=== PATIENT | male | born 1970 | race African-American/Black ===

== ENCOUNTER 2020-06-18 06:09 | Outpatient (REF) | payer OTHER, SELFPAY ==
--- NOTE | 2020-06-18 06:13 | CT_ITS ---
EXAMINATION: CT CHEST, ABDOMEN AND PELVIS WITH IV CONTRAST CLINICAL INFORMATION: Follow-up pancreatic cancer COMPARISON: Previous CT scans most recent January 2020 TECHNIQUE: Axial images through the chest, abdomen and pelvis following oral and 85 ML Omnipaque 350 intravenous contrast. Sagittal and coronal reconstructions on the technologist workstation were performed. Patient dose 1 8 8 mg/cm. This CT examination was performed using dose optimization techniques as appropriate, variously including the following: *Automated exposure control *Adjustment of mA and/or kV according to patient size (this includes techniques or standardized protocols for targeted exams where dose is matched to indication/reason for exam; i.e. extremities or head) *Use of iterative reconstruction technique FINDINGS: Chest: There is a 4 mm right upper lobe nodule axial image 182 series 7. This is increased in size from approximately 2 x 3 mm on January 2020 exam axial image 263 series 5.. There is a 3 mm right lower lobe nodule axial image 261 series 7. There is a new 3 x 6 mm right lower lobe nodule axial image 326 series 7. There is question of a new 2 mm superior segment left lower lobe nodule axial image 157 series 7. There are no enlarged hilar or mediastinal lymph nodes. The heart does not appear enlarged. There is no pericardial effusion. The thoracic aorta is normal in caliber. There is no pleural effusion or pleural thickening. No chest wall mass or enlarged axillary lymph nodes are seen. Abdomen and pelvis: No focal liver lesion is seen. The liver is slightly low in attenuation probably representing fatty infiltration. The liver is normal in size and shape. The gallbladder is unremarkable. There is no intrahepatic biliary duct dilatation. The common bile duct appears prominent measuring 1.2 cm. The main portal vein is not patent. There are varices seen in the kareem hepatis. There is low-attenuation seen in the body of the pancreas. This measures 2.2 x 7.5 cm in AP and transverse dimension axial image 24 series 3 and does not appear appreciably changed. This is continuous with low-attenuation soft tissue that surrounds the celiac axis, SMA and SMV. This does not appear appreciably changed. There is some normal enhancing pancreatic tissue seen in the head/uncinate process of the pancreas. The tail of the pancreas appears atrophic. The splenic vein is occluded. There are extensive peripancreatic varices. There is thickening of the soft tissues in the bilateral anterior pararenal fascia and surrounding the duodenum. This appears unchanged. The spleen is upper normal in size measuring 12.7 cm in length. This is unchanged. There is a left adrenal nodule that measures 1.9 cm and does not appear appreciably changed. The right adrenal gland is normal. There is a small cyst seen in the peripheral left kidney. The kidneys are otherwise unremarkable. The bladder is unremarkable. The prostate gland does not appear enlarged. There is stool throughout the colon questionable for constipation. Small and large bowel is otherwise unremarkable. The stomach is unremarkable. The appendix is unremarkable. There is a small umbilical hernia containing fat. The splenic vein is occluded. The distal SMV near the portal splenic confluence is occluded. The main portal vein is patent. There are extensive collateral vessels seen in the upper abdomen. Vascular structures are otherwise unremarkable. No ascites is seen. No lymphadenopathy is seen. There are degenerative changes of the spine. CT/CT abdomen pelvis w con IMPRESSION: Chest: New small pulmonary nodules. The largest measures 3 x 6 mm in the right lower lobe. Abdomen and pelvis: Stable low-attenuation in the body of the pancreas continuous with abnormal soft tissue surrounding the celiac axis, SMA and SMV, thickening of the bilateral anterior pararenal fascia and soft tissues surrounding the duodenum and left adrenal nodule. Occluded splenic vein, and distal SMV and extensive varices. Fatty liver. Stable mild dilatation of the common bile duct. Upper normal-size spleen. Stool throughout the colon questionable for constipation.
[2020-06-18] MEDS: iohexoL 350 MG/ML 100 ML INFUS..BTL IV (08:48)
[2020-06-18] MEDS: Barium Sulfate Oral (Vanilla) 450 ML ORAL.SUSP 900 ML PO (08:49)
== END 2020-06-18 06:10 | disposition home or self-care (01) ==
LOC: HO.CT 06:09
PROVIDERS: PCP Internal Medicine; Visit Provider Internal Medicine Medical Oncology
DX: C25.9 Malignant neoplasm of pancreas, unspecified (principal)
CPT/HCPCS: 71260; 74177; Q9967

== ENCOUNTER 2020-09-22 06:02 | Outpatient (REF) | payer OTHER, SELFPAY ==
--- NOTE | 2020-09-22 06:04 | CT_ITS ---
EXAMINATION: CT CHEST, ABDOMEN AND PELVIS WITH CONTRAST CLINICAL INFORMATION: Pancreatic cancer. COMPARISON: CT chest, abdomen and pelvis with contrast 06/18/2020 TECHNIQUE: 5 mm thin axial and reformatted 3 mm thin coronal and sagittal images of chest, abdomen and pelvis were obtained following IV 100 mL Omnipaque 350. DLP 863 mGy-cm. FINDINGS: CHEST: Lungs: There is a 5 mm nodule right upper lobe adjacent to major fissure axial image 211/7, previously measured 4 mm, 7 mm nodule right lower lobe axial image 323/7, previously measured 6 mm and a 5 mm nodule right lower lobe medially axial image 277/7, previously measured 3 mm. There is a 3 mm punctate nodule left lower lobe axial image 284/7. There is no acute pneumonic consolidation or mass seen. The thyroid lobes are symmetrical and normal. The central trachea and bronchi are widely patent. The heart size and great vessels are normal caliber. No abnormal size mediastinal lymph nodes seen. There is no pericardial effusion. There is no pleural effusion, thickening or calcification. The axilla and chest wall appear unremarkable. ABDOMEN AND PELVIS: The liver is normal size, shape and mild decreased attenuation. No focal lesion seen. No intrahepatic ductal dilatation. The gallbladder appears unremarkable. Visualized spleen and adrenal glands are unremarkable. The pancreas is mildly enlarged and diffusely hypodense with no focal lesions per se seen. There are significant collaterals in the head of the pancreas and peripancreatic soft tissues. There are indistinct fat borders along the posterior margin of the bladder. The tail of the pancreas is short. There is some enhancement in the pancreatic head and uncinate process similar to previous study without enlargement. No peripancreatic fluid collection seen. Bilateral adrenal glands and kidneys are unremarkable. There are moderate size left para-aortic lymph nodes, the largest measuring 1.9 x 1.8 cm. It previously measured 1.8 x 2.0 cm. No additional lymph nodes seen. The abdominal aorta is of normal caliber. Extensive varices are seen along the gastrosplenic ligament, gastrohepatic space and in the kareem hepatis. They are similar to previous study. There is moderate scattered stool seen throughout the colon without significant distention. Oral opacified small bowel loops are normal caliber. No free air or free fluid seen. The abdominal wall appears unremarkable. Imaging through the pelvis reveals unremarkable urinary bladder. The prostate gland is normal size. No free fluid seen. Bone windows reveal no lytic or sclerotic process. CT/CT abdomen pelvis w con IMPRESSION: Multiple pulmonary nodules are slightly increased in size since the previous study from 06/18/2020. There is no major change in slightly enlarged and hypodense appearing diffuse pancreas and mild haziness along the posterior pancreatic margin. No distinct focal lesion seen on the present exam, however, the pancreas appears slightly heterogeneous with abundant varices seen throughout the peripancreatic region, pancreas and upper abdomen. No change in the haziness in the peripancreatic region. Small left para-aortic lymph nodes are essentially stable. Diffuse mild fatty attenuation of liver is also stable. No focal liver lesions seen.
[2020-09-22] MEDS: iohexoL 350 MG/ML 100 ML INFUS..BTL IV (09:31)
== END 2020-09-22 06:03 | disposition home or self-care (01) ==
LOC: HO.CT 06:02
PROVIDERS: Visit Provider Internal Medicine Medical Oncology
DX: R91.8 Other nonspecific abnormal finding of lung field (principal); C25.9 Malignant neoplasm of pancreas, unspecified
CPT/HCPCS: 71260; 74177; Q9967

== ENCOUNTER 2021-01-31 08:08 | Outpatient (REF) | payer OTHER, SELFPAY ==
--- NOTE | ~2021-01-31 | CT_ITS ---
EXAMINATION: CT CHEST, ABDOMEN AND PELVIS WITH CONTRAST CLINICAL INFORMATION: Followup pancreatic CA, on chemotherapy. COMPARISON: None TECHNIQUE: 5 mm thin axial and reformatted 3 mm thin sagittal and coronal images of chest, abdomen and pelvis were obtained following IV 100 mL Omnipaque 350. DLP 1260 mGy-cm. FINDINGS: CHEST: The lungs are well expanded and clear of acute pneumonic process. 4 mm nodule right upper lobe axial image 257/9, 4 mm nodule left lower lobe superior segment image 225/9, 4 mm nodule right lower lobe axial image 316/9, previously measured 5 mm, 6 mm nodule right lower lobe axial image 373/9, previously measured 7 mm. No new nodules are seen. The heart size and great vessels are normal caliber. No abnormal sized mediastinal or hilar lymph nodes seen. The central trachea and the bronchi are widely patent. The thyroid lobes are symmetrical and normal. No pericardial effusion seen. There is no pleural effusion or thickening. The axilla and the chest wall appear unremarkable. ABDOMEN AND PELVIS: Visualized liver is normal size, shape and contour. It is diffusely attenuated. No focal lesion seen. There is no intrahepatic ductal dilatation seen. There are no radiopaque gallstones. There are numerous venous collaterals visualized in the upper abdomen secondary to portal vein thrombosis and cavernous transformation of portal vein. There is diffuse haziness in the head of the pancreas with heterogeneity and mild enhancement, similar to previous study. There are numerous varices surrounding the pancreatic head. The size of the pancreatic head is the same as before. The rest of the pancreas is hypodense, similar to previous study.The spleen is normal in size and density. Bilateral adrenal glands are unremarkable. No radiopaque gallstones visualized. The kidneys are normal size, shape and position. No radiopaque renal calculi or urolith. There is a left adrenal 2.1 cm nodule, stable. The abdominal aorta is normal caliber. The IVC is normal caliber. No retroperitoneal lymph nodes seen. There is scattered stool and gas seen in the colon without distention. The small bowel loops are normal caliber. No distention seen. There is no free air or free fluid. There is mild stranding in the paracolic gutter. There is a small umbilical hernia containing fat. Imaging through the pelvis reveals unremarkable urinary bladder. The prostate gland is mildly enlarged. No abnormal pelvic or retroperitoneal lymph nodes seen. CT/CT abdomen pelvis w con IMPRESSION: Stable pulmonary nodules. No new pulmonary nodules seen. Mild fatty infiltration of liver with portal vein thrombosis and cavernous transformation of portal vein, similar to previous study. There is diffuse haziness in the pancreatic head with heterogeneity, stable. The rest of the pancreas is slightly attenuated. Numerous collateral vessels are seen surrounding the pancreatic head and the upper abdomen.
[2021-01-31] MEDS: iohexoL 350 MG/ML 100 ML INFUS..BTL 85 ML IV (11:08)
== END 2021-01-31 08:09 | disposition home or self-care (01) ==
LOC: HO.CT 08:08
PROVIDERS: Visit Provider Internal Medicine Medical Oncology
DX: C25.9 Malignant neoplasm of pancreas, unspecified (principal)
CPT/HCPCS: 71260; 74177; Q9967

== ENCOUNTER 2021-04-26 09:08 | Day surgery (SDC) | payer OTHER, SELFPAY ==
--- NOTE | ~2021-04-26 | IR_ITS ---
PROCEDURE: ULTRASOUND AND FLUOROSCOPY-GUIDED TUNNELED CATHETER INSERTION CLINICAL INFORMATION: Pancreatic cancer to facilitate chemotherapy. COMPARISON: None TECHNIQUE: Following explaining ultrasound fluoroscopy-guided placement of tunneled catheter via right internal jugular vein including benefits and risk, a written consent was obtained. Preliminary ultrasound imaging through right and left neck was obtained for evaluation of jugular vein which are patent. Patient was placed supine on fluoroscopy table and the right neck was cleaned and draped in the usual sterile manner. 1% lidocaine was injected at puncture site following initial ultrasound evaluation. A single wall needle was then advanced under sterile ultrasound guidance and right jugular vein was punctured. After obtaining venous return a thin guidewire was placed over the needle and needle withdrawn. A 3 Macanese dilator was advanced over the guidewire and the guidewire and the catheter were anchored to the overlying drape. Approximately one gauze length away from the right neck incision along the right anterior chest wall just above the previous incision 1% lidocaine was injected. A small skin incision was made approximately 2 inches long. A blunt dissection was performed for creation of a small pocket. The port chamber was then introduced into the pocket and immobilized with two 3-0 nylon nonabsorbable sutures. The port chamber was initially flushed with heparinized saline and was connected to a catheter connected to the tunneler. 1% lidocaine was then inserted from the anterior chest wall incision to the neck incision. A blind tunneler attached to the catheter was then tunneled through the subcutaneous soft tissues to the right anterior neck incision. The tunneler and the catheter were pulled through the incision. The 3 Macanese dilator and guidewire was removed and 0.035 J-wire was advanced through the sheath into the SVC and under fluoroscopy into the IVC. The sheath was removed and an 8 Macanese dilator with peel-away sheath was introduced over the guidewire. The dilator and the guidewire was removed and the pre sized port catheter was introduced through the sheath. The peel-away sheath was removed while catheter was held in position by IR technologist. The peel-away sheath was finally removed and single image was obtained over the chest. The port and the catheter were flushed with saline and heparin. The chest wall skin incision was sutured with 3-0 absorbable sutures and the neck wall incision was sutured with 4-0 absorbable sutures. Patient tolerate procedure extremely well. Conscious sedation was utilized during the exam and patient monitored approximately for 60 minutes. FINDINGS: On preliminary ultrasound imaging both jugular veins are patent. There is successful placement of 6.6 Macanese 22 cm long Port-A-Cath with its tip in distal SVC ready for use. Patient tolerated procedure extremely well. IR/IR us guide venous access IMPRESSION: Successful fluoroscopy and ultrasound-guided placement of a right [id number]-[id number] with its tip in distal SVC. The catheter is ready for use. Fluoroscopy time: 1.0 minute. Dose area product: 291 cm /cm 2
--- NOTE | ~2021-04-26 | IR_ITS ---
PROCEDURE: ULTRASOUND AND FLUOROSCOPY-GUIDED TUNNELED CATHETER INSERTION CLINICAL INFORMATION: Pancreatic cancer to facilitate chemotherapy. COMPARISON: None TECHNIQUE: Following explaining ultrasound fluoroscopy-guided placement of tunneled catheter via right internal jugular vein including benefits and risk, a written consent was obtained. Preliminary ultrasound imaging through right and left neck was obtained for evaluation of jugular vein which are patent. Patient was placed supine on fluoroscopy table and the right neck was cleaned and draped in the usual sterile manner. 1% lidocaine was injected at puncture site following initial ultrasound evaluation. A single wall needle was then advanced under sterile ultrasound guidance and right jugular vein was punctured. After obtaining venous return a thin guidewire was placed over the needle and needle withdrawn. A 3 Malawian dilator was advanced over the guidewire and the guidewire and the catheter were anchored to the overlying drape. Approximately one gauze length away from the right neck incision along the right anterior chest wall just above the previous incision 1% lidocaine was injected. A small skin incision was made approximately 2 inches long. A blunt dissection was performed for creation of a small pocket. The port chamber was then introduced into the pocket and immobilized with two 3-0 nylon nonabsorbable sutures. The port chamber was initially flushed with heparinized saline and was connected to a catheter connected to the tunneler. 1% lidocaine was then inserted from the anterior chest wall incision to the neck incision. A blind tunneler attached to the catheter was then tunneled through the subcutaneous soft tissues to the right anterior neck incision. The tunneler and the catheter were pulled through the incision. The 3 Malawian dilator and guidewire was removed and 0.035 J-wire was advanced through the sheath into the SVC and under fluoroscopy into the IVC. The sheath was removed and an 8 Malawian dilator with peel-away sheath was introduced over the guidewire. The dilator and the guidewire was removed and the pre sized port catheter was introduced through the sheath. The peel-away sheath was removed while catheter was held in position by IR technologist. The peel-away sheath was finally removed and single image was obtained over the chest. The port and the catheter were flushed with saline and heparin. The chest wall skin incision was sutured with 3-0 absorbable sutures and the neck wall incision was sutured with 4-0 absorbable sutures. Patient tolerate procedure extremely well. Conscious sedation was utilized during the exam and patient monitored approximately for 60 minutes. FINDINGS: On preliminary ultrasound imaging both jugular veins are patent. There is successful placement of 6.6 Malawian 22 cm long Port-A-Cath with its tip in distal SVC ready for use. Patient tolerated procedure extremely well. IR/IR cvc repo tunnel w port IMPRESSION: Successful fluoroscopy and ultrasound-guided placement of a right [id number]-[id number] with its tip in distal SVC. The catheter is ready for use. Fluoroscopy time: 1.0 minute. Dose area product: 291 cm /cm 2
[2021-04-26 09:19] VITALS: BMI 30.8
[2021-04-26 09:24] LABS: MANUAL DIFF FLAG NO
[2021-04-26 09:26] LABS: Basophils Percent Auto 0.7 % (0-2); Eosinophils Absolute Auto 0.1 X10*3/uL (0.0-0.4); Eosinophils Percent Auto 1.7 % (0-4); Hematocrit 35.8 % (42-52); Hemoglobin 11.3 g/dl (14.0-18.0); Imm Gran Abs Auto 0.01 X10*3/uL (0.00-0.03); Imm Gran Pct Auto 0.3 % (0.0-0.4); Lymphocytes Absolute Auto 0.6 X10*3/uL (1.2-4.9); Lymphocytes Percent Auto 19.4 % (20-40); Mean Corpuscular HGB Conc 31.6 g/dl (31.0-36.0); Mean Corpuscular Hemoglobin 26.2 pg (27.0-33.0); Mean Corpuscular Volume 82.9 fL (80-98); Mean Platelet Volume 11.4 fL (9.4-12.4); Monocytes Absolute Auto 0.3 X10*3/uL (0.1-1.2); Monocytes Percent Auto 11.1 % (2-11); Neutrophils Absolute Auto 1.9 X10*3/uL (2.0-8.3); Neutrophils Percent Auto 66.8 % (45-73); Red Blood Count 4.32 X10*6/uL (4.60-5.80); Red Cell Distribution Width 14.5 % (11.0-16.0); White Blood Count 2.9 X10*3/uL (4.8-10.8)
[2021-04-26 09:28] LABS: Platelet Count 95 X10*3/uL (160-400)
[2021-04-26 09:31] LABS: INTERNATIONAL NORM RATIO 1.2 (0.9-1.1); Prothrombin Time 13.3 SEC (9.9-13.0)
[2021-04-26 09:34] LABS: Partial Thromboplastin Time 37.2 SEC (24.1-38.0)
[2021-04-26 09:42] LABS: Blood Urea Nitrogen 16 mg/dL (9-16); Creatinine Clr Calc Pharmacy 81.1; Estimated Glomerular Filt Rate 52
[2021-04-26 09:44] LABS: Anion Gap 9 (12-20); Carbon Dioxide 28 mmol/L (22-29); Chloride 106 mmol/L (96-108); Potassium 4.3 mmol/L (3.3-5.1); Sodium 139 mmol/L (135-145)
[2021-04-26 09:51] LABS: Glucose, Whole Blood 113 mg/dL (60-115)
[2021-04-26] MEDS: Lidocaine HCl 1 % MPF 5 ML VIAL 10 ML SUBCUT (12:41)
[2021-04-26 12:55] VITALS: BP 135/69; PULSE 59; RESP 18; TEMP 36.4; O2SAT 100
[2021-04-26 13:10] VITALS: BP 135/80; PULSE 60; RESP 16; O2SAT 99
[2021-04-26 13:35] VITALS: BP 136/87; PULSE 55; RESP 18; O2SAT 99
[2021-04-26 14:05] VITALS: BP 141/84; PULSE 54; RESP 16; O2SAT 99
[2021-04-26 14:35] VITALS: BP 131/81; PULSE 58; RESP 16; TEMP 36.4; O2SAT 99
== END 2021-04-26 14:54 | disposition home or self-care (01) ==
PROVIDERS: PCP Internal Medicine; Visit Provider Radiology Diagnostic Radiology
DX: Z45.2 Encounter for adjustment and management of vascular access device (principal); C25.9 Malignant neoplasm of pancreas, unspecified; E11.9 Type 2 diabetes mellitus without complications; Z79.4 Long term (current) use of insulin
CPT/HCPCS: 36415; 36561; 36597; 76937; 80051; 82565; 82947; 84520; 85025; 85610; 85730; 99152; 99153; C1769; C1788; J0690; J1642; J2250; J3010

== ENCOUNTER 2021-07-18 08:42 | Outpatient (REF) | payer OTHER, SELFPAY ==
--- NOTE | ~2021-07-18 | US_ITS ---
EXAMINATION: US ABDOMEN LIMITED CLINICAL INFORMATION: Ascites. Abdominal distention. COMPARISON: None TECHNIQUE: Real-time imaging of the right upper quadrant abdominal viscera. FINDINGS: There is a small amount of ascites visualized on limited abdominal ultrasound exam. US/US abdomen limited IMPRESSION: Small amount of ascites.
== END 2021-07-18 08:43 | disposition home or self-care (01) ==
LOC: HO.US 08:42
PROVIDERS: PCP Internal Medicine; Visit Provider Internal Medicine Medical Oncology
DX: C25.9 Malignant neoplasm of pancreas, unspecified (principal)
CPT/HCPCS: 76705

== ENCOUNTER 2021-09-02 07:48 | Outpatient (REF) | payer OTHER, SELFPAY ==
--- NOTE | ~2021-09-02 | CT_ITS ---
EXAMINATION: CT ABDOMEN AND PELVIS WITH CONTRAST CLINICAL INFORMATION: Recurrent pancreatic cancer, status post 3 cycles. COMPARISON: Ultrasound abdomen 07/18/2021, CT abdomen and pelvis with contrast 03/23/2021 at [facility] TECHNIQUE: Multidetector volumetric images were obtained from the superior aspect of the liver through the pubic symphysis following administration 85 mL of Omnipaque 350 intravenous contrast. Sagittal and coronal reformatted images were obtained on the technologist's workstation. Oral contrast: No This CT examination was performed using dose optimization techniques as appropriate, variously including the following: *Automated exposure control *Adjustment of mA and/or kV according to patient size (this includes techniques or standardized protocols for targeted exams where dose is matched to indication/reason for exam; i.e. extremities or head) *Use of iterative reconstruction technique DLP: 845 mGy-cm FINDINGS: LUNG BASES: The lung bases are clear. No pulmonary nodule or mass or pleural effusion seen. The heart size appears normal. LIVER, GALLBLADDER, AND BILIARY TREE: The liver is normal in size, shape, and attenuation. No focal hepatic lesion seen. There is mild dilatation of common hepatic, intrahepatic and common bile duct. The common hepatic duct measures 2 cm and is same size as before. The gallbladder is unremarkable with no evidence of radiopaque gallstones, gallbladder wall thickening, or obvious pericholecystic inflammatory changes. PANCREAS: The head, uncinate process and the proximal body of pancreas is hazy and heterogeneous with pancreatic borders slightly ill-defined. The distal body of the pancreas is normal size and fairly normal density. The tail is unremarkable. SPLEEN: Unremarkable. ADRENAL GLANDS: Unremarkable. KIDNEYS AND URETERS: The kidneys are normal in size, shape, and attenuation. No hydronephrosis, hydroureter, or calculi seen. No perinephric stranding. BLADDER: Mildly distended. GASTROINTESTINAL TRACT: There is moderate annular thickening involving the bilateral, question spasm or edema. It is best visualized on axial image 26/3 There is scattered stool and gas seen throughout the colon without distention. Oral opacified small bowel loops are normal caliber except for nonspecific mild mural thickening involving the third segment of the duodenum slightly more prominent than previous CT abdomen exam 03/23/2021 question spasm or post radiation changes. No free air seen. There is a moderate amount of free fluid most prominent in the perihepatic space and pelvis. ABDOMINAL WALL: There is no evidence of umbilical hernia. LYMPH NODES: There are small lymph nodes seen in the para-aortic region in the upper mid abdomen unable to differentiate from heterogeneous pancreatic body and uncinate process. VASCULAR: Unremarkable. PELVIC VISCERA: The prostate gland is normal. The periprostatic fat planes are preserved. No abnormal size pelvic or inguinal lymph nodes seen. OSSEOUS STRUCTURES: No lytic or sclerotic process seen. CT/CT abdomen pelvis w con IMPRESSION: Dilated intrahepatic duct and common bile duct with heterogeneous pancreatic head and body and ill-defined margins similar to previous study 03/23/2021. There are small peripancreatic lymph nodes which cannot be differentiated from the adjacent pancreatic head and uncinate process. However, there is no enlarging mass or lymph nodes seen. There is diffuse ascites and haziness throughout the peritoneum likely secondary to ascites and mesenteric edema. No liver lesions seen. Adrenal glands are normal. Fleischner guidelines were followed.
--- NOTE | ~2021-09-02 | CT_ITS ---
EXAMINATION: CT CHEST WITH CONTRAST CLINICAL INFORMATION: Follow-up pulmonary nodules COMPARISON: Previous chest CT, most recent from [facility] March 2021 TECHNIQUE: Multidetector volumetric CT imaging of the chest was obtained after the administration of 85 mL of Omnipaque 350 intravenous contrast without immediate adverse reactions. Axial MIP volume rendering provided. Sagittal and coronal reformatted images were obtained. This CT examination was performed using dose optimization techniques as appropriate, variously including the following: *Automated exposure control *Adjustment of mA and/or kV according to patient size (this includes techniques or standardized protocols for targeted exams where dose is matched to indication/reason for exam; i.e. extremities or head) *Use of iterative reconstruction technique DLP: 198 mGy-cm FINDINGS: LUNGS: The previously identified right upper lobe nodule near the minor fissure seen on axial image 132, right middle lobe nodule axial image 144 series 2 and right lower lobe nodule axial image 150 series 2 exam of March 2020 are no longer seen. No new pulmonary nodule is seen. There is scarring or subsegmental atelectasis in the medial left lower lobe adjacent to the spine. MEDIASTINUM: There is a right jugular port with tip projecting over the SVC. The mediastinum is normal. PLEURA: There is no pleural effusion. No pleural mass or thickening. AXILLA: No lymphadenopathy. UPPER ABDOMEN: See abdominal and pelvic CT report from the same day. OSSEOUS STRUCTURES: There are mild degenerative changes of the spine. CT/CT chest w con IMPRESSION: Right pulmonary nodules seen on March [address] are no longer seen. No new pulmonary nodules. Fleischner guidelines were followed.
[2021-09-02] MEDS: iohexoL 350 MG/ML 100 ML INFUS..BTL 85 ML IV (11:01)
== END 2021-09-02 07:49 | disposition home or self-care (01) ==
LOC: HO.CT 07:48
PROVIDERS: PCP Social Worker; Visit Provider Internal Medicine Medical Oncology
DX: C25.9 Malignant neoplasm of pancreas, unspecified (principal)
CPT/HCPCS: 71260; 74177; Q9967

== ENCOUNTER 2021-09-16 11:44 | Outpatient (REF) | payer OTHER, SELFPAY ==
--- NOTE | ~2021-09-16 | XR_ITS ---
EXAMINATION: XR ABDOMEN KUB CLINICAL INDICATION: Malignant neoplasm of pancreas COMPARISON: Previous CT of the abdomen and pelvis most recent August TECHNIQUE: AP view of the abdomen. FINDINGS: There are no dilated loops of bowel to suggest obstruction. There is no evidence of free air. No calcifications are seen. Bony structures are unremarkable XR/XR KUB IMPRESSION: Unremarkable examination.
== END 2021-09-16 11:45 | disposition home or self-care (01) ==
LOC: HO.XRAY 11:44
PROVIDERS: PCP Internal Medicine; Referring Provider Internal Medicine; Visit Provider Internal Medicine Gastroenterology
DX: C25.9 Malignant neoplasm of pancreas, unspecified (principal)
CPT/HCPCS: 74018

== ENCOUNTER 2021-10-03 12:54 | Day surgery (SDC) | payer OTHER, SELFPAY ==
[2021-10-03] VITALS (7 sets, daily range): BP systolic 132–149; BP diastolic 62–87; PULSE 59–64; RESP 17–18; TEMP 36.1–36.9; O2SAT 99–100; BMI 28.2
--- NOTE | ~2021-10-03 | US_ITS ---
EXAMINATION: US-GUIDED PARACENTESIS CLINICAL INFORMATION: Pancreatic cancer with ascites. COMPARISON: None TECHNIQUE: Following explaining ultrasound-guided paracentesis procedure, benefits and risk, a written consent was obtained. Patient was placed supine on ultrasound stretcher and preliminary ultrasound imaging was obtained through the abdomen. An optimal site was selected along the right upper quadrant and marked. The marked site was cleaned and draped in the usual sterile manner. 1% lidocaine was injected at puncture site. Through a small skin incision, a 5-Cameroonian Sabrixeh catheter was advanced into the right peritoneal space through the skin incision. After observing fluid return, stylet was withdrawn and catheter connected to vacuum bottle via connecting cannula. After obtaining all fluid and observing no more fluid return, the catheter was withdrawn and complete hemostasis achieved at puncture site. Sterile dressing was applied postprocedure. Patient tolerated the procedure extremely well. FINDINGS: On preliminary ultrasound imaging, there is moderate ascites seen in the upper quadrants of the abdomen. Approximately 2 L of light reddish color fluid was removed for diagnostic and therapeutic purposes. Part of this fluid was sent to lab as per referring physician orders for cell count with differential, Gram stain/culture, glucose, and cytology. US/US paracentesis abd w/image IMPRESSION: Successful ultrasound-guided paracentesis performed with approximately 2 L of light reddish fluid removed and sent to lab as per referring physician's orders.
[2021-10-03 13:31] LABS: Glucose, Whole Blood 116 mg/dL (60-115)
[2021-10-03] MEDS: Lidocaine HCl 1 % MPF 5 ML VIAL SUBCUT (14:09)
[2021-10-03 15:26] LABS: MN% 78.7 %; PMN% 21.3 %; RBC Peritoneal Fluid 0.008 X10*6/uL; WBC Peritoneal Fluid 0.908 X10*3/uL
[2021-10-03 16:43] LABS: Lymphocyte Peritoneal Fl 18 %; Monocytes Peritoneal Fl 64 %; Neutrophils Peritoneal Fluid 11 %
[2021-10-03 16:44] LABS: BF Shift QC OK YES; Other Peritioneal Fl 7 %
[2021-10-04 07:22] LABS: Glucose Peritoneal Fluid 140
== END 2021-10-03 16:44 | disposition home or self-care (01) ==
PROVIDERS: Radiology Diagnostic Radiology; PCP Internal Medicine; Visit Provider Internal Medicine Medical Oncology
DX: R18.8 Other ascites (principal); C25.9 Malignant neoplasm of pancreas, unspecified; D64.9 Anemia, unspecified; E11.9 Type 2 diabetes mellitus without complications; Z79.4 Long term (current) use of insulin
CPT/HCPCS: 49083; 82945; 82947; 84157; 87071; 87073; 87205; 88112; 89051

== ENCOUNTER 2021-11-07 07:45 | Day surgery (SDC) | payer OTHER, SELFPAY ==
--- NOTE | ~2021-11-07 | US_ITS ---
EXAMINATION: US ABDOMEN LIMITED CLINICAL INFORMATION: Pancreatic cancer. Ascites.. COMPARISON: Previous paracentesis 10/03/[address] of the abdomen and pelvis August 2021 TECHNIQUE: Limited 4 quadrant abdominal ultrasound FINDINGS: There is trace ascites seen in the left upper quadrant. Paracentesis was not performed. US/US abdomen limited IMPRESSION: Trace ascites in the left upper quadrant. Paracentesis not performed.
[2021-11-07 08:35] LABS: Glucose, Whole Blood 193 mg/dL (60-115)
[2021-11-07 08:49] VITALS: BMI 26.3
[2021-11-07 11:03] VITALS: BP 118/53; PULSE 69; RESP 18; O2SAT 100
== END 2021-11-07 09:50 | disposition home or self-care (01) ==
PROVIDERS: Radiology Diagnostic Radiology; Visit Provider Internal Medicine Medical Oncology
DX: R18.8 Other ascites (principal); Z53.8 Procedure and treatment not carried out for other reasons; C25.9 Malignant neoplasm of pancreas, unspecified; D61.818 Other pancytopenia; E11.9 Type 2 diabetes mellitus without complications; D64.9 Anemia, unspecified; Z86.16 Personal history of COVID-19; Z79.4 Long term (current) use of insulin; Z79.899 Other long term (current) drug therapy
CPT/HCPCS: 76705; 82947

== ENCOUNTER 2021-12-02 08:23 | Outpatient (REF) | payer OTHER, SELFPAY ==
--- NOTE | ~2021-12-02 | CT_ITS ---
EXAMINATION: CT ABDOMEN AND PELVIS WITH CONTRAST CLINICAL INFORMATION: Pancreatic cancer. COMPARISON: Previous CT of the abdomen and pelvis most recent August 2021. TECHNIQUE: Multidetector volumetric images were obtained from the superior aspect of the liver through the pubic symphysis following administration 85 mL of Omnipaque 350 intravenous contrast. Sagittal and coronal reformatted images were obtained on the technologist's workstation. Oral contrast: Yes This CT examination was performed using dose optimization techniques as appropriate, variously including the following: *Automated exposure control *Adjustment of mA and/or kV according to patient size (this includes techniques or standardized protocols for targeted exams where dose is matched to indication/reason for exam; i.e. extremities or head) *Use of iterative reconstruction technique DLP: 500 mGy-cm FINDINGS: LIVER, GALLBLADDER, AND BILIARY TREE: There is central intrahepatic biliary duct dilatation and extrahepatic biliary duct dilatation. This does not appear appreciably changed from most recent exam August 2021. The common bile duct measures 1.1 cm in diameter. There are small calcifications in the lateral segment of the left lobe of the liver that are stable. No focal liver lesion is seen. The gallbladder is normal. PANCREAS: There is some normally enhancing pancreatic tissue seen in the uncinate process of the head of the pancreas. The pancreas is otherwise diffusely low in attenuation. This is continuous with abnormal soft tissue that encases the celiac axis, SMA and SMV and narrows the third portion of the duodenum. This also extends to the upper retroperitoneum adjacent to the aorta, left adrenal gland and left renal vein. This does not appear appreciably changed from most recent exam August 2021. There is no main pancreatic duct dilatation. There is a small amount of ascites and thickening of the bilateral anterior pararenal fascia. There is a 6 mm peritoneal nodule inferior to the right lobe of the liver axial image 33 series 3, which may be decreased from 8 mm on August 2021 exam. SPLEEN: The spleen is enlarged and measures 15 cm in length. No focal lesion in the spleen is seen. ADRENAL GLANDS: There is abnormal low-attenuation soft tissue abutting the left adrenal gland. The adrenal glands are otherwise normal. KIDNEYS AND URETERS: The kidneys are normal in size, shape, and attenuation. No hydronephrosis, hydroureter, or calculi seen. No perinephric stranding. BLADDER: Unremarkable. GASTROINTESTINAL TRACT: There is stool throughout the colon suggestive of constipation. The third portion of the duodenum appears narrowed by abnormal soft tissue that is continuous with the pancreas. The small and large bowel are otherwise unremarkable. The appendix is unremarkable. ABDOMINAL WALL: No significant hernia is appreciated. LYMPH NODES: There is question of periportal and peripancreatic lymph nodes versus varices. 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 The distal SMV is occluded. The distal main portal vein is patent and right and left portal veins are patent. The extrahepatic main portal vein in the portosplenic confluence is occluded. PELVIC VISCERA: Unremarkable. OSSEOUS STRUCTURES: Unremarkable. CT/CT abdomen pelvis w con IMPRESSION: Stable central intrahepatic biliary duct and extrahepatic biliary duct dilatation. Stable diffuse low-attenuation appearance of the pancreas continuous with abnormal low-attenuation soft tissue surrounding the celiac axis, SMV and SMA and upper retroperitoneum adjacent to the abdominal aorta, left adrenal gland and left renal veins and third portion of duodenum. Occluded splenic vein, distal SMV and portosplenic confluence/extrahepatic main portal vein. The more distal hepatic main portal vein and right and left hepatic veins are patent. Small amount of ascites. Interval decrease in peritoneal nodule inferior to the right lobe of the liver. Constipation. Fleischner guidelines were followed.
--- NOTE | ~2021-12-02 | CT_ITS ---
EXAMINATION: CT CHEST WITH CONTRAST CLINICAL INFORMATION: Follow-up pancreatic cancer COMPARISON: Previous chest CT August 2021 TECHNIQUE: Multidetector volumetric CT imaging of the chest was obtained after the administration of 85 mL of Omnipaque 350 intravenous contrast without immediate adverse reactions. Axial MIP volume rendering provided. Sagittal and coronal reformatted images were obtained. This CT examination was performed using dose optimization techniques as appropriate, variously including the following: *Automated exposure control *Adjustment of mA and/or kV according to patient size (this includes techniques or standardized protocols for targeted exams where dose is matched to indication/reason for exam; i.e. extremities or head) *Use of iterative reconstruction technique DLP: 151 mGy-cm FINDINGS: LUNGS: No pulmonary nodule is seen. There is peripheral or subpleural scarring or subsegmental atelectasis in the left lower lobe adjacent to the spine that is stable. The lungs are otherwise clear. MEDIASTINUM: The mediastinum is normal. PLEURA: There is no pleural effusion. No pleural mass or thickening. AXILLA: No chest wall mass or enlarged axillary lymph nodes. There is a right jugular port with tip projecting over the SVC. UPPER ABDOMEN: See abdominal and pelvic CT report from the same day OSSEOUS STRUCTURES: There are degenerative changes of the spine. CT/CT chest w con IMPRESSION: Stable scarring or subsegmental atelectasis in the left lower lobe. No pulmonary nodules seen. Fleischner guidelines were followed.
[2021-12-02] MEDS: iohexoL 350 MG/ML 100 ML INFUS..BTL 85 ML IV (11:03)
[2021-12-02] MEDS: Barium Sulfate Oral (Berry) 450 ML ORAL.SUSP 900 ML PO (11:05)
== END 2021-12-02 08:24 | disposition home or self-care (01) ==
LOC: HO.CT 08:23
PROVIDERS: Visit Provider Internal Medicine Medical Oncology
DX: C25.9 Malignant neoplasm of pancreas, unspecified (principal)
CPT/HCPCS: 71260; 74177; Q9967

== ENCOUNTER 2021-12-05 09:42 | Outpatient (REF) | payer OTHER, SELFPAY ==
[2021-12-05 09:57] LABS: MANUAL DIFF FLAG NO
[2021-12-05 10:10] LABS: Basophils Percent Auto 0.3 % (0-2); Eosinophils Percent Auto 0.2 % (0-4); Hematocrit 25.8 % (42.0-52.0); Hemoglobin 7.9 g/dl (14.0-18.0); Imm Gran Pct Auto 1.6 % (0.0-0.4); Lymphocytes Absolute Auto 0.7 X10*3/uL (1.2-4.9); Mean Corpuscular HGB Conc 30.6 g/dl (31.0-36.0); Mean Corpuscular Hemoglobin 26.4 pg (27.0-33.0); Mean Corpuscular Volume 86.3 fL (80.0-98.0); Mean Platelet Volume 10.2 fL (9.4-12.4); Monocytes Absolute Auto 0.7 X10*3/uL (0.1-1.2); Neutrophils Absolute Auto 4.7 x10*3/uL (2.0-8.3); Neutrophils Percent Auto 75.9 % (45-73); Red Blood Count 2.99 X10*6/uL (4.60-5.80); Red Cell Distribution Width 22.2 % (11.0-16.0); White Blood Count 6.2 X10*3/uL (4.8-10.8)
[2021-12-05 10:11] LABS: Platelet Count 77 X10*3/uL (160-400)
[2021-12-05 10:35] LABS: Alanine Aminotransferase 21 U/L (0-40); Albumin Level 3.7 g/dL (3.5-5.0); Alkaline Phosphatase 74 U/L (39-117); Anion Gap 9 (12-20); Aspartate Amino Transferase 33 U/L (5-37); Bilirubin Total 0.5 mg/dL (0.0-1.0); Blood Urea Nitrogen 11 mg/dL (9-16); Calcium 8.9 mg/dL (8.4-10.2); Carbon Dioxide 28 mmol/L (22-29); Chloride 104 mmol/L (96-108); Estimated Glomerular Filt Rate > 60; Glucose Random 168 mg/dL (60-115); Potassium 4.1 mmol/L (3.3-5.1); Sodium 137 mmol/L (135-145); Total Protein 6.5 g/dL (6.5-8.0)
== END 2021-12-05 09:43 | disposition home or self-care (01) ==
LOC: HO.LAB 09:42
PROVIDERS: PCP Internal Medicine; Visit Provider Internal Medicine Medical Oncology
DX: C25.9 Malignant neoplasm of pancreas, unspecified (principal)
CPT/HCPCS: 36415; 80053; 85025

== ENCOUNTER → 2021-12-09 08:18 | Outpatient (BNVA) | payer OTHER, SELFPAY | PROVIDERS: PCP Internal Medicine; Visit Provider Internal Medicine Gastroenterology | DX: Z13.89 Encounter for screening for other disorder (principal) ==

== ENCOUNTER 2021-12-14 12:43 | Day surgery (SDC) | payer OTHER, SELFPAY ==
--- NOTE | 2021-12-14 12:58 | P.CONAN_ITS ---
[facility] Active Problems Active Problems: All Active Problems (Updated 12/11/21 @ 18:31 by Nathan Otoole MD) Rectal bleed (Acute) Pancreatic cancer (Acute) Pancreatic cancer (Acute) Past Medical History Medical History (Updated 12/11/21 @ 18:31 by Nathan Otoole MD) Anemia Diabetes mellitus Family History Family History Mother Diabetes Family history of problems with anesthesia: No Surgical History Surgical History H/O hernia repair History of esophagogastroduodenoscopy (EGD) Hx of colonoscopy History of Problems with Anesthesia: No Social History Social History Advance Directives: No Advance Directives Information Provided: Yes Meds Allergies Allergy/AdvReac Type Severity Reaction Status Date / Time No Known Allergies Allergy Verified 12/06/21 10:51 [No Known Allergies*] Home Medications Medication Instructions Recorded Confirmed Last Taken Type insulin glargine 100 unit/mL (3 14 unit SUBCUT BEDTIME 06/10/20 12/06/21 Unknown History mL) subcutaneous pen (Lantus Solostar U-100 Insulin) metformin 500 mg tablet,extended 2,000 mg PO DAILY 06/10/20 12/06/21 Unknown History release 24 hr multivitamin 1 tab PO DAILY 10/14/20 12/06/21 Unknown History tadalafil 5 mg tablet 5 mg PO DAILY PRN 09/16/21 12/06/21 Unknown History dexamethasone 4 mg tablet 4 mg PO BID 09/20/21 12/06/21 Unknown History dicyclomine 10 mg capsule 2 cap PO QID 09/20/21 12/06/21 Unknown History Exam Exam Date and Time: December 14, 2021 1258 Airway Mallampati Class: II TM Dist: >3cm Neck ROM: Full Heart: rrr Lungs: cta Assessment and Plan Assessment Anesthesia Assessment: Anesthesia Plan Discussed and Chart Reviewed Final Anesthetic Review Family History of Problems with Anesthesia: No History of Problems with Anesthesia: No NPO: Yes ASA Class: III Final Preanesthetic Review: No Changes in Pt Med Stat, Meds/Allgs Chart Reviewed and Consent Obtained/Reviewed Patient Risk: Intermediate Procedure Risk: Intermediate Anesthetic Plan Anesthetic Plan: MAC: Disposition: Standard PACU
[2021-12-14 13:19] VITALS: BMI 24.6
[2021-12-14 13:25] VITALS: BP 129/75; PULSE 53; RESP 18; TEMP 36.8; O2SAT 100
[2021-12-14 13:43] VITALS: BP 129/75; PULSE 53; RESP 18; TEMP 36.8; O2SAT 100
[2021-12-14 13:48] LABS: Glucose, Whole Blood 77 mg/dL (60-115)
--- NOTE | 2021-12-14 13:49 | MHC.SHP ---
Pre-Procedural Eval Section A Date of Service: 12/14/21 The patient is an INPATIENT: No The History & Physical has been completed within 30 days and I have reviewed it.: Yes Section B Chief Complaint: rectal bleeding,anemia, Allergies: Allergies Allergy/AdvReac Type Severity Reaction Status Date / Time No Known Allergies Allergy Verified 12/06/21 10:51 [No Known Allergies*] Plan Diagnosis/Plan: Unchanged I have reviewed the history and physical and performed a pertinent physical examination on my patient. No changes have occurred unless specified.
--- NOTE | 2021-12-14 13:49 | PM.OP ---
Brief Operative Note Date of Service: 12/14/21 Pre-op diagnosis: abnormal blood loss Post-op diagnosis: same Procedure: see op note Surgeon: Ade Crespo MD Anesthesia: MAC Was an Roller Mechanic used for this Procedure?: No Estimated blood loss (mL): 0 Condition: stable Disposition: PACU
--- NOTE | 2021-12-14 13:50 | P.OP_ITS ---
Operative Note Operative Note Date of Service: 12/14/21 Narrative: Operative Information Procedure Description: EGD, Colonoscopy Indication: Gi bleeding, anemia Anesthesia: MAC FLEXIBLE TRANSORAL UPPER GASTROINTESTINAL ENDOSCOPY AND COLONOSCOPY PROCEDURE NOTE UPPER ENDOSCOPY Consent: Indications for the procedure and potential complications of bleeding, perforation, reaction to medications and missed diagnosis were discussed with the patient and informed consent was obtained. Instrument: Olympus GIF H 190 J mid size upper endoscope Monitoring: Vital signs and clinical assessment, continuous EKG monitoring, Pulse oximetry, Carbon Dioxide monitoring and blood pressure monitoring were done throughout the procedure. Procedure: The patient was placed in the left lateral decubitis position and pre-procedure medications were administered and a bite block was placed. The endoscope was inserted into the mouth and advanced under direct vision to the third part of duodenum. A careful inspection was made as the upper endoscope was withdrawn including a retroflexed examination of the proximal stomach; Findings and interventions are described below. Findings: Larynx:normal Esophagus: GE junction at 45 cm, diaphragm hiatus at 45 cm, 4 cords of grade III esophageal varices seen with some red squires. Major Case Detective was applied and 4 bands were placed on the varices with collapse. Stomach: Normal mucosa. Biopsies were obtained. Grade 2 flap valve on retroflexed examination of the cardia with small gastric varices consistent with GOV type 1 Duodenum: Swollen bulb with erythema and induration in patchy areas extending to the descending part Intervention: Variceal banding COLONOSCOPY Instrument: Olympus variable stiffness pediatric scope 190L Colonoscopy Monitoring: Vital signs and clinical assessment, continuous EKG monitoring, Pulse oximetry, Carbon Dioxide monitoring and blood pressure monitoring were done throughout the procedure. Colon withdrawal time was 6 minutes. Procedure: The patient was placed in the left lateral decubitis position and pre-procedure medications were administered. After a digital rectal examination of the ano-rectum, the video colonoscope was inserted into the rectum and advanced through the colon to the cecum/TI. The colonoscope was slowly withdrawn in a retrograde panoramic fashion and the colon mucosa was carefully examined including a retroflexed view of the rectum. Findings and interventions are described below. Procedure Difficulty: moderate due to extrinsic compression of colon around hepatic flexure Findings: Terminal Ileum-not intubated Cecum:normal Ascending Colon: normal Transverse Colon -normal Descending Colon:normal Sigmoid Colon: normal Rectum: Retroflexion with moderate sized internal hemorrhoids, grade I Anorectum - normal Colon preparation: [place] Bowel Preparation Scale Right colon; 1 Transverse colon: 1 Left colon; 2 (0 = Unprepared colon segment with mucosa not seen due to solid stool that cannot be cleared. 1 = Portion of mucosa of the colon segment seen, but other areas of the colon segment not well seen due to staining, residual stool and/or opaque liquid. 2 = Minor amount of residual staining, small fragments of stool and/or opaque liquid, but mucosa of colon segment seen well. 3 = Entire mucosa of colon segment seen well with no residual staining, small fragments of stool or opaque liquid) Impression and Post Procedure Diagnosis: Endoscopy Findings: esophageal varices, GOV type I duodenitis some extrinsic compression of duodenal bulb Colonoscopy Findings: internal hemorrhoids compression of colon Plan: Clears today and advance diet tomorrow high dose PPI and carafate Repeat Colonoscopy as clinically indicated High fiber diet leaflet avoid straining at stool, epsom salts and sitz bath, anusol supps or cream Above findings were reviewed with the patient and relevant handouts were provided if indicated.
[2021-12-14] MEDS: Lactated Ringers 1,000 ML 50 ML IVCONT (14:21)
[2021-12-14 15:12] VITALS: BP 109/64; PULSE 77; RESP 16; TEMP 36.7; O2SAT 100
--- NOTE | 2021-12-14 15:18 | HO.ANESPROP2 ---
[facility] Active Problems Active Problems: All Active Problems (Updated 12/11/21 @ 18:31 by Nathan Otoole MD) Rectal bleed (Acute) Pancreatic cancer (Acute) Pancreatic cancer (Acute) Past Medical History Medical History Anemia Diabetes mellitus Family History Family History Mother Diabetes Family history of problems with anesthesia: No Surgical History Surgical History H/O hernia repair History of esophagogastroduodenoscopy (EGD) Hx of colonoscopy History of Problems with Anesthesia: No Social History Social History Patient Tobacco Use Status: Never used Tobacco Use of substances other than those prescribed or required for medical reasons: Yes Substance Use Type Other:: edibles Are you DNR?: No Advance Directives: No Advance Directives Information Provided: Yes Recently lost weight without trying: Yes How much weight loss: 2-13 pounds Meds Allergies Allergy/AdvReac Type Severity Reaction Status Date / Time No Known Allergies Allergy Verified 12/06/21 10:51 [No Known Allergies*] Active Medications: Current Medications Lactated Ringer's (Lr) 1,000 mls @ 50 mls/hr IVCONT .Q20H YESICA Last Admin: 12/14/21 14:21 Dose: 50 mls/hr Documented by: Home Medications Medication Instructions Recorded Confirmed Last Taken Type insulin glargine 100 unit/mL (3 14 unit SUBCUT BEDTIME 06/10/20 12/06/21 Unknown History mL) subcutaneous pen (Lantus Solostar U-100 Insulin) metformin 500 mg tablet,extended 2,000 mg PO DAILY 06/10/20 12/06/21 Unknown History release 24 hr multivitamin 1 tab PO DAILY 10/14/20 12/06/21 Unknown History tadalafil 5 mg tablet 5 mg PO DAILY PRN 09/16/21 12/06/21 Unknown History dexamethasone 4 mg tablet 4 mg PO BID 09/20/21 12/06/21 Unknown History dicyclomine 10 mg capsule 2 cap PO QID 09/20/21 12/06/21 Unknown History Exam Exam Date and Time: December 14, 2021 1518 Height,Weight and Vital Signs: Height 6 ft 2 in Weight 87.09 kg Last Vital Signs Temp 98.2 F 12/14/21 13:43 Pulse 53 12/14/21 13:43 Resp 18 12/14/21 13:43 BP 129/75 12/14/21 13:43 Pulse Ox 100 12/14/21 13:43 Pertinent Lab Results Pertinent Lab Results: Laboratory Tests 12/14/21 13:07 POC Glucose 77 Airway Mallampati Class: II (Nothing loose) TM Dist: >3cm Neck ROM: Full Heart: rrr Lungs: cta Assessment and Plan Final Anesthetic Review Family History of Problems with Anesthesia: No History of Problems with Anesthesia: No
[2021-12-14 15:27] VITALS: BP 123/80; PULSE 59; RESP 16; O2SAT 97
[2021-12-14 15:42] VITALS: BP 130/76; PULSE 57; RESP 18; O2SAT 100
[2021-12-14 16:14] VITALS: BP 142/82; PULSE 55; RESP 16; O2SAT 100
[2021-12-14] MEDS: Dextrose 50 % 25 GM/50 ML SYRINGE IVPUSH (16:20)
--- NOTE | 2021-12-14 16:27 | PC.NURSE ---
PATIENT HAS BEEN BRADYCARDIA 49 TO MID 50'S. PATIENT IS ASYMPTOMATIC. PATIENT STATES THIS IS NORMAL FOR HIM. PATIENT'S RECHECK BS WAS 58. PATIENT GIVEN D 50 PER ORDER FROM ANESTHESIOLOGIST. PT A/O X'S 3 WITHOUT COMPLAINT OF PAIN/DISCOMFORT. NO LIGHTHEADEDNESS. NO DIZZINESS.
--- NOTE | 2021-12-14 16:33 | PC.NURSE ---
POC 97.
[2021-12-14 16:37] LABS: Glucose, Whole Blood 58 mg/dL (60-115)
[2021-12-14 16:37] LABS: Glucose, Whole Blood 78 mg/dL (60-115)
[2021-12-14 16:37] LABS: Glucose, Whole Blood 97 mg/dL (60-115)
[2021-12-14 16:37] LABS: Glucose, Whole Blood 40 mg/dL (60-115)
[2021-12-14] MEDS: Heparin Sodium,Porcine Flush 50 UNITS/5 ML SYRINGE IVFLUSH (16:56)
== END 2021-12-14 16:50 ==
LOC: HO.SSS 12:44
PROVIDERS: PCP Internal Medicine; Visit Provider Internal Medicine Gastroenterology
PROC: (CPT 45378; principal; 2021-12-14 13:30)
DX: K62.5 Hemorrhage of anus and rectum (principal); K56.699 Other intestinal obstruction unspecified as to partial versus complete obstruction; K64.0 First degree hemorrhoids; C25.9 Malignant neoplasm of pancreas, unspecified; D64.9 Anemia, unspecified; I85.00 Esophageal varices without bleeding; I86.4 Gastric varices; K29.80 Duodenitis without bleeding; K44.9 Diaphragmatic hernia without obstruction or gangrene; E11.9 Type 2 diabetes mellitus without complications; Z79.4 Long term (current) use of insulin; Z79.899 Other long term (current) drug therapy
CPT/HCPCS: 45378; 43244; 43239; 82947; J1642

== ENCOUNTER 2022-01-13 08:10 | Outpatient (REF) | payer OTHER, SELFPAY ==
--- NOTE | ~2022-01-13 | US_ITS ---
EXAMINATION: US ABDOMEN LIMITED CLINICAL INFORMATION: Follow up ascites check. COMPARISON: CT abdomen and pelvis 12/02/2021. Ultrasound abdomen limited 11/07/2021 and 07/18/2021. X-ray KUB 09/16/2021. TECHNIQUE: Real-time imaging of the abdominal quadrants. FINDINGS: Mild to moderate volume of ascites. This is increased from previous CT. US/US abdomen limited IMPRESSION: Mild to moderate volume of ascites.
== END 2022-01-13 08:11 | disposition home or self-care (01) ==
LOC: HO.US 08:10
PROVIDERS: Visit Provider Internal Medicine Medical Oncology
DX: C25.9 Malignant neoplasm of pancreas, unspecified (principal)
CPT/HCPCS: 76705

== ENCOUNTER 2022-02-28 09:19 | Outpatient (REF) | payer OTHER, SELFPAY ==
--- NOTE | ~2022-02-28 | US_ITS ---
EXAMINATION: US ABDOMEN LIMITED CLINICAL INFORMATION: To look for ascites. COMPARISON: Ultrasound abdomen limited 01/13/2022 and 11/07/2021. CT abdomen and pelvis with contrast 12/02/2021. XR abdomen KUB 09/16/2021. TECHNIQUE: Real-time imaging of the 4 quadrants. US/US abdomen limited FINDINGS/IMPRESSION: Imaging through the 4 quadrants of the abdomen reveals small amount of fluid probably 500 mL or less. Recommend waiting for one or 2 more weeks for the fluid to be drained. If patient is very uncomfortable this could be secondary to other GI tissues. The fluid is not significant at this time.
[2022-02-28 11:20] LABS: Basophils Percent Auto 0.9 % (0-2); Eosinophils Absolute Auto 0.1 X10*3/uL (0.0-0.4); Eosinophils Percent Auto 3.1 % (0-4); Hematocrit 27.7 % (42.0-52.0); Hemoglobin 8.6 g/dl (14.0-18.0); Imm Gran Abs Auto 0.01 X10*3/uL (0.00-0.03); Imm Gran Pct Auto 0.4 % (0.0-0.4); Lymphocytes Absolute Auto 0.5 X10*3/uL (1.2-4.9); Lymphocytes Percent Auto 21.7 % (20-40); MANUAL DIFF FLAG SCAN; Mean Corpuscular Volume 83.7 fL (80.0-98.0); Mean Platelet Volume 10.8 fL (9.4-12.4); Monocytes Absolute Auto 0.2 X10*3/uL (0.1-1.2); Monocytes Percent Auto 10.2 % (2-11); Neutrophils Absolute Auto 1.4 x10*3/uL (2.0-8.3); Neutrophils Percent Auto 63.7 % (45-73); Red Blood Count 3.31 X10*6/uL (4.60-5.80); Red Cell Distribution Width 15.1 % (11.0-16.0); SCAN SMEAR FLAG 1
[2022-02-28 11:21] LABS: Platelet Count 91 X10*3/uL (160-400); White Blood Count 2.3 X10*3/uL (4.8-10.8)
[2022-02-28 11:39] LABS: Alanine Aminotransferase 11 U/L (0-40); Alkaline Phosphatase 36 U/L (39-117); Anion Gap 11 (12-20); Aspartate Amino Transferase 31 U/L (5-37); Bilirubin Total 0.7 mg/dL (0.0-1.0); Blood Urea Nitrogen 13 mg/dL (9-16); Calcium 8.9 mg/dL (8.4-10.2); Carbon Dioxide 26 mmol/L (22-29); Chloride 104 mmol/L (96-108); Estimated Glomerular Filt Rate > 60; Glucose Random 189 mg/dL (60-115); Potassium 3.7 mmol/L (3.3-5.1); Sodium 137 mmol/L (135-145); Total Protein 7.9 g/dL (6.5-8.0)
[2022-02-28 11:52] LABS: SLIDE REVIEW VERIFIED
[2022-03-04 10:16] LABS: Carbohydrate Antigen 19-9 1116 U/mL (<34)
== END 2022-02-28 09:20 | disposition home or self-care (01) ==
LOC: HO.US 09:19
PROVIDERS: PCP Internal Medicine; Visit Provider Internal Medicine Medical Oncology
DX: C25.9 Malignant neoplasm of pancreas, unspecified (principal)
CPT/HCPCS: 36415; 76705; 80053; 85025; 86301

== ENCOUNTER 2022-03-03 05:57 | Outpatient (REF) | payer OTHER, SELFPAY ==
--- NOTE | ~2022-03-03 | CT_ITS ---
EXAMINATION: CT CHEST, ABDOMEN AND PELVIS WITH CONTRAST CLINICAL INFORMATION: Follow-up pancreatic carcinoma. COMPARISON: CT chest, abdomen and pelvis 12/05/2021. TECHNIQUE: 5 mm thin axial and reformatted 3 mm thin sagittal and coronal images of the chest, abdomen and pelvis were obtained without contrast. DLP: 764 mGy-cm. FINDINGS: CHEST: Lungs: Both lungs are fairly well expanded and clear of acute pneumonic process. There are no pulmonary nodules, mass or consolidation. Mediastinum: The thyroid lobes are symmetric and normal. The central trachea and the bronchi are widely patent. The heart size and the great vessels are normal caliber. There is no pericardial effusion. No abnormal sized mediastinal or hilar lymph nodes seen. Axilla: No abnormal axillary lymph nodes seen. Pleura: There is no pleural thickening or effusion. ABDOMEN AND PELVIS: Liver, Ducts and Gallbladder: The liver is normal in size, contour and density. There is moderate central intrahepatic and extrahepatic ductal dilatation, similar to previous study. The gallbladder is unremarkable. The extrahepatic duct measures 2.3 cm on axial image 24/3 and measured same size previously. Spleen: The spleen is mildly enlarged and measures 14.7 cm in craniocaudad and approximately 16 cm in AP dimension. No focal lesion seen. Pancreas: There is enhancing head and uncinate process of the pancreas, similar to previous study. The rest of the pancreas is of low-attenuation with the splenic artery visualized inferiorly. Soft tissue density encircling the SMA and celiac axis is again visualized with no change from previous exam. Adrenal glands: Unremarkable. Kidneys and Ureters: Both kidney nephrograms are symmetrical in size, shape and cortical thickness. No focal lesion seen. No radiopaque calculi are hydronephrosis. GI Tract: There is diffuse large ascites. There is mild thickening involving the pylorus and the duodenal bulb, similar to the previous study with pancreatic soft tissue along the posterior border of the stomach and the duodenum. Contrast opacified small bowel loops are normal. There is scattered stool and gas seen in the colon without distention. Lymphovascular Structures: The abdominal aorta is normal caliber. Both common iliac arteries are patent. The region of celiac and SMA are widely patent. There are varicose veins present along the greater curvature and the splenic hilum. The splenic vein and distal SMV are not visualized. The IMV is likely patent but barely visualized. The distal portal vein is patent. No abnormal sized retroperitoneal or mesenteric lymph nodes seen. Small periportal and peripancreatic head lymph nodes are suspected. A periportal lymph node measures approximately 1.3 cm on axial image 20/3. Abdominal Wall: Unremarkable. Pelvis: There is large ascites. The bladder is mildly distended. The prostate gland appears normal sized. No abnormal pelvic lymphadenopathy seen. Osseous Structures: There is no lytic or sclerotic process seen. CT/CT abdomen pelvis w con IMPRESSION: Unremarkable CT chest exam with known pulmonary nodule seen. Diffuse ascites, dilated CBD and central right and left hepatic ducts are stable. Mild splenomegaly, stable. Low attenuation soft tissue densities surrounding the celiac axis, SMA, SMV appears unchanged. The splenic vein is not visualized. Distal portal vein is patent. There are moderate varicose veins present along the greater curvature of the stomach and the splenic hilum, likely portal hypertension. Small periportal lymph nodes are seen. Moderate mural thickening involving the distal stomach, duodenal bulb and the first segment of the duodenum is unchanged. There is some omental thickening but previously seen nodule inferior to right hepatic lobe is not distinctly visualized at this time.
[2022-03-03] MEDS: Barium Sulfate Oral (Vanilla) 450 ML ORAL.SUSP 900 ML PO (08:18)
[2022-03-03] MEDS: iohexoL 350 MG/ML 100 ML INFUS..BTL IV (08:19)
== END 2022-03-03 05:58 | disposition home or self-care (01) ==
LOC: HO.CT 05:57
PROVIDERS: PCP Internal Medicine; Visit Provider Internal Medicine Medical Oncology
DX: C25.9 Malignant neoplasm of pancreas, unspecified (principal)
CPT/HCPCS: 71260; 74177; Q9967

== ENCOUNTER 2022-05-01 11:53 | Day surgery (SDC) | payer OTHER, SELFPAY ==
--- NOTE | ~2022-05-01 | US_ITS ---
EXAMINATION: ULTRASOUND-GUIDED PARACENTESIS CLINICAL INFORMATION: Pancreatic cancer COMPARISON: Previous CT of the abdomen and pelvis February 2022 TECHNIQUE: Procedure and risks and benefits including bleeding infection and low blood pressure were discussed with the patient and informed consent was obtained. The right lower quadrant was prepped and draped in usual sterile fashion. The skin and soft tissues were anesthetized with 1% lidocaine plain. Using ultrasound guidance and a 5 Frisian rapid catheter, access to the ascitic fluid was obtained. 4 L of clear yellow fluid was removed. No specimen was sent. FINDINGS: There is a moderate amount of ascites. US/US paracentesis abd w/image IMPRESSION: Ultrasound-guided paracentesis.
[2022-05-01 12:21] LABS: MANUAL DIFF FLAG NO
[2022-05-01 12:23] VITALS: BMI 27.2
[2022-05-01 12:28] LABS: INTERNATIONAL NORM RATIO 1.3 (0.9-1.1); Prothrombin Time 14.6 SEC (10.0-13.1)
[2022-05-01 12:29] LABS: Eosinophils Absolute Auto 0.1 X10*3/uL (0.0-0.4); Eosinophils Percent Auto 2.4 % (0-4); Hematocrit 29.7 % (42.0-52.0); Hemoglobin 9.2 g/dl (14.0-18.0); Lymphocytes Absolute Auto 0.5 X10*3/uL (1.2-4.9); Lymphocytes Percent Auto 18.8 % (20-40); Mean Corpuscular Hemoglobin 23.6 pg (27.0-33.0); Mean Corpuscular Volume 76.2 fL (80.0-98.0); Monocytes Absolute Auto 0.3 X10*3/uL (0.1-1.2); Monocytes Percent Auto 11.8 % (2-11); Neutrophils Absolute Auto 1.9 x10*3/uL (2.0-8.3); Platelet Count 84 X10*3/uL (160-400); Red Cell Distribution Width 17.2 % (11.0-16.0); White Blood Count 2.9 X10*3/uL (4.8-10.8)
[2022-05-01 12:31] LABS: Partial Thromboplastin Time 35.5 SEC (26.0-36.4)
[2022-05-01 13:05] VITALS: BMI 27.2
[2022-05-01 13:26] LABS: Glucose, Whole Blood 116 mg/dL (60-115)
--- NOTE | 2022-05-01 14:28 | HO.RADPN ---
RADIOLOGY Narrative Narrative: RLQ paracentesis performed using 5 fr catheter. 4 L clear yellow fluid removed. No specimen sent.
[2022-05-01] MEDS: Lidocaine HCl 1 % MPF 5 ML VIAL 4 ML SUBCUT (14:47)
[2022-05-01 15:10] VITALS: BP 117/74; PULSE 48; RESP 19; TEMP 36.1; O2SAT 100
[2022-05-01 15:25] VITALS: BP 129/69; PULSE 50; RESP 18; O2SAT 99
[2022-05-01 15:40] VITALS: BP 138/75; PULSE 59; RESP 18; O2SAT 100
[2022-05-01 15:55] VITALS: BP 132/78; PULSE 49; RESP 18; O2SAT 100
[2022-05-01 16:10] VITALS: BP 124/79; PULSE 53; RESP 18; TEMP 36.1; O2SAT 100
== END 2022-05-01 16:35 | disposition home or self-care (01) ==
PROVIDERS: PCP Internal Medicine; Visit Provider Radiology Diagnostic Radiology
DX: R18.8 Other ascites (principal); C25.9 Malignant neoplasm of pancreas, unspecified; E11.9 Type 2 diabetes mellitus without complications; D64.9 Anemia, unspecified; Z79.4 Long term (current) use of insulin
CPT/HCPCS: 36415; 49083; 82947; 85025; 85610; 85730

== ENCOUNTER 2022-05-26 15:18 | Outpatient (REF) | payer OTHER, SELFPAY ==
--- NOTE | ~2022-05-26 | US_ITS ---
EXAMINATION: US paracentesis with imaging and limited ultrasound CLINICAL INFORMATION: Ascites. COMPARISON: Previous exam 05/01/2022 TECHNIQUE: Limited 4 quadrant ultrasound was performed to check for ascites. Subsequently, the patient was brought to the ultrasound department. The left lower quadrant was prepped and draped in the usual sterile fashion. The skin and soft tissues were anesthetized with 1% lidocaine plain. Using ultrasound guidance and a 5 Algerian catheter, access to the ascitic fluid was obtained. 5.8 L of slightly cloudy yellow fluid was removed. No diagnostic specimen was sent. FINDINGS: There is a moderate to large amount of ascites. US/US abdomen limited IMPRESSION: Ultrasound-guided paracentesis.
[2022-05-30 07:41] LABS: Glucose, Whole Blood 166 mg/dL (60-115)
== END 2022-05-26 15:19 | disposition home or self-care (01) ==
LOC: HO.US 15:18
PROVIDERS: Visit Provider Internal Medicine Medical Oncology
DX: R14.0 Abdominal distension (gaseous) (principal); R18.8 Other ascites
CPT/HCPCS: 76705; 82947

== ENCOUNTER 2022-05-26 16:30 | Day surgery (SDC) | payer OTHER, SELFPAY ==
--- NOTE | ~2022-05-26 | US_ITS ---
EXAMINATION: US paracentesis with imaging and limited ultrasound CLINICAL INFORMATION: Ascites. COMPARISON: Previous exam 05/01/2022 TECHNIQUE: Limited 4 quadrant ultrasound was performed to check for ascites. Subsequently, the patient was brought to the ultrasound department. The left lower quadrant was prepped and draped in the usual sterile fashion. The skin and soft tissues were anesthetized with 1% lidocaine plain. Using ultrasound guidance and a 5 Iraqi catheter, access to the ascitic fluid was obtained. 5.8 L of slightly cloudy yellow fluid was removed. No diagnostic specimen was sent. FINDINGS: There is a moderate to large amount of ascites. US/US paracentesis abd w/image IMPRESSION: Ultrasound-guided paracentesis.
[2022-05-26 16:34] VITALS: BMI 26.4
[2022-05-26 16:38] VITALS: BP 126/77; PULSE 79; RESP 16; TEMP 36.3; O2SAT 99
--- NOTE | 2022-05-26 17:21 | HO.RADPN ---
RADIOLOGY Narrative Narrative: LLQ paracentesis using 5 fr catheter. L sally colored fluid removed. No specimen sent.
[2022-05-26 17:48] VITALS: BP 116/76; PULSE 76; RESP 16; TEMP 36.4; O2SAT 100
[2022-05-26] MEDS: Lidocaine HCl 1 % MPF 5 ML VIAL SUBCUT (17:49)
[2022-05-26 18:03] VITALS: BP 127/79; PULSE 70; RESP 16; O2SAT 100
[2022-05-26 18:18] VITALS: BP 136/77; PULSE 68; RESP 16; TEMP 36.2; O2SAT 100
[2022-05-26 18:33] VITALS: BP 130/81; PULSE 67; RESP 16; TEMP 36.1; O2SAT 100
[2022-05-26 18:48] VITALS: BP 115/63; PULSE 72; RESP 16; TEMP 36.4; O2SAT 100
== END 2022-05-26 18:55 | disposition home or self-care (01) ==
PROVIDERS: Radiology Diagnostic Radiology; PCP Internal Medicine; Visit Provider Internal Medicine Medical Oncology
DX: R18.8 Other ascites (principal); C25.1 Malignant neoplasm of body of pancreas; C25.2 Malignant neoplasm of tail of pancreas; D64.9 Anemia, unspecified; E11.9 Type 2 diabetes mellitus without complications; Z79.4 Long term (current) use of insulin; Z79.899 Other long term (current) drug therapy
CPT/HCPCS: 49083

== ENCOUNTER → 2022-06-08 13:08 | Outpatient (RCR) | payer OTHER, SELFPAY ==
[2020-07-17 10:39] LABS: COVID-19 Test Positive (Negative); IDNOW Serial# 55D5AD1C
== END | disposition home or self-care (01) ==
LOC: HO.EMPCOV 07-17 10:06
PROVIDERS: Visit Provider Internal Medicine
DX: Z20.828 Contact with and (suspected) exposure to other viral communicable diseases (principal)
CPT/HCPCS: 87635; C9803

== ENCOUNTER 2022-06-13 07:56 | Outpatient (REF) | payer OTHER, SELFPAY ==
--- NOTE | ~2022-06-13 | CT_ITS ---
EXAMINATION: CT CHEST WITH CONTRAST CLINICAL INFORMATION: Pancreatic cancer. COMPARISON: Previous chest CT most recent February 2020 TECHNIQUE: Multidetector volumetric CT imaging of the chest was obtained after the administration of 85 mL of Omnipaque 350 intravenous contrast without immediate adverse reactions. Axial MIP volume rendering provided. Sagittal and coronal reformatted images were obtained. This CT examination was performed using dose optimization techniques as appropriate, variously including the following: *Automated exposure control *Adjustment of mA and/or kV according to patient size (this includes techniques or standardized protocols for targeted exams where dose is matched to indication/reason for exam; i.e. extremities or head) *Use of iterative reconstruction technique DLP: 297 mGy-cm FINDINGS: LUNGS: There are several small new bilateral pulmonary nodules. Largest right pulmonary nodule measures 5 mm in the right upper lobe near the major fissure axial image 229 series 8 and 5 mm in the right lower lobe axial image 290 series 8. Largest left pulmonary nodule measures 4 mm in the left upper lobe axial image 181 series 8 and peripheral or subpleural left lower lobe nodule adjacent to the fissure axial image 344 series 8. There is new atelectasis or consolidation left lower lobe adjacent to the effusion. MEDIASTINUM: There is a right jugular port with tip projecting over the SVC. There is an increasing right cardiophrenic angle or anterior diaphragmatic lymph node measuring 1 x 2.5 cm axial image 48 series 5. There is a right jugular port with tip projecting over the SVC. CORONARY ARTERY CALCIFICATION: None visualized on this study. PLEURA: There is no pleural effusion. No pleural mass or thickening. AXILLA: No lymphadenopathy. UPPER ABDOMEN: See abdominal and pelvic CT report from the same day. OSSEOUS STRUCTURES: Degenerative changes of the spine. CT/CT chest w IV con IMPRESSION: New moderate sized left pleural effusion. New bilateral pulmonary nodules. New left lower lobe atelectasis or consolidation adjacent to the effusion. New enlarged right cardiophrenic angle or anterior diaphragmatic lymph node. Fleischner guidelines were followed.
--- NOTE | ~2022-06-13 | CT_ITS ---
EXAMINATION: CT ABDOMEN AND PELVIS WITH CONTRAST CLINICAL INFORMATION: Follow-up pancreatic cancer COMPARISON: Previous CT scans most recent February 2022 TECHNIQUE: Multidetector volumetric images were obtained from the superior aspect of the liver through the pubic symphysis following administration 85 mL of Omnipaque 350 intravenous contrast. Sagittal and coronal reformatted images were obtained on the technologist's workstation. Oral contrast: Yes This CT examination was performed using dose optimization techniques as appropriate, variously including the following: *Automated exposure control *Adjustment of mA and/or kV according to patient size (this includes techniques or standardized protocols for targeted exams where dose is matched to indication/reason for exam; i.e. extremities or head) *Use of iterative reconstruction technique DLP: 695 mGy-cm FINDINGS: LUNG BASES: New left pleural effusion. Adjacent left lower lobe atelectasis or consolidation. LIVER, GALLBLADDER, AND BILIARY TREE: There is intrahepatic and extrahepatic biliary duct dilatation. This does not appear appreciably changed from most recent exam February 2015. Common bile duct measures to 2.2 cm. There may be atrophic changes of the left lobe of the liver. There is a small there are small calcifications in the left lobe of the liver. No focal liver lesion is appreciated. The gallbladder does not appear dilated. No gallstones. There is a large amount of ascites. There is question of peritoneal implant in the right upper quadrant measuring 6 mm axial image 36 series 6. This is not appreciably changed. PANCREAS: No pancreatic mass is not well appreciated due to timing of IV contrast. SPLEEN: Slightly enlarged measuring 14 cm in length. ADRENAL GLANDS: 1.3 cm left adrenal nodule axial image 32 series 6 similar to previous exams. Normal right adrenal gland.. KIDNEYS AND URETERS: The kidneys are normal in size, shape, and attenuation. No hydronephrosis, hydroureter, or calculi seen. No perinephric stranding. BLADDER: Unremarkable. GASTROINTESTINAL TRACT: Constipation. The small and large bowel are otherwise unremarkable. The appendix is unremarkable. ABDOMINAL WALL: No significant hernia is appreciated. LYMPH NODES: Not well evaluated due to timing of IV contrast. VASCULAR: There are upper abdominal varices. Evaluation of vessel patency is limited due to timing of IV contrast. Abnormal area pancreatic soft tissue surrounding the celiac axis, SMA and SMV and in the root of the small bowel mesentery not well evaluated. PELVIC VISCERA: Unremarkable. OSSEOUS STRUCTURES: Unremarkable. CT/CT abdomen pelvis w IV con IMPRESSION: Very limited exam due to timing of IV contrast. Pancreatic mass not well appreciated. No appreciable change from recent exam February 2022. Fleischner guidelines were followed.
[2022-06-13] MEDS: Barium Sulfate Oral (Mocha) 450 ML ORAL.SUSP 900 ML PO (11:03)
[2022-06-13] MEDS: iohexoL 350 MG/ML 100 ML INFUS..BTL 85 ML IV (11:04)
== END 2022-06-13 07:57 | disposition home or self-care (01) ==
LOC: HO.CT 07:56
PROVIDERS: Visit Provider Internal Medicine Medical Oncology
DX: C25.9 Malignant neoplasm of pancreas, unspecified (principal)
CPT/HCPCS: 71260; 74177; Q9967

== ENCOUNTER 2022-06-22 12:11 | Outpatient (REF) | payer OTHER, SELFPAY ==
[2022-06-22 12:23] LABS: MANUAL DIFF FLAG NO
[2022-06-22 12:43] LABS: Basophils Percent Auto 0.8 % (0-2); Eosinophils Absolute Auto 0.1 X10*3/uL (0.0-0.4); Eosinophils Percent Auto 2.6 % (0-4); Hematocrit 30.3 % (42.0-52.0); Hemoglobin 9.4 g/dl (14.0-18.0); Imm Gran Abs Auto 0.01 X10*3/uL (0.00-0.03); Imm Gran Pct Auto 0.3 % (0.0-0.4); Lymphocytes Absolute Auto 0.5 X10*3/uL (1.2-4.9); Lymphocytes Percent Auto 13.3 % (20-40); Mean Corpuscular Volume 77.3 fL (80.0-98.0); Mean Platelet Volume 10.3 fL (9.4-12.4); Monocytes Absolute Auto 0.5 X10*3/uL (0.1-1.2); Monocytes Percent Auto 11.7 % (2-11); Neutrophils Absolute Auto 2.7 x10*3/uL (2.0-8.3); Neutrophils Percent Auto 71.3 % (45-73); Platelet Count 114 X10*3/uL (160-400); Red Blood Count 3.92 X10*6/uL (4.60-5.80); Red Cell Distribution Width 18.8 % (11.0-16.0); White Blood Count 3.8 X10*3/uL (4.8-10.8)
[2022-06-22 12:46] LABS: INTERNATIONAL NORM RATIO 1.2 (0.9-1.1); Prothrombin Time 14.4 SEC (10.0-13.1)
[2022-06-22 13:17] LABS: Alanine Aminotransferase 52 U/L (0-40); Albumin Level 3.7 g/dL (3.5-5.0); Alkaline Phosphatase 304 U/L (39-117); Anion Gap 18 (12-20); Aspartate Amino Transferase 69 U/L (5-37); Bilirubin Total 2.3 mg/dL (0.0-1.0); Blood Urea Nitrogen 19 mg/dL (9-16); Calcium 9.1 mg/dL (8.4-10.2); Carbon Dioxide 22 mmol/L (22-29); Chloride 101 mmol/L (96-108); Estimated Glomerular Filt Rate > 60; Glucose Random 116 mg/dL (60-115); Potassium 4.5 mmol/L (3.3-5.1); Sodium 136 mmol/L (135-145); Total Protein 7.8 g/dL (6.5-8.0)
[2022-06-27 09:02] LABS: Carbohydrate Antigen 19-9 15607 U/mL (<34)
== END 2022-06-22 12:12 | disposition home or self-care (01) ==
LOC: HO.LAB 12:11
PROVIDERS: PCP Internal Medicine; Visit Provider Internal Medicine Medical Oncology
DX: C25.9 Malignant neoplasm of pancreas, unspecified (principal)
CPT/HCPCS: 36415; 80053; 85025; 85610; 86301

== ENCOUNTER 2022-06-22 13:09 | Day surgery (SDC) | payer OTHER, SELFPAY ==
--- NOTE | ~2022-06-22 | US_ITS ---
EXAMINATION: ULTRASOUND-GUIDED PARACENTESIS CLINICAL INFORMATION: Ascites. COMPARISON: Abdominal CT of 06/13/2022 and paracentesis of 05/26/2022. TECHNIQUE: Ultrasound-guided paracentesis. FINDINGS: Informed consent was obtained from the patient prior to the procedure. During this process, the procedure and potential alternatives were explained, along with the intended outcome and benefits. The risks of the procedure, as well as the risk of not doing the procedure, were discussed. The patient was given the opportunity to ask questions regarding the procedure and appeared competent to make medical decisions. A signed consent form which documents this discussion was placed in the medical record. Preliminary survey of the abdomen by ultrasound demonstrated largest collection within the right lower quadrant. Using sterile technique and ultrasound guidance a 5-Syrian Yueh needle was directed into the right lower quadrant peritoneum with removal of 6.3 L of slightly cloudy yellow fluid. Patient tolerated procedure without difficulty. US/US paracentesis abd w/image IMPRESSION: Paracentesis with removal of 6.3 L of fluid.
[2022-06-22 13:21] LABS: MANUAL DIFF FLAG NO
[2022-06-22 13:25] VITALS: BMI 25.7
[2022-06-22 13:30] LABS: INTERNATIONAL NORM RATIO 1.2 (0.9-1.1); Prothrombin Time 14.4 SEC (10.0-13.1)
[2022-06-22 13:32] LABS: Basophils Percent Auto 0.8 % (0-2); Eosinophils Absolute Auto 0.1 X10*3/uL (0.0-0.4); Eosinophils Percent Auto 2.6 % (0-4); Hematocrit 30.3 % (42.0-52.0); Hemoglobin 9.4 g/dl (14.0-18.0); Imm Gran Abs Auto 0.01 X10*3/uL (0.00-0.03); Imm Gran Pct Auto 0.3 % (0.0-0.4); Lymphocytes Absolute Auto 0.5 X10*3/uL (1.2-4.9); Lymphocytes Percent Auto 13.3 % (20-40); Mean Corpuscular Volume 77.3 fL (80.0-98.0); Mean Platelet Volume 10.3 fL (9.4-12.4); Monocytes Absolute Auto 0.5 X10*3/uL (0.1-1.2); Monocytes Percent Auto 11.7 % (2-11); Neutrophils Absolute Auto 2.7 x10*3/uL (2.0-8.3); Neutrophils Percent Auto 71.3 % (45-73); Platelet Count 114 X10*3/uL (160-400); Red Blood Count 3.92 X10*6/uL (4.60-5.80); Red Cell Distribution Width 18.8 % (11.0-16.0); White Blood Count 3.8 X10*3/uL (4.8-10.8)
[2022-06-22 13:37] LABS: Partial Thromboplastin Time 34.9 SEC (26.0-36.4)
[2022-06-22 15:55] VITALS: BP 121/75; PULSE 65; RESP 20; TEMP 36.8; O2SAT 99
[2022-06-22] MEDS: Lidocaine HCl 1 % MPF 5 ML VIAL 10 ML SUBCUT (16:05)
[2022-06-22 16:10] VITALS: BP 129/79; PULSE 67; RESP 13; TEMP 36.5; O2SAT 96
[2022-06-22 16:25] VITALS: BP 126/72; PULSE 63; RESP 13; TEMP 36.4; O2SAT 95
[2022-06-23 05:23] LABS: Glucose, Whole Blood 123 mg/dL (60-115)
== END 2022-06-22 16:40 | disposition home or self-care (01) ==
PROVIDERS: PCP Internal Medicine; Visit Provider Radiology Diagnostic Radiology
DX: R18.8 Other ascites (principal); C25.9 Malignant neoplasm of pancreas, unspecified; K31.89 Other diseases of stomach and duodenum; D61.818 Other pancytopenia; D64.9 Anemia, unspecified; E11.9 Type 2 diabetes mellitus without complications; Z79.4 Long term (current) use of insulin; Z79.899 Other long term (current) drug therapy; Z86.16 Personal history of COVID-19
CPT/HCPCS: 36415; 49083; 82947; 85025; 85610; 85730

== ENCOUNTER 2022-06-28 12:33 | Day surgery (SDC) | payer OTHER, SELFPAY ==
--- NOTE | ~2022-06-28 | US_ITS ---
PROCEDURE: ULTRASOUND INSERTION PLEURX CATHETER CLINICAL INFORMATION: Metastatic pancreatic cancer and recurrent ascites. COMPARISON: Previous paracentesis most recent 06/22/[address] of the abdomen and pelvis May 2022. TECHNIQUE: Procedure and risk and benefits including bleeding and infection were discussed with the patient and informed consent was obtained. Right abdomen was prepped and draped in the usual sterile fashion. The skin and soft tissues were anesthetized with 1% lidocaine plain. Using ultrasound guidance and a 5 one stick catheter, access to the ascitic fluid was obtained. A more inferior incision was made in the right abdomen. A subcutaneous tunnel from the second to the first incision was anesthetized with 1% lidocaine plain. Using a tunneler, a 15 [place] Pleurx catheter was tunneled from the inferior to the superior incision. A 0.035 guidewire was advanced through the 5 [place] Angiocath into the peritoneal cavity. Following serial dilatation, a 16 [place] peel-away sheath was advanced. The Pleurx catheter was fed through the peel-away sheath. The superior incision was closed using a 3-0 absorbable interrupted suture followed by a 3-0 absorbable subcuticular suture. The lower incision adjacent to the catheter was closed using a 3-0 absorbable mattress suture. The catheter was attached to a Vacutainer bottle. Only 200 mL of clear fluid was removed. Ultrasound demonstrated catheter surrounded by small bowel. Patient was instructed to return the following day to see if catheter and small bowel would move away from each other and more fluid could be drained. The patient received Versed 1.5 mg and fentanyl 75 mcg intravenously during the procedure and 2 g of intravenous Kefzol. Conscious sedation was provided by a registered nurse under my direct supervision using continuous hemodynamic monitoring. Total sedation time was 76 minutes. FINDINGS: There is a moderate amount of ascites. US/US insertion pluerx cath IMPRESSION: Ultrasound-guided abdominal Pleurx catheter placement.
[2022-06-28 13:01] VITALS: BMI 24.3
[2022-06-28 13:12] LABS: Glucose, Whole Blood 102 mg/dL (60-115)
--- NOTE | 2022-06-28 17:16 | HO.RADPN ---
RADIOLOGY Narrative Narrative: RLQ 15.5 fr Pleurex catheter placed in abdominal cavity. 200 ml clear yellow fluid removed. Catheter appears surrounded by small bowel. Patient to return tomorrow to see if more fluid can be drained after movement.
[2022-06-28 17:40] VITALS: BP 122/78; PULSE 67; RESP 16; TEMP 36.2; O2SAT 99
[2022-06-28 17:55] VITALS: BP 119/71; PULSE 69; RESP 16; O2SAT 98
[2022-06-28 18:10] VITALS: BP 133/76; PULSE 71; RESP 16; TEMP 36.6; O2SAT 100
[2022-06-28 18:25] VITALS: BP 134/76; PULSE 67; RESP 16; O2SAT 100
== END 2022-06-28 18:41 | disposition home or self-care (01) ==
PROVIDERS: PCP Internal Medicine; Visit Provider Radiology Diagnostic Radiology
DX: R18.8 Other ascites (principal); C25.7 Malignant neoplasm of other parts of pancreas; D61.818 Other pancytopenia; D64.9 Anemia, unspecified; E11.9 Type 2 diabetes mellitus without complications; Z79.4 Long term (current) use of insulin; Z79.899 Other long term (current) drug therapy
CPT/HCPCS: 32550; 82947; 99152; 99153; C1729; J0690; J2250; J3010

== ENCOUNTER 2022-06-29 13:05 | Outpatient (REF) | payer OTHER, SELFPAY ==
--- NOTE | ~2022-06-29 | XR_ITS ---
EXAMINATION: XR ABDOMEN KUB CLINICAL INDICATION: Pleurx check. COMPARISON: 09/08/2021 KUB. TECHNIQUE: AP view of the abdomen. FINDINGS: Support devices: A catheter seen with tip overlying of the mid pelvis to the left of midline. There is a nonobstructive bowel gas pattern. Mild to moderate stool seen within the colon distally to the rectum. The osseous structures are unremarkable. XR/XR KUB IMPRESSION: 1. Catheter tip overlies the pelvis as detailed above. 2. Nonobstructive bowel gas pattern. Mild to moderate colonic stool burden.
== END 2022-06-29 13:06 | disposition home or self-care (01) ==
LOC: HO.XRAY 13:05
PROVIDERS: PCP Internal Medicine; Visit Provider Radiology Diagnostic Radiology
DX: Z48.03 Encounter for change or removal of drains (principal)
CPT/HCPCS: 74018

== ENCOUNTER 2022-07-05 09:37 | Day surgery (SDC) | payer OTHER, SELFPAY ==
--- NOTE | ~2022-07-05 | IR_ITS ---
EXAMINATION: IR CVC REPOSITIONING TUNNEL CATHETER WITHOUT PORT/PUMP CLINICAL INFORMATION: Poorly functioning abdominal Pleurx catheter. COMPARISON: Pleurx catheter placement 06/28/2022 and KUB 06/29/2022. TECHNIQUE: Procedure and risks and benefits including bleeding and infection, possible paracentesis and Pleurx catheter declot, exchange or manipulation were discussed with the patient and informed consent was obtained. The right upper abdomen and existing Pleurx catheter were prepped and draped in the usual sterile fashion. A office asst film was obtained. Limited bilateral lower quadrant ultrasound was performed to document position of Pleurx catheter and assess amount of ascites. The Pleurx catheter was accessed using a Vacutainer bottle access kit. No ascitic fluid could be removed. An 18-gauge needle was injected into the bottle catheter tubing. The tubing was clamped on the catheter side. The Pleurx catheter was flushed with 10 mL normal saline. The catheter flushed easily. The catheter was injected with Omnipaque 300 contrast. This demonstrated thrombus in the majority of the length of the catheter. An 035 guidewire followed by a 4-Serbian glide catheter was advanced through the Pleurx catheter. The catheter and guidewire were twirled to displace the thrombus. This process was repeated. Ascitic fluid could be seen spontaneously draining from the catheter. The catheter was reinjected with contrast. The catheter was reattached to a Vacutainer bottle. There is a very slow flow of ascitic fluid into the Vacutainer bottle. A total of 500 mL of clear yellow fluid was removed. The patient was transferred from the fluoroscopy table to his stretcher and his head was elevated in attempt to increase flow rate through the catheter. A repeat ultrasound of the bilateral lower quadrants was performed to assess volume of ascites. The patient received 2 grams of intravenous Kefzol during the procedure. No conscious sedation was administered. FLUOROSCOPY TIME: 20 minutes. 17 saved fluoroscopic images DAP: 8212 cGy per centimeter squared. FINDINGS: There is a small amount of ascites seen by ultrasound. Pleurx catheter is seen entering the right mid abdomen with tip in the left lower quadrant. Tip of the catheter is visualized by ultrasound. The tip of the catheter is in a small pocket of ascitic fluid in the left lower quadrant. Catheter appears in satisfactory position without kink. Initial catheter injection demonstrated the majority of the catheter to be clogged. Images following mechanical declotting demonstrate increased patency of the catheter. IR/IR cvc repo tunnel wo prt/consolidation accountant IMPRESSION: Pleurx catheter is in satisfactory position with tip in the left lower quadrant. Mechanical declot of Pleurx catheter and paracentesis. Despite declotting the catheter, flow of ascitic fluid through the catheter is still very slow. 500 mL of clear yellow fluid was removed. Limited ultrasound was performed at the same time which demonstrated a small amount of ascitic fluid.
[2022-07-05 10:30] LABS: Glucose, Whole Blood 202 mg/dL (60-115)
[2022-07-05 10:32] LABS: Hematocrit 28.3 % (42.0-52.0); Hemoglobin 9.2 g/dl (14.0-18.0); Imm Gran Abs Auto 0.01 X10*3/uL (0.00-0.03); Imm Gran Pct Auto 0.6 % (0.0-0.4); Lymphocytes Absolute Auto 0.2 X10*3/uL (1.2-4.9); MANUAL DIFF FLAG SCAN; Mean Corpuscular HGB Conc 32.5 g/dl (31.0-36.0); Mean Corpuscular Hemoglobin 24.5 pg (27.0-33.0); Mean Corpuscular Volume 75.5 fL (80.0-98.0); Mean Platelet Volume 10.7 fL (9.4-12.4); Monocytes Absolute Auto 0.1 X10*3/uL (0.1-1.2); Monocytes Percent Auto 3.6 % (2-11); Neutrophils Absolute Auto 1.4 x10*3/uL (2.0-8.3); Neutrophils Percent Auto 86.8 % (45-73); Platelet Count 121 X10*3/uL (160-400); Red Blood Count 3.75 X10*6/uL (4.60-5.80); Red Cell Distribution Width 17.7 % (11.0-16.0); SCAN SMEAR FLAG 1
[2022-07-05 10:35] LABS: White Blood Count 1.7 X10*3/uL (4.8-10.8)
[2022-07-05 10:37] LABS: INTERNATIONAL NORM RATIO 1.1 (0.9-1.1)
[2022-07-05 10:40] LABS: Partial Thromboplastin Time 29.9 SEC (26.0-36.4)
[2022-07-05 10:52] LABS: SLIDE REVIEW VERIFIED
[2022-07-05 11:19] VITALS: BMI 23.3
--- NOTE | 2022-07-05 14:08 | HO.RADPN ---
RADIOLOGY Narrative Narrative: Pleurex abdominal catheter unclogged using glidewire and 4 fr catheter. Catheter injected with contrast. Catheter tip is in LLQ and catheter is patent now. Abdominal US shows small amount of ascites. 500 mL clear yellow fluid removed.
[2022-07-05 14:15] VITALS: BP 110/55; PULSE 67; RESP 18; TEMP 36; O2SAT 100
[2022-07-05 14:30] VITALS: BP 117/71; PULSE 65; RESP 18; O2SAT 100
[2022-07-05 14:45] VITALS: BP 108/62; PULSE 66; RESP 14; O2SAT 100
[2022-07-05 15:00] VITALS: BP 108/68; PULSE 58; RESP 14; O2SAT 100
[2022-07-05] MEDS: Lidocaine HCl 1 % 20 ML VIAL 10 ML SUBCUT (15:01)
[2022-07-05 15:15] VITALS: BP 102/56; PULSE 58; RESP 14; O2SAT 100
[2022-07-05 15:45] VITALS: BP 112/65; PULSE 58; RESP 14; O2SAT 100
== END 2022-07-05 16:15 | disposition home or self-care (01) ==
PROVIDERS: Radiology Diagnostic Radiology; PCP Internal Medicine; Visit Provider Internal Medicine Medical Oncology
DX: Z46.82 Encounter for fitting and adjustment of non-vascular catheter (principal); R18.8 Other ascites; D64.9 Anemia, unspecified; E11.9 Type 2 diabetes mellitus without complications; Z79.4 Long term (current) use of insulin; Z79.899 Other long term (current) drug therapy
CPT/HCPCS: 36415; 36597; 82947; 85025; 85610; 85730; C1769; C1887; J0690; J2250; J3010; Q9967

== ENCOUNTER 2022-08-18 09:31 | Outpatient (REF) | payer OTHER, SELFPAY ==
--- NOTE | ~2022-08-18 | US_ITS ---
EXAMINATION: US ABDOMEN LIMITED CLINICAL INFORMATION: Ascites. PleurX catheter not working. COMPARISON: CT abdomen and pelvis 06/13/2022. Limited abdominal ultrasound 05/26/2022. TECHNIQUE: Real-time imaging of the 4 quadrants. FINDINGS: Moderate amount of ascites. US/US abdomen limited IMPRESSION: Moderate amount of ascites.
== END 2022-08-18 09:32 | disposition home or self-care (01) ==
LOC: HO.US 09:31
PROVIDERS: PCP Internal Medicine; Visit Provider Internal Medicine
DX: C25.9 Malignant neoplasm of pancreas, unspecified (principal)
CPT/HCPCS: 76705

== ENCOUNTER 2022-08-18 11:21 | Day surgery (SDC) | payer OTHER, SELFPAY ==
--- NOTE | ~2022-08-18 | US_ITS ---
EXAMINATION: ULTRASOUND-GUIDED PARACENTESIS CLINICAL INFORMATION: Ascites COMPARISON: Ultrasound from earlier the same day TECHNIQUE: Procedure and risks and benefits including bleeding, infection and low blood pressure were discussed with the patient and informed consent was obtained. The right lower quadrant was prepped and draped in the usual sterile fashion. The skin and soft tissues were anesthetized with 1% lidocaine plain. Using ultrasound guidance and a 5 Welsh catheter, access to the ascitic fluid was obtained. 4.2 L of clear yellow fluid was removed. No diagnostic specimen was sent. FINDINGS: There is a moderate amount of ascites. US/US paracentesis abd w/image IMPRESSION: Ultrasound-guided paracentesis.
[2022-08-18 11:55] LABS: Glucose, Whole Blood 184 mg/dL (60-115)
[2022-08-18 14:50] VITALS: BP 103/76; PULSE 80; RESP 15; TEMP 37.6; O2SAT 100
[2022-08-18] MEDS: Lidocaine HCl 1 % 20 ML VIAL 5 ML SUBCUT (14:50)
[2022-08-18 15:20] VITALS: BP 95/58; PULSE 83; RESP 12; O2SAT 100
--- NOTE | 2022-08-18 15:22 | HO.RADPN ---
RADIOLOGY Narrative Narrative: RLQ paracentesis . 4 L clear yellow fluid removed.
[2022-08-18 15:50] VITALS: BP 100/60; PULSE 85; RESP 17; O2SAT 100
== END 2022-08-18 16:16 | disposition home or self-care (01) ==
PROVIDERS: Radiology Diagnostic Radiology; Visit Provider Internal Medicine
DX: R18.8 Other ascites (principal); C25.9 Malignant neoplasm of pancreas, unspecified; E11.9 Type 2 diabetes mellitus without complications
CPT/HCPCS: 49083; 82947

== ENCOUNTER 2022-09-01 11:33 | Day surgery (SDC) | payer OTHER, SELFPAY ==
--- NOTE | ~2022-09-01 | US_ITS ---
EXAMINATION: ULTRASOUND-GUIDED PARACENTESIS. CLINICAL INFORMATION: Malignant ascites. COMPARISON: None TECHNIQUE: Following explaining ultrasound-guided paracentesis procedure, benefits and risk, a written consent was obtained. Patient was placed supine on ultrasound stretcher and preliminary ultrasound imaging was obtained. An optimal site was selected along the right anterior mid quadrant and marked. The marked site was cleaned and draped in usual sterile manner. 1% lidocaine was injected. Through a small skin incision a 5 Romanian AorTxeh catheter was advanced into the peritoneal space. After observing fluid return the stylet was withdrawn and catheter connected to vacuum bottle via connecting cannula. After obtaining all fluid and observing no more fluid return, the catheter was withdrawn and complete hemostasis was achieved at puncture site. Patient tolerated procedure extremely well. FINDINGS: On preliminary ultrasound imaging there is a large amount of free fluid in the abdomen. Approximately 5.8 L of cloudy yellowish fluid was drained from the right anterior mid quadrant. None of this fluid was sent to lab. US/US paracentesis abd w/image IMPRESSION: Successful ultrasound-guided therapeutic paracentesis performed with approximately 5.8 L of cloudy yellowish fluid drained.
[2022-09-01 12:02] VITALS: BMI 20.1
[2022-09-01 12:25] LABS: MANUAL DIFF FLAG NO
[2022-09-01 12:29] LABS: Basophils Percent Auto 0.5 % (0-2); Eosinophils Percent Auto 0.5 % (0-4); Hemoglobin 10.5 g/dl (14.0-18.0); Imm Gran Abs Auto 0.03 X10*3/uL (0.00-0.03); Imm Gran Pct Auto 0.5 % (0.0-0.4); Lymphocytes Absolute Auto 0.4 X10*3/uL (1.2-4.9); Lymphocytes Percent Auto 6.2 % (20-40); Mean Corpuscular HGB Conc 32.8 g/dl (31.0-36.0); Mean Corpuscular Hemoglobin 25.5 pg (27.0-33.0); Mean Corpuscular Volume 77.7 fL (80.0-98.0); Mean Platelet Volume 10.7 fL (9.4-12.4); Monocytes Absolute Auto 0.5 X10*3/uL (0.1-1.2); Monocytes Percent Auto 7.7 % (2-11); Neutrophils Absolute Auto 5.1 x10*3/uL (2.0-8.3); Neutrophils Percent Auto 84.6 % (45-73); Platelet Count 141 X10*3/uL (160-400); Red Blood Count 4.12 X10*6/uL (4.60-5.80); Red Cell Distribution Width 17.9 % (11.0-16.0)
[2022-09-01 12:29] LABS: Glucose, Whole Blood 163 mg/dL (60-115)
[2022-09-01 12:33] LABS: INTERNATIONAL NORM RATIO 1.2 (0.9-1.1); Prothrombin Time 13.4 SEC (10.0-13.1)
[2022-09-01 12:36] LABS: Partial Thromboplastin Time 30.1 SEC (26.0-36.4)
[2022-09-01 12:41] LABS: Anion Gap 18 (12-20); Blood Urea Nitrogen 45 mg/dL (9-16); Carbon Dioxide 27 mmol/L (22-29); Chloride 91 mmol/L (96-108); Creatinine Clr Calc Pharmacy 35.6; Estimated Glomerular Filt Rate 28; Potassium 3.5 mmol/L (3.3-5.1); Sodium 132 mmol/L (135-145)
[2022-09-01 14:20] VITALS: BP 113/81; PULSE 79; RESP 16; TEMP 36.6; O2SAT 100
[2022-09-01] MEDS: Lidocaine HCl 1 % MPF 5 ML VIAL 10 ML SUBCUT (14:20)
[2022-09-01 14:35] VITALS: BP 116/79; PULSE 82; RESP 16; O2SAT 100
[2022-09-01 14:49] VITALS: BP 123/81; PULSE 81; RESP 16; O2SAT 100
[2022-09-01 15:05] VITALS: BP 115/79; PULSE 84; RESP 16; TEMP 36.6; O2SAT 100
== END 2022-09-01 15:15 | disposition home or self-care (01) ==
PROVIDERS: Visit Provider Radiology Diagnostic Radiology
DX: R18.8 Other ascites (principal); C25.9 Malignant neoplasm of pancreas, unspecified; D61.818 Other pancytopenia; D64.9 Anemia, unspecified; E11.9 Type 2 diabetes mellitus without complications; Z79.4 Long term (current) use of insulin; Z79.899 Other long term (current) drug therapy
CPT/HCPCS: 36415; 49083; 80051; 82565; 82947; 84520; 85025; 85610; 85730

== ENCOUNTER 2022-09-08 11:38 | Day surgery (SDC) | payer OTHER, SELFPAY ==
--- NOTE | ~2022-09-08 | US_ITS ---
PROCEDURE: US-GUIDED PARACENTESIS and removal of long-term tunneled catheter due to nonfunctioning CLINICAL INFORMATION: Ascites. Nonfunctioning of tunneled abdominal catheter. COMPARISON: None TECHNIQUE: Following explaining ultrasound-guided paracentesis and removal of tunneled abdominal catheter procedure, benefits and risks, a written consent was obtained. Patient was placed supine on ultrasound stretcher and preliminary ultrasound imaging was obtained. An optimal site was selected along the left lower quadrant and marked. The marked site was cleaned and draped in the usual sterile manner. The area around the right tunneled catheter along the anterior abdominal wall was also cleaned and draped in usual sterile manner. 1% lidocaine was injected in both places. Through a small skin incision, a 5-Brazilian Yueh catheter was advanced from the left met-sj-bmejn abdomen into the peritoneal space. After observing fluid return, stylet was withdrawn and catheter connected to vacuum bottle via connecting cannula. After obtaining all fluid and observing no fluid, the catheter was removed. Simultaneously, the right tunneled abdominal catheter was dissected with a skin incision where the cuff was palpable along the right abdominal wall. A blunt dissection was performed and the entire catheter was removed. The skin incision at both sites where the catheter entered the skin and an incision where the cuff was removed were both sutured with 3-0 absorbable sutures in a subcutaneous fashion. 3-0 absorbable sutures were also utilized to appose the skin layers. Sterile dressing applied postprocedure. Patient tolerated the procedure extremely well. Due to fluid leak at the incision site following removal of abdominal tunneled catheter and risk of infection, IV 2 grams of Kefzol was given. Dr. Otoole was asked to prescribe IV antibiotics for 5 to 7 days. Patient tolerated the procedure extremely well. FINDINGS: There is a moderate amount of free fluid in the abdomen. Approximately 3.7 L of clear yellowish fluid was drained from the left lower quadrant. None of this fluid was sent to the lab. Long tunneled abdominal catheter was removed from the right midabdomen. The incisions were sutured with absorbable sutures. US/US paracentesis abd w/image IMPRESSION: 1. Successful therapeutic paracentesis performed. 2. Successful removal of non-functioning tunneled abdominal catheter from the right abdomen.
[2022-09-08 11:53] VITALS: BMI 19.5
[2022-09-08 12:17] LABS: Glucose, Whole Blood 165 mg/dL (60-115)
[2022-09-08 14:43] VITALS: BP 115/75; PULSE 88; RESP 16; TEMP 36.4; O2SAT 98
[2022-09-08] MEDS: Lidocaine HCl 1 % MPF 5 ML VIAL 20 ML SUBCUT (14:49)
[2022-09-08 14:58] VITALS: BP 116/81; PULSE 87; RESP 16; O2SAT 98
[2022-09-08 15:12] VITALS: BP 109/73; PULSE 84; RESP 16; O2SAT 98
[2022-09-08 15:22] VITALS: BP 109/65; PULSE 87; RESP 16; O2SAT 98
== END 2022-09-08 15:44 | disposition home or self-care (01) ==
PROVIDERS: Visit Provider Radiology Diagnostic Radiology
DX: R18.8 Other ascites (principal); C25.8 Malignant neoplasm of overlapping sites of pancreas; D64.9 Anemia, unspecified; E11.9 Type 2 diabetes mellitus without complications; Z79.4 Long term (current) use of insulin
CPT/HCPCS: 49083; 82947; J0690; J2250; J3010

== ENCOUNTER 2022-09-15 11:29 | Day surgery (SDC) | payer OTHER, SELFPAY ==
[2022-09-15] VITALS (7 sets, daily range): BP systolic 102–124; BP diastolic 69–83; PULSE 84–90; RESP 13–17; TEMP 36.7–36.8; O2SAT 100; BMI 19.2
--- NOTE | ~2022-09-15 | US_ITS ---
EXAMINATION: ULTRASOUND-GUIDED PARACENTESIS. CLINICAL INFORMATION: History of pancreatic cancer with ascites. COMPARISON: Ultrasound-guided paracentesis 09/08/2022 TECHNIQUE: Following explaining ultrasound-guided paracentesis procedure, benefits and risk, a written consent was obtained. Patient was placed supine on ultrasound stretcher and preliminary ultrasound imaging was obtained. An optimal site was selected along the right lower quadrant and marked. The marked site was cleaned and draped in usual sterile manner. 1% lidocaine was injected at puncture site. Through a small skin incision a Antuit catheter was advanced into the peritoneal space. After observing fluid return, stylet was withdrawn and catheter connected to vacuum bottle. After obtaining all fluid and observing no more fluid remaining, catheter was withdrawn and complete hemostasis achieved at puncture site. Sterile dressing applied postprocedure. Patient tolerated procedure extremely well. FINDINGS: There is moderate ascites seen on preliminary ultrasound imaging. Approximately 4.5 L of cloudy sally color fluid was removed. None of this fluid was sent to lab. US/US paracentesis abd w/image IMPRESSION: Successful ultrasound guided therapeutic paracentesis performed.
[2022-09-15 12:29] LABS: MANUAL DIFF FLAG NO
[2022-09-15 12:32] LABS: Basophils Percent Auto 0.1 % (0-2); Hematocrit 31.2 % (42.0-52.0); Hemoglobin 10.7 g/dl (14.0-18.0); Imm Gran Abs Auto 0.05 X10*3/uL (0.00-0.03); Imm Gran Pct Auto 0.7 % (0.0-0.4); Lymphocytes Absolute Auto 0.3 X10*3/uL (1.2-4.9); Lymphocytes Percent Auto 3.4 % (20-40); Mean Corpuscular HGB Conc 34.3 g/dl (31.0-36.0); Mean Corpuscular Hemoglobin 25.8 pg (27.0-33.0); Mean Corpuscular Volume 75.4 fL (80.0-98.0); Mean Platelet Volume 9.7 fL (9.4-12.4); Monocytes Absolute Auto 0.4 X10*3/uL (0.1-1.2); Monocytes Percent Auto 5.8 % (2-11); Neutrophils Absolute Auto 6.9 x10*3/uL (2.0-8.3); Platelet Count 217 X10*3/uL (160-400); Red Blood Count 4.14 X10*6/uL (4.60-5.80); Red Cell Distribution Width 18.7 % (11.0-16.0); White Blood Count 7.7 X10*3/uL (4.8-10.8)
[2022-09-15 12:32] LABS: Glucose, Whole Blood 227 mg/dL (60-115)
[2022-09-15 12:42] LABS: INTERNATIONAL NORM RATIO 1.1 (0.9-1.1); Prothrombin Time 13.1 SEC (10.0-13.1)
[2022-09-15 12:45] LABS: Partial Thromboplastin Time 29.9 SEC (26.0-36.4)
[2022-09-15 12:53] LABS: Creatinine Clr Calc Pharmacy 20.3; Estimated Glomerular Filt Rate 15
[2022-09-15 13:13] LABS: Anion Gap 19 (12-20); Blood Urea Nitrogen 83 mg/dL (9-16); Carbon Dioxide 28 mmol/L (22-29); Chloride 83 mmol/L (96-108); Potassium 3.8 mmol/L (3.3-5.1); Sodium 126 mmol/L (135-145)
[2022-09-15] MEDS: Lidocaine HCl 1 % MPF 5 ML VIAL 10 ML SUBCUT (13:47)
== END 2022-09-15 15:30 | disposition home or self-care (01) ==
LOC: HO.SSS 11:29
PROVIDERS: Visit Provider Radiology Diagnostic Radiology
DX: R18.0 Malignant ascites (principal); C25.7 Malignant neoplasm of other parts of pancreas; D61.818 Other pancytopenia; I85.00 Esophageal varices without bleeding; K44.9 Diaphragmatic hernia without obstruction or gangrene; D64.9 Anemia, unspecified; E11.9 Type 2 diabetes mellitus without complications; Z79.4 Long term (current) use of insulin; Z79.899 Other long term (current) drug therapy; Z86.16 Personal history of COVID-19
CPT/HCPCS: 36415; 49083; 80051; 82565; 82947; 84520; 85025; 85610; 85730

== ENCOUNTER 2022-09-22 12:17 | Day surgery (SDC) | payer OTHER, SELFPAY ==
--- NOTE | ~2022-09-22 | US_ITS ---
EXAMINATION: ULTRASOUND-GUIDED PARACENTESIS. CLINICAL INFORMATION: Ascites. Pancreatic cancer. COMPARISON: Ultrasound abdomen 09/15/2022 TECHNIQUE: Following explaining ultrasound-guided paracentesis procedure, benefits and risk, a written consent was obtained. Patient was placed supine on ultrasound stretcher and preliminary ultrasound imaging was obtained through the abdomen. An optimal site was selected and marked. The marked site along the right lower quadrant was cleaned and draped in usual sterile manner. 1% lidocaine was injected puncture site. Through a small skin incision a 5 [place] Nasseo catheter was advanced into the peritoneal space. After observing fluid return, stylet was withdrawn and catheter connected to vacuum bottle via connecting cannula. After obtaining all fluid and observing normal fluid remaining, catheter was withdrawn and complete hemostasis achieved at puncture site. Sterile dressing applied postprocedure. Patient tolerated procedure extremely well. FINDINGS: There is moderate ascites on preliminary ultrasound imaging. Approximately 2.3 L of clear yellowish fluid was drained from the right lower quadrant. US/US paracentesis abd w/image IMPRESSION: Successful ultrasound-guided paracentesis performed.
[2022-09-22 12:46] LABS: Glucose, Whole Blood 209 mg/dL (60-115)
[2022-09-22 15:30] VITALS: BP 123/82; PULSE 98; RESP 12; TEMP 36.9; O2SAT 100
[2022-09-22] MEDS: Lidocaine HCl 1 % MPF 5 ML VIAL SUBCUT (15:34)
[2022-09-22 15:45] VITALS: BP 118/84; PULSE 100; RESP 16; O2SAT 100
[2022-09-22 16:00] VITALS: BP 131/86; PULSE 100; RESP 16; TEMP 37; O2SAT 100
[2022-09-22] MEDS: Ondansetron ODT 4 MG TAB.RAPDIS 8 MG TRANSLINGU (16:10)
[2022-09-22 16:14] VITALS: BP 118/79; PULSE 101; RESP 16; TEMP 37; O2SAT 100
== END 2022-09-22 16:31 | disposition home or self-care (01) ==
PROVIDERS: Visit Provider Radiology Diagnostic Radiology
DX: R18.8 Other ascites (principal); C25.9 Malignant neoplasm of pancreas, unspecified; D64.9 Anemia, unspecified; D61.818 Other pancytopenia; E11.9 Type 2 diabetes mellitus without complications; Z79.84 Long term (current) use of oral hypoglycemic drugs; Z79.899 Other long term (current) drug therapy
CPT/HCPCS: 49083; 82947; J2405

== ENCOUNTER → 2024-09-04 13:04 | Outpatient (RCR) | payer OTHER, SELFPAY ==
[2020-06-10 09:17] VITALS: BP 171/84; PULSE 60; RESP 20; TEMP 36.4; O2SAT 98
[2020-06-10 09:19] VITALS: BMI 32.0
[2020-06-10 09:38] LABS: MANUAL DIFF FLAG NO
--- NOTE | 2020-06-10 09:52 | PM.HEMONCPN ---
Medical Summary - Medical Summary Chief complaint: F/U for Pancreatic Cancer Medical Summary: DIAGNOSIS: Pancreatc Carcinoma. Pancytopenia. CURRENT THERAPY: Started on Folfirinox, 03/11. Completed 6 cycles, August. Completed XRT November 07 in [place]. He was unable to get capecitabine on account of thrombocytopenia. On Gemzar Abraxane, started January 06. Completed cycle 6 on 06/20. Completed cycle 7, July 16. Interval History Interval history: This is a pleasant 49-year-old gentleman, here for a follow-up visit. He tells me he is doing very well. He has been working full-time, at [employer] [place]. He feels well. He has no complaints. No headache no dizziness. Denies any complaints chest pain or trouble breathing. He denies any abdominal pain. No nausea or vomiting, no heartburn indigestion. His bowels are working now regularly. No gross blood in the stools. the Creon helps. He enjoys a good appetite. He has actually gained weight. He actually had upper endoscopy and colonoscopy by Dr. Crespo, in the spring which was negative. He has good energy level. He is exercising regularly. He is in good spirits. Rest of the review of systems is unremarkable. Review of Systems - Constitutional Denies weight loss - Eyes Denies change in vision - ENT Reports system reviewed and no additional complaints, except as documented - Cardiovascular Denies chest pain - Respiratory Denies excessive phlegm production - Gastrointestinal Denies abdominal pain, Denies bloating, Denies diarrhea, Denies nausea - Musculoskeletal Denies body aches - Neurologic Reports system reviewed and no additional complaints, except as documented - Endocrine Denies cold intolerance - Allergic/Immunologic Denies GI upset with certain foods PMFSH Medical History: Medical History (Last Updated 06/10/20 @ 09:36 by Malissa Curiel, LORY) Anemia Diabetes mellitus Surgical History: Surgical History (Last Updated 06/10/20 @ 09:37 by Malissa Curiel, LORY) H/O hernia repair Smoking status: Never smoker Home Medications and Allergies Home Medications Medication Instructions Recorded Confirmed Type insulin glargine [Lantus Solostar 22 unit SUBCUT BEDTIME 06/10/20 06/10/20 History U-100 Insulin] [id number] [Creon] 4 cap PO TID 06/10/20 06/10/20 History metformin 2,000 mg PO DAILY 06/10/20 06/10/20 History omeprazole magnesium [Prilosec OTC] 20 mg PO DAILY 06/10/20 06/10/20 History tadalafil (pulm. hypertension) 2.5 mg PO DAILY 06/10/20 06/10/20 History Allergies Allergy/AdvReac Type Severity Reaction Status Date / Time No Known Allergies Allergy Verified 06/10/20 09:29 [No Known Allergies*] Exam Vital signs: Vital Signs Temp 97.6 F 06/10/20 09:17 Pulse 60 06/10/20 09:17 Resp 20 06/10/20 09:17 BP 171/84 H 06/10/20 09:17 Pulse Ox 98 06/10/20 09:17 Intake & Output 06/09/20 06/10/20 06/10/20 18:59 06:59 18:59 Other: Weight 113.1 kg Weight 113.1 kg Body Mass Index 32.0 - Constitutional Present: no acute distress - Routine HEENT Exam Head: Present: normal inspection ENT: Present: mucous membranes moist - Routine Neck Exam Present: full ROM - Routine Respiratory Exam Present: CTAB - Routine Cardiovascular Exam Cardiovascular: Present: RRR, S1, murmur - Routine Extremities Exam Present: nontender - Routine Skin Exam Present: intact - Routine Neurological Exam Present: alert, oriented X3 - Detailed Neurological Exam: Coma Scale Eye Opening: Spontaneous (4) Verbal Response: Oriented (5) Motor Response: Obeys commands (6) Glascow Coma Scale Total: 15 - Routine Psychiatric Exam Present: normal affect Data - Labs CBC & Chem 7: 06/10/20 09:20 06/10/20 09:20 Progress Note: A/P (1) Pancreatic cancer Status: Acute Assessment and plan: This is a pleasant 49 year-old gentleman, with the diagnosis of Pancreatic Adenocarcinoma involving the body and tail, in January of 2018. He had an extensive tumor burden. Mass encasing and obstructing the SMV, splenic vein and proximal portal vein. Infiltrative soft tissue between the aorta and IVC and into the kareem hepatis. Bilateral adrenal nodules and bilateral pulmonary nodules. He completed 6-1/2 cycles of FOLFIRINOX. Subsequent imaging appeared improved. However, at that point the patient was deemed unresectable. He subsequently had radiation which she completed November 07. He did well through the treatment. He did not have many side effects. He was clinically asymptomatic. However, CAT scan of the abdomen November, revealed: Increase in size of the left adrenal nodule to 32 mm from 28 mm. Also noted was slight increase in the size of the pancreatic mass 35 x 83 mm previously 34 x 18 mm. I decided to pick the regimen: Gemzar and Abraxane based chemotherapy. He started January 06, 2019. He completed cycle 4 on April 25. He completed cycle 7 on July 16 2019. He tolerated it well. Subsequently he elected to take a break from treatment. He wants to be monitored along. Restaging CT scan of the abdomen pelvis and chest from January 29 revealed: Chest: No evidence of metastatic disease. Stable left adrenal lesion. Fatty liver. Slightly enlarged prostate gland. Abdomen and pelvis: Stable low-attenuation soft tissue in the body of the pancreas continuous with abnormal low-attenuation soft tissue surrounding the celiac axis and SMA. Occluded splenic vein. Occluded distal SMV. Patent portal vein. Extensive peripancreatic varices. Previous imaging from October 01 revealed: Overall no significant change in the region of pancreatic head with significant collateral vessels/varices secondary to portal hypertension. The splenic vein is not seen. The portal vein is opacified to the level of pancreatic head. The spleen is heterogenous but normal size. There is no ascites seen at this time. However, there is mild haziness in bilateral paracolic gutter likely congestion. His GI complaints have resolved with the Creon. He has been feeling well. He has been working over the summer. PLAN: For now the plan is to continue to monitor him along. Will proceed with restaging CT scans. He is due now. Will then discuss with him and decide about resuming treatment, according to his wishes. He will return in 3 months for a follow-up. Thank you, CC: Dr. Karina Ochoa, at [place]. Dr. Abel Woodard at [facility]. Gen. Dr. East. - Time Spent With Patient Total time spent is greater than 50% in coordination of care (as documented) at patient's floor/unit and/or counseling patient: 25 - 35 minutes
[2020-06-10 09:55] LABS: Basophils Percent Auto 0.9 % (0-2); Eosinophils Absolute Auto 0.1 X10*3/uL (0.0-0.4); Eosinophils Percent Auto 2.7 % (0-4); Hematocrit 37.3 % (42-52); Hemoglobin 11.9 g/dl (14.0-18.0); Imm Gran Abs Auto 0.01 X10*3/uL (0.00-0.03); Imm Gran Pct Auto 0.3 % (0.0-0.4); Lymphocytes Absolute Auto 1.1 X10*3/uL (1.2-4.9); Lymphocytes Percent Auto 31.1 % (20-40); Mean Corpuscular HGB Conc 31.9 g/dl (31.0-36.0); Mean Corpuscular Hemoglobin 26.5 pg (27.0-33.0); Mean Corpuscular Volume 83.1 fL (80-98); Mean Platelet Volume 11.9 fL (9.4-12.4); Monocytes Absolute Auto 0.4 X10*3/uL (0.1-1.2); Monocytes Percent Auto 12.1 % (2-11); Neutrophils Absolute Auto 1.8 X10*3/uL (2.0-8.3); Neutrophils Percent Auto 52.9 % (45-73); Platelet Count 102 X10*3/uL (160-400); Red Blood Count 4.49 X10*6/uL (4.60-5.80); Red Cell Distribution Width 14.7 % (11.0-16.0); White Blood Count 3.4 X10*3/uL (4.8-10.8)
[2020-06-10] MEDS: Flu Vacc QS2020-21(6mos up)/PF 0.5 ML SYRINGE IM (10:04)
[2020-06-10 10:18] LABS: Alanine Aminotransferase 22 U/L (0-40); Albumin Level 4.3 g/dL (3.5-5.0); Alkaline Phosphatase 51 U/L (39-117); Anion Gap 12 (12-20); Aspartate Amino Transferase 49 U/L (5-37); Bilirubin Total 0.7 mg/dL (0.0-1.0); Blood Urea Nitrogen 19 mg/dL (9-16); Carbon Dioxide 28 mmol/L (22-29); Chloride 100 mmol/L (96-108); Creatinine Clr Calc Pharmacy 75.1; Estimated Glomerular Filt Rate 47; Glucose Random 181 mg/dL (60-115); Potassium 4.6 mmol/l (3.3-5.1); Sodium 135 mmol/L (135-145); Total Protein 7.6 g/dL (6.5-8.0)
--- NOTE | 2020-06-10 10:33 | MHC.HEMONC ---
pt here for f/u with Dr Otoole. Labs reviewed. CT to be ordered. Pt given flu vaccine at his request. F/U after imaging.
--- NOTE | 2020-06-10 14:34 | MHC.HEMONCSW ---
PT REMIANS INDEPENDENT, REPORTS COPING WELL. DENIES STRESS AND NO C/O. 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 DISCUSSED AREA RESOURCES AND HE DOES NOT NEED THESE AT THIS TIME. EXCELLENT SUPPORT SYSTEM IN PLACE. EDUCATION AND SUPPORT CONTINUE TO BE PROVIDED.
[2020-06-11 13:02] LABS: Carbohydrate Antigen 19-9 357 U/mL (<34)
[2020-09-13 14:51] VITALS: BP 143/76; PULSE 90; RESP 18; TEMP 36.4; O2SAT 96; BMI 32.2
[2020-09-13 14:51] LABS: MANUAL DIFF FLAG NO
[2020-09-13 15:07] LABS: Basophils Percent Auto 0.6 % (0-2); Eosinophils Absolute Auto 0.1 X10*3/uL (0.0-0.4); Eosinophils Percent Auto 2.5 % (0-4); Hematocrit 36.7 % (42-52); Hemoglobin 11.5 g/dl (14.0-18.0); Imm Gran Abs Auto 0.03 X10*3/uL (0.00-0.03); Imm Gran Pct Auto 0.8 % (0.0-0.4); Lymphocytes Absolute Auto 0.9 X10*3/uL (1.2-4.9); Lymphocytes Percent Auto 25.8 % (20-40); Mean Corpuscular HGB Conc 31.3 g/dl (31.0-36.0); Mean Corpuscular Hemoglobin 26.3 pg (27.0-33.0); Mean Corpuscular Volume 83.8 fL (80-98); Monocytes Absolute Auto 0.4 X10*3/uL (0.1-1.2); Monocytes Percent Auto 12.5 % (2-11); Neutrophils Percent Auto 57.8 % (45-73); Platelet Count 110 X10*3/uL (160-400); Red Blood Count 4.38 X10*6/uL (4.60-5.80); Red Cell Distribution Width 15.8 % (11.0-16.0); White Blood Count 3.5 X10*3/uL (4.8-10.8)
--- NOTE | 2020-09-13 15:29 | PM.HEMONCPN ---
Medical Summary - Medical Summary Date of Service: 09/13/20 Medical Summary: DIAGNOSIS: Pancreatc Carcinoma. Pancytopenia. CURRENT THERAPY: Started on Folfirinox, 03/11. Completed 6 cycles, August. Completed XRT November 07 in [place]. He was unable to get capecitabine on account of thrombocytopenia. On Gemzar Abraxane, started January 06. Completed cycle 6 on 06/20. Completed cycle 7, July 16. Interval History Interval history: This is a pleasant 50-year-old gentleman, here for a follow-up visit. He tells me he is doing very well. Back in June he contracted COVID-19. However his symptoms were quite mild, only lasted a day and a half and then he recovered. He did receive the COVID vaccine, the 2nd shot on . He feels well. He has no complaints. He has been working full-time, at [employer] [facility] [place]. No headache no dizziness. Denies any complaints chest pain or trouble breathing. He denies any abdominal pain. No nausea or vomiting, no heartburn indigestion. His bowels are working now regularly. No gross blood in the stools. The Creon helps. He enjoys a good appetite. He has actually gained weight. He had upper endoscopy and colonoscopy by Dr. Crespo, in the spring which was negative. He has good energy level. He is exercising regularly. He is in good spirits. Rest of the review of systems is unremarkable. Review of Systems - Constitutional Reports no additional constitutional complaints - Eyes Reports no additional eye complaints - ENT Reports no additional ear, nose, mouth, and throat complaints - Cardiovascular Reports no additional cardiovascular complaints - Respiratory Reports no additional respiratory complaints - Gastrointestinal Reports no additional gastrointestinal complaints - Genitourinary Genitourinary: Reports no additional male genitourinary complaints - Musculoskeletal Reports no additional musculoskeletal complaints - Integumentary/Breasts Skin/Breast: Reports no additional skin complaints - Neurologic Reports no additional neurologic complaints - Psychiatric Reports no additional psychiatric complaints - Endocrine Reports no additional endocrine complaints - Hematologic/Lymphatic Reports no additional hematologic/lymphatic complaints - Allergic/Immunologic Reports no additional allergic/immunologic complaints [facility] Medical History: Medical History (Last Updated 06/10/20 @ 09:36 by Malissa Curiel RN) Anemia Diabetes mellitus Functional capacity: independent ambulation Patient : No Surgical History: Surgical History (Last Updated 06/10/20 @ 09:37 by Malissa Curiel RN) H/O hernia repair Smoking status: Never smoker Home Medications and Allergies Home Medications Medication Instructions Recorded Confirmed Type insulin glargine [Lantus Solostar 26 unit SUBCUT BEDTIME 06/10/20 09/13/20 History U-100 Insulin] [id number] [Creon] 4 cap PO TID 06/10/20 06/10/20 History metformin 2,000 mg PO DAILY 06/10/20 06/10/20 History omeprazole magnesium [Prilosec OTC] 20 mg PO DAILY 06/10/20 06/10/20 History tadalafil (pulm. hypertension) 5 mg PO DAILY 06/10/20 09/13/20 History Allergies Allergy/AdvReac Type Severity Reaction Status Date / Time No Known Allergies Allergy Verified 06/10/20 09:29 [No Known Allergies*] Exam Vital signs: Vital Signs Temp 97.5 F 09/13/20 14:51 Pulse 90 09/13/20 14:51 Resp 18 09/13/20 14:51 BP 143/76 H 09/13/20 14:51 Pulse Ox 96 09/13/20 14:51 Intake & Output 09/12/20 09/13/20 09/13/20 18:59 06:59 18:59 Other: Weight 114 kg Weight 114 kg Body Mass Index 32.2 - Constitutional Present: no acute distress - Routine HEENT Exam Head: Present: normal inspection - Routine Neck Exam Present: full ROM - Routine Respiratory Exam Present: CTAB - Routine Cardiovascular Exam Cardiovascular: Present: RRR, S1, murmur - Routine Extremities Exam Present: nontender - Routine Skin Exam Present: intact - Routine Neurological Exam Present: alert, oriented X3 - Detailed Neurological Exam: Coma Scale Eye Opening: Spontaneous (4) - Routine Psychiatric Exam Present: normal affect Data - Labs CBC & Chem 7: 09/13/20 14:48 09/13/20 14:48 Labs: 06/10/20 09:20 CA 19-9 [Carbohydrate Antigen 19-9] Routine Complete Blood Count Auto Diff Routine Comprehensive Met. Panel Routine 06/10/20 09:42 Flu Vacc [id number](6mos up)/PF [Fluarix Quad [id number]] 0.5 ml IM .ONCE ONE 09/13/20 14:48 Complete Blood Count Auto Diff Routine Laboratory Last Values WBC 3.5 X10*3/uL (4.8-10.8) L 09/13/20 14:48 RBC 4.38 X10*6/uL (4.60-5.80) L 09/13/20 14:48 Hgb 11.5 g/dl (14.0-18.0) L 09/13/20 14:48 Hct 36.7 % (42-52) L 09/13/20 14:48 MCV 83.8 fL (80-98) 09/13/20 14:48 MCH 26.3 pg (27.0-33.0) L 09/13/20 14:48 MCHC 31.3 g/dl (31.0-36.0) 09/13/20 14:48 RDW 15.8 % (11.0-16.0) 09/13/20 14:48 Plt Count 110 X10*3/uL (160-400) L 09/13/20 14:48 MPV 11.0 fL (9.4-12.4) 09/13/20 14:48 Immature Gran % (Auto) 0.8 % (0.0-0.4) H 09/13/20 14:48 Neut % (Auto) 57.8 % (45-73) 09/13/20 14:48 Lymph % (Auto) 25.8 % (20-40) 09/13/20 14:48 [place] % (Auto) 12.5 % (2-11) H 09/13/20 14:48 Eos % (Auto) 2.5 % (0-4) 09/13/20 14:48 Baso % (Auto) 0.6 % (0-2) 09/13/20 14:48 Lymph # (Auto) 0.9 X10*3/uL (1.2-4.9) L 09/13/20 14:48 [place] # (Auto) 0.4 X10*3/uL (0.1-1.2) 09/13/20 14:48 Eos # (Auto) 0.1 X10*3/uL (0.0-0.4) 09/13/20 14:48 Baso # (Auto) 0.0 X10*3/uL (0.0-0.2) 09/13/20 14:48 Abs Immat Gran (auto) 0.03 X10*3/uL (0.00-0.03) 09/13/20 14:48 Absolute Neuts (auto) 2.0 X10*3/uL (2.0-8.3) 09/13/20 14:48 Absolute Nucleated RBC 0.000 X10*3/uL (0.0-0.012) 09/13/20 14:48 Nucleated RBC % (auto) 0.0 /100WBC (0.0-0.2) 09/13/20 14:48 Sodium 135 mmol/L (135-145) 06/10/20 09:20 Potassium 4.6 mmol/l (3.3-5.1) 06/10/20 09:20 Chloride 100 mmol/L (96-108) 06/10/20 09:20 Carbon Dioxide 28 mmol/L (22-29) 06/10/20 09:20 Anion Gap 12 (12-20) 06/10/20 09:20 BUN 19 mg/dL (9-16) H 06/10/20 09:20 Creatinine 1.59 mg/dL (0.5-1.4) H 06/10/20 09:20 Estim Creat Clear Calc 75.1 06/10/20 09:20 Estimated GFR 47 06/10/20 09:20 Random Glucose 181 mg/dL (60-115) H 06/10/20 09:20 Calcium 9.0 mg/dL (8.4-10.2) 06/10/20 09:20 Total Bilirubin 0.7 mg/dL (0.0-1.0) 06/10/20 09:20 AST 49 U/L (5-37) H 06/10/20 09:20 ALT 22 U/L (0-40) 06/10/20 09:20 Alkaline Phosphatase 51 U/L (39-117) 06/10/20 09:20 Total Protein 7.6 g/dL (6.5-8.0) 06/10/20 09:20 Albumin 4.3 g/dL (3.5-5.0) 06/10/20 09:20 CA 19-9 Antigen 357 U/mL (<34) H 06/10/20 09:20 Progress Note: A/P (1) Pancreatic cancer Status: Acute Assessment and plan: This is a pleasant 49 year-old gentleman, with the diagnosis of Pancreatic Adenocarcinoma involving the body and tail, in January of 2018. He had an extensive tumor burden. Mass encasing and obstructing the SMV, splenic vein and proximal portal vein. Infiltrative soft tissue between the aorta and IVC and into the kareem hepatis. Bilateral adrenal nodules and bilateral pulmonary nodules. He completed 6-1/2 cycles of FOLFIRINOX. Subsequent imaging appeared improved. However, at that point the patient was deemed unresectable. He subsequently had radiation which she completed November 07. He did well through the treatment. He did not have many side effects. He was clinically asymptomatic. However, CAT scan of the abdomen November, revealed: Increase in size of the left adrenal nodule to 32 mm from 28 mm. Also noted was slight increase in the size of the pancreatic mass 35 x 83 mm previously 34 x 18 mm. I decided to pick the regimen: Gemzar and Abraxane based chemotherapy. He started January 06, 2019. He completed cycle 4 on April 25. He completed cycle 7 on July 16 2019. He tolerated it well. Subsequently he elected to take a break from treatment. He wants to be monitored along. Restaging CT scan of the abdomen pelvis and chest from January 29 revealed: Chest: No evidence of metastatic disease. Stable left adrenal lesion. Fatty liver. Slightly enlarged prostate gland. Abdomen and pelvis: Stable low-attenuation soft tissue in the body of the pancreas continuous with abnormal low-attenuation soft tissue surrounding the celiac axis and SMA. Occluded splenic vein. Occluded distal SMV. Patent portal vein. Extensive peripancreatic varices. Previous imaging from October 01 revealed: Overall no significant change in the region of pancreatic head with significant collateral vessels/varices secondary to portal hypertension. The splenic vein is not seen. The portal vein is opacified to the level of pancreatic head. The spleen is heterogenous but normal size. There is no ascites seen at this time. However, there is mild haziness in bilateral paracolic gutter likely congestion. His GI complaints have resolved with the Creon. He has been feeling well. He has been working over the winter. CT chest and abdomen from 06/19/2020: Chest: New small pulmonary nodules. The largest measures 3 x 6 mm in the right lower lobe. Abdomen and pelvis: Stable low-attenuation in the body of the pancreas continuous with abnormal soft tissue surrounding the celiac axis, SMA and SMV, thickening of the bilateral anterior pararenal fascia and soft tissues surrounding the duodenum and left adrenal nodule. Occluded splenic vein, and distal SMV and extensive varices. Fatty liver. Stable mild dilatation of the common bile duct. Upper normal-size spleen. Stool throughout the colon questionable for constipation. I shared the results with him. He wanted to wait on starting treatment since he is asymptomatic and has good quality of life. He has been working. PLAN: For now the plan is to continue to monitor him along. Will proceed with restaging CT scans. He is due now. Will then discuss with him and decide about resuming treatment, according to his wishes. He will return in 1 month for a follow-up. Thank you, CC: Dr. Karina Ochoa, - Time Spent With Patient Total time spent is greater than 50% in coordination of care (as documented) at patient's floor/unit and/or counseling patient: 25 - 35 minutes
[2020-09-13 15:30] LABS: Alanine Aminotransferase 24 U/L (0-40); Albumin Level 4.5 g/dL (3.5-5.0); Alkaline Phosphatase 48 U/L (39-117); Anion Gap 13 (12-20); Aspartate Amino Transferase 49 U/L (5-37); Bilirubin Total 0.7 mg/dL (0.0-1.0); Blood Urea Nitrogen 16 mg/dL (9-16); Calcium 8.7 mg/dL (8.4-10.2); Carbon Dioxide 26 mmol/L (22-29); Chloride 102 mmol/L (96-108); Creatinine Clr Calc Pharmacy 91.9; Estimated Glomerular Filt Rate 59; Glucose Random 204 mg/dL (60-115); Potassium 4.6 mmol/l (3.3-5.1); Sodium 136 mmol/L (135-145); Total Protein 7.9 g/dL (6.5-8.0)
--- NOTE | 2020-09-13 15:59 | MHC.HEMONCSW ---
CT CHEST,ABD/PELVIS WITH C IS PLACED IN O.F. FOR 2 WEEKS. THEY WILL SCHEDULE PATIENT. PER TERRI Collado AT [facility], NO PA REQUIRED UNDER THIS PLAN.
[2020-09-16 13:12] LABS: Carbohydrate Antigen 19-9 1921 U/mL (<34)
[2020-10-14 14:55] VITALS: BP 135/84; PULSE 112; RESP 12; TEMP 36.4; O2SAT 97; BMI 32.1
--- NOTE | 2020-10-14 15:13 | MHC.HEMONCMA ---
Patient came in for a follow up today, states he is doing really well. Clinical summary reviewed and updated. Pt will return in 4 months.
--- NOTE | 2020-10-14 15:19 | P.PNHO_ITS ---
Medical Summary - Medical Summary Date of Service: 10/14/20 Chief complaint: Follow-up for: Pancreatic carcinoma. Medical Summary: DIAGNOSIS: Pancreatc Carcinoma. Pancytopenia. CURRENT THERAPY: Started on Folfirinox, 03/11. Completed 6 cycles, August. Completed XRT November 07 in [place]. He was unable to get capecitabine on account of thrombocytopenia. On Gemzar Abraxane, started January 06. Completed cycle 6 on 06/20. Completed cycle 7, July 16, 2019. Interval History Interval history: This is a pleasant 50-year-old gentleman, here for a follow-up visit. He tells me he is doing very well. He feels well. He has no complaints. 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 No headache no dizziness. Denies any complaints chest pain or trouble breathing. He denies any abdominal pain. No nausea or vomiting, no heartburn indigestion. His bowels are working now regularly. No gross blood in the stools. The Creon helps. He enjoys a good appetite. He has actually gained weight. He had upper endoscopy and colonoscopy by Dr. Crespo, in the spring which was negative. He has good energy level. He is exercising regularly. He is in good spirits. Rest of the review of systems is unremarkable. Previous history: Back in June he contracted COVID-19. However his symptoms were quite mild, only lasted a day and a half and then he recovered. He did receive the COVID vaccine. Review of Systems - Constitutional Reports system reviewed and no additional complaints, except as documented - Eyes Reports system reviewed and no additional complaints, except as documented - ENT Reports system reviewed and no additional complaints, except as documented - Cardiovascular Reports system reviewed and no additional complaints, except as documented - Respiratory Reports no additional respiratory complaints - Gastrointestinal Reports system reviewed and no additional complaints, except as documented - Genitourinary Genitourinary: Reports no additional male genitourinary complaints - Musculoskeletal Reports system reviewed and no additional complaints, except as documented - Integumentary/Breasts Skin/Breast: Reports no additional skin complaints - Neurologic Reports system reviewed and no additional complaints, except as documented - Psychiatric Reports system reviewed and no additional complaints, except as documented - Endocrine Reports no additional endocrine complaints - Hematologic/Lymphatic Reports system reviewed and no additional complaints, except as documented - Allergic/Immunologic Reports system reviewed and no additional complaints, except as documented [facility] Medical History: Medical History (Last Updated 06/10/20 @ 09:36 by Malissa Curiel RN) Anemia Diabetes mellitus Functional capacity: independent ambulation Patient : No Surgical History: Surgical History (Last Updated 06/10/20 @ 09:37 by Malissa Curiel RN) H/O hernia repair Social History: Social History (Last Updated 06/10/20 @ 09:37 by Malissa Curiel RN) Alcohol History Details: Alcohol intake frequency: a few times a week Alcohol type: beer Tobacco History: Smoking Status: Never smoker Advance Directives: Advance Directives: No Advance Directives Information Provided: No Nutrition Assessment: Patient : No Smoking status: Never smoker Home Medications and Allergies Home Medications Medication Instructions Recorded Confirmed Type insulin glargine [Lantus Solostar 26 unit SUBCUT BEDTIME 06/10/20 09/13/20 History U-100 Insulin] [id number] [Creon] 4 cap PO TID 06/10/20 06/10/20 History metformin 2,000 mg PO DAILY 06/10/20 06/10/20 History omeprazole magnesium [Prilosec OTC] 20 mg PO DAILY 06/10/20 06/10/20 History tadalafil (pulm. hypertension) 5 mg PO DAILY 06/10/20 09/13/20 History multivitamin 1 tab PO DAILY 10/14/20 10/14/20 History Allergies Allergy/AdvReac Type Severity Reaction Status Date / Time No Known Allergies Allergy Verified 06/10/20 09:29 [No Known Allergies*] Exam Vital signs: Vital Signs Temp 97.6 F 10/14/20 14:55 Pulse 112 H 10/14/20 14:55 Resp 12 10/14/20 14:55 BP 135/84 10/14/20 14:55 Pulse Ox 97 10/14/20 14:55 Intake & Output 10/13/20 10/14/20 10/14/20 18:59 06:59 18:59 Other: Weight 113.3 kg Weight in Grams 244605 Weight 113.3 kg Body Mass Index 32.1 - Constitutional Present: no acute distress - Routine HEENT Exam Head: Present: normal inspection Eye: Present: normal appearance ENT: Present: mucous membranes moist - Routine Neck Exam Present: full ROM - Routine Respiratory Exam Present: CTAB - Routine Cardiovascular Exam Cardiovascular: Present: RRR, S1, murmur - Routine Abdominal Exam Present: soft, nontender - Routine Extremities Exam Present: nontender - Routine Back/Spine/Pelvis Exam Back/Spine: Present: full ROM - Routine Skin Exam Present: intact - Routine Neurological Exam Present: alert, oriented X3 - Detailed Neurological Exam: Coma Scale Eye Opening: Spontaneous (4) - Routine Psychiatric Exam Present: normal affect Data - Labs CBC & Chem 7: 09/13/20 14:48 09/13/20 14:48 Labs: 06/10/20 09:20 CA 19-9 [Carbohydrate Antigen 19-9] Routine Complete Blood Count Auto Diff Routine Comprehensive Met. Panel Routine 06/10/20 09:42 Flu Vacc [id number](6mos up)/PF [Fluarix Quad [id number]] 0.5 ml IM .ONCE ONE 09/13/20 14:48 Complete Blood Count Auto Diff Routine Laboratory Last Values WBC 3.5 X10*3/uL (4.8-10.8) L 09/13/20 14:48 RBC 4.38 X10*6/uL (4.60-5.80) L 09/13/20 14:48 Hgb 11.5 g/dl (14.0-18.0) L 09/13/20 14:48 Hct 36.7 % (42-52) L 09/13/20 14:48 MCV 83.8 fL (80-98) 09/13/20 14:48 MCH 26.3 pg (27.0-33.0) L 09/13/20 14:48 MCHC 31.3 g/dl (31.0-36.0) 09/13/20 14:48 RDW 15.8 % (11.0-16.0) 09/13/20 14:48 Plt Count 110 X10*3/uL (160-400) L 09/13/20 14:48 MPV 11.0 fL (9.4-12.4) 09/13/20 14:48 Immature Gran % (Auto) 0.8 % (0.0-0.4) H 09/13/20 14:48 Neut % (Auto) 57.8 % (45-73) 09/13/20 14:48 Lymph % (Auto) 25.8 % (20-40) 09/13/20 14:48 [place] % (Auto) 12.5 % (2-11) H 09/13/20 14:48 Eos % (Auto) 2.5 % (0-4) 09/13/20 14:48 Baso % (Auto) 0.6 % (0-2) 09/13/20 14:48 Lymph # (Auto) 0.9 X10*3/uL (1.2-4.9) L 09/13/20 14:48 [place] # (Auto) 0.4 X10*3/uL (0.1-1.2) 09/13/20 14:48 Eos # (Auto) 0.1 X10*3/uL (0.0-0.4) 09/13/20 14:48 Baso # (Auto) 0.0 X10*3/uL (0.0-0.2) 09/13/20 14:48 Abs Immat Gran (auto) 0.03 X10*3/uL (0.00-0.03) 09/13/20 14:48 Absolute Neuts (auto) 2.0 X10*3/uL (2.0-8.3) 09/13/20 14:48 Absolute Nucleated RBC 0.000 X10*3/uL (0.0-0.012) 09/13/20 14:48 Nucleated RBC % (auto) 0.0 /100WBC (0.0-0.2) 09/13/20 14:48 Sodium 135 mmol/L (135-145) 06/10/20 09:20 Potassium 4.6 mmol/l (3.3-5.1) 06/10/20 09:20 Chloride 100 mmol/L (96-108) 06/10/20 09:20 Carbon Dioxide 28 mmol/L (22-29) 06/10/20 09:20 Anion Gap 12 (12-20) 06/10/20 09:20 BUN 19 mg/dL (9-16) H 06/10/20 09:20 Creatinine 1.59 mg/dL (0.5-1.4) H 06/10/20 09:20 Estim Creat Clear Calc 75.1 10/22/20 09:20 Estimated GFR 47 06/10/20 09:20 Random Glucose 181 mg/dL (60-115) H 06/10/20 09:20 Calcium 9.0 mg/dL (8.4-10.2) 06/10/20 09:20 Total Bilirubin 0.7 mg/dL (0.0-1.0) 06/10/20 09:20 AST 49 U/L (5-37) H 06/10/20 09:20 ALT 22 U/L (0-40) 06/10/20 09:20 Alkaline Phosphatase 51 U/L (39-117) 06/10/20 09:20 Total Protein 7.6 g/dL (6.5-8.0) 06/10/20 09:20 Albumin 4.3 g/dL (3.5-5.0) 06/10/20 09:20 CA 19-9 Antigen 357 U/mL (<34) H 06/10/20 09:20 Progress Note: A/P (1) Pancreatic cancer Status: Acute Assessment and plan: This is a pleasant 49 year-old gentleman, with the diagnosis of Pancreatic Adenocarcinoma involving the body and tail, in January of 2018. He had an extensive tumor burden. Mass encasing and obstructing the SMV, splenic vein and proximal portal vein. Infiltrative soft tissue between the aorta and IVC and into the kareem hepatis. Bilateral adrenal nodules and bilateral pulmonary nodules. He completed 6-1/2 cycles of FOLFIRINOX. Subsequent imaging appeared improved. However, at that point the patient was deemed unresectable. He subsequently had radiation which she completed November 07. He did well through the treatment. He did not have many side effects. He was clinically asymptomatic. However, CAT scan of the abdomen November, revealed: Increase in size of the left adrenal nodule to 32 mm from 28 mm. Also noted was slight increase in the size of the pancreatic mass 35 x 83 mm previously 34 x 18 mm. I decided to pick the regimen: Gemzar and Abraxane based chemotherapy. He started January 06, 2019. He completed cycle 4 on April 25. He completed cycle 7 on July 16 2019. He tolerated it well. Subsequently he elected to take a break from treatment. He wants to be monitored along. Restaging CT scan of the abdomen pelvis and chest from January 29 revealed: Chest: No evidence of metastatic disease. Stable left adrenal lesion. Fatty liver. Slightly enlarged prostate gland. Abdomen and pelvis: Stable low-attenuation soft tissue in the body of the pancreas continuous with abnormal low-attenuation soft tissue surrounding the celiac axis and SMA. Occluded splenic vein. Occluded distal SMV. Patent portal vein. Extensive peripancreatic varices. Previous imaging from October 01 revealed: Overall no significant change in the region of pancreatic head with significant collateral vessels/varices secondary to portal hypertension. The splenic vein is not seen. The portal vein is opacified to the level of pancreatic head. The spleen is heterogenous but normal size. There is no ascites seen at this time. However, there is mild haziness in bilateral paracolic gutter likely congestion. His GI complaints have resolved with the Creon. He has been feeling well. He has been working over the winter. CT chest and abdomen from 06/19/2020: Chest: New small pulmonary nodules. The largest measures 3 x 6 mm in the right lower lobe. Abdomen and pelvis: Stable low-attenuation in the body of the pancreas continuous with abnormal soft tissue surrounding the celiac axis, SMA and SMV, thickening of the bilateral anterior pararenal fascia and soft tissues surrounding the duodenum and left adrenal nodule. Occluded splenic vein, and distal SMV and extensive varices. Fatty liver. Stable mild dilatation of the common bile duct. Upper normal-size spleen. Stool throughout the colon questionable for constipation. His CA 19-9 from 06/10/20:357. From 09/13:1921. Recent CT scan of the chest and abdomen, from 09/22: Multiple pulmonary nodules are slightly increased in size since the previous study from 06/08. No major change in slightly enlarged and hypodense appearing diffuse pancreas and mild haziness along the posterior pancreatic margin. No focal lesion seen on the present exam, however the pancreas appears slightly heterogenous with abundant varices seen throughout the peripancreatic region, pancreas and upper abdomen. No change in the haziness in the peripancreatic region. Small left para aortic lymph nodes are essentially stable. No focal liver lesions seen. I shared the results with him. I am concerned about rising tumor marker and increasing pulmonary nodules. I suggested that he start back on the chemotherapy treatment. Will try Gemzar Abraxane since it has been working. He just wanted a break after 6 cycles of chemo back in June of 2019. Overall he has done well. PLAN: For now the plan is to start Gemzar/Abraxane based chemotherapy. He will call me with a day of the week that suits him. Will check a restaging CT scan, after 3 cycles of treatment. Hopefully he will have good response. I will get an opinion from Dr. East in [place] as well. He will return in 1 week for a follow-up. Thank you, CC: Dr. Karina Ochoa, at [place]. Dr. Abel Woodard at [facility]. Gen. Dr. East. - Time Spent With Patient Total time spent is greater than 50% in coordination of care (as documented) at patient's floor/unit and/or counseling patient: 25 - 35 minutes
--- NOTE | 2020-10-14 16:04 | MHC.HEMONCSW ---
PATIENT SEEN IN FOLLOW UP. DENIES STRESS OR CONCERNS. HE IS AWARE OF MY AVAILABILITY. EDUCATION/SUPPORT PROVIDED.
--- NOTE | 2020-10-21 12:55 | MHC.HEMONCMA ---
Recent labs and ct report faxed to Dr Arianna Woodruff per Dr Bess request.
--- NOTE | 2020-10-22 12:31 | HO.HEMONCPA ---
NO PA REQUIRED FOR ABRAXANE,GEMCITABINE, AND NEULASTA PER [employer]. (PHONE # ). REF#: [id number].
[2020-10-26 11:21] LABS: MANUAL DIFF FLAG NO
--- NOTE | 2020-10-26 11:40 | MHC.HEMONC ---
pre-chemo labs drawn and to be reviewed prior to chemo on .
[2020-10-26 12:05] LABS: Basophils Percent Auto 0.5 % (0-2); Eosinophils Absolute Auto 0.1 X10*3/uL (0.0-0.4); Eosinophils Percent Auto 2.7 % (0-4); Hematocrit 35.3 % (42-52); Hemoglobin 11.1 g/dl (14.0-18.0); Imm Gran Abs Auto 0.01 X10*3/uL (0.00-0.03); Imm Gran Pct Auto 0.3 % (0.0-0.4); Lymphocytes Absolute Auto 0.9 X10*3/uL (1.2-4.9); Lymphocytes Percent Auto 23.5 % (20-40); Mean Corpuscular HGB Conc 31.4 g/dl (31.0-36.0); Mean Corpuscular Volume 82.7 fL (80-98); Mean Platelet Volume 11.2 fL (9.4-12.4); Monocytes Absolute Auto 0.3 X10*3/uL (0.1-1.2); Neutrophils Absolute Auto 2.4 X10*3/uL (2.0-8.3); Platelet Count 104 X10*3/uL (160-400); Red Blood Count 4.27 X10*6/uL (4.60-5.80); Red Cell Distribution Width 15.3 % (11.0-16.0); White Blood Count 3.8 X10*3/uL (4.8-10.8)
[2020-10-26 12:20] LABS: Alanine Aminotransferase 22 U/L (0-40); Albumin Level 4.6 g/dL (3.5-5.0); Alkaline Phosphatase 57 U/L (39-117); Aspartate Amino Transferase 41 U/L (5-37); Bilirubin Total 0.5 mg/dL (0.0-1.0); Blood Urea Nitrogen 19 mg/dL (9-16); Calcium 9.3 mg/dL (8.4-10.2); Creatinine Clr Calc Pharmacy 90.3; Estimated Glomerular Filt Rate 58; Glucose Random 168 mg/dL (60-115); Total Protein 7.9 g/dL (6.5-8.0)
--- NOTE | 2020-10-26 13:05 | MHC.HEMONCSW ---
MET WITH PATIENT WHO NEEDS TO START BACK ON CHEMOTHERAPY. REMAINS OPTIMISTIC, HOPEFUL. WANTS ANOTHER FMLA AND WILL BRING ME PAPERWORK. REASSURANCE, EDUCATION AND SUPPORT PROVIDED.
[2020-10-26 13:15] LABS: Anion Gap 12 (12-20); Carbon Dioxide 28 mmol/L (22-29); Chloride 102 mmol/L (96-108); Potassium 4.3 mmol/L (3.3-5.1); Sodium 138 mmol/L (135-145)
[2020-10-28 13:01] VITALS: BP 166/81; PULSE 68; RESP 18; TEMP 36.8; O2SAT 99; BMI 32.2
--- NOTE | 2020-10-28 14:02 | MHC.HEMONCSW ---
MET WITH PATIENT WHO HAS RESUMED CHEMOTHERAPY. INDEPENDENT, OPTIMISTIC, STILL WORKING. DENIES DISTRESS OR CONCERNS AT THIS TIME. HE IS AWARE OF MY AVAILABILITY.
[2020-10-28] MEDS: dexAMETHasone sod phosphate/NS 12 MG/50 ML PIGGYBACK 200 MG IV (14:04)
[2020-10-28] MEDS: ondansetron HCL/NS 16 MG/50 ML PIGGYBACK 200 MG IV (14:24)
[2020-10-28] MEDS: PACLITAXEL PROTEIN BOUND IV (14:55)
[2020-10-28] MEDS: CONTAINER EMPTY IV (14:55)
[2020-10-28] MEDS: GEMCITABINE HCL IV (15:40)
[2020-10-28] MEDS: SODIUM CHLORIDE 0.9% IV (15:40)
--- NOTE | 2020-10-28 16:27 | MHC.HEMONC ---
Pt here for cycle 1 day 1 of Gemzar/Abraxine IV. Labs drawn yesterday and reviewed. #22 angio inserted in left forearm, 0.9% NS infusing. Pre medicated with 16mg Zofran IV and 12mg decadron IV. Gemzar and Abraxine IV given as ordered-tolerated well. Pt to return tomorrow for Neulasta. Follow up appointment made for next week. Clinical summary updated by nurse.
[2020-10-29 16:25] VITALS: BP 162/92; PULSE 81; RESP 18; TEMP 36.9; O2SAT 99; BMI 32.1
--- NOTE | 2020-10-29 16:27 | MHC.HEMONC ---
Pt here for Neulasta injection. Neulasta SC given in right arm. Tolerated well
[2020-11-11 11:23] LABS: Hematocrit 32.1 % (42-52); Hemoglobin 10.3 g/dl (14.0-18.0); Mean Corpuscular HGB Conc 32.1 g/dl (31.0-36.0); Mean Corpuscular Hemoglobin 26.5 pg (27.0-33.0); Mean Corpuscular Volume 82.7 fL (80-98); Mean Platelet Volume 10.5 fL (9.4-12.4); Platelet Count 181 X10*3/uL (160-400); Red Blood Count 3.88 X10*6/uL (4.60-5.80); Red Cell Distribution Width 15.5 % (11.0-16.0)
[2020-11-11 11:43] LABS: Alanine Aminotransferase 40 U/L (0-40); Albumin Level 4.3 g/dL (3.5-5.0); Alkaline Phosphatase 64 U/L (39-117); Anion Gap 15 (12-20); Aspartate Amino Transferase 49 U/L (5-37); Bilirubin Total 0.4 mg/dL (0.0-1.0); Blood Urea Nitrogen 19 mg/dL (9-16); Calcium 9.2 mg/dL (8.4-10.2); Carbon Dioxide 26 mmol/L (22-29); Chloride 102 mmol/L (96-108); Creatinine Clr Calc Pharmacy 86.3; Estimated Glomerular Filt Rate 55; Glucose Random 228 mg/dL (60-115); Potassium 4.5 mmol/L (3.3-5.1); Sodium 138 mmol/L (135-145); Total Protein 7.7 g/dL (6.5-8.0)
[2020-11-11 12:09] LABS: Band Neutrophils Percent 7 % (3-5); Basophils Abs Manual 0.1 X10*3/uL (0.0-0.3); Basophils Percent Manual 1 % (0-1); Lymphocytes Absolute Manual 0.6 X10*3/uL (0.6-4.8); Lymphocytes Percent Manual 10 % (20-40); Metamyelocytes Absolute 0.1 X10*3/uL; Metamyelocytes Percent 1 %; Monocytes Absolute Manual 0.4 X10*3/uL (0.0-1.2); Monocytes Percent Manual 7 % (2-11); Neutrophils Absolute Manual 4.9 X10*3/uL (2.2-7.9); Neutrophils Percent Manual 74 % (45-73)
[2020-11-11 12:10] LABS: Hypochromasia 1+ (5-14) /OIF; Ovalocytes 1+ (5-14) /OIF; RBC Morphology NOTED
[2020-11-11 12:11] LABS: Platelet Estimate NORMAL (NORMAL); Platelet Morphology Comment NORMAL
[2020-11-12 12:09] VITALS: BMI 32.4
[2020-11-12 12:10] VITALS: BP 123/61; PULSE 64; RESP 18; TEMP 36.1; O2SAT 97
[2020-11-12] MEDS: ondansetron HCL/NS 16 MG/50 ML PIGGYBACK 200 MG IV (12:17)
[2020-11-12] MEDS: dexAMETHasone sod phosphate/NS 12 MG/50 ML PIGGYBACK 200 MG IV (12:52)
[2020-11-12] MEDS: CONTAINER EMPTY IV (13:09)
[2020-11-12] MEDS: PACLITAXEL PROTEIN BOUND IV (13:09)
[2020-11-12] MEDS: GEMCITABINE HCL IV (13:55)
[2020-11-12] MEDS: SODIUM CHLORIDE 0.9% IV (13:55)
[2020-11-12] MEDS: Pegfilgrastim Onpro 6 MG/0.6 ML SYR.W..INJ SUBCUT (14:34)
--- NOTE | 2020-11-12 15:09 | MHC.HEMONC ---
Pt here for Cycle 1 day 16 (previously day 15) of Abraxane and Gemzar IV. Labs drawn yesterday 11/11/20-reviewed. #22 angio inserted in right hand without difficulty. 0.9 NS infusing. Pre medicated with decadron 12 mg IV and zofran 16mg IV. Abraxane and Gemzar IV given as ordered. Neulasta/Onpro given in left arm per pt request- Peripheral IV removed-no edema or redness at site. Follow up appointment made. Declines discharge instructions or schedule calendar.
[2020-11-25 10:06] VITALS: BP 144/79; PULSE 78; RESP 18; TEMP 36.6; O2SAT 96; BMI 31.5
[2020-11-25 12:19] LABS: PLT CLUMP 1
[2020-11-25 12:21] LABS: Hematocrit 33.4 % (42-52); Hemoglobin 10.6 g/dl (14.0-18.0); Mean Corpuscular HGB Conc 31.7 g/dl (31.0-36.0); Mean Corpuscular Hemoglobin 26.6 pg (27.0-33.0); Mean Corpuscular Volume 83.7 fL (80-98); Mean Platelet Volume 10.4 fL (9.4-12.4); Platelet Count 102 X10*3/uL (160-400); Red Blood Count 3.99 X10*6/uL (4.60-5.80); Red Cell Distribution Width 16.7 % (11.0-16.0)
[2020-11-25 12:31] LABS: Alanine Aminotransferase 31 U/L (0-40); Albumin Level 4.3 g/dL (3.5-5.0); Alkaline Phosphatase 84 U/L (39-117); Anion Gap 12 (12-20); Aspartate Amino Transferase 40 U/L (5-37); Bilirubin Total 0.5 mg/dL (0.0-1.0); Blood Urea Nitrogen 14 mg/dL (9-16); Calcium 9.4 mg/dL (8.4-10.2); Carbon Dioxide 28 mmol/L (22-29); Chloride 101 mmol/L (96-108); Creatinine Clr Calc Pharmacy 75.5; Estimated Glomerular Filt Rate > 60; Glucose Random 177 mg/dL (60-115); Potassium 4.4 mmol/L (3.3-5.1); Sodium 137 mmol/L (135-145); Total Protein 7.7 g/dL (6.5-8.0)
[2020-11-25 13:05] LABS: Band Neutrophils Percent 5 % (3-5); Eosinophils Absolute Manual 0.1 X10*3/UL (0.0-0.8); Eosinophils Percent Manual 1 % (0-4); Lymphocytes Absolute Manual 0.8 X10*3/uL (0.6-4.8); Lymphocytes Percent Manual 10 % (20-40); Monocytes Absolute Manual 0.7 X10*3/uL (0.0-1.2); Monocytes Percent Manual 9 % (2-11); Neutrophils Absolute Manual 6.4 X10*3/uL (2.2-7.9); Neutrophils Percent Manual 75 % (45-73)
[2020-11-25 13:06] LABS: Acanthocytes 1+ (0-2) /OIF; Hypochromasia 1+ (5-14) /OIF; RBC Morphology NOTED
[2020-11-25 13:07] LABS: Large Platelet PRESENT; Platelet Estimate DECREASED (NORMAL); Platelet Morphology Comment NOTED
[2020-11-26 12:14] VITALS: BP 117/64; PULSE 56; RESP 18; TEMP 36.6; O2SAT 98; BMI 31.5
[2020-11-26] MEDS: ondansetron HCL/NS 16 MG/50 ML PIGGYBACK 200 MG IV (13:06)
[2020-11-26] MEDS: dexAMETHasone sod phosphate/NS 12 MG/50 ML PIGGYBACK 200 MG IV (13:26)
[2020-11-26] MEDS: PACLITAXEL PROTEIN BOUND IV (13:58)
[2020-11-26] MEDS: CONTAINER EMPTY IV (13:58)
--- NOTE | 2020-11-26 14:38 | PM.HEMONCPN ---
Medical Summary - Medical Summary Date of Service: 11/26/20 Chief complaint: Follow-up for: Pancreatic carcinoma. Medical Summary: DIAGNOSIS: Pancreatc Carcinoma. Pancytopenia. CURRENT THERAPY: Started on Folfirinox, 03/11. Completed 6 cycles, August. Completed XRT November 07 in [place]. He was unable to get capecitabine on account of thrombocytopenia. On Gemzar Abraxane, started January 06. Completed cycle 6 on 06/20. Completed cycle 7, July 16, 2019. Took a break from treatment, after that. Now restarted Gemzar Abraxane for disease progression, 10/28. Second cycle today. Interval History Interval history: This is a pleasant 50-year-old gentleman, here for a follow-up visit. He tells me he is doing reasonably well. He has been tolerating the treatment quite well. He notices a bit of fatigue couple days after the treatment. He gets some body aches. He feels mild nausea. He takes Tylenol and Zofran to prevent that. 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 No headache no dizziness. Denies any complaints chest pain or trouble breathing. He denies any abdominal pain. No nausea or vomiting, no heartburn indigestion. His bowels are working now regularly. No gross blood in the stools. The Creon helps. He enjoys a good appetite. He has actually gained weight. He has good energy level. He is exercising regularly. He is in good spirits. Rest of the review of systems is unremarkable. Previous history: He had upper endoscopy and colonoscopy by Dr. Crespo, in the spring which was negative. Back in June he contracted COVID-19. However his symptoms were quite mild, only lasted a day and a half and then he recovered. He did receive the COVID vaccine. Review of Systems - Constitutional Reports system reviewed and no additional complaints, except as documented - Eyes Reports system reviewed and no additional complaints, except as documented - ENT Reports system reviewed and no additional complaints, except as documented - Cardiovascular Reports system reviewed and no additional complaints, except as documented - Respiratory Reports no additional respiratory complaints - Gastrointestinal Reports system reviewed and no additional complaints, except as documented - Genitourinary Genitourinary: Reports no additional male genitourinary complaints - Musculoskeletal Reports system reviewed and no additional complaints, except as documented - Integumentary/Breasts Skin/Breast: Reports no additional skin complaints - Neurologic Reports system reviewed and no additional complaints, except as documented - Psychiatric Reports system reviewed and no additional complaints, except as documented - Endocrine Reports no additional endocrine complaints - Hematologic/Lymphatic Reports system reviewed and no additional complaints, except as documented - Allergic/Immunologic Reports system reviewed and no additional complaints, except as documented PMFSH Medical History: Medical History (Last Updated 06/10/20 @ 09:36 by Malissa Curiel, RN) Anemia Diabetes mellitus Functional capacity: independent ambulation Family History: Family History (Last Updated 10/28/20 @ 13:35 by Devi Barajas RN) Mother Diabetes Surgical History: Surgical History (Last Updated 06/10/20 @ 09:37 by Malissa Curiel, LORY) H/O hernia repair Social History: Social History (Last Reviewed 10/28/20 @ 13:35 by Devi Barajas RN) Alcohol History Details: Alcohol intake frequency: a few times a week Alcohol type: beer Tobacco History: Smoking Status: Never smoker Advance Directives: Advance Directives: No Advance Directives Information Provided: No Nutrition Assessment: Patient : No Smoking status: Never smoker Oncology Screenings - ECOG Performance Status ECOG Performance Status: 0 Home Medications and Allergies Current Medications: Current Medications Generic Name Dose Route Start Last Admin Trade Name Leonardo PRN Reason Stop Dose Admin Gemcitabine HCl 2,430 mg/ 313.909 mls @ 627.831 mls/hr 10/28/20 00:00 10/28/20 16:10 Sodium Chloride IV Infused ONCE YESICA Infusion Dexamethasone Sodium Phosphate 12 mg in 50 mls @ 200 mls/hr 11/26/20 00:00 11/26/20 13:45 Decadron IV 11/26/20 23:59 Infused ONCE YESICA Infusion Ondansetron HCl 16 mg in 50 mls @ 200 mls/hr 11/26/20 00:00 11/26/20 13:25 Zofran IV 11/26/20 23:59 Infused ONCE YESICA Infusion Paclitaxel/Albumin ( 50 mls @ 100 mls/hr 11/26/20 00:00 11/26/20 14:36 Nanoparticle) 250 mg/ IV IV 11/26/20 23:59 Infused Miscellaneous Supplies ONCE YESICA Infusion Gemcitabine HCl 2,000 mg/ 302.6 mls @ 605.2 mls/hr 11/26/20 00:00 Sodium Chloride IV 11/26/20 23:59 ONCE YESICA Pegfilgrastim 6 mg 11/26/20 14:32 Pegfilgrastim Onpro 6 Mg/0.6 Ml Syr.W..Inj SUBCUT 11/26/20 14:33 ONCE ONE Home Medications Medication Instructions Recorded Confirmed Type insulin glargine [Lantus Solostar 26 unit SUBCUT BEDTIME 06/10/20 10/28/20 History U-100 Insulin] [id number] [Creon] 4 cap PO TID 06/10/20 10/28/20 History metformin 2,000 mg PO DAILY 06/10/20 10/28/20 History omeprazole magnesium [Prilosec OTC] 20 mg PO DAILY 06/10/20 10/28/20 History tadalafil (pulm. hypertension) 5 mg PO DAILY 06/10/20 10/28/20 History multivitamin 1 tab PO DAILY 10/14/20 10/28/20 History Allergies Allergy/AdvReac Type Severity Reaction Status Date / Time No Known Allergies Allergy Verified 10/28/20 13:36 [No Known Allergies*] Exam Vital signs: Vital Signs Temp 97.8 F 11/26/20 12:14 Pulse 56 11/26/20 12:14 Resp 18 11/26/20 12:14 BP 117/64 11/26/20 12:14 Pulse Ox 98 11/26/20 12:14 Intake & Output 11/25/20 11/26/20 11/26/20 18:59 06:59 18:59 Intake Total 150 / 150 Balance 150 / 150 Intake: Intake, IV Amount 150 / 150 PACLitaxel Protein-Bound 250 mg 50 / 50 In Container,Empty 0 ml @ 100 mls/hr IV ONCE YESICA Rx#: [id number] dexAMETHasone sod phosphate/NS 50 / 50 12 mg In 50 ml @ 200 mls/hr IV ONCE YESICA Rx#:[id number] ondansetron HCL/NS 16 mg In 50 50 / 50 ml @ 200 mls/hr IV ONCE YESICA Rx# :[id number] Other: Weight 111.4 kg 111.4 kg Weight in Grams [id number] Weight 111.4 kg Body Mass Index 31.5 - Constitutional Present: no acute distress - Routine HEENT Exam Head: Present: normal inspection Eye: Present: normal appearance ENT: Present: mucous membranes moist - Routine Neck Exam Present: full ROM - Routine Respiratory Exam Present: CTAB - Routine Cardiovascular Exam Cardiovascular: Present: RRR, S1, murmur - Routine Abdominal Exam Present: soft, nontender - Routine Extremities Exam Present: nontender - Routine Back/Spine/Pelvis Exam Back/Spine: Present: full ROM - Routine Skin Exam Present: intact - Routine Neurological Exam Present: alert, oriented X3 - Detailed Neurological Exam: Coma Scale Eye Opening: Spontaneous (4) - Routine Psychiatric Exam Present: normal affect Data - Labs CBC & Chem 7: 11/25/20 11:44 11/25/20 11:44 Labs: 06/10/20 09:20 CA 19-9 [Carbohydrate Antigen 19-9] Routine Complete Blood Count Auto Diff Routine Comprehensive Met. Panel Routine 06/10/20 09:42 Flu Vacc [id number](6mos up)/PF [Fluarix Quad [id number]] 0.5 ml IM .ONCE ONE 09/13/20 14:48 Complete Blood Count Auto Diff Routine Laboratory Last Values WBC 3.5 X10*3/uL (4.8-10.8) L 09/13/20 14:48 RBC 4.38 X10*6/uL (4.60-5.80) L 09/13/20 14:48 Hgb 11.5 g/dl (14.0-18.0) L 09/13/20 14:48 Hct 36.7 % (42-52) L 09/13/20 14:48 MCV 83.8 fL (80-98) 09/13/20 14:48 MCH 26.3 pg (27.0-33.0) L 09/13/20 14:48 MCHC 31.3 g/dl (31.0-36.0) 09/13/20 14:48 RDW 15.8 % (11.0-16.0) 09/13/20 14:48 Plt Count 110 X10*3/uL (160-400) L 09/13/20 14:48 MPV 11.0 fL (9.4-12.4) 09/13/20 14:48 Immature Gran % (Auto) 0.8 % (0.0-0.4) H 09/13/20 14:48 Neut % (Auto) 57.8 % (45-73) 09/13/20 14:48 Lymph % (Auto) 25.8 % (20-40) 09/13/20 14:48 [place] % (Auto) 12.5 % (2-11) H 09/13/20 14:48 Eos % (Auto) 2.5 % (0-4) 09/13/20 14:48 Baso % (Auto) 0.6 % (0-2) 09/13/20 14:48 Lymph # (Auto) 0.9 X10*3/uL (1.2-4.9) L 09/13/20 14:48 [place] # (Auto) 0.4 X10*3/uL (0.1-1.2) 09/13/20 14:48 Eos # (Auto) 0.1 X10*3/uL (0.0-0.4) 09/13/20 14:48 Baso # (Auto) 0.0 X10*3/uL (0.0-0.2) 09/13/20 14:48 Abs Immat Gran (auto) 0.03 X10*3/uL (0.00-0.03) 09/13/20 14:48 Absolute Neuts (auto) 2.0 X10*3/uL (2.0-8.3) 09/13/20 14:48 Absolute Nucleated RBC 0.000 X10*3/uL (0.0-0.012) 09/13/20 14:48 Nucleated RBC % (auto) 0.0 /100WBC (0.0-0.2) 09/13/20 14:48 Sodium 135 mmol/L (135-145) 06/10/20 09:20 Potassium 4.6 mmol/l (3.3-5.1) 06/10/20 09:20 Chloride 100 mmol/L (96-108) 06/10/20 09:20 Carbon Dioxide 28 mmol/L (22-29) 06/10/20 09:20 Anion Gap 12 (12-20) 06/10/20 09:20 BUN 19 mg/dL (9-16) H 06/10/20 09:20 Creatinine 1.59 mg/dL (0.5-1.4) H 06/10/20 09:20 Estim Creat Clear Calc 75.1 06/10/20 09:20 Estimated GFR 47 06/10/20 09:20 Random Glucose 181 mg/dL (60-115) H 06/10/20 09:20 Calcium 9.0 mg/dL (8.4-10.2) 06/10/20 09:20 Total Bilirubin 0.7 mg/dL (0.0-1.0) 06/10/20 09:20 AST 49 U/L (5-37) H 06/10/20 09:20 ALT 22 U/L (0-40) 06/10/20 09:20 Alkaline Phosphatase 51 U/L (39-117) 06/10/20 09:20 Total Protein 7.6 g/dL (6.5-8.0) 06/10/20 09:20 Albumin 4.3 g/dL (3.5-5.0) 06/10/20 09:20 CA 19-9 Antigen 357 U/mL (<34) H 06/10/20 09:20 Progress Note: A/P (1) Pancreatic cancer Status: Acute Assessment and plan: This is a pleasant 49 year-old gentleman, with the diagnosis of Pancreatic Adenocarcinoma involving the body and tail, in January of 2018. He had an extensive tumor burden. Mass encasing and obstructing the SMV, splenic vein and proximal portal vein. Infiltrative soft tissue between the aorta and IVC and into the kareem hepatis. Bilateral adrenal nodules and bilateral pulmonary nodules. He completed 6-1/2 cycles of FOLFIRINOX. Subsequent imaging appeared improved. However, at that point the patient was deemed unresectable. He subsequently had radiation which she completed November 07. He did well through the treatment. He did not have many side effects. He was clinically asymptomatic. However, CAT scan of the abdomen November, revealed: Increase in size of the left adrenal nodule to 32 mm from 28 mm. Also noted was slight increase in the size of the pancreatic mass 35 x 83 mm previously 34 x 18 mm. I decided to pick the regimen: Gemzar and Abraxane based chemotherapy. He started January 06, 2019. He completed cycle 4 on April 25. He completed cycle 7 on July 16 2019. He tolerated it well. Subsequently he elected to take a break from treatment. He wants to be monitored along. Restaging CT scan of the abdomen pelvis and chest from January 29 revealed: Chest: No evidence of metastatic disease. Stable left adrenal lesion. Fatty liver. Slightly enlarged prostate gland. Abdomen and pelvis: Stable low-attenuation soft tissue in the body of the pancreas continuous with abnormal low-attenuation soft tissue surrounding the celiac axis and SMA. Occluded splenic vein. Occluded distal SMV. Patent portal vein. Extensive peripancreatic varices. Previous imaging from October 01 revealed: Overall no significant change in the region of pancreatic head with significant collateral vessels/varices secondary to portal hypertension. The splenic vein is not seen. The portal vein is opacified to the level of pancreatic head. The spleen is heterogenous but normal size. There is no ascites seen at this time. However, there is mild haziness in bilateral paracolic gutter likely congestion. His GI complaints have resolved with the Creon. He has been feeling well. He has been working over the winter. CT chest and abdomen from 06/19/2020: Chest: New small pulmonary nodules. The largest measures 3 x 6 mm in the right lower lobe. Abdomen and pelvis: Stable low-attenuation in the body of the pancreas continuous with abnormal soft tissue surrounding the celiac axis, SMA and SMV, thickening of the bilateral anterior pararenal fascia and soft tissues surrounding the duodenum and left adrenal nodule. Occluded splenic vein, and distal SMV and extensive varices. Fatty liver. Stable mild dilatation of the common bile duct. Upper normal-size spleen. Stool throughout the colon questionable for constipation. His CA 19-9 from 06/10/20:357. From 09/13:1921. Recent CT scan of the chest and abdomen, from 09/22: Multiple pulmonary nodules are slightly increased in size since the previous study from 06/08. No major change in slightly enlarged and hypodense appearing diffuse pancreas and mild haziness along the posterior pancreatic margin. No focal lesion seen on the present exam, however the pancreas appears slightly heterogenous with abundant varices seen throughout the peripancreatic region, pancreas and upper abdomen. No change in the haziness in the peripancreatic region. Small left para aortic lymph nodes are essentially stable. No focal liver lesions seen. I shared the results with him. I was concerned about rising tumor marker and increasing pulmonary nodules. I suggested that he start back on the chemotherapy treatment. He has been restarted on Gemzar/ Abraxane since it had worked previously. He was started October 28. Since his baseline WBC count was low, he was started on Neulasta to prevent chemotherapy-induced neutropenic sepsis. He is here for cycle 2. So far tolerating it well.. PLAN: Will continue the current regimen. Will check a restaging CT scan, after 3 cycles of treatment. Hopefully he will have good response. He will return in 2 weeks for a follow-up. Thank you, CC: Dr. Karina Ochoa, at [place]. Dr. Abel Woodard at [facility]. Gen. Dr. East. - Time Spent With Patient Total time spent is greater than 50% in coordination of care (as documented) at patient's floor/unit and/or counseling patient: 25 - 35 minutes
[2020-11-26] MEDS: SODIUM CHLORIDE 0.9% IV (14:41)
[2020-11-26] MEDS: GEMCITABINE HCL IV (14:41)
[2020-11-26] MEDS: Pegfilgrastim Onpro 6 MG/0.6 ML SYR.W..INJ SUBCUT (15:10)
--- NOTE | 2020-11-26 16:11 | MHC.HEMONC ---
Pt here for c2d1 chemo with Abraxane/Gemzar. He was seen by Dr Otoole and labs were done yesterday. He went down to BSA max of 2 for todays doses per Dr Otoole. He has no c/o other than mild fatigue. He had Neulasta OnBody injector placed on right arm before leaving Clinic.
[2020-12-09 12:46] LABS: Basophils Percent Auto 0.3 % (0-2); PLT CLUMP 1; SCAN SMEAR FLAG 1
[2020-12-09 12:47] LABS: Eosinophils Percent Auto 0.3 % (0-4); Hematocrit 32.6 % (42-52); Hemoglobin 10.4 g/dl (14.0-18.0); Imm Gran Abs Auto 0.44 X10*3/uL (0.00-0.03); Imm Gran Pct Auto 4.8 % (0.0-0.4); Lymphocytes Absolute Auto 0.9 X10*3/uL (1.2-4.9); Lymphocytes Percent Auto 10.2 % (20-40); Mean Corpuscular HGB Conc 31.9 g/dl (31.0-36.0); Mean Corpuscular Volume 84.7 fL (80-98); Monocytes Absolute Auto 0.7 X10*3/uL (0.1-1.2); Monocytes Percent Auto 7.8 % (2-11); Neutrophils Percent Auto 76.6 % (45-73); Platelet Count 117 X10*3/uL (160-400); Red Blood Count 3.85 X10*6/uL (4.60-5.80); Red Cell Distribution Width 19.1 % (11.0-16.0); White Blood Count 9.1 X10*3/uL (4.8-10.8)
--- NOTE | 2020-12-09 12:59 | MHC.HEMONC ---
Pt here for labs prior to chemo appt tomorrow. Will evaluate and notify pt prn.
[2020-12-09 13:09] LABS: Alanine Aminotransferase 28 U/L (0-40); Albumin Level 4.3 g/dL (3.5-5.0); Alkaline Phosphatase 95 U/L (39-117); Anion Gap 13 (12-20); Aspartate Amino Transferase 41 U/L (5-37); Bilirubin Total 0.6 mg/dL (0.0-1.0); Blood Urea Nitrogen 16 mg/dL (9-16); Calcium 9.1 mg/dL (8.4-10.2); Carbon Dioxide 25 mmol/L (22-29); Chloride 103 mmol/L (96-108); Creatinine Clr Calc Pharmacy 87.5; Estimated Glomerular Filt Rate 56; Glucose Random 176 mg/dL (60-115); Potassium 4.3 mmol/L (3.3-5.1); Sodium 137 mmol/L (135-145); Total Protein 7.8 g/dL (6.5-8.0)
--- NOTE | 2020-12-10 07:29 | HE.PHANOTE ---
PER ONC: WOULD LIKE BSA CAPPED AT 2.0 m2 FOR PT'S CHEMO
[2020-12-10 12:18] VITALS: BP 141/75; PULSE 76; RESP 18; TEMP 36.3; O2SAT 99; BMI 31.5
[2020-12-10] MEDS: ondansetron HCL/NS 16 MG/50 ML PIGGYBACK 200 MG IV (12:56)
[2020-12-10] MEDS: dexAMETHasone sod phosphate/NS 12 MG/50 ML PIGGYBACK 200 MG IV (13:13)
[2020-12-10] MEDS: PACLITAXEL PROTEIN BOUND IV (13:38)
[2020-12-10] MEDS: CONTAINER EMPTY IV (13:38)
--- NOTE | 2020-12-10 14:04 | MHC.HEMONC ---
pt labs from yesterday reviewed and WNL. He is doing well, working - and has no c/o. Christi chemo well.
[2020-12-10] MEDS: SODIUM CHLORIDE 0.9% IV (14:22)
[2020-12-10] MEDS: GEMCITABINE HCL IV (14:22)
[2020-12-10] MEDS: Pegfilgrastim Onpro 6 MG/0.6 ML SYR.W..INJ SUBCUT (15:10)
--- NOTE | 2020-12-23 11:05 | MHC.HEMONC ---
Pt here for lab work. Labs drawn. pt will return tomorrow for chemotherapy.
[2020-12-23 11:40] LABS: PLT CLUMP 1; Red Cell Distribution Width 21.5 % (11.0-16.0)
[2020-12-23 11:42] LABS: Hemoglobin 10.7 g/dl (14.0-18.0); Mean Corpuscular HGB Conc 32.4 g/dl (31.0-36.0); Mean Corpuscular Hemoglobin 27.7 pg (27.0-33.0); Mean Corpuscular Volume 85.5 fL (80-98); Red Blood Count 3.86 X10*6/uL (4.60-5.80); White Blood Count 7.9 X10*3/uL (4.8-10.8)
[2020-12-23 11:44] LABS: Platelet Count 82 X10*3/uL (160-400)
[2020-12-23 12:00] LABS: Alanine Aminotransferase 20 U/L (0-40); Albumin Level 4.4 g/dL (3.5-5.0); Alkaline Phosphatase 115 U/L (39-117); Anion Gap 12 (12-20); Aspartate Amino Transferase 33 U/L (5-37); Bilirubin Total 0.8 mg/dL (0.0-1.0); Blood Urea Nitrogen 16 mg/dL (9-16); Carbon Dioxide 25 mmol/L (22-29); Chloride 103 mmol/L (96-108); Creatinine Clr Calc Pharmacy 92.4; Estimated Glomerular Filt Rate > 60; Glucose Random 198 mg/dL (60-115); Potassium 4.4 mmol/L (3.3-5.1); Sodium 136 mmol/L (135-145); Total Protein 7.9 g/dL (6.5-8.0)
[2020-12-23 12:31] LABS: Band Neutrophils Percent 4 % (3-5); Lymphocytes Absolute Manual 0.9 X10*3/uL (0.6-4.8); Lymphocytes Percent Manual 12 % (20-40); Metamyelocytes Absolute 0.2 X10*3/uL; Metamyelocytes Percent 2 %; Monocytes Absolute Manual 0.5 X10*3/uL (0.0-1.2); Monocytes Percent Manual 6 % (2-11); Neutrophils Absolute Manual 6.3 X10*3/uL (2.2-7.9); Neutrophils Percent Manual 76 % (45-73)
[2020-12-23 12:33] LABS: Macrocytosis 1+ (5-14) /OIF; RBC Morphology NOTED
[2020-12-23 12:34] LABS: Acanthocytes 1+ (0-2) /OIF; Tear Drop Cells 1+ (0-2) /OIF
[2020-12-23 12:35] LABS: Platelet Estimate DECREASED (NORMAL); Platelet Morphology Comment NORMAL
[2020-12-24 11:07] VITALS: BMI 31.4
[2020-12-24 11:08] VITALS: BP 131/71; PULSE 69; RESP 18; TEMP 36.3; O2SAT 99
[2020-12-24] MEDS: dexAMETHasone sod phosphate/NS 12 MG/50 ML PIGGYBACK 200 MG IV (11:22)
[2020-12-24] MEDS: ondansetron HCL/NS 16 MG/50 ML PIGGYBACK 200 MG IV (11:22)
--- NOTE | 2020-12-24 12:21 | MHC.HEMONC ---
pt labs from yesterday reviewed. PLT 82 - OK to treat per Dr Otoole. She will see him today. He has no new concerns. 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
[2020-12-24] MEDS: PACLITAXEL PROTEIN BOUND IV (13:46)
[2020-12-24] MEDS: CONTAINER EMPTY IV (13:46)
--- NOTE | 2020-12-24 13:55 | P.PNHO_ITS ---
Medical Summary - Medical Summary Date of Service: 12/24/20 Chief complaint: Follow-up for: Pancreatic carcinoma. Medical Summary: DIAGNOSIS: Pancreatc Carcinoma. Pancytopenia. CURRENT THERAPY: Started on Folfirinox, 03/11. Completed 6 cycles, August. Completed XRT November 07 in [place]. He was unable to get capecitabine on account of thrombocytopenia. On Gemzar Abraxane, started January 06. Completed cycle 6 on 06/20. Completed cycle 7, July 16, 2019. Took a break from treatment, after that. Now restarted Gemzar Abraxane for disease progression, 10/28. Cycle 3, day 1 today. Interval History Interval history: This is a pleasant 50-year-old gentleman, here for a follow-up visit. He tells me he feels, so far so good. He denies any major problems. He tells me he is doing reasonably well. He has been tolerating the treatment quite well. His fatigue pattern goes up and down. He is good 1st couple of days after treatment, he then notices a bit of fatigue. He gets some body aches. He feels mild nausea. He takes Tylenol and Zofran to prevent that. 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 No headache no dizziness. Denies any complaints chest pain or trouble breathing. He denies any abdominal pain. No nausea or vomiting, no heartburn indigestion. His bowels are working now regularly. No gross blood in the stools. The Creon helps. He enjoys a good appetite. He has actually gained weight. He has good energy level. He is exercising regularly. He is in good spirits. Rest of the review of systems is unremarkable. Previous history: He had upper endoscopy and colonoscopy by Dr. Crespo, in the spring which was negative. Back in June he contracted COVID-19. However his symptoms were quite mild, only lasted a day and a half and then he recovered. He did receive the COVID vaccine. Review of Systems - Constitutional Reports no additional constitutional complaints - Eyes Reports no additional eye complaints - ENT Reports no additional ear, nose, mouth, and throat complaints - Cardiovascular Reports no additional cardiovascular complaints - Respiratory Reports no additional respiratory complaints - Gastrointestinal Reports no additional gastrointestinal complaints - Genitourinary Genitourinary: Reports no additional male genitourinary complaints - Musculoskeletal Reports no additional musculoskeletal complaints - Integumentary/Breasts Skin/Breast: Reports no additional skin complaints - Neurologic Reports no additional neurologic complaints - Psychiatric Reports no additional psychiatric complaints - Endocrine Reports no additional endocrine complaints - Hematologic/Lymphatic Reports no additional hematologic/lymphatic complaints - Allergic/Immunologic Reports no additional allergic/immunologic complaints [facility] Medical History: Medical History (Last Updated 06/10/20 @ 09:36 by Malissa Curiel, RN) Anemia Diabetes mellitus Functional capacity: independent ambulation Patient : No Family History: Family History (Last Updated 10/28/20 @ 13:35 by Devi Barajas, RN) Mother Diabetes Surgical History: Surgical History (Last Updated 06/10/20 @ 09:37 by Malissa Curiel, RN) H/O hernia repair Social History: Social History (Last Reviewed 10/28/20 @ 13:35 by Devi Barajas RN) Alcohol History Details: Alcohol intake frequency: a few times a week Alcohol type: beer Tobacco History: Smoking Status: Never smoker Advance Directives: Advance Directives: No Advance Directives Information Provided: No Nutrition Assessment: Patient : No Smoking status: Never smoker Oncology Screenings - ECOG Performance Status ECOG Performance Status: 0 Home Medications and Allergies Current Medications: Current Medications Generic Name Dose Route Start Last Admin Trade Name Leonardo PRN Reason Stop Dose Admin Paclitaxel/Albumin ( 50 mls @ 100 mls/hr 12/24/20 00:00 12/24/20 13:46 Nanoparticle) 250 mg/ IV IV 12/24/20 23:59 100 mls/hr Miscellaneous Supplies ONCE YESICA Administration Gemcitabine HCl 2,000 mg/ 302.6 mls @ 605.2 mls/hr 12/24/20 00:00 Sodium Chloride IV 12/24/20 23:59 ONCE YESICA Pegfilgrastim 6 mg 12/24/20 13:29 Pegfilgrastim Onpro 6 Mg/0.6 Ml Syr.W..Inj SUBCUT 12/24/20 13:30 ONCE ONE Home Medications Medication Instructions Recorded Confirmed Type insulin glargine [Lantus Solostar 26 unit SUBCUT BEDTIME 06/10/20 10/28/20 History U-100 Insulin] [id number] [Creon] 4 cap PO TID 06/10/20 10/28/20 History metformin 2,000 mg PO DAILY 06/10/20 10/28/20 History omeprazole magnesium [Prilosec OTC] 20 mg PO DAILY 06/10/20 10/28/20 History tadalafil (pulm. hypertension) 5 mg PO DAILY 06/10/20 10/28/20 History multivitamin 1 tab PO DAILY 10/14/20 10/28/20 History Allergies Allergy/AdvReac Type Severity Reaction Status Date / Time No Known Allergies Allergy Verified 10/28/20 13:36 [No Known Allergies*] Exam Vital signs: Vital Signs Temp 97.3 F 12/24/20 11:08 Pulse 69 12/24/20 11:08 Resp 18 12/24/20 11:08 BP 131/71 12/24/20 11:08 Pulse Ox 99 12/24/20 11:08 Intake & Output 12/23/20 12/24/20 12/24/20 18:59 06:59 18:59 Intake Total 100 / 100 Balance 100 / 100 Intake: Intake, IV Amount 100 / 100 dexAMETHasone sod phosphate/NS 50 / 50 12 mg In 50 ml @ 200 mls/hr IV ONCE YESICA Rx#:[id number] ondansetron HCL/NS 16 mg In 50 50 / 50 ml @ 200 mls/hr IV ONCE YESICA Rx# :[id number] Other: Weight 111.1 kg Weight in Grams [id number] Weight 111.1 kg Body Mass Index 31.4 - Constitutional Present: no acute distress - Routine HEENT Exam Head: Present: normal inspection Eye: Present: normal appearance ENT: Present: mucous membranes moist - Routine Neck Exam Present: full ROM - Routine Respiratory Exam Present: CTAB - Routine Cardiovascular Exam Cardiovascular: Present: RRR, S1, murmur - Routine Abdominal Exam Present: soft, nontender - Routine Extremities Exam Present: nontender - Routine Back/Spine/Pelvis Exam Back/Spine: Present: full ROM - Routine Skin Exam Present: intact - Routine Neurological Exam Present: alert, oriented X3 - Detailed Neurological Exam: Coma Scale Eye Opening: Spontaneous (4) - Routine Psychiatric Exam Present: normal affect Data - Labs CBC & Chem 7: 12/23/20 11:03 12/23/20 11:03 Labs: 06/10/20 09:20 CA 19-9 [Carbohydrate Antigen 19-9] Routine Complete Blood Count Auto Diff Routine Comprehensive Met. Panel Routine 06/10/20 09:42 Flu Vacc [id number](6mos up)/PF [Fluarix Quad [id number]] 0.5 ml IM .ONCE ONE 09/13/20 14:48 Complete Blood Count Auto Diff Routine Laboratory Last Values WBC 3.5 X10*3/uL (4.8-10.8) L 09/13/20 14:48 RBC 4.38 X10*6/uL (4.60-5.80) L 09/13/20 14:48 Hgb 11.5 g/dl (14.0-18.0) L 09/13/20 14:48 Hct 36.7 % (42-52) L 09/13/20 14:48 MCV 83.8 fL (80-98) 09/13/20 14:48 MCH 26.3 pg (27.0-33.0) L 09/13/20 14:48 MCHC 31.3 g/dl (31.0-36.0) 09/13/20 14:48 RDW 15.8 % (11.0-16.0) 09/13/20 14:48 Plt Count 110 X10*3/uL (160-400) L 09/13/20 14:48 MPV 11.0 fL (9.4-12.4) 09/13/20 14:48 Immature Gran % (Auto) 0.8 % (0.0-0.4) H 09/13/20 14:48 Neut % (Auto) 57.8 % (45-73) 09/13/20 14:48 Lymph % (Auto) 25.8 % (20-40) 09/13/20 14:48 [place] % (Auto) 12.5 % (2-11) H 09/13/20 14:48 Eos % (Auto) 2.5 % (0-4) 09/13/20 14:48 Baso % (Auto) 0.6 % (0-2) 09/13/20 14:48 Lymph # (Auto) 0.9 X10*3/uL (1.2-4.9) L 09/13/20 14:48 [place] # (Auto) 0.4 X10*3/uL (0.1-1.2) 09/13/20 14:48 Eos # (Auto) 0.1 X10*3/uL (0.0-0.4) 09/13/20 14:48 Baso # (Auto) 0.0 X10*3/uL (0.0-0.2) 09/13/20 14:48 Abs Immat Gran (auto) 0.03 X10*3/uL (0.00-0.03) 09/13/20 14:48 Absolute Neuts (auto) 2.0 X10*3/uL (2.0-8.3) 09/13/20 14:48 Absolute Nucleated RBC 0.000 X10*3/uL (0.0-0.012) 09/13/20 14:48 Nucleated RBC % (auto) 0.0 /100WBC (0.0-0.2) 09/13/20 14:48 Sodium 135 mmol/L (135-145) 06/10/20 09:20 Potassium 4.6 mmol/l (3.3-5.1) 06/10/20 09:20 Chloride 100 mmol/L (96-108) 06/10/20 09:20 Carbon Dioxide 28 mmol/L (22-29) 06/10/20 09:20 Anion Gap 12 (12-20) 06/10/20 09:20 BUN 19 mg/dL (9-16) H 06/10/20 09:20 Creatinine 1.59 mg/dL (0.5-1.4) H 06/10/20 09:20 Estim Creat Clear Calc 75.1 06/10/20 09:20 Estimated GFR 47 06/10/20 09:20 Random Glucose 181 mg/dL (60-115) H 06/10/20 09:20 Calcium 9.0 mg/dL (8.4-10.2) 06/10/20 09:20 Total Bilirubin 0.7 mg/dL (0.0-1.0) 06/10/20 09:20 AST 49 U/L (5-37) H 06/10/20 09:20 ALT 22 U/L (0-40) 06/10/20 09:20 Alkaline Phosphatase 51 U/L (39-117) 06/10/20 09:20 Total Protein 7.6 g/dL (6.5-8.0) 06/10/20 09:20 Albumin 4.3 g/dL (3.5-5.0) 06/10/20 09:20 CA 19-9 Antigen 357 U/mL (<34) H 06/10/20 09:20 Progress Note: A/P (1) Pancreatic cancer Status: Acute Assessment and plan: This is a pleasant 49 year-old gentleman, with the diagnosis of Pancreatic [place] carcinoma involving the body and tail, in January of 2018. He had an extensive tumor burden. Mass encasing and obstructing the SMV, splenic vein and proximal portal vein. Infiltrative soft tissue between the aorta and IVC and into the kareem hepatis. Bilateral adrenal nodules and bilateral pulmonary nodules. He completed 6-1/2 cycles of FOLFIRINOX. Subsequent imaging appeared improved. However, at that point the patient was deemed unresectable. He subsequently had radiation which she completed November 07. He did well through the treatment. He did not have many side effects. He was clinically asymptomatic. However, CAT scan of the abdomen November, revealed: Increase in size of the left adrenal nodule to 32 mm from 28 mm. Also noted was slight increase in the size of the pancreatic mass 35 x 83 mm previously 34 x 18 mm. I decided to pick the regimen: Gemzar and Abraxane based chemotherapy. He started January 06, 2019. He completed cycle 4 on April 25. He completed cycle 7 on July 16 2019. He tolerated it well. Subsequently he elected to take a break from treatment. He wants to be monitored along. Restaging CT scan of the abdomen pelvis and chest from January 29 revealed: Chest: No evidence of metastatic disease. Stable left adrenal lesion. Fatty liver. Slightly enlarged prostate gland. Abdomen and pelvis: Stable low-attenuation soft tissue in the body of the pancreas continuous with abnormal low-attenuation soft tissue surrounding the celiac axis and SMA. Occluded splenic vein. Occluded distal SMV. Patent portal vein. Extensive peripancreatic varices. Previous imaging from October 01 revealed: Overall no significant change in the region of pancreatic head with significant collateral vessels/varices secondary to portal hypertension. The splenic vein is not seen. The portal vein is opacified to the level of pancreatic head. The spleen is heterogenous but normal size. There is no ascites seen at this time. However, there is mild haziness in bilateral paracolic gutter likely congestion. His GI complaints have resolved with the Creon. He has been feeling well. He has been working over the winter. CT chest and abdomen from 06/19/2020: Chest: New small pulmonary nodules. The largest measures 3 x 6 mm in the right lower lobe. Abdomen and pelvis: Stable low-attenuation in the body of the pancreas continuous with abnormal soft tissue surrounding the celiac axis, SMA and SMV, thickening of the bilateral anterior pararenal fascia and soft tissues surrounding the duodenum and left adrenal nodule. Occluded splenic vein, and distal SMV and extensive varices. Fatty liver. Stable mild dilatation of the common bile duct. Upper normal-size spleen. Stool throughout the colon questionable for constipation. His CA 19-9 from 06/10/20:357. From 09/13:1921. Recent CT scan of the chest and abdomen, from 09/22: Multiple pulmonary nodules are slightly increased in size since the previous study from 06/08. No major change in slightly enlarged and hypodense appearing diffuse pancreas and mild haziness along the posterior pancreatic margin. No focal lesion seen on the present exam, however the pancreas appears slightly heterogenous with abundant varices seen throughout the peripancreatic region, pancreas and upper abdomen. No change in the haziness in the peripancreatic region. Small left para aortic lymph nodes are essentially stable. No focal liver lesions seen. I shared the results with him. I was concerned about rising tumor marker and increasing pulmonary nodules. I suggested that he start back on the chemotherapy treatment. He has been restarted on Gemzar/ Abraxane since it had worked previously. He was started October 28. Since his baseline WBC count was low, he was started on Neulasta to prevent chemotherapy-induced neutropenic sepsis. He is here for cycle 3, day 1. So far tolerating it well.. PLAN: Will continue the current regimen. Will check a restaging CT scan, after completion of this cycle of treatment. Hopefully he will have good response. He will return in 2 weeks for cycle 3 day 15, and in a month for a follow-up. Thank you, CC: Dr. Karina Ochoa, at [place]. Dr. Abel Woodard at [facility]. Gen. Dr. East. - Time Spent With Patient Total time spent is greater than 50% in coordination of care (as documented) at patient's floor/unit and/or counseling patient: 25 - 35 minutes
[2020-12-24] MEDS: SODIUM CHLORIDE 0.9% IV (14:33)
[2020-12-24] MEDS: GEMCITABINE HCL IV (14:33)
[2020-12-24] MEDS: Pegfilgrastim Onpro 6 MG/0.6 ML SYR.W..INJ SUBCUT (15:13)
[2020-12-27 12:52] LABS: Carbohydrate Antigen 19-9 1355 U/mL (<34)
[2021-01-06 11:23] LABS: MANUAL DIFF FLAG NO
[2021-01-06 11:33] LABS: Basophils Percent Auto 0.2 % (0-2); Eosinophils Absolute Auto 0.1 X10*3/uL (0.0-0.4); Eosinophils Percent Auto 0.8 % (0-4); Hematocrit 30.4 % (42-52); Hemoglobin 9.8 g/dl (14.0-18.0); Imm Gran Abs Auto 0.43 X10*3/uL (0.00-0.03); Imm Gran Pct Auto 4.9 % (0.0-0.4); Mean Corpuscular HGB Conc 32.2 g/dl (31.0-36.0); Mean Corpuscular Hemoglobin 28.5 pg (27.0-33.0); Mean Corpuscular Volume 88.4 fL (80-98); Mean Platelet Volume 10.3 fL (9.4-12.4); Monocytes Absolute Auto 0.8 X10*3/uL (0.1-1.2); Monocytes Percent Auto 9.1 % (2-11); Neutrophils Absolute Auto 6.4 X10*3/uL (2.0-8.3); Platelet Count 99 X10*3/uL (160-400); Red Blood Count 3.44 X10*6/uL (4.60-5.80); Red Cell Distribution Width 23.9 % (11.0-16.0); White Blood Count 8.7 X10*3/uL (4.8-10.8)
[2021-01-06 12:13] LABS: Alanine Aminotransferase 24 U/L (0-40); Albumin Level 4.2 g/dL (3.5-5.0); Alkaline Phosphatase 89 U/L (39-117); Anion Gap 10 (12-20); Aspartate Amino Transferase 40 U/L (5-37); Bilirubin Total 0.7 mg/dL (0.0-1.0); Blood Urea Nitrogen 17 mg/dL (9-16); Calcium 9.1 mg/dL (8.4-10.2); Carbon Dioxide 28 mmol/L (22-29); Chloride 103 mmol/L (96-108); Creatinine Clr Calc Pharmacy 91.5; Estimated Glomerular Filt Rate 59; Glucose Random 184 mg/dL (60-115); Potassium 4.5 mmol/L (3.3-5.1); Sodium 136 mmol/L (135-145); Total Protein 7.3 g/dL (6.5-8.0)
[2021-01-07 11:18] VITALS: BP 129/75; PULSE 79; RESP 18; TEMP 36.2; O2SAT 98; BMI 31.5
[2021-01-07] MEDS: ondansetron HCL/NS 16 MG/50 ML PIGGYBACK 200 MG IV (11:33)
[2021-01-07] MEDS: dexAMETHasone sod phosphate/NS 12 MG/50 ML PIGGYBACK 200 MG IV (11:52)
[2021-01-07] MEDS: PACLITAXEL PROTEIN BOUND IV (12:27)
[2021-01-07] MEDS: CONTAINER EMPTY IV (12:27)
[2021-01-07] MEDS: GEMCITABINE HCL IV (13:08)
[2021-01-07] MEDS: SODIUM CHLORIDE 0.9% IV (13:08)
--- NOTE | 2021-01-07 13:27 | MHC.HEMONC ---
pt here for chemo. Labs yesterday WNL. He has mild fatigue and upset stomachs but is otherwise quite well. [place] OnBody placed on pt prior to leaving. Will be scheduled now for CT to f/u on response.
[2021-01-07] MEDS: Pegfilgrastim Onpro 6 MG/0.6 ML SYR.W..INJ SUBCUT (13:54)
--- NOTE | 2021-02-28 14:45 | PM.HEMONCPN ---
Medical Summary - Medical Summary Date of Service: 02/28/21 Chief complaint: Follow-up for: Pancreatic carcinoma. Medical Summary: DIAGNOSIS: Pancreatc Carcinoma. Pancytopenia. CURRENT THERAPY: Started on Folfirinox, 03/11. Completed 6 cycles, August. Completed XRT November 07 in [place]. He was unable to get capecitabine on account of thrombocytopenia. On Gemzar Abraxane, started January 06. Completed cycle 6 on 06/20. Completed cycle 7, July 16, 2019. Took a break from treatment, after that. Now restarted Gemzar Abraxane for disease progression, 10/28. Cycle 3, day 11 on 01/07. Interval History Interval history: This is a pleasant 50-year-old gentleman, here for a follow-up visit. He tells me he is feeling very well. He denies any major problems. He denies any changes in his medical history nor medications. He has good energy level. He is exercising regularly. 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 No headache no dizziness. Denies any complaints chest pain or trouble breathing. He denies any abdominal pain. No nausea or vomiting, no heartburn indigestion. His bowels are working without any gross blood in it. He enjoys a good appetite. He has actually gained weight. He is in good spirits. Rest of the review of systems is unremarkable. Previous history: He had upper endoscopy and colonoscopy by Dr. Crespo, in the spring which was negative. Back in June he contracted COVID-19. However his symptoms were quite mild, only lasted a day and a half and then he recovered. He did receive the COVID vaccine. Review of Systems - Constitutional Reports system reviewed and no additional complaints, except as documented, Denies lack of energy, Denies malaise, Denies weight loss - Eyes Reports system reviewed and no additional complaints, except as documented, Denies blurry vision - ENT Reports system reviewed and no additional complaints, except as documented, Reports hearing normal - Cardiovascular Reports system reviewed and no additional complaints, except as documented, Denies chest pain - Respiratory Reports no additional respiratory complaints - Gastrointestinal Reports system reviewed and no additional complaints, except as documented - Genitourinary Genitourinary: Reports no additional male genitourinary complaints - Musculoskeletal Reports system reviewed and no additional complaints, except as documented - Integumentary/Breasts Skin/Breast: Reports no additional skin complaints - Neurologic Reports system reviewed and no additional complaints, except as documented - Psychiatric Reports system reviewed and no additional complaints, except as documented - Endocrine Reports no additional endocrine complaints - Hematologic/Lymphatic Reports system reviewed and no additional complaints, except as documented - Allergic/Immunologic Reports system reviewed and no additional complaints, except as documented PMFSH Medical History: Medical History (Last Updated 06/10/20 @ 09:36 by Malissa Curiel, RN) Anemia Diabetes mellitus Functional capacity: independent ambulation Patient : No Family History: Family History (Last Updated 10/28/20 @ 13:35 by Devi Barajas, LORY) Mother Diabetes Surgical History: Surgical History (Last Updated 06/10/20 @ 09:37 by Malissa Curiel RN) H/O hernia repair Social History: Social History (Last Reviewed 10/28/20 @ 13:35 by Devi Barajas RN) Alcohol History Details: Alcohol intake frequency: a few times a week Alcohol type: beer Advance Directives: Advance Directives: No Advance Directives Information Provided: No Nutrition Assessment: Patient : No Oncology Screenings - ECOG Performance Status ECOG Performance Status: 0 Home Medications and Allergies Home Medications Medication Instructions Recorded Confirmed Type insulin glargine 100 unit/mL (3 26 unit SUBCUT BEDTIME 06/10/20 02/28/21 History mL) subcutaneous pen (Lantus Solostar U-100 Insulin) [id number] 4 cap PO TID 06/10/20 02/28/21 History 12,000-38,000-60,000 unit capsule,delayed rel (Creon) metformin 500 mg tablet,extended 2,000 mg PO DAILY 06/10/20 02/28/21 History release 24 hr omeprazole magnesium 20 mg 20 mg PO DAILY 06/10/20 02/28/21 History tablet,delayed release (Prilosec OTC) tadalafil (pulm. hypertension) 20 5 mg PO DAILY 06/10/20 02/28/21 History mg tablet (pulmonary hypertension) multivitamin 1 tab PO DAILY 10/14/20 02/28/21 History lisinopril 2.5 mg tablet 1 tab PO DAILY 02/28/21 02/28/21 History Allergies Allergy/AdvReac Type Severity Reaction Status Date / Time No Known Allergies Allergy Verified 10/28/20 13:36 [No Known Allergies*] Exam Vital signs: Vital Signs Temp 97.1 F 01/07/21 11:18 Pulse 79 01/07/21 11:18 Resp 18 01/07/21 11:18 BP 129/75 01/07/21 11:18 Pulse Ox 98 01/07/21 11:18 Weight 111.4 kg Body Mass Index 31.5 - Constitutional Present: no acute distress - Routine HEENT Exam Head: Present: normal inspection Eye: Present: normal appearance ENT: Present: mucous membranes moist - Routine Neck Exam Present: full ROM - Routine Respiratory Exam Present: CTAB - Routine Cardiovascular Exam Cardiovascular: Present: RRR, S1, murmur - Routine Abdominal Exam Present: soft, nontender - Routine Extremities Exam Present: nontender - Routine Back/Spine/Pelvis Exam Back/Spine: Present: full ROM - Routine Skin Exam Present: intact - Routine Neurological Exam Present: alert, oriented X3 - Detailed Neurological Exam: Coma Scale Eye Opening: Spontaneous (4) - Routine Psychiatric Exam Present: normal affect Data - Labs CBC & Chem 7: 02/28/21 15:51 02/28/21 15:51 Labs: 06/10/20 09:20 CA 19-9 [Carbohydrate Antigen 19-9] Routine Complete Blood Count Auto Diff Routine Comprehensive Met. Panel Routine 06/10/20 09:42 Flu Vacc [id number](6mos up)/PF [Fluarix Quad [id number]] 0.5 ml IM .ONCE ONE 09/13/20 14:48 Complete Blood Count Auto Diff Routine Laboratory Last Values WBC 3.5 X10*3/uL (4.8-10.8) L 09/13/20 14:48 RBC 4.38 X10*6/uL (4.60-5.80) L 09/13/20 14:48 Hgb 11.5 g/dl (14.0-18.0) L 09/13/20 14:48 Hct 36.7 % (42-52) L 09/13/20 14:48 MCV 83.8 fL (80-98) 09/13/20 14:48 MCH 26.3 pg (27.0-33.0) L 09/13/20 14:48 MCHC 31.3 g/dl (31.0-36.0) 09/13/20 14:48 RDW 15.8 % (11.0-16.0) 09/13/20 14:48 Plt Count 110 X10*3/uL (160-400) L 09/13/20 14:48 MPV 11.0 fL (9.4-12.4) 09/13/20 14:48 Immature Gran % (Auto) 0.8 % (0.0-0.4) H 09/13/20 14:48 Neut % (Auto) 57.8 % (45-73) 09/13/20 14:48 Lymph % (Auto) 25.8 % (20-40) 09/13/20 14:48 Greer % (Auto) 12.5 % (2-11) H 09/13/20 14:48 Eos % (Auto) 2.5 % (0-4) 09/13/20 14:48 Baso % (Auto) 0.6 % (0-2) 09/13/20 14:48 Lymph # (Auto) 0.9 X10*3/uL (1.2-4.9) L 09/13/20 14:48 Greer # (Auto) 0.4 X10*3/uL (0.1-1.2) 09/13/20 14:48 Eos # (Auto) 0.1 X10*3/uL (0.0-0.4) 09/13/20 14:48 Baso # (Auto) 0.0 X10*3/uL (0.0-0.2) 09/13/20 14:48 Abs Immat Gran (auto) 0.03 X10*3/uL (0.00-0.03) 09/13/20 14:48 Absolute Neuts (auto) 2.0 X10*3/uL (2.0-8.3) 09/13/20 14:48 Absolute Nucleated RBC 0.000 X10*3/uL (0.0-0.012) 09/13/20 14:48 Nucleated RBC % (auto) 0.0 /100WBC (0.0-0.2) 09/13/20 14:48 Sodium 135 mmol/L (135-145) 06/10/20 09:20 Potassium 4.6 mmol/l (3.3-5.1) 06/10/20 09:20 Chloride 100 mmol/L (96-108) 06/10/20 09:20 Carbon Dioxide 28 mmol/L (22-29) 06/10/20 09:20 Anion Gap 12 (12-20) 06/10/20 09:20 BUN 19 mg/dL (9-16) H 06/10/20 09:20 Creatinine 1.59 mg/dL (0.5-1.4) H 06/10/20 09:20 Estim Creat Clear Calc 75.1 06/10/20 09:20 Estimated GFR 47 06/10/20 09:20 Random Glucose 181 mg/dL (60-115) H 06/10/20 09:20 Calcium 9.0 mg/dL (8.4-10.2) 06/10/20 09:20 Total Bilirubin 0.7 mg/dL (0.0-1.0) 06/10/20 09:20 AST 49 U/L (5-37) H 06/10/20:20 ALT 22 U/L (0-40) 06/10/20 09:20 Alkaline Phosphatase 51 U/L (39-117) 06/10/20 09:20 Total Protein 7.6 g/dL (6.5-8.0) 06/10/20 09:20 Albumin 4.3 g/dL (3.5-5.0) 06/10/20 09:20 CA 19-9 Antigen 357 U/mL (<34) H 06/10/20 09:20 Progress Note: A/P (1) Pancreatic cancer Status: Acute Assessment and plan: This is a pleasant 49 year-old gentleman, with the diagnosis of Pancreatic Adenocarcinoma involving the body and tail, in January of 2018. He had an extensive tumor burden. Mass encasing and obstructing the SMV, splenic vein and proximal portal vein. Infiltrative soft tissue between the aorta and IVC and into the kareem hepatis. Bilateral adrenal nodules and bilateral pulmonary nodules. He completed 6-1/2 cycles of FOLFIRINOX. Subsequent imaging appeared improved. However, at that point the patient was deemed unresectable. He subsequently had radiation which she completed November 07. He did well through the treatment. He did not have many side effects. He was clinically asymptomatic. However, CAT scan of the abdomen November, revealed: Increase in size of the left adrenal nodule to 32 mm from 28 mm. Also noted was slight increase in the size of the pancreatic mass 35 x 83 mm previously 34 x 18 mm. I decided to pick the regimen: Gemzar and Abraxane based chemotherapy. He started January 06, 2019. He completed cycle 4 on April 25. He completed cycle 7 on July 16 2019. He tolerated it well. Subsequently he elected to take a break from treatment. He wants to be monitored along. Restaging CT scan of the abdomen pelvis and chest from January 29 revealed: Chest: No evidence of metastatic disease. Stable left adrenal lesion. Fatty liver. Slightly enlarged prostate gland. Abdomen and pelvis: Stable low-attenuation soft tissue in the body of the pancreas continuous with abnormal low-attenuation soft tissue surrounding the celiac axis and SMA. Occluded splenic vein. Occluded distal SMV. Patent portal vein. Extensive peripancreatic varices. Previous imaging from October 01 revealed: Overall no significant change in the region of pancreatic head with significant collateral vessels/varices secondary to portal hypertension. The splenic vein is not seen. The portal vein is opacified to the level of pancreatic head. The spleen is heterogenous but normal size. There is no ascites seen at this time. However, there is mild haziness in bilateral paracolic gutter likely congestion. His GI complaints have resolved with the Creon. He has been feeling well. He has been working over the winter. CT chest and abdomen from 06/19/2020: Chest: New small pulmonary nodules. The largest measures 3 x 6 mm in the right lower lobe. Abdomen and pelvis: Stable low-attenuation in the body of the pancreas continuous with abnormal soft tissue surrounding the celiac axis, SMA and SMV, thickening of the bilateral anterior pararenal fascia and soft tissues surrounding the duodenum and left adrenal nodule. Occluded splenic vein, and distal SMV and extensive varices. Fatty liver. Stable mild dilatation of the common bile duct. Upper normal-size spleen. Stool throughout the colon questionable for constipation. His CA 19-9 from 06/10/20:357. From 09/13:1921. Recent CT scan of the chest and abdomen, from 09/22: Multiple pulmonary nodules are slightly increased in size since the previous study from 06/08. No major change in slightly enlarged and hypodense appearing diffuse pancreas and mild haziness along the posterior pancreatic margin. No focal lesion seen on the present exam, however the pancreas appears slightly heterogenous with abundant varices seen throughout the peripancreatic region, pancreas and upper abdomen. No change in the haziness in the peripancreatic region. Small left para aortic lymph nodes are essentially stable. No focal liver lesions seen. I shared the results with him. I was concerned about rising tumor marker and increasing pulmonary nodules. I suggested that he start back on the chemotherapy treatment. He has been restarted on Gemzar/ Abraxane since it had worked previously. He was started October 28. Since his baseline WBC count was low, he was started on Neulasta to prevent chemotherapy-induced neutropenic sepsis. He is here for cycle 3, day 1. So far tolerating it well.. CAT scan on 01/31: Stable pulmonary nodules. No new pulmonary nodules seen. Mild fatty infiltration of liver with portal vein thrombosis and cavernous transformation of portal vein, similar to previous study. There is diffuse haziness in the pancreatic head with heterogeneity, stable. The rest of the pancreas is slightly attenuated. Numerous collateral vessels are seen surrounding the pancreatic head and the upper abdomen. He is clinically doing well. His blood count is holding steady. His scan is stable. PLAN: I will follow-up on the tumor marker. The CA 19/9 is down to 451 from 1355. I will refer him to [facility] for a follow-up for a 2nd opinion, to see if he would be eligible for a clinical trial there. He will return in a couple of weeks for a follow-up. Will regroup in take it from there. Thank you, CC: Dr. Karina Ochoa, at [place]. Dr. Abel Woodard at [facility]. Gen. Dr. East. Addendum: I discussed his case with Dr. Nicole Lees, at [facility]. She has graciously agreed to see him on 03/24. Will make further plans after the appointment. - Time Spent With Patient Time Spent with Patient (in minutes): 25
[2021-02-28 15:43] VITALS: BP 156/90; PULSE 61; RESP 17; TEMP 36.1; O2SAT 100; BMI 31.5
[2021-02-28 15:58] LABS: Hematocrit 36.1 % (42-52); Hemoglobin 11.4 g/dl (14.0-18.0); MANUAL DIFF FLAG SCAN; Mean Corpuscular HGB Conc 31.6 g/dl (31.0-36.0); Mean Corpuscular Hemoglobin 28.6 pg (27.0-33.0); Monocytes Absolute Auto 0.3 X10*3/uL (0.1-1.2); PLT CLUMP 1; SCAN SMEAR FLAG 1
[2021-02-28 16:00] LABS: Eosinophils Absolute Auto 0.1 X10*3/uL (0.0-0.4); Eosinophils Percent Auto 3.5 % (0-4); Imm Gran Abs Auto 0.01 X10*3/uL (0.00-0.03); Imm Gran Pct Auto 0.3 % (0.0-0.4); Lymphocytes Absolute Auto 0.7 X10*3/uL (1.2-4.9); Lymphocytes Percent Auto 22.8 % (20-40); Mean Corpuscular Volume 90.5 fL (80-98); Mean Platelet Volume 10.8 fL (9.4-12.4); Neutrophils Absolute Auto 1.9 X10*3/uL (2.0-8.3); Neutrophils Percent Auto 62.4 % (45-73); Red Blood Count 3.99 X10*6/uL (4.60-5.80); Red Cell Distribution Width 16.6 % (11.0-16.0); White Blood Count 3.1 X10*3/uL (4.8-10.8)
--- NOTE | 2021-02-28 16:09 | MHC.HEMONC ---
Pt her for ONC follow up with Dr Otoole. Labs drawn by watch crystal edge grinder-specimen to lab. Clinical summary updated by nurse. States he feels well. Dr Otoole into see pt. Pt to have follow up appointment scheduled with [place] provider and will follow up after that appointment with Dr Otoole. Hematology labs reviewed by provider. Discharge packet given. Discharged home.
[2021-02-28 16:16] LABS: Platelet Count 90 X10*3/uL (160-400)
[2021-02-28 16:21] LABS: Alanine Aminotransferase 15 U/L (0-40); Albumin Level 4.3 g/dL (3.5-5.0); Alkaline Phosphatase 49 U/L (39-117); Anion Gap 15 (12-20); Aspartate Amino Transferase 33 U/L (5-37); Bilirubin Total 1.2 mg/dL (0.0-1.0); Blood Urea Nitrogen 14 mg/dL (9-16); Calcium 8.9 mg/dL (8.4-10.2); Carbon Dioxide 24 mmol/L (22-29); Chloride 103 mmol/L (96-108); Creatinine Clr Calc Pharmacy 90.3; Estimated Glomerular Filt Rate 58; Glucose Random 184 mg/dL (60-115); Potassium 4.3 mmol/L (3.3-5.1); Sodium 138 mmol/L (135-145); Total Protein 7.9 g/dL (6.5-8.0)
[2021-02-28 16:38] LABS: SLIDE REVIEW VERIFIED
--- NOTE | 2021-03-02 12:02 | MHC.HEMONC ---
Medical Record Notes and CT report sent to Dr Lees at [facility] as well as CD of imaging - [address] [place] [address] [address] [place] [address]. He has appt there on 04/06/21 at [address] Lees is [phone] and phone is [phone] option 2. Coordinator is Michelle.
[2021-03-02 12:32] LABS: Carbohydrate Antigen 19-9 451 U/mL (<34)
--- NOTE | 2021-04-19 09:54 | MHC.HEMONC ---
Pt called to notify port insertion date of April at 1030.
--- NOTE | 2021-04-22 10:31 | HO.HEMONCPA ---
PER C.S. RE BBA, NO PA REQUIRED FOR CHEMO DRUGS ADMINISTERED [facility] [place]. REF# OF CALL [id number]
--- NOTE | 2021-04-28 12:48 | MHC.HEMONC ---
pt spoke with Dr Otoole this morning and booked chemo c1d1 FOLFIRINOX for the . He will have labs Sunday before. I faxed request for CD of last month's CT (at [facility]) for Dr Otoole.
[2021-05-13 11:32] LABS: MANUAL DIFF FLAG SCAN; Mean Corpuscular Volume 80.9 fL (80-98); PLT CLUMP 1; Red Cell Distribution Width 14.6 % (11.0-16.0); SCAN SMEAR FLAG 1
[2021-05-13 11:34] LABS: Basophils Percent Auto 0.9 % (0-2); Eosinophils Absolute Auto 0.1 X10*3/uL (0.0-0.4); Eosinophils Percent Auto 3.2 % (0-4); Hematocrit 34.3 % (42-52); Hemoglobin 10.9 g/dl (14.0-18.0); Imm Gran Abs Auto 0.01 X10*3/uL (0.00-0.03); Imm Gran Pct Auto 0.3 % (0.0-0.4); Lymphocytes Absolute Auto 0.7 X10*3/uL (1.2-4.9); Lymphocytes Percent Auto 19.8 % (20-40); Mean Corpuscular HGB Conc 31.8 g/dl (31.0-36.0); Mean Corpuscular Hemoglobin 25.7 pg (27.0-33.0); Mean Platelet Volume 10.6 fL (9.4-12.4); Monocytes Absolute Auto 0.5 X10*3/uL (0.1-1.2); Monocytes Percent Auto 13.3 % (2-11); Neutrophils Absolute Auto 2.1 X10*3/uL (2.0-8.3); Neutrophils Percent Auto 62.5 % (45-73); Red Blood Count 4.24 X10*6/uL (4.60-5.80); White Blood Count 3.4 X10*3/uL (4.8-10.8)
[2021-05-13 11:35] LABS: Platelet Count 93 X10*3/uL (160-400)
[2021-05-13 11:49] LABS: Alanine Aminotransferase 26 U/L (0-40); Albumin Level 4.4 g/dL (3.5-5.0); Alkaline Phosphatase 63 U/L (39-117); Anion Gap 12 (12-20); Aspartate Amino Transferase 38 U/L (5-37); Bilirubin Total 0.8 mg/dL (0.0-1.0); Blood Urea Nitrogen 13 mg/dL (9-16); Calcium 9.1 mg/dL (8.4-10.2); Carbon Dioxide 26 mmol/L (22-29); Chloride 104 mmol/L (96-108); Creatinine Clr Calc Pharmacy 95.4; Estimated Glomerular Filt Rate > 60; Glucose Random 82 mg/dL (60-115); Potassium 4.5 mmol/L (3.3-5.1); Sodium 137 mmol/L (135-145)
[2021-05-16 08:24] VITALS: BP 132/77; PULSE 62; RESP 18; TEMP 35.8; O2SAT 96
[2021-05-16 08:27] VITALS: BMI 30.2
--- NOTE | 2021-05-16 08:39 | HE.PHANOTE ---
RE: PLTs; SPOKE TO DR SPARKS ABOUT PT'S LOW PLTS; THRESHOLD SHOULD BE >100K, CURRENT COUNT IS 93, MD WOULD LIKE TO MOVE FORWARD WITH TREATMENT DESPITE THIS.
[2021-05-16] MEDS: Famotidine/PF 20 MG/2 ML VIAL IVPUSH (08:55)
[2021-05-16] MEDS: Atropine Sulfate 1 MG/ML VIAL 0.5 MG SUBCUT (09:03)
[2021-05-16] MEDS: dexAMETHasone sod phosphate/NS 12 MG/50 ML PIGGYBACK 200 MG IV (09:20)
[2021-05-16] MEDS: Fosaprepitant Dimeglumine 150 MG in 0.9 % Sodium Chloride 145 ML 300 MG IV (10:11)
[2021-05-16] MEDS: DEXTROSE 5% IV ×3 (11:01→13:51)
[2021-05-16] MEDS: OXALIPLATIN IV (11:01)
[2021-05-16 11:50] LABS: Carbohydrate Antigen 19-9 2830 U/mL (<34)
[2021-05-16] MEDS: LEUCOVORIN CALCIUM IV (13:17)
[2021-05-16] MEDS: IRINOTECAN HCL IV (13:51)
[2021-05-16] MEDS: FLUOROURACIL IVPUSH (15:59)
[2021-05-16] MEDS: DISPOSABLE IVPUSH (15:59)
[2021-05-16] MEDS: SODIUM CHLORIDE 0.9% IV (16:00)
[2021-05-16] MEDS: FLUOROURACIL IV (16:00)
--- NOTE | 2021-05-16 16:38 | MHC.HEMONC ---
Pt here for C1 D1 of Folfirinox. Port accessed with good blood return noted. Labs drawn Sunday 05/13 reviewed. Pt states has had some stomach cramping on and off over last week. Premedicated as ordered. Treatment infused and tolerated well. Home with infusion pump, and will return in 2 days for pump take down.
[2021-05-18] MEDS: Heparin Sodium,Porcine Flush 500 UNIT/5 ML SYRINGE IVFLUSH (14:08)
--- NOTE | 2021-05-18 16:25 | MHC.HEMONC ---
Addendum entered by Ale Quiroga RN 05/18/21 16:31: Neulasta given as ordered Original Note: Here for pump take down. States tolerated treatment well. Stomach cramps much better. Scheduled for next treatment in 2 weeks.
--- NOTE | 2021-05-24 16:25 | MHC.HEMONC ---
pt reports fatigue, diarrhea, cramps and dizziness with body aches on and off since c1d1 chemo a week ago. He is trying to hydrate and eat. Right now he does not want IVF but when he comes in on Sunday he will be offered IVF. He is aware he can call us before if he feels worse. Today he describes a better day.
[2021-05-27 11:09] VITALS: BP 120/71; PULSE 62; RESP 18; TEMP 36.4; O2SAT 99; BMI 29.5
--- NOTE | 2021-05-27 11:11 | P.PNHO_ITS ---
Medical Summary - Medical Summary Date of Service: 05/27/21 Chief complaint: Follow-up for: Pancreatic carcinoma. Medical Summary: DIAGNOSIS: 1. Pancreatc Carcinoma. 2. Pancytopenia. CURRENT THERAPY: Started on Folfirinox, 03/11. Completed 6 cycles, August. Completed XRT November 07 in [place]. He was unable to get capecitabine on account of thrombocytopenia. On Gemzar Abraxane, started January 06. Completed cycle 6 on 06/20/19. Completed cycle 7, July 16, 2019. Took a break from treatment, after that. Now restarted Gemzar Abraxane for disease progression, 10/28/20. Cycle 3, day 11 on 01/07/21. He then elected to stop. He was referred to [place], for a 2nd opinion. He saw Dr. Nicole Lees. Repeat imaging in mid March revealed new liver lesion and peritoneal disease. She offered him clinical trial versus retreatment with FOLFIRINOX. He elected to proceed with the latter. Received 1 cycle of FOLFIRINOX on 05/16. Interval History Interval history: This is a pleasant 50-year-old gentleman, here for a follow-up visit. He is now here for labs and hydration. He tells me this cycle knocked him down for a loop. He felt extremely fatigued. He could not eat. He lost weight. He was 235 and went down to 225. His nausea was manageable. He could control it with Zofran and Decadron, however he had bad belly ache. He felt he was having cramps. As if there was a burning hole in the stomach. His stomach felt unsettled. Only thing that could comfort him was laying down in a hot tub. He had 3 sleepless nights. He did have some diarrhea but that was expected. He did try to stay hydrated. He took popsicles and Jell-O. Overall he felt miserable. This week he started feeling a little bit better each day. Yesterday he was good in the morning however he felt lousy by the time evening set in. He had to take time off work. No headache but he did have dizziness. Denies any complaints chest pain or trouble breathing. At present, he denies any abdominal pain. No nausea or vomiting, no heartburn indigestion. His bowels are working without any gross blood in it. He is getting his appetite back. He has lost weight. His spirits are down. Rest of the review of systems is unremarkable. Previous history: He had upper endoscopy and colonoscopy by Dr. Crespo, in the spring,which was negative. Back in June of 2020 he contracted COVID-19. However his symptoms were quite mild, only lasted a day and a half and then he recovered. He did receive the COVID vaccine. Review of Systems - Constitutional Reports no additional constitutional complaints, Reports fatigue, Denies fever(s), Reports lack of energy, Reports malaise, Denies night sweats, Reports poor appetite, Reports weakness, Denies weight gain, Reports weight loss - Eyes Reports no additional eye complaints - ENT Reports no additional ear, nose, mouth, and throat complaints - Cardiovascular Reports no additional cardiovascular complaints - Respiratory Reports no additional respiratory complaints - Gastrointestinal Reports no additional gastrointestinal complaints - Genitourinary Genitourinary: Reports no additional male genitourinary complaints - Musculoskeletal Reports no additional musculoskeletal complaints - Integumentary/Breasts Skin/Breast: Reports no additional skin complaints - Neurologic Reports no additional neurologic complaints, Reports hearing normal - Psychiatric Reports no additional psychiatric complaints - Endocrine Reports no additional endocrine complaints - Hematologic/Lymphatic Reports no additional hematologic/lymphatic complaints - Allergic/Immunologic Reports no additional allergic/immunologic complaints PMFSH Medical History: Medical History (Last Updated 06/10/20 @ 09:36 by Malissa Curiel RN) Anemia Diabetes mellitus Functional capacity: independent ambulation Patient : No Family History: Family History (Last Updated 10/28/20 @ 13:35 by Devi Barajas RN) Mother Diabetes Surgical History: Surgical History (Last Updated 06/10/20 @ 09:37 by Malissa Curiel RN) H/O hernia repair Social History: Social History (Last Reviewed 10/28/20 @ 13:35 by Devi Barajas RN) Alcohol History Details: Alcohol intake frequency: a few times a week Alcohol type: beer Advance Directives: Advance Directives: No Advance Directives Information Provided: No Nutrition Assessment: Patient : No Oncology Screenings - ECOG Performance Status ECOG Performance Status: 0 Home Medications and Allergies Home Medications Medication Instructions Recorded Confirmed Type insulin glargine 100 unit/mL (3 26 unit SUBCUT BEDTIME 06/10/20 02/28/21 History mL) subcutaneous pen (Lantus Solostar U-100 Insulin) metformin 500 mg tablet,extended 2,000 mg PO DAILY 06/10/20 02/28/21 History release 24 hr omeprazole magnesium 20 mg 20 mg PO DAILY 06/10/20 02/28/21 History tablet,delayed release (Prilosec OTC) tadalafil (pulm. hypertension) 20 5 mg PO DAILY 06/10/20 02/28/21 History mg tablet (pulmonary hypertension) multivitamin 1 tab PO DAILY 10/14/20 02/28/21 History lisinopril 2.5 mg tablet 1 tab PO DAILY 02/28/21 02/28/21 History Allergies Allergy/AdvReac Type Severity Reaction Status Date / Time No Known Allergies Allergy Verified 10/28/20 13:36 [No Known Allergies*] Exam Vital signs: Vital Signs Temp 97.5 F 05/27/21 11:09 Pulse 62 05/27/21 11:09 Resp 18 05/27/21 11:09 BP 120/71 05/27/21 11:09 Pulse Ox 99 05/27/21 11:09 Intake & Output 05/26/21 05/27/21 05/27/21 18:59 06:59 18:59 Other: Weight 104.3 kg [place] Weight in Grams [id number] Weight 104.3 kg Body Mass Index 29.5 - Constitutional Present: no acute distress - Routine HEENT Exam Head: Present: normal inspection Eye: Present: normal appearance ENT: Present: mucous membranes moist - Routine Neck Exam Present: full ROM - Routine Respiratory Exam Present: CTAB - Routine Cardiovascular Exam Cardiovascular: Present: RRR, S1, murmur - Routine Abdominal Exam Present: soft, nontender - Routine Extremities Exam Present: nontender - Routine Back/Spine/Pelvis Exam Back/Spine: Present: full ROM - Routine Skin Exam Present: intact - Routine Neurological Exam Present: alert, oriented X3 - Detailed Neurological Exam: Coma Scale Eye Opening: Spontaneous (4) - Routine Psychiatric Exam Present: normal affect Data - Labs CBC & Chem 7: 05/27/21 11:45 05/27/21 11:45 Labs: 06/10/20 09:20 CA 19-9 [Carbohydrate Antigen 19-9] Routine Complete Blood Count Auto Diff Routine Comprehensive Met. Panel Routine 06/10/20 09:42 Flu Vacc [id number](6mos up)/PF [Fluarix Quad [id number]] 0.5 ml IM .ONCE ONE 09/13/20 14:48 Complete Blood Count Auto Diff Routine Laboratory Last Values WBC 3.5 X10*3/uL (4.8-10.8) L 09/13/20 14:48 RBC 4.38 X10*6/uL (4.60-5.80) L 09/13/20 14:48 Hgb 11.5 g/dl (14.0-18.0) L 09/13/20 14:48 Hct 36.7 % (42-52) L 09/13/20 14:48 MCV 83.8 fL (80-98) 09/13/20 14:48 MCH 26.3 pg (27.0-33.0) L 09/13/20 14:48 MCHC 31.3 g/dl (31.0-36.0) 09/13/20 14:48 RDW 15.8 % (11.0-16.0) 09/13/20 14:48 Plt Count 110 X10*3/uL (160-400) L 09/13/20 14:48 MPV 11.0 fL (9.4-12.4) 09/13/20 14:48 Immature Gran % (Auto) 0.8 % (0.0-0.4) H 09/13/20 14:48 Neut % (Auto) 57.8 % (45-73) 09/13/20 14:48 Lymph % (Auto) 25.8 % (20-40) 09/13/20 14:48 [place] % (Auto) 12.5 % (2-11) H 09/13/20 14:48 Eos % (Auto) 2.5 % (0-4) 09/13/20 14:48 Baso % (Auto) 0.6 % (0-2) 09/13/20 14:48 Lymph # (Auto) 0.9 X10*3/uL (1.2-4.9) L 09/13/20 14:48 [place] # (Auto) 0.4 X10*3/uL (0.1-1.2) 09/13/20 14:48 Eos # (Auto) 0.1 X10*3/uL (0.0-0.4) 09/13/20 14:48 Baso # (Auto) 0.0 X10*3/uL (0.0-0.2) 09/13/20 14:48 Abs Immat Gran (auto) 0.03 X10*3/uL (0.00-0.03) 09/13/20 14:48 Absolute Neuts (auto) 2.0 X10*3/uL (2.0-8.3) 09/13/20 14:48 Absolute Nucleated RBC 0.000 X10*3/uL (0.0-0.012) 09/13/20 14:48 Nucleated RBC % (auto) 0.0 /100WBC (0.0-0.2) 09/13/20 14:48 Sodium 135 mmol/L (135-145) 06/10/20 09:20 Potassium 4.6 mmol/l (3.3-5.1) 06/10/20 09:20 Chloride 100 mmol/L (96-108) 06/10/20 09:20 Carbon Dioxide 28 mmol/L (22-29) 06/10/20 09:20 Anion Gap 12 (12-20) 06/10/20 09:20 BUN 19 mg/dL (9-16) H 06/10/20 09:20 Creatinine 1.59 mg/dL (0.5-1.4) H 06/10/20 09:20 Estim Creat Clear Calc 75.1 06/10/20 09:20 Estimated GFR 47 06/10/20 09:20 Random Glucose 181 mg/dL (60-115) H 06/10/20 09:20 Calcium 9.0 mg/dL (8.4-10.2) 06/10/20 09:20 Total Bilirubin 0.7 mg/dL (0.0-1.0) 06/10/20 09:20 AST 49 U/L (5-37) H 06/10/20 09:20 ALT 22 U/L (0-40) 06/10/20 09:20 Alkaline Phosphatase 51 U/L (39-117) 06/10/20 09:20 Total Protein 7.6 g/dL (6.5-8.0) 06/10/20 09:20 Albumin 4.3 g/dL (3.5-5.0) 06/10/20 09:20 CA 19-9 Antigen 357 U/mL (<34) H 06/10/20 09:20 Assessment and Plan Patient Active problem list reviewed?: Yes (1) Pancreatic cancer Status: Acute Assessment and plan: This is a pleasant 49 year-old gentleman, with the diagnosis of Pancreatic Adenocarcinoma involving the body and tail, in January of 2018. He had an extensive tumor burden. Mass encasing and obstructing the SMV, splenic vein and proximal portal vein. Infiltrative soft tissue between the aorta and IVC and into the kareem hepatis. Bilateral adrenal nodules and bilateral pulmonary nodules. He completed 6-1/2 cycles of FOLFIRINOX. Subsequent imaging appeared improved. However, at that point the patient was deemed unresectable. He subsequently had radiation which she completed November 07. He did well through the treatment. He did not have many side effects. He was clinically asymptomatic. However, CAT scan of the abdomen November, revealed: Increase in size of the left adrenal nodule to 32 mm from 28 mm. Also noted was slight increase in the size of the pancreatic mass 35 x 83 mm previously 34 x 18 mm. I decided to pick the regimen: Gemzar and Abraxane based chemotherapy. He started January 06, 2019. He completed cycle 4 on April 25. He completed cycle 7 on July 16 2019. He tolerated it well. Subsequently he elected to take a break from treatment. He wants to be monitored along. Restaging CT scan of the abdomen pelvis and chest from January 29 revealed: Chest: No evidence of metastatic disease. Stable left adrenal lesion. Fatty liver. Slightly enlarged prostate gland. Abdomen and pelvis: Stable low-attenuation soft tissue in the body of the pancreas continuous with abnormal low-attenuation soft tissue surrounding the celiac axis and SMA. Occluded splenic vein. Occluded distal SMV. Patent portal vein. Extensive peripancreatic varices. Previous imaging from October 01 revealed: Overall no significant change in the region of pancreatic head with significant collateral vessels/varices secondary to portal hypertension. The splenic vein is not seen. The portal vein is opacified to the level of pancreatic head. The spleen is heterogenous but normal size. There is no ascites seen at this time. However, there is mild haziness in bilateral paracolic gutter likely congestion. His GI complaints have resolved with the Creon. He has been feeling well. He has been working over the winter. CT chest and abdomen from 06/19/2020: Chest: New small pulmonary nodules. The largest measures 3 x 6 mm in the right lower lobe. Abdomen and pelvis: Stable low-attenuation in the body of the pancreas continuous with abnormal soft tissue surrounding the celiac axis, SMA and SMV, thickening of the bilateral anterior pararenal fascia and soft tissues surrounding the duodenum and left adrenal nodule. Occluded splenic vein, and distal SMV and extensive varices. Fatty liver. Stable mild dilatation of the common bile duct. Upper normal-size spleen. Stool throughout the colon questionable for constipation. His CA 19-9 from 06/10/20:357. From 09/13:1921. Recent CT scan of the chest and abdomen, from 09/22: Multiple pulmonary nodules are slightly increased in size since the previous study from 06/08. No major change in slightly enlarged and hypodense appearing diffuse pancreas and mild haziness along the posterior pancreatic margin. No focal lesion seen on the present exam, however the pancreas appears slightly heterogenous with abundant varices seen throughout the peripancreatic region, pancreas and upper abdomen. No change in the haziness in the peripancreatic region. Small left para aortic lymph nodes are essentially stable. No focal liver lesions seen. I shared the results with him. I was concerned about rising tumor marker and increasing pulmonary nodules. I suggested that he start back on the chemotherapy treatment. He has been restarted on Gemzar/ Abraxane since it had worked previously. He was started October 28. Since his baseline WBC count was low, he was started on Neulasta to prevent chemotherapy-induced neutropenic sepsis. He is here for cycle 3, day 1. So far tolerating it well.. CAT scan on 01/31: Stable pulmonary nodules. No new pulmonary nodules seen. Mild fatty infiltration of liver with portal vein thrombosis and cavernous transformation of portal vein, similar to previous study. There is diffuse haziness in the pancreatic head with heterogeneity, stable. The rest of the pancreas is slightly attenuated. Numerous collateral vessels are seen surrounding the pancreatic head and the upper abdomen. He was referred to [place], for a 2nd opinion. He saw Dr. Nicole Lees. Repeat imaging in mid March revealed new liver lesion and peritoneal disease. The CA 19/9 was down to 451 from 1355. However it went up to 2830 on 05/13. She offered him clinical trial versus retreatment with FOLFIRINOX. He elected to proceed with the latter. Received 1 cycle of FOLFIRINOX on 05/16. PLAN: He was given IV hydration. He was really discouraged about his response to the treatment this time. I offered to dose reduce him to 75% of the chemotherapy doses. He is willing to try that at this point. He was also offered to come in weekly for hydration and antiemetics and pain medicine if needed. I will send a prescription for oxycodone for him to have it in case of the abdominal cramping. Hopefully he will tolerate the treatment better this time around. Thank you, CC: Dr. Karina Ochoa, at [facility]. Dr. Abel Woodard at [facility]. Gen. Dr. East. - Time Spent With Patient Time Spent with Patient (in minutes): 35
[2021-05-27] MEDS: 0.9 % Sodium Chloride 1,000 ML 500 ML IVCONT (12:03)
[2021-05-27 12:06] LABS: Hematocrit 30.2 % (42-52); Hemoglobin 9.8 g/dl (14.0-18.0); Mean Corpuscular HGB Conc 32.5 g/dl (31.0-36.0); Mean Corpuscular Hemoglobin 25.3 pg (27.0-33.0); Platelet Count 80 X10*3/uL (160-400); Red Blood Count 3.87 X10*6/uL (4.60-5.80); Red Cell Distribution Width 14.6 % (11.0-16.0); White Blood Count 2.8 X10*3/uL (4.8-10.8)
[2021-05-27 12:17] LABS: Alanine Aminotransferase 31 U/L (0-40); Alkaline Phosphatase 63 U/L (39-117); Anion Gap 12 (12-20); Aspartate Amino Transferase 29 U/L (5-37); Bilirubin Total 0.4 mg/dL (0.0-1.0); Blood Urea Nitrogen 10 mg/dL (9-16); Calcium 8.8 mg/dL (8.4-10.2); Carbon Dioxide 24 mmol/L (22-29); Chloride 104 mmol/L (96-108); Creatinine Clr Calc Pharmacy 90.3; Estimated Glomerular Filt Rate > 60; Glucose Random 243 mg/dL (60-115); Sodium 136 mmol/L (135-145); Total Protein 7.3 g/dL (6.5-8.0)
[2021-05-27 13:42] LABS: Band Neutrophils Percent 9 % (3-5); Eosinophils Absolute Manual 0.1 X10*3/UL (0.0-0.8); Eosinophils Percent Manual 3 % (0-4); Lymphocytes Absolute Manual 0.7 X10*3/uL (0.6-4.8); Lymphocytes Percent Manual 24 % (20-40); Monocytes Absolute Manual 0.1 X10*3/uL (0.0-1.2); Monocytes Percent Manual 5 % (2-11); Neutrophils Absolute Manual 1.9 X10*3/uL (2.2-7.9); Neutrophils Percent Manual 59 % (45-73); Nucleated Red Blood Cells 2 /100WBC (0-0)
[2021-05-27 13:45] LABS: Microcytosis 1+ (5-14) /OIF; Ovalocytes 1+ (5-14) /OIF; RBC Morphology NOTED; Schistocytes 1+ (0-2) /OIF
[2021-05-27 13:46] LABS: Burr Cells 2+ (3-5) /OIF; Platelet Estimate DECREASED (NORMAL); Platelet Morphology Comment NORMAL
--- NOTE | 2021-05-27 15:05 | MHC.HEMONC ---
Pt here for IV hydration. Port accessed with good blood return noted. Pt states he is feeling better today. Dr Otoole in to see pt to discuss further treatment. Pt agreeable to continue with chemo treatments at this time at 75% dose reduction. Scheduled to return for treatment Tues 05/31.
[2021-05-31 08:40] VITALS: BP 114/66; PULSE 70; RESP 14; TEMP 36.2; O2SAT 98; BMI 30.1
[2021-05-31 09:13] LABS: Lymphocytes Absolute Auto 0.7 X10*3/uL (1.2-4.9); Red Cell Distribution Width 15.3 % (11.0-16.0)
[2021-05-31 09:15] LABS: Basophils Percent Auto 0.2 % (0-2); Eosinophils Absolute Auto 0.1 X10*3/uL (0.0-0.4); Eosinophils Percent Auto 1.3 % (0-4); Hemoglobin 9.5 g/dl (14.0-18.0); Imm Gran Abs Auto 0.11 X10*3/uL (0.00-0.03); Lymphocytes Percent Auto 12.2 % (20-40); Mean Corpuscular HGB Conc 31.7 g/dl (31.0-36.0); Mean Corpuscular Hemoglobin 24.9 pg (27.0-33.0); Mean Corpuscular Volume 78.7 fL (80-98); Mean Platelet Volume 10.7 fL (9.4-12.4); Monocytes Absolute Auto 0.5 X10*3/uL (0.1-1.2); Monocytes Percent Auto 8.5 % (2-11); Neutrophils Absolute Auto 4.1 X10*3/uL (2.0-8.3); Neutrophils Percent Auto 75.8 % (45-73); Red Blood Count 3.81 X10*6/uL (4.60-5.80); White Blood Count 5.4 X10*3/uL (4.8-10.8)
[2021-05-31 09:18] LABS: MANUAL DIFF FLAG NO; Platelet Count 95 X10*3/uL (160-400)
[2021-05-31 09:25] LABS: Alanine Aminotransferase 24 U/L (0-40); Albumin Level 3.8 g/dL (3.5-5.0); Alkaline Phosphatase 72 U/L (39-117); Anion Gap 12 (12-20); Aspartate Amino Transferase 28 U/L (5-37); Bilirubin Total 0.4 mg/dL (0.0-1.0); Blood Urea Nitrogen 7 mg/dL (9-16); Carbon Dioxide 24 mmol/L (22-29); Chloride 106 mmol/L (96-108); Creatinine Clr Calc Pharmacy 94.1; Estimated Glomerular Filt Rate > 60; Glucose Random 181 mg/dL (60-115); Potassium 3.8 mmol/L (3.3-5.1); Sodium 138 mmol/L (135-145); Total Protein 6.9 g/dL (6.5-8.0)
[2021-05-31] MEDS: Famotidine/PF 20 MG/2 ML VIAL IVPUSH (10:04)
[2021-05-31] MEDS: Atropine Sulfate 1 MG/ML VIAL 0.5 MG SUBCUT (10:15)
[2021-05-31] MEDS: Acetaminophen 325 MG TABLET 650 MG PO (10:17)
[2021-05-31] MEDS: diphenhydrAMINE HCL 50 MG/ML VIAL 25 MG IVPUSH (10:48)
[2021-05-31] MEDS: dexAMETHasone sod phosphate/NS 12 MG/50 ML PIGGYBACK 200 MG IV (11:08)
[2021-05-31] MEDS: Fosaprepitant Dimeglumine 150 MG in 0.9 % Sodium Chloride 145 ML 300 MG IV (11:31)
[2021-05-31] MEDS: OXALIplatin 100 MG, OXALIplatin 50 MG in Dextrose 5 % 500 ML 265 MG IV (12:10)
[2021-05-31] MEDS: Leucovorin Calcium 700 MG in Dextrose 5 % 250 ML 142.5 MG IV (14:26)
[2021-05-31] MEDS: IRINOTECAN HCL IV (14:58)
[2021-05-31] MEDS: DEXTROSE 5% IV (14:58)
[2021-05-31] MEDS: fluorouraciL 700 MG in Syringe, Disposable 0 ML 168 MG IVPUSH (16:30)
[2021-05-31] MEDS: SODIUM CHLORIDE 0.9% IV (16:32)
[2021-05-31] MEDS: FLUOROURACIL IV (16:32)
--- NOTE | 2021-05-31 16:54 | MHC.HEMONC ---
Pt here for C2 D1 Folfirinox. Did not tolerate last cycle, c/o cramping, diarrhea, nausea. Today at a dose reduction. Port accessed with good blood return noted. Labs obtained and reviewed. Platelet count 95, Dr Otoole aware. Premeds given as ordered. Treatment done and tolerated well. Scheduled for pump take down in 2 days. Home with infusion pump.
--- NOTE | 2021-06-01 15:04 | MHC.HEMONC ---
pt has c/o hiccups since receiving treatment yesterday. Dr Otoole ordered Chlorpromazine.
[2021-06-02] MEDS: 0.9 % Sodium Chloride 1,000 ML 999 ML IV (14:45)
--- NOTE | 2021-06-02 16:03 | MHC.HEMONC ---
pump disconnected and neulasta given to right upper arm. 1 L NS given over 1 hour and zofran 16 mg given for nausea with good effect. pt aware of next appt.
[2021-06-14 08:33] LABS: MANUAL DIFF FLAG NO
[2021-06-14 08:47] LABS: Basophils Percent Auto 0.4 % (0-2); Eosinophils Percent Auto 0.4 % (0-4); Hematocrit 28.9 % (42-52); Hemoglobin 9.3 g/dl (14.0-18.0); Imm Gran Pct Auto 2.1 % (0.0-0.4); Lymphocytes Absolute Auto 0.6 X10*3/uL (1.2-4.9); Lymphocytes Percent Auto 13.1 % (20-40); Mean Corpuscular HGB Conc 32.2 g/dl (31.0-36.0); Mean Corpuscular Hemoglobin 24.9 pg (27.0-33.0); Mean Corpuscular Volume 77.3 fL (80-98); Mean Platelet Volume 10.3 fL (9.4-12.4); Monocytes Absolute Auto 0.6 X10*3/uL (0.1-1.2); Monocytes Percent Auto 11.7 % (2-11); Neutrophils Absolute Auto 3.4 X10*3/uL (2.0-8.3); Neutrophils Percent Auto 72.3 % (45-73); Platelet Count 97 X10*3/uL (160-400); Red Blood Count 3.74 X10*6/uL (4.60-5.80); Red Cell Distribution Width 16.5 % (11.0-16.0); White Blood Count 4.7 X10*3/uL (4.8-10.8)
[2021-06-14 08:59] LABS: Alanine Aminotransferase 25 U/L (0-40); Albumin Level 3.8 g/dL (3.5-5.0); Alkaline Phosphatase 70 U/L (39-117); Anion Gap 11 (12-20); Aspartate Amino Transferase 26 U/L (5-37); Bilirubin Total 0.4 mg/dL (0.0-1.0); Blood Urea Nitrogen 6 mg/dL (9-16); Calcium 8.7 mg/dL (8.4-10.2); Carbon Dioxide 25 mmol/L (22-29); Chloride 105 mmol/L (96-108); Creatinine Clr Calc Pharmacy 100.7; Estimated Glomerular Filt Rate > 60; Glucose Random 147 mg/dL (60-115); Potassium 3.7 mmol/L (3.3-5.1); Sodium 137 mmol/L (135-145); Total Protein 6.8 g/dL (6.5-8.0)
[2021-06-14 09:23] VITALS: BP 128/67; PULSE 72; TEMP 36.1; O2SAT 100; BMI 29.0
[2021-06-14] MEDS: Acetaminophen 325 MG TABLET 650 MG PO (09:35)
[2021-06-14] MEDS: Famotidine/PF 20 MG/2 ML VIAL IVPUSH (09:36)
[2021-06-14] MEDS: dexAMETHasone sod phosphate/NS 12 MG/50 ML PIGGYBACK 200 MG IV (10:13)
[2021-06-14] MEDS: Fosaprepitant Dimeglumine 150 MG in 0.9 % Sodium Chloride 145 ML 300 MG IV (10:30)
[2021-06-14] MEDS: OXALIplatin 100 MG, OXALIplatin 50 MG in Dextrose 5 % 500 ML 265 MG IV (11:13)
[2021-06-14] MEDS: Atropine Sulfate 1 MG/ML VIAL 0.5 MG SUBCUT (13:14)
[2021-06-14] MEDS: Leucovorin Calcium 700 MG in Dextrose 5 % 250 ML 142.5 MG IV (13:30)
[2021-06-14] MEDS: Irinotecan HCl 300 MG, Irinotecan HCl 20 MG in Dextrose 5 % 500 ML 344 MG IV (14:02)
[2021-06-14] MEDS: fluorouraciL 700 MG in Syringe, Disposable 0 ML 168 MG IVPUSH (15:36)
[2021-06-14] MEDS: SODIUM CHLORIDE 0.9% IV (15:38)
[2021-06-14] MEDS: FLUOROURACIL IV (15:38)
--- NOTE | 2021-06-14 15:52 | MHC.HEMONC ---
Pt here for c3 folfirinox. Labs drawn and reviewed. Premeds and chemo as ordered. Some abdominal cramping with irinotecan infusion despite premed with atropine. Scripts for oxycodone and lorazepam sent by Dr Otoole. Pt aware of next appt.
[2021-06-16] MEDS: Heparin Sodium,Porcine Flush 500 UNIT/5 ML SYRINGE IVFLUSH (14:00)
--- NOTE | 2021-06-16 14:12 | MHC.HEMONC ---
Here for pump take down. States feels much better than last treatment. Denies diarrhea, has some nausea but is able to eat and drink. Neulasta given left arm and tolerated well. Scheduled for next treatment in 2 weeks
[2021-06-27 09:12] LABS: Basophils Percent Auto 0.7 % (0-2); MANUAL DIFF FLAG SCAN; PLT CLUMP 1; SCAN SMEAR FLAG 1
[2021-06-27 09:14] LABS: Eosinophils Percent Auto 0.7 % (0-4); Hematocrit 27.9 % (42.0-52.0); Hemoglobin 8.9 g/dl (14.0-18.0); Imm Gran Abs Auto 0.14 X10*3/uL (0.00-0.03); Imm Gran Pct Auto 3.1 % (0.0-0.4); Lymphocytes Absolute Auto 0.8 X10*3/uL (1.2-4.9); Lymphocytes Percent Auto 18.1 % (20-40); Mean Corpuscular HGB Conc 31.9 g/dl (31.0-36.0); Mean Corpuscular Volume 78.4 fL (80.0-98.0); Mean Platelet Volume 10.9 fL (9.4-12.4); Monocytes Absolute Auto 0.6 X10*3/uL (0.1-1.2); Monocytes Percent Auto 12.7 % (2-11); Neutrophils Absolute Auto 2.9 x10*3/uL (2.0-8.3); Neutrophils Percent Auto 64.7 % (45-73); Red Blood Count 3.56 X10*6/uL (4.60-5.80); Red Cell Distribution Width 17.7 % (11.0-16.0); White Blood Count 4.5 X10*3/uL (4.8-10.8)
[2021-06-27 09:15] LABS: Platelet Count 80 X10*3/uL (160-400)
[2021-06-27 09:30] LABS: Alanine Aminotransferase 22 U/L (0-40); Albumin Level 3.8 g/dL (3.5-5.0); Alkaline Phosphatase 73 U/L (39-117); Anion Gap 13 (12-20); Aspartate Amino Transferase 22 U/L (5-37); Bilirubin Total 0.4 mg/dL (0.0-1.0); Blood Urea Nitrogen 9 mg/dL (9-16); Calcium 8.5 mg/dL (8.4-10.2); Carbon Dioxide 24 mmol/L (22-29); Chloride 104 mmol/L (96-108); Creatinine Clr Calc Pharmacy 101.8; Estimated Glomerular Filt Rate > 60; Glucose Random 134 mg/dL (60-115); Sodium 137 mmol/L (135-145); Total Protein 6.7 g/dL (6.5-8.0)
[2021-06-27 09:59] LABS: SLIDE REVIEW VERIFIED
[2021-06-28 08:24] VITALS: BP 117/67; PULSE 68; RESP 15; TEMP 36.3; O2SAT 99; BMI 28.5
[2021-06-28] MEDS: Famotidine/PF 20 MG/2 ML VIAL IVPUSH (09:15)
[2021-06-28] MEDS: dexAMETHasone sod phosphate/NS 12 MG/50 ML PIGGYBACK 200 MG IV (09:19)
[2021-06-28] MEDS: Fosaprepitant Dimeglumine 150 MG in 0.9 % Sodium Chloride 145 ML 300 MG IV (09:38)
[2021-06-28] MEDS: OXALIplatin 100 MG, OXALIplatin 50 MG in Dextrose 5 % 500 ML 265 MG IV (10:26)
[2021-06-28 12:25] LABS: Carbohydrate Antigen 19-9 1991 U/mL (<34)
[2021-06-28] MEDS: Leucovorin Calcium 700 MG in Dextrose 5 % 250 ML 142.5 MG IV (12:33)
[2021-06-28] MEDS: Atropine Sulfate 1 MG/ML VIAL 0.5 MG SUBCUT (13:06)
[2021-06-28] MEDS: DEXTROSE 5% IV (13:12)
[2021-06-28] MEDS: IRINOTECAN HCL IV (13:12)
[2021-06-28] MEDS: fluorouraciL 700 MG in Syringe, Disposable 0 ML 168 MG IVPUSH (14:56)
[2021-06-28] MEDS: fluorouraciL 4,175 MG in 0.9 % Sodium Chloride 8.5 ML IV (14:57)
--- NOTE | 2021-06-28 16:12 | MHC.HEMONC ---
Pt here for C4D1 Folfirinox. States felt ok since last treatment. Still having some stomach cramping, but not as bad. Able to eat and drink. Port accessed with good blood return noted. Labs done 06/27 reviewed. Premeds given as ordered. Treatment done and tolerated well. Home with infusion pump. Scheduled for pump take down in 2 days.
[2021-06-30] MEDS: Heparin Sodium,Porcine Flush 500 UNIT/5 ML SYRINGE IVFLUSH (14:13)
--- NOTE | 2021-06-30 14:17 | MHC.HEMONC ---
Here for pump take down and neulasta injection. Tolerated chemo well. States he feels good today, had some stomach cramping, but less than last treatment. Neulasta injection given right arm and tolerated well. Scheduled for next treatment in 2 weeks.
[2021-07-08 10:46] LABS: Hematocrit 25.1 % (42.0-52.0); Mean Corpuscular Volume 78.4 fL (80.0-98.0); PLT CLUMP 1
[2021-07-08 10:48] LABS: Hemoglobin 8.1 g/dl (14.0-18.0); Mean Corpuscular HGB Conc 32.3 g/dl (31.0-36.0); Mean Corpuscular Hemoglobin 25.3 pg (27.0-33.0); Mean Platelet Volume 9.5 fL (9.4-12.4); Red Cell Distribution Width 18.3 % (11.0-16.0)
[2021-07-08 10:49] LABS: Platelet Count 54 X10*3/uL (160-400); WBC ABN SCTR FOR CBC 1; White Blood Count 2.6 X10*3/uL (4.8-10.8)
[2021-07-08 11:07] LABS: Alanine Aminotransferase 21 U/L (0-40); Albumin Level 3.8 g/dL (3.5-5.0); Alkaline Phosphatase 82 U/L (39-117); Anion Gap 11 (12-20); Aspartate Amino Transferase 23 U/L (5-37); Bilirubin Total 0.5 mg/dL (0.0-1.0); Blood Urea Nitrogen 5 mg/dL (9-16); Calcium 8.4 mg/dL (8.4-10.2); Carbon Dioxide 26 mmol/L (22-29); Chloride 101 mmol/L (96-108); Creatinine Clr Calc Pharmacy 108.8; Estimated Glomerular Filt Rate > 60; Glucose Random 213 mg/dL (60-115); Potassium 3.4 mmol/L (3.3-5.1); Sodium 135 mmol/L (135-145); Total Protein 6.5 g/dL (6.5-8.0)
[2021-07-08 11:30] LABS: Band Neutrophils Percent 1 % (3-5); Basophils Percent Manual 1 % (0-2); Eosinophils Absolute Manual 0.1 X10*3/uL (0.0-0.4); Eosinophils Percent Manual 3 % (0-4); Lymphocytes Absolute Manual 0.4 X10*3/uL (1.2-4.9); Lymphocytes Percent Manual 14 % (20-40); Monocytes Absolute Manual 0.2 X10*3/uL (0.1-1.2); Monocytes Percent Manual 9 % (2-11); Neutrophils Absolute Manual 1.9 X10*3/uL (2.0-8.3); Neutrophils Percent Manual 72 % (45-73)
[2021-07-08 11:33] LABS: Acanthocytes 1+ (0-2) /OIF; Macrocytosis 1+ (5-14) /OIF; Microcytosis 1+ (5-14) /OIF; RBC Morphology NOTED; Schistocytes 1+ (0-2) /OIF
[2021-07-08 11:34] LABS: Hypochromasia 1+ (5-14) /OIF; Platelet Estimate DECREASED (NORMAL); Platelet Morphology Comment NORMAL; Polychromasia 1+ (0-2) /OIF
[2021-07-11] VITALS (7 sets, daily range): BP systolic 119–147; BP diastolic 61–75; PULSE 64–79; RESP 18–20; TEMP 36.2–36.9; O2SAT 100; BMI 28.3
--- NOTE | 2021-07-11 08:29 | P.PNHO_ITS ---
Medical Summary - Medical Summary Date of Service: 07/11/21 Chief complaint: Follow-up for: Pancreatic carcinoma. Medical Summary: DIAGNOSIS: 1. Pancreatc Carcinoma. 2. Pancytopenia. CURRENT THERAPY: Started on Folfirinox, 03/11. Completed 6 cycles, August. Completed XRT November 07 in [place]. He was unable to get capecitabine on account of thrombocytopenia. On Gemzar Abraxane, started January 06. Completed cycle 6 on 06/20/19. Completed cycle 7, July 16, 2019. Took a break from treatment, after that. Restarted Gemzar Abraxane for disease progression, 10/28/20. Cycle 3, day 11 on 01/07/21. He then elected to stop. He was referred to [place], for a 2nd opinion. He saw Dr. Nicole Lees. Repeat imaging in mid March revealed new liver lesion and peritoneal disease. She offered him clinical trial versus retreatment with FOLFIRINOX. He elected to proceed with the latter. Received 1 cycle of FOLFIRINOX on 05/16. He received cycle 2 d15, on 06/28. Interval History Interval history: This is a pleasant 50-year-old gentleman, here for a follow-up visit. He was supposed to start his chemotherapy cycle today however his blood count was low. His hemoglobin 8.1, PLT 54. He is now here for a blood transfusion. He tells me he does feel rather fatigued, after his chemotherapy cycle. During his recovery he gets short winded on exertion. He has some cramping in the belly that comes and goes. The oxycodone helps that. He denies any nausea or vomiting. No chest pain. This week he started feeling a little bit better each day. No headache nor dizziness. At present, he denies any abdominal pain. No nausea or vomiting, no heartburn indigestion. His bowels are working without any gross blood in it. He is getting his appetite back. His weight is stable. He is in good spirits. Rest of the review of systems is unremarkable. He has been tolerating the treatment better since he was dose reduced. Previous history: 1. After his 1st cycle of FOLFIRINOX he was knocked down for a loop. He could not eat. He lost weight. He was 235 and went down to 225. His nausea was manageable. He could control it with Zofran and Decadron, however he had bad belly ache. He felt he was having cramps. As if there was a burning hole in the stomach. His stomach felt unsettled. Only thing that could comfort him was laying down in a hot tub. He had 3 sleepless nights. He did have some diarrhea but that was expected. He did try to stay hydrated. He took popsicles and Jell-O. Overall he felt miserable. 2. He had upper endoscopy and colonoscopy by Dr. Crespo, in the spring,which was negative. 3. Back in June of 2020 he contracted COVID-19. However his symptoms were quite mild, only lasted a day and a half and then he recovered. He did receive the COVID vaccine. Review of Systems - Constitutional Reports no additional constitutional complaints - Eyes Reports no additional eye complaints - ENT Reports no additional ear, nose, mouth, and throat complaints - Cardiovascular Reports no additional cardiovascular complaints - Respiratory Reports no additional respiratory complaints - Gastrointestinal Reports no additional gastrointestinal complaints - Genitourinary Genitourinary: Reports no additional male genitourinary complaints - Musculoskeletal Reports no additional musculoskeletal complaints - Integumentary/Breasts Skin/Breast: Reports no additional skin complaints - Neurologic Reports no additional neurologic complaints, Reports hearing normal, Reports weakness - Psychiatric Reports no additional psychiatric complaints - Endocrine Reports no additional endocrine complaints - Hematologic/Lymphatic Reports no additional hematologic/lymphatic complaints - Allergic/Immunologic Reports no additional allergic/immunologic complaints [facility] Medical History: Medical History (Last Updated 06/10/20 @ 09:36 by Malissa Curiel RN) Anemia Diabetes mellitus Functional capacity: independent ambulation Patient : No Family History: Family History (Last Updated 10/28/20 @ 13:35 by Devi Barajas RN) Mother Diabetes Surgical History: Surgical History (Last Updated 06/10/20 @ 09:37 by Malissa Curiel RN) H/O hernia repair Social History: Social History (Last Reviewed 10/28/20 @ 13:35 by Devi Barajas RN) Alcohol History Details: Alcohol intake frequency: a few times a week Alcohol type: beer Advance Directives: Advance Directives: No Advance Directives Information Provided: No Nutrition Assessment: Patient : No Oncology Screenings - ECOG Performance Status ECOG Performance Status: 0 Home Medications and Allergies Home Medications Medication Instructions Recorded Confirmed Type insulin glargine 100 unit/mL (3 26 unit SUBCUT BEDTIME 06/10/20 02/28/21 History mL) subcutaneous pen (Lantus Solostar U-100 Insulin) metformin 500 mg tablet,extended 2,000 mg PO DAILY 06/10/20 02/28/21 History release 24 hr omeprazole magnesium 20 mg 20 mg PO DAILY 06/10/20 02/28/21 History tablet,delayed release (Prilosec OTC) tadalafil (pulm. hypertension) 20 5 mg PO DAILY 06/10/20 02/28/21 History mg tablet (pulmonary hypertension) multivitamin 1 tab PO DAILY 10/14/20 02/28/21 History lisinopril 2.5 mg tablet 1 tab PO DAILY 02/28/21 02/28/21 History Allergies Allergy/AdvReac Type Severity Reaction Status Date / Time No Known Allergies Allergy Verified 10/28/20 13:36 [No Known Allergies*] Exam Vital signs: Vital Signs Temp 97.3 F 06/28/21 08:24 Pulse 68 06/28/21 08:24 Resp 15 06/28/21 08:24 BP 117/67 06/28/21 08:24 Pulse Ox 99 06/28/21 08:24 Weight 101 kg Body Mass Index 28.5 - Constitutional Present: no acute distress - Routine HEENT Exam Head: Present: normal inspection Eye: Present: normal appearance ENT: Present: mucous membranes moist - Routine Neck Exam Present: full ROM - Routine Respiratory Exam Present: CTAB - Routine Cardiovascular Exam Cardiovascular: Present: RRR, S1, murmur - Routine Abdominal Exam Present: soft, nontender - Routine Extremities Exam Present: nontender - Routine Back/Spine/Pelvis Exam Back/Spine: Present: full ROM - Routine Skin Exam Present: intact - Routine Neurological Exam Present: alert, oriented X3 - Detailed Neurological Exam: Coma Scale Eye Opening: Spontaneous (4) - Routine Psychiatric Exam Present: normal affect Data - Labs CBC & Chem 7: 07/08/21 10:37 07/08/21 10:37 Assessment and Plan Patient Active problem list reviewed?: Yes (1) Pancreatic cancer Status: Acute Assessment and plan: This is a pleasant 49 year-old gentleman, with the diagnosis of Pancreatic Adenocarcinoma involving the body and tail, in January of 2018. He had an extensive tumor burden. Mass encasing and obstructing the SMV, splenic vein and proximal portal vein. Infiltrative soft tissue between the aorta and IVC and into the kareem hepatis. Bilateral adrenal nodules and bilateral pulmonary nodules. He completed 6-1/2 cycles of FOLFIRINOX. Subsequent imaging appeared improved. However, at that point the patient was deemed unresectable. He subsequently had radiation which she completed November 07. He did well through the treatment. He did not have many side effects. He was clinically asymptomatic. However, CAT scan of the abdomen November, revealed: Increase in size of the left adrenal nodule to 32 mm from 28 mm. Also noted was slight increase in the size of the pancreatic mass 35 x 83 mm pre viously 34 x 18 mm. I decided to pick the regimen: Gemzar and Abraxane based chemotherapy. He started January 06, 2019. He completed cycle 4 on April 25. He completed cycle 7 on July 16 2019. He tolerated it well. Subsequently he elected to take a break from treatment. He wants to be monitored along. Restaging CT scan of the abdomen pelvis and chest from January 29 revealed: Chest: No evidence of metastatic disease. Stable left adrenal lesion. Fatty liver. Slightly enlarged prostate gland. Abdomen and pelvis: Stable low-attenuation soft tissue in the body of the pancreas continuous with abnormal low-attenuation soft tissue surrounding the celiac axis and SMA. Occluded splenic vein. Occluded distal SMV. Patent portal vein. Extensive peripancreatic varices. Previous imaging from October 01 revealed: Overall no significant change in the region of pancreatic head with significant collateral vessels/varices secondary to portal hypertension. The splenic vein is not seen. The portal vein is opacified to the level of pancreatic head. The spleen is heterogenous but normal size. There is no ascites seen at this time. However, there is mild haziness in bilateral paracolic gutter likely congestion. His GI complaints have resolved with the Creon. He has been feeling well. He has been working over the winter. CT chest and abdomen from 06/19/2020: Chest: New small pulmonary nodules. The largest measures 3 x 6 mm in the right lower lobe. Abdomen and pelvis: Stable low-attenuation in the body of the pancreas continuous with abnormal soft tissue surrounding the celiac axis, SMA and SMV, thickening of the bilateral anterior pararenal fascia and soft tissues surrounding the duodenum and left adrenal nodule. Occluded splenic vein, and distal SMV and extensive varices. Fatty liver. Stable mild dilatation of the common bile duct. Upper normal-size spleen. Stool throughout the colon questionable for constipation. His CA 19-9 from 06/10/20:357. From 09/13:1921. Recent CT scan of the chest and abdomen, from 09/22: Multiple pulmonary nodules are slightly increased in size since the previous study from 06/08. No major change in slightly enlarged and hypodense appearing diffuse pancreas and mild haziness along the posterior pancreatic margin. No focal lesion seen on the present exam, however the pancreas appears slightly heterogenous with abundant varices seen throughout the peripancreatic region, pancreas and upper abdomen. No change in the haziness in the peripancreatic region. Small left para aortic lymph nodes are essentially stable. No focal liver lesions seen. I shared the results with him. I was concerned about rising tumor marker and increasing pulmonary nodules. I suggested that he start back on the chemotherapy treatment. He has been restarted on Gemzar/ Abraxane since it had worked previously. He was started October 28. Since his baseline WBC count was low, he was started on Neulasta to prevent chemotherapy-induced neutropenic sepsis. He is here for cycle 3, day 1. He tolerated it well. CAT scan on 01/31: Stable pulmonary nodules. No new pulmonary nodules seen. Mild fatty infiltration of liver with portal vein thrombosis and cavernous transformation of portal vein, similar to previous study. There is diffuse haziness in the pancreatic head with heterogeneity, stable. The rest of the pancreas is slightly attenuated. Numerous collateral vessels are seen surrounding the pancreatic head and the upper abdomen. He was referred to [place], for a 2nd opinion. He saw Dr. Nicole Lees. Repeat imaging in mid March revealed new liver lesion and peritoneal disease. The CA 19/9 was down to 451 from 1355. However it went up to 2830 on 05/13. She offered him clinical trial versus retreatment with FOLFIRINOX. He elected to proceed with the latter. Received 1st cycle of FOLFIRINOX on 05/16. He did not tolerate it at all. I offered to dose reduce him to 75% of the chemotherapy doses. He was willing to try that. He has been tolerating it better. He received cycle 2 day 15 on 06/28. He was supposed to start cycle 3 today however his blood count is low. Platelets 54. His tumor marker CA 19-9 has come down to 1990 which is encouraging. PLAN: He is here to receive 2 units of blood. He will return next Sunday to get this cycle, would then like a break since this is his and his birthday month and he would like to feel well for the holidays. He was also offered to come in weekly for hydration and antiemetics and pain medicine if needed. Will reimage after completion of the cycle. Will follow-up on his tumor marker as well. Thank you, CC: Dr. Karina Ochoa, at [place]. Dr. Abel Woodard at [facility]. Gen. Dr. East. - Time Spent With Patient Time Spent with Patient (in minutes): 30
--- NOTE | 2021-07-11 15:31 | MHC.HEMONC ---
Pt here for blood transfusion. Port accessed with good blood return noted. Labs done 07/08, hgb 8.1, pt feeling tired, SOB on exertion. 2 units given and tolerated well. LS clear throughout. Scheduled for next chemo Wednesday 07/18.
[2021-07-18 08:38] LABS: MANUAL DIFF FLAG NO
[2021-07-18 08:42] LABS: Basophils Percent Auto 0.1 % (0-2); Eosinophils Absolute Auto 0.1 X10*3/uL (0.0-0.4); Eosinophils Percent Auto 0.7 % (0-4); Hematocrit 29.7 % (42.0-52.0); Hemoglobin 9.3 g/dl (14.0-18.0); Imm Gran Abs Auto 0.07 X10*3/uL (0.00-0.03); Imm Gran Pct Auto 0.9 % (0.0-0.4); Lymphocytes Absolute Auto 0.9 X10*3/uL (1.2-4.9); Lymphocytes Percent Auto 10.5 % (20-40); Mean Corpuscular HGB Conc 31.3 g/dl (31.0-36.0); Mean Corpuscular Hemoglobin 26.3 pg (27.0-33.0); Mean Corpuscular Volume 83.9 fL (80.0-98.0); Mean Platelet Volume 10.2 fL (9.4-12.4); Monocytes Absolute Auto 1.1 X10*3/uL (0.1-1.2); Monocytes Percent Auto 13.2 % (2-11); Neutrophils Absolute Auto 6.1 x10*3/uL (2.0-8.3); Neutrophils Percent Auto 74.6 % (45-73); Platelet Count 95 X10*3/uL (160-400); Red Blood Count 3.54 X10*6/uL (4.60-5.80); Red Cell Distribution Width 21.6 % (11.0-16.0); White Blood Count 8.1 X10*3/uL (4.8-10.8)
[2021-07-18 09:01] LABS: Alanine Aminotransferase 13 U/L (0-40); Albumin Level 3.5 g/dL (3.5-5.0); Alkaline Phosphatase 69 U/L (39-117); Anion Gap 12 (12-20); Aspartate Amino Transferase 28 U/L (5-37); Bilirubin Total 0.6 mg/dL (0.0-1.0); Blood Urea Nitrogen 7 mg/dL (9-16); Calcium 8.5 mg/dL (8.4-10.2); Carbon Dioxide 26 mmol/L (22-29); Chloride 105 mmol/L (96-108); Estimated Glomerular Filt Rate > 60; Glucose Random 110 mg/dL (60-115); Potassium 3.7 mmol/L (3.3-5.1); Sodium 139 mmol/L (135-145); Total Protein 6.3 g/dL (6.5-8.0)
--- NOTE | 2021-07-18 09:26 | MHC.HEMONC ---
pt here for chemo but he is still feeling fatigued, appetite only fair and having increased abdominal cramps and fullness . Dr Otoole advised that he does not feel up to chemo and wants month of July off. Labs WNL. He had abd u/s as ordered by Dr Otoole to check on distention. Will call pt with report.
[2021-08-01 12:01] LABS: Basophils Percent Auto 0.6 % (0-2); Eosinophils Absolute Auto 0.1 X10*3/uL (0.0-0.4); Eosinophils Percent Auto 1.1 % (0-4); Hematocrit 27.1 % (42.0-52.0); Hemoglobin 8.5 g/dl (14.0-18.0); Imm Gran Abs Auto 0.02 X10*3/uL (0.00-0.03); Imm Gran Pct Auto 0.4 % (0.0-0.4); Lymphocytes Absolute Auto 0.8 X10*3/uL (1.2-4.9); MANUAL DIFF FLAG NO; Mean Corpuscular HGB Conc 31.4 g/dl (31.0-36.0); Mean Corpuscular Hemoglobin 26.6 pg (27.0-33.0); Mean Platelet Volume 12.1 fL (9.4-12.4); Monocytes Absolute Auto 0.7 X10*3/uL (0.1-1.2); Monocytes Percent Auto 15.6 % (2-11); Neutrophils Absolute Auto 3.1 x10*3/uL (2.0-8.3); Neutrophils Percent Auto 66.3 % (45-73); Platelet Count 128 X10*3/uL (160-400); Red Blood Count 3.19 X10*6/uL (4.60-5.80); Red Cell Distribution Width 21.9 % (11.0-16.0); White Blood Count 4.7 X10*3/uL (4.8-10.8)
[2021-08-01 12:21] LABS: Alanine Aminotransferase 10 U/L (0-40); Albumin Level 3.6 g/dL (3.5-5.0); Alkaline Phosphatase 54 U/L (39-117); Anion Gap 9 (12-20); Aspartate Amino Transferase 27 U/L (5-37); Blood Urea Nitrogen 8 mg/dL (9-16); Calcium 9.2 mg/dL (8.4-10.2); Carbon Dioxide 28 mmol/L (22-29); Chloride 104 mmol/L (96-108); Estimated Glomerular Filt Rate > 60; Glucose Random 145 mg/dL (60-115); Sodium 137 mmol/L (135-145); Total Protein 6.6 g/dL (6.5-8.0)
--- NOTE | 2021-08-01 15:40 | MHC.HEMONC ---
Pt here for lab check. He is on chemo break and is awaiting an order for CT to f/u on chemo reults. He is slowly feeling better but only just starting to become active with an improved appetite. HGB 8.5 today. Will discuss labs and plans with Dr Otoole.
--- NOTE | 2021-08-01 16:38 | MHC.HEMONC ---
reviewed labs with pt. He would feel better if he had tx. He will get one unit RBC on Sunday. F/U with Dr Otoole 08/22/21
[2021-08-03 10:22] LABS: Carbohydrate Antigen 19-9 695 U/mL (<34)
--- NOTE | 2021-08-04 13:19 | MHC.HEMONC ---
type and screen for one unit RBC tomorrow
[2021-08-05 12:35] VITALS: BP 134/83; PULSE 71; RESP 18; TEMP 36.9
[2021-08-05 12:50] VITALS: BP 119/65; PULSE 63; RESP 18; TEMP 36.2
[2021-08-05 14:15] VITALS: BP 134/72; PULSE 61; RESP 18; TEMP 36.2
--- NOTE | 2021-08-05 16:53 | MHC.HEMONC ---
Pt presented to clinic for his scheduled blood transfusion, 1 unit PRBC, in no apparent distress, VSS, no labs ordered. Pt and Dr. Otoole reviewed possible signs and symptoms and pt signed consent form w/ nurse. Nurse called blood bank and Johny arrived to apply Blood band to pt. Pt's baseline VSS, LS CTA. Nurse accessed pt's R chest port-a cath w/ 20g 3/4 inch del rio needle in sterile procedure, found pos blood return, flushed w/ 5 ml NS. Nurse primed y-tubing w/ NS, began NS drip to gravity via pt's port. Nurse went to blood bank, procured unit of PRBC. This nurse and nurse Da Silva performed 2-person checks of blood type, unit #, blood band, expiration date, blood appearance, and 2-person checks confirming pt's identity. Nurse began transfusion at 12:35, stayed w/ pt for first 15 minutes. Pt denied any new symptoms after 15 minutes, LS remained CTA, VS remained stable. Entire volume of 350 ml was transfused until transfusion was ended at 14:15. Nurse performed final check of VS and LS remained clear. Pt's port was flushed w/ 5 ml NS and 500 Units Heparin, then was deaccessed and covered w/ [employer]. Pt tolerated procedure well. He was discharged w/ next Onc f/u booked for 08/22/21.
[2021-08-22 10:46] VITALS: BP 134/68; PULSE 59; RESP 18; TEMP 36.9; BMI 29.8
[2021-08-22 10:55] LABS: MANUAL DIFF FLAG NO
--- NOTE | 2021-08-22 11:04 | PM.HEMONCPN ---
Medical Summary - Medical Summary Date of Service: 08/22/21 Chief complaint: Follow-up for: Pancreatic carcinoma. Medical Summary: DIAGNOSIS: 1. Pancreatc Carcinoma. 2. Pancytopenia. CURRENT THERAPY: Started on Folfirinox, 03/11. Completed 6 cycles, August. Completed XRT November 07 in [place]. He was unable to get capecitabine on account of thrombocytopenia. On Gemzar Abraxane, started January 06. Completed cycle 6 on 06/20/19. Completed cycle 7, July 16, 2019. Took a break from treatment, after that. Restarted Gemzar Abraxane for disease progression, 10/28/20. Cycle 3, day 11 on 01/07/21. He then elected to stop. He was referred to [facility], for a 2nd opinion. He saw Dr. Nicole Lees. Repeat imaging in mid March revealed new liver lesion and peritoneal disease. She offered him clinical trial versus retreatment with FOLFIRINOX. He elected to proceed with the latter. Received 1 cycle of FOLFIRINOX on 05/16. He received cycle 2 d15, on 06/28. Interval History Interval history: This is a pleasant 51 year-old gentleman, here for a follow-up visit. He had opted to take the month of July off from chemotherapy. He had been doing well however he has some complaints. He gets recurrent abdominal cramping. Usually that happens after he eats. He has noticed some abdominal distension. He denies local tenderness. But the belly feels rather firm. He denies any nausea or vomiting. No heartburn indigestion. He stopped taking omeprazole since he felt the symptoms were worsening. He has noticed that he has urge to move his bowels but when he actually goes to push there is nothing there. He has been taking dicyclomine and Creon. He takes oxycodone to help him sleep at night. He has an appointment with Dr. Crespo later in the month. He tells me he does feel rather fatigued. He denies any chest pain or shortness of breath on exertion. No headache nor dizziness. His appetite is okay.. His weight is stable. He is in good spirits. Rest of the review of systems is unremarkable. He has been tolerating the treatment better since he was dose reduced. Previous history: 1. After his 1st cycle of FOLFIRINOX he was knocked down for a loop. He could not eat. He lost weight. He was 235 and went down to 225. His nausea was manageable. He could control it with Zofran and Decadron, however he had bad belly ache. He felt he was having cramps. As if there was a burning hole in the stomach. His stomach felt unsettled. Only thing that could comfort him was laying down in a hot tub. He had 3 sleepless nights. He did have some diarrhea but that was expected. He did try to stay hydrated. He took popsicles and Jell-O. Overall he felt miserable. 2. He had upper endoscopy and colonoscopy by Dr. Crespo, in the spring,which was negative. 3. Back in June of 2020 he contracted COVID-19. However his symptoms were quite mild, only lasted a day and a half and then he recovered. He did receive the COVID vaccines and booster. Review of Systems - Constitutional Reports system reviewed and no additional complaints, except as documented - Eyes Reports system reviewed and no additional complaints, except as documented - ENT Reports system reviewed and no additional complaints, except as documented - Cardiovascular Reports system reviewed and no additional complaints, except as documented - Respiratory Reports no additional respiratory complaints - Gastrointestinal Reports system reviewed and no additional complaints, except as documented - Genitourinary Genitourinary: Reports no additional male genitourinary complaints - Musculoskeletal Reports system reviewed and no additional complaints, except as documented - Integumentary/Breasts Skin/Breast: Reports no additional skin complaints - Neurologic Reports system reviewed and no additional complaints, except as documented, Reports hearing normal, Reports weakness - Psychiatric Reports system reviewed and no additional complaints, except as documented - Endocrine Reports no additional endocrine complaints - Hematologic/Lymphatic Reports system reviewed and no additional complaints, except as documented - Allergic/Immunologic Reports system reviewed and no additional complaints, except as documented PMF Medical History: Medical History (Last Reviewed 08/22/21 @ 11:03 by Avelino Hernandez RN) Anemia Diabetes mellitus Functional capacity: independent ambulation Patient : No Family History: Family History (Last Reviewed 08/22/21 @ 11:03 by Avelino Hernandez RN) Mother Diabetes Surgical History: Surgical History (Last Reviewed 08/22/21 @ 11:03 by Avelino Hernandez RN) H/O hernia repair Social History: Social History (Last Reviewed 08/22/21 @ 11:03 by Avelino Hernandez RN) Alcohol History Details: Alcohol intake frequency: a few times a week Alcohol type: beer Advance Directives: Advance Directives: No Advance Directives Information Provided: No Nutrition Assessment: Patient : No Oncology Screenings - ECOG Performance Status ECOG Performance Status: 0 Home Medications and Allergies Home Medications Medication Instructions Recorded Confirmed Type insulin glargine 100 unit/mL (3 14 unit SUBCUT BEDTIME 06/10/20 08/22/21 History mL) subcutaneous pen (Lantus Solostar U-100 Insulin) metformin 500 mg tablet,extended 2,000 mg PO DAILY 06/10/20 08/22/21 History release 24 hr tadalafil (pulm. hypertension) 20 5 mg PO DAILY 06/10/20 08/22/21 History mg tablet (pulmonary hypertension) multivitamin 1 tab PO DAILY 10/14/20 08/22/21 History Allergies Allergy/AdvReac Type Severity Reaction Status Date / Time No Known Allergies Allergy Verified 08/22/21 11:04 [No Known Allergies*] Exam Vital signs: Vital Signs Temp 98.4 F 08/22/21 10:46 Pulse 59 08/22/21 10:46 Resp 18 08/22/21 10:46 BP 134/68 08/22/21 10:46 Pulse Ox 100 07/11/21 10:45 Intake & Output 08/21/21 08/22/21 08/22/21 18:59 06:59 18:59 Other: Weight 105.4 kg Weight in Grams [id number] Weight 105.4 kg BMI result Body Mass Index 29.8 - Constitutional Present: no acute distress - Routine HEENT Exam Head: Present: normal inspection Eye: Present: normal appearance ENT: Present: mucous membranes moist - Routine Neck Exam Present: full ROM - Routine Respiratory Exam Present: CTAB - Routine Cardiovascular Exam Cardiovascular: Present: RRR, S1, murmur - Routine Abdominal Exam Present: soft, nontender - Routine Extremities Exam Present: nontender - Routine Back/Spine/Pelvis Exam Back/Spine: Present: full ROM - Routine Skin Exam Present: intact - Routine Neurological Exam Present: alert, oriented X3 - Detailed Neurological Exam: Coma Scale Eye Opening: Spontaneous (4) - Routine Psychiatric Exam Present: normal affect Data - Labs CBC & Chem 7: 08/22/21 10:53 08/22/21 10:53 Assessment and Plan Patient Active problem list reviewed?: Yes (1) Pancreatic cancer Status: Acute Assessment and plan: This is a pleasant 49 year-old gentleman, with the diagnosis of Pancreatic Adenocarcinoma involving the body and tail, in January of 2018. He had an extensive tumor burden. Mass encasing and obstructing the SMV, splenic vein and proximal portal vein. Infiltrative soft tissue between the aorta and IVC and into the kareem hepatis. Bilateral adrenal nodules and bilateral pulmonary nodules. He completed 6-1/2 cycles of FOLFIRINOX. Subsequent imaging appeared improved. However, at that point the patient was deemed unresectable. He subsequently had radiation which she completed November 07. He did well through the treatment. He did not have many side effects. He was clinically asymptomatic. However, CAT scan of the abdomen November, revealed: Increase in size of the left adrenal nodule to 32 mm from 28 mm. Also noted was slight increase in the size of the pancreatic mass 35 x 83 mm previously 34 x 18 mm. I decided to pick the regimen: Gemzar and Abraxane based chemotherapy. He started January 06, 2019. He completed cycle 4 on April 25. He completed cycle 7 on July 16 2019. He tolerated it well. Subsequently he elected to take a break from treatment. He wants to be monitored along. Restaging CT scan of the abdomen pelvis and chest from January 29 revealed: Chest: No evidence of metastatic disease. Stable left adrenal lesion. Fatty liver. Slightly enlarged prostate gland. Abdomen and pelvis: Stable low-attenuation soft tissue in the body of the pancreas continuous with abnormal low-attenuation soft tissue surrounding the celiac axis and SMA. Occluded splenic vein. Occluded distal SMV. Patent portal vein. Extensive peripancreatic varices. Previous imaging from October 01 revealed: Overall no significant change in the region of pancreatic head with significant collateral vessels/varices secondary to portal hypertension. The splenic vein is not seen. The portal vein is opacified to the level of pancreatic head. The spleen is heterogenous but normal size. There is no ascites seen at this time. However, there is mild haziness in bilateral paracolic gutter likely congestion. His GI complaints have resolved with the Creon. He has been feeling well. He has been working over the winter. CT chest and abdomen from 06/19/2020: Chest: New small pulmonary nodules. The largest measures 3 x 6 mm in the right lower lobe. Abdomen and pelvis: Stable low-attenuation in the body of the pancreas continuous with abnormal soft tissue surrounding the celiac axis, SMA and SMV, thickening of the bilateral anterior pararenal fascia and soft tissues surrounding the duodenum and left adrenal nodule. Occluded splenic vein, and distal SMV and extensive varices. Fatty liver. Stable mild dilatation of the common bile duct. Upper normal-size spleen. Stool throughout the colon questionable for constipation. His CA 19-9 from 06/10/20:357. From 09/13:1921. Recent CT scan of the chest and abdomen, from 09/22: Multiple pulmonary nodules are slightly increased in size since the previous study from 06/08. No major change in slightly enlarged and hypodense appearing diffuse pancreas and mild haziness along the posterior pancreatic margin. No focal lesion seen on the present exam, however the pancreas appears slightly heterogenous with abundant varices seen throughout the peripancreatic region, pancreas and upper abdomen. No change in the haziness in the peripancreatic region. Small left para aortic lymph nodes are essentially stable. No focal liver lesions seen. I shared the results with him. I was concerned about rising tumor marker and increasing pulmonary nodules. I suggested that he start back on the chemotherapy treatment. He has been restarted on Gemzar/ Abraxane since it had worked previously. He was started October 28. Since his baseline WBC count was low, he was started on Neulasta to prevent chemotherapy-induced neutropenic sepsis. He is here for cycle 3, day 1. He tolerated it well. CAT scan on 01/31: Stable pulmonary nodules. No new pulmonary nodules seen. Mild fatty infiltration of liver with portal vein thrombosis and cavernous transformation of portal vein, similar to previous study. There is diffuse haziness in the pancreatic head with heterogeneity, stable. The rest of the pancreas is slightly attenuated. Numerous collateral vessels are seen surrounding the pancreatic head and the upper abdomen. He was referred to [facility], for a 2nd opinion. He saw Dr. Nicole Lees. Repeat imaging in mid March revealed new liver lesion and peritoneal disease. The CA 19/9 was down to 451 from 1355. However it went up to 2830 on 05/13. She offered him clinical trial versus retreatment with FOLFIRINOX. He elected to proceed with the latter. Received 1st cycle of FOLFIRINOX on 05/16. He did not tolerate it at all. I offered to dose reduce him to 75% of the chemotherapy doses. He was willing to try that. He tolerated it better. He received cycle 2 day 15 on 06/28. He was supposed to start cycle 3, however his blood count was noted to be low. Platelets were 54. He received 2 units of blood, a month ago.. His tumor marker CA 19-9 came down to 695, from 1990 which is encouraging. He received the 3rd cycle. Then wanted a break from treatment since July was his and his birthday month. He wanted to feel well for the holidays. I offered to restart him on the FOLFIRINOX however he is not too keen on doing that. He feels the treatment was rather tough on him. He would like to wait, before he decides to restart it. PLAN: Will reimage with CT scan of the chest and abdomen pelvis. Will follow-up on his tumor marker as well. He will return in a week for a follow-up and to let me know of his decision about treatment. The other choice is for him to go on a clinical trial in [facility]. Thank you, CC: Dr. Karina Ochoa, at [facility]. Dr. Abel Woodard at [facility]. Gen. Dr. East. - Time Spent With Patient Time Spent with Patient (in minutes): 30
[2021-08-22 11:28] LABS: Basophils Percent Auto 0.6 % (0-2); Eosinophils Absolute Auto 0.1 X10*3/uL (0.0-0.4); Eosinophils Percent Auto 2.4 % (0-4); Hematocrit 28.8 % (42.0-52.0); Lymphocytes Absolute Auto 0.5 X10*3/uL (1.2-4.9); Lymphocytes Percent Auto 15.4 % (20-40); Mean Corpuscular HGB Conc 31.3 g/dl (31.0-36.0); Mean Corpuscular Hemoglobin 27.3 pg (27.0-33.0); Mean Corpuscular Volume 87.3 fL (80.0-98.0); Mean Platelet Volume 10.9 fL (9.4-12.4); Monocytes Absolute Auto 0.4 X10*3/uL (0.1-1.2); Monocytes Percent Auto 12.4 % (2-11); Neutrophils Absolute Auto 2.3 x10*3/uL (2.0-8.3); Neutrophils Percent Auto 69.2 % (45-73); Red Cell Distribution Width 18.1 % (11.0-16.0); White Blood Count 3.4 X10*3/uL (4.8-10.8)
[2021-08-22 11:29] LABS: Platelet Count 72 X10*3/uL (160-400)
[2021-08-22 11:36] LABS: Alanine Aminotransferase 10 U/L (0-40); Albumin Level 3.8 g/dL (3.5-5.0); Alkaline Phosphatase 45 U/L (39-117); Anion Gap 10 (12-20); Aspartate Amino Transferase 30 U/L (5-37); Blood Urea Nitrogen 10 mg/dL (9-16); Calcium 8.8 mg/dL (8.4-10.2); Carbon Dioxide 29 mmol/L (22-29); Chloride 107 mmol/L (96-108); Estimated Glomerular Filt Rate > 60; Glucose Random 87 mg/dL (60-115); Potassium 3.5 mmol/L (3.3-5.1); Sodium 142 mmol/L (135-145); Total Protein 7.2 g/dL (6.5-8.0)
--- NOTE | 2021-08-22 17:21 | MHC.HEMONC ---
Pt arrived in good spirits for Onc f/u, VSS, labs drawn/reviewed. Nurse updated pt's hx and med list. Pt did report occasional cramping in his stomach, shane after eating, also having urges to move bowels but nothing comes out. Pt clarified that his BMs are soft and regular, but has some abd distention, no tenderness, passing flatus. pt is using PRN simethicone and oxycodone at [facility] to help w/ sleep. Pt will be seeing GI Dr. Crespo later this month. Pt reported he stopped his omeprazole as he felt it made the cramps worse, also has stopped his lisinopril d/t drops in BP w/ chemo, says he self-monitors BP at home. pt requested refill on PRN lorazepam. Dr. Otoole met w/ pt. Pt was d/c'd w/ request to f/u in one week.
[2021-08-23 09:27] LABS: Carbohydrate Antigen 19-9 632 U/mL (<34)
--- NOTE | 2021-09-06 14:35 | PM.HEMONCPN ---
Medical Summary - Medical Summary Date of Service: 09/06/21 Chief complaint: Follow-up for: Pancreatic carcinoma. Medical Summary: DIAGNOSIS: 1. Pancreatc Carcinoma. 2. Pancytopenia. CURRENT THERAPY: Started on Folfirinox, 03/11. Completed 6 cycles, August. Completed XRT November 07 in [place]. He was unable to get capecitabine on account of thrombocytopenia. On Gemzar Abraxane, started January 06. Completed cycle 6 on 06/20/19. Completed cycle 7, July 16, 2019. Took a break from treatment, after that. Restarted Gemzar Abraxane for disease progression, 10/28/20. Cycle 3, day 11 on 01/07/21. He then elected to stop. He was referred to [place], for a 2nd opinion. He saw Dr. Nicole Lees. Repeat imaging in mid March revealed new liver lesion and peritoneal disease. She offered him clinical trial versus retreatment with FOLFIRINOX. He elected to proceed with the latter. Received 1 cycle of FOLFIRINOX on 05/16. He received cycle 2 d 15, on 06/28. Interval History Interval history: This is a pleasant 51 year-old gentleman, here for a follow-up visit. He had opted to take the month of July off from chemotherapy. He had been doing well however he has some of the same complaints. He tells me he does feel rather fatigued. He gets recurrent abdominal cramping. Usually that happens after he eats. He has noticed some abdominal distension. The belly feels rather firm, however he denies local tenderness. He denies any nausea or vomiting. No heartburn indigestion. He stopped taking omeprazole since he felt the symptoms were worsening. He has noticed that he has urge to move his bowels but when he actually goes to push there is nothing there. He has been taking dicyclomine and Creon. He takes oxycodone to help him sleep at night. He has an appointment with Dr. Crespo later in the month of August. He denies any chest pain or shortness of breath on exertion. No headache nor dizziness. His appetite is okay.. His weight is stable. He is in good spirits. Rest of the review of systems is unremarkable. Previous history: 1. After his 1st cycle of FOLFIRINOX he was knocked down for a loop. He could not eat. He lost weight. He was 235 and went down to 225. His nausea was manageable. He could control it with Zofran and Decadron, however he had bad belly ache. He felt he was having cramps. As if there was a burning hole in the stomach. His stomach felt unsettled. Only thing that could comfort him was laying down in a hot tub. He had 3 sleepless nights. He did have some diarrhea but that was expected. He did try to stay hydrated. He took popsicles and Jell-O. Overall he felt miserable. 2. He had upper endoscopy and colonoscopy by Dr. Crespo, in the spring,which was negative. 3. Back in June of 2020 he contracted COVID-19. However his symptoms were quite mild, only lasted a day and a half and then he recovered. He did receive the COVID vaccines and booster. Review of Systems - Constitutional Reports system reviewed and no additional complaints, except as documented - Eyes Reports system reviewed and no additional complaints, except as documented - ENT Reports system reviewed and no additional complaints, except as documented - Cardiovascular Reports system reviewed and no additional complaints, except as documented - Respiratory Reports no additional respiratory complaints - Gastrointestinal Reports system reviewed and no additional complaints, except as documented - Genitourinary Genitourinary: Reports no additional male genitourinary complaints - Musculoskeletal Reports system reviewed and no additional complaints, except as documented - Integumentary/Breasts Skin/Breast: Reports no additional skin complaints - Neurologic Reports system reviewed and no additional complaints, except as documented, Reports hearing normal, Reports weakness - Psychiatric Reports system reviewed and no additional complaints, except as documented - Endocrine Reports no additional endocrine complaints - Hematologic/Lymphatic Reports system reviewed and no additional complaints, except as documented - Allergic/Immunologic Reports system reviewed and no additional complaints, except as documented PMFSH Medical History: Medical History (Last Reviewed 09/06/21 @ 14:47 by Avelino Hernandez RN) Anemia Diabetes mellitus Functional capacity: independent ambulation Patient : No Family History: Family History (Last Reviewed 09/06/21 @ 14:47 by Avelino Hernandez RN) Mother Diabetes Surgical History: Surgical History (Last Reviewed 09/06/21 @ 14:47 by Avelino Hernandez RN) H/O hernia repair Social History: Social History (Last Reviewed 09/06/21 @ 14:47 by Avelino Hernandez RN) Advance Directives: Advance Directives: No Advance Directives Information Provided: No Nutrition Assessment: Patient : No Oncology Screenings - ECOG Performance Status ECOG Performance Status: 0 Home Medications and Allergies Home Medications Medication Instructions Recorded Confirmed Type insulin glargine 100 unit/mL (3 14 unit SUBCUT BEDTIME 06/10/20 09/06/21 History mL) subcutaneous pen (Lantus Solostar U-100 Insulin) metformin 500 mg tablet,extended 2,000 mg PO DAILY 06/10/20 09/06/21 History release 24 hr tadalafil (pulm. hypertension) 20 5 mg PO DAILY 06/10/20 09/06/21 History mg tablet (pulmonary hypertension) multivitamin 1 tab PO DAILY 10/14/20 09/06/21 History Allergies Allergy/AdvReac Type Severity Reaction Status Date / Time No Known Allergies Allergy Verified 09/06/21 14:44 [No Known Allergies*] Exam Vital signs: Vital Signs Temp 98.4 F 08/22/21 10:46 Pulse 59 08/22/21 10:46 Resp 18 08/22/21 10:46 BP 134/68 08/22/21 10:46 Pulse Ox 100 07/11/21 10:45 Weight 105.4 kg BMI result Body Mass Index 29.8 - Constitutional Present: no acute distress - Routine HEENT Exam Head: Present: normal inspection Eye: Present: normal appearance ENT: Present: mucous membranes moist - Routine Neck Exam Present: full ROM - Routine Respiratory Exam Present: CTAB - Routine Cardiovascular Exam Cardiovascular: Present: RRR, S1, murmur - Routine Abdominal Exam Present: soft, nontender - Routine Extremities Exam Present: nontender - Routine Back/Spine/Pelvis Exam Back/Spine: Present: full ROM - Routine Skin Exam Present: intact - Routine Neurological Exam Present: alert, oriented X3 - Detailed Neurological Exam: Coma Scale Eye Opening: Spontaneous (4) - Routine Psychiatric Exam Present: normal affect Data - Labs CBC & Chem 7: 09/06/21 14:36 09/06/21 14:36 Assessment and Plan Patient Active problem list reviewed?: Yes (1) Pancreatic cancer Status: Acute Assessment and plan: This is a pleasant 49 year-old gentleman, with the diagnosis of Pancreatic Adenocarcinoma involving the body and tail, in January of 2018. He had an extensive tumor burden. Mass encasing and obstructing the SMV, splenic vein and proximal portal vein. Infiltrative soft tissue between the aorta and IVC and into the kareem hepatis. Bilateral adrenal nodules and bilateral pulmonary nodules. He completed 6-1/2 cycles of FOLFIRINOX. Subsequent imaging appeared improved. However, at that point the patient was deemed unresectable. He subsequently had radiation which she completed November 07. He did well through the treatment. He did not have many side effects. He was clinically asymptomatic. However, CAT scan of the abdomen November, revealed: Increase in size of the left adrenal nodule to 32 mm from 28 mm. Also noted was slight increase in the size of the pancreatic mass 35 x 83 mm previously 34 x 18 mm. I decided to pick the regimen: Gemzar and Abraxane based chemotherapy. He started January 06, 2019. He completed cycle 4 on April 25. He completed cycle 7 on July 16 2019. He tolerated it well. Subsequently he elected to take a break from treatment. He wants to be monitored along. Restaging CT scan of the abdomen pelvis and chest from January 29 revealed: Chest: No evidence of metastatic disease. Stable left adrenal lesion. Fatty liver. Slightly enlarged prostate gland. Abdomen and pelvis: Stable low-attenuation soft tissue in the body of the pancreas continuous with abnormal low-attenuation soft tissue surrounding the celiac axis and SMA. Occluded splenic vein. Occluded distal SMV. Patent portal vein. Extensive peripancreatic varices. Previous imaging from October 01 revealed: Overall no significant change in the region of pancreatic head with significant collateral vessels/varices secondary to portal hypertension. The splenic vein is not seen. The portal vein is opacified to the level of pancreatic head. The spleen is heterogenous but normal size. There is no ascites seen at this time. However, there is mild haziness in bilateral paracolic gutter likely congestion. His GI complaints have resolved with the Creon. He has been feeling well. He has been working over the winter. CT chest and abdomen from 06/19/2020: Chest: New small pulmonary nodules. The largest measures 3 x 6 mm in the right lower lobe. Abdomen and pelvis: Stable low-attenuation in the body of the pancreas continuous with abnormal soft tissue surrounding the celiac axis, SMA and SMV, thickening of the bilateral anterior pararenal fascia and soft tissues surrounding the duodenum and left adrenal nodule. Occluded splenic vein, and distal SMV and extensive varices. Fatty liver. Stable mild dilatation of the common bile duct. Upper normal-size spleen. Stool throughout the colon questionable for constipation. His CA 19-9 from 06/10/20:357. From 09/13:1921. Recent CT scan of the chest and abdomen, from 09/22: Multiple pulmonary nodules are slightly increased in size since the previous study from 06/08. No major change in slightly enlarged and hypodense appearing diffuse pancreas and mild haziness along the posterior pancreatic margin. No focal lesion seen on the present exam, however the pancreas appears slightly heterogenous with abundant varices seen throughout the peripancreatic region, pancreas and upper abdomen. No change in the haziness in the peripancreatic region. Small left para aortic lymph nodes are essentially stable. No focal liver lesions seen. I shared the results with him. I was concerned about rising tumor marker and increasing pulmonary nodules. I suggested that he start back on the chemotherapy treatment. He has been restarted on Gemzar/ Abraxane since it had worked previously. He was started October 28. Since his baseline WBC count was low, he was started on Neulasta to prevent chemotherapy-induced neutropenic sepsis. He is here for cycle 3, day 1. He tolerated it well. CAT scan on 01/31: Stable pulmonary nodules. No new pulmonary nodules seen. Mild fatty infiltration of liver with portal vein thrombosis and cavernous transformation of portal vein, similar to previous study. There is diffuse haziness in the pancreatic head with heterogeneity, stable. The rest of the pancreas is slightly attenuated. Numerous collateral vessels are seen surrounding the pancreatic head and the upper abdomen. He was referred to [place], for a 2nd opinion. He saw Dr. Nicole Lees. Repeat imaging in mid March revealed new liver lesion and peritoneal disease. The CA 19/9 was down to 451 from 1355. However it went up to 2830 on 05/13. She offered him clinical trial versus retreatment with FOLFIRINOX. He elected to proceed with the latter. Received 1st cycle of FOLFIRINOX on 05/16. He did not tolerate it at all. I offered to dose reduce him to 75% of the chemotherapy doses. He was willing to try that. He tolerated it better. He received cycle 2 day 15 on 06/28. He was supposed to start cycle 3, however his blood count was noted to be low. Platelets were 54. He received 2 units of blood, a month ago.. His tumor marker CA 19-9 came down to 695, from 1990 which is encouraging. He received the 3rd cycle. Then wanted a break from treatment since July was his and his birthday month. He wanted to feel well for the holidays. I offered to restart him on the FOLFIRINOX however he is not too keen on doing that. He feels the treatment was rather tough on him. He took some time off, before deciding to restart it. l reimaged with CT scan of the chest and abdomen pelvis. This was done on September 02 and revealed: Dilated intrahepatic duct and common bile duct with heterogeneous pancreatic head and body and ill-defined margins similar to previous study 03/23/2021. There are small peripancreatic lymph nodes which cannot be differentiated from the adjacent pancreatic head and uncinate process. However, there is no enlarging mass or lymph nodes seen. There is diffuse ascites and haziness throughout the peritoneum likely secondary to ascites and mesenteric edema. No liver lesions seen. Adrenal glands are normal. Right pulmonary nodules seen on March [address] are no longer seen. No new pulmonary nodules. l followed up on his tumor marker as well. CA 19-9: 632. From 08/01: 695. I explained to him that the imaging appears to reveal stable disease. Tumor markers have come down which is a good sign. I would like to restart him on the chemotherapy regimen to continue to achieve a response. He said he would like to give it some thought. PLAN: He will get back in touch with me. He will return in a week for a follow-up and to let me know of his decision about treatment. The other choice is for him to go on a clinical trial in [place]. In the meantime I will fax his imaging results to Dr. Thank you, CC: Dr. Karina Ochoa, at [place] [facility]. Dr. Abel Woodard at [facility]. Gen. Dr. East. - Time Spent With Patient Time Spent with Patient (in minutes): 30
[2021-09-06 14:39] LABS: MANUAL DIFF FLAG NO
[2021-09-06 14:42] VITALS: BP 141/78; PULSE 65; RESP 18; TEMP 36.8; O2SAT 100; BMI 29.7
[2021-09-06 14:43] LABS: Basophils Percent Auto 0.7 % (0-2); Eosinophils Absolute Auto 0.1 X10*3/uL (0.0-0.4); Eosinophils Percent Auto 2.3 % (0-4); Hematocrit 31.3 % (42.0-52.0); Hemoglobin 9.8 g/dl (14.0-18.0); Imm Gran Abs Auto 0.01 X10*3/uL (0.00-0.03); Imm Gran Pct Auto 0.3 % (0.0-0.4); Lymphocytes Absolute Auto 0.5 X10*3/uL (1.2-4.9); Mean Corpuscular HGB Conc 31.3 g/dl (31.0-36.0); Mean Corpuscular Volume 86.2 fL (80.0-98.0); Mean Platelet Volume 10.5 fL (9.4-12.4); Monocytes Absolute Auto 0.4 X10*3/uL (0.1-1.2); Neutrophils Absolute Auto 2.1 x10*3/uL (2.0-8.3); Neutrophils Percent Auto 69.7 % (45-73); Red Blood Count 3.63 X10*6/uL (4.60-5.80); Red Cell Distribution Width 16.1 % (11.0-16.0)
[2021-09-06 14:45] LABS: Platelet Count 83 X10*3/uL (160-400)
[2021-09-06 15:00] LABS: Alanine Aminotransferase 11 U/L (0-40); Albumin Level 4.1 g/dL (3.5-5.0); Alkaline Phosphatase 48 U/L (39-117); Anion Gap 10 (12-20); Aspartate Amino Transferase 33 U/L (5-37); Bilirubin Total 1.1 mg/dL (0.0-1.0); Blood Urea Nitrogen 8 mg/dL (9-16); Calcium 9.2 mg/dL (8.4-10.2); Carbon Dioxide 30 mmol/L (22-29); Chloride 105 mmol/L (96-108); Creatinine Clr Calc Pharmacy 110.6; Estimated Glomerular Filt Rate > 60; Glucose Random 98 mg/dL (60-115); Sodium 141 mmol/L (135-145); Total Protein 7.9 g/dL (6.5-8.0)
--- NOTE | 2021-09-06 15:37 | MHC.HEMONC ---
Pt here for MD visit. Port accessed with blood return. Port flushed with heparin and de accessed. Follow up appointment scheduled for next month for port flush
--- NOTE | 2021-09-06 17:40 | MHC.HEMONC ---
Pt presented for his Onc f/u visit, VSS, labs drawn/reviewed, clinical summary updated, no changes. Pt reports he does still have intermittent stomach cramping and some abd distention, has GI f/u w/ Dr. Crespo next week, sometimes uses lorazepam and oxycodone to help w/ sleep. Pt had port flush while he was here. Dr. Otoole met w/ pt to discuss potentially exploring clinical trial in [place]. Nurse to fax recent CT scan report to Nicole Lees's office the following morning. Pt to get back to provider about his plans for further tx or clinical trial.
[2021-09-07 11:11] LABS: Carbohydrate Antigen 19-9 1008 U/mL (<34)
--- NOTE | 2021-09-07 16:26 | MHC.HEMONC ---
Nurse spoke w/ [facility], office of Dr. Nicole Lees, was told their Fax # is [phone]. Nurse faxed pt's 09/02/[address] report, received fax receipt confirmation.
[2021-09-19 10:16] LABS: Basophils Percent Auto 0.4 % (0-2); Eosinophils Absolute Auto 0.1 X10*3/uL (0.0-0.4); Eosinophils Percent Auto 2.4 % (0-4); Hemoglobin 8.8 g/dl (14.0-18.0); Lymphocytes Absolute Auto 0.5 X10*3/uL (1.2-4.9); Lymphocytes Percent Auto 21.9 % (20-40); MANUAL DIFF FLAG SCAN; Mean Corpuscular HGB Conc 30.3 g/dl (31.0-36.0); Mean Corpuscular Hemoglobin 26.1 pg (27.0-33.0); Mean Corpuscular Volume 86.1 fL (80.0-98.0); Mean Platelet Volume 10.9 fL (9.4-12.4); Monocytes Absolute Auto 0.3 X10*3/uL (0.1-1.2); Monocytes Percent Auto 13.4 % (2-11); Neutrophils Absolute Auto 1.5 x10*3/uL (2.0-8.3); Neutrophils Percent Auto 61.9 % (45-73); Red Blood Count 3.37 X10*6/uL (4.60-5.80); Red Cell Distribution Width 15.3 % (11.0-16.0); SCAN SMEAR FLAG 1
[2021-09-19 10:25] LABS: Platelet Count 92 X10*3/uL (160-400); White Blood Count 2.5 X10*3/uL (4.8-10.8)
[2021-09-19 10:48] LABS: SLIDE REVIEW VERIFIED
[2021-09-19 10:51] LABS: Alanine Aminotransferase 8 U/L (0-40); Albumin Level 3.8 g/dL (3.5-5.0); Alkaline Phosphatase 52 U/L (39-117); Anion Gap 10 (12-20); Aspartate Amino Transferase 32 U/L (5-37); Bilirubin Total 0.8 mg/dL (0.0-1.0); Blood Urea Nitrogen 7 mg/dL (9-16); Calcium 9.1 mg/dL (8.4-10.2); Carbon Dioxide 29 mmol/L (22-29); Chloride 105 mmol/L (96-108); Creatinine Clr Calc Pharmacy 111.7; Estimated Glomerular Filt Rate > 60; Glucose Random 130 mg/dL (60-115); Potassium 3.8 mmol/L (3.3-5.1); Sodium 140 mmol/L (135-145); Total Protein 7.5 g/dL (6.5-8.0)
[2021-09-20 08:04] VITALS: BP 136/75; PULSE 71; RESP 18; TEMP 37.2; O2SAT 100; BMI 29.6
[2021-09-20] MEDS: Fosaprepitant Dimeglumine 150 MG in 0.9 % Sodium Chloride 145 ML 300 MG IV (08:20)
[2021-09-20] MEDS: dexAMETHasone sod phosphate/NS 12 MG/50 ML PIGGYBACK 200 MG IV (09:46)
[2021-09-20] MEDS: Famotidine/PF 20 MG/2 ML VIAL IVPUSH (10:06)
[2021-09-20] MEDS: OXALIplatin 100 MG, OXALIplatin 50 MG in Dextrose 5 % 500 ML 265 MG IV (10:28)
[2021-09-20] MEDS: Atropine Sulfate 1 MG/ML VIAL 0.5 MG SUBCUT (12:42)
[2021-09-20] MEDS: Leucovorin Calcium 690 MG in Dextrose 5 % 250 ML 142.25 MG IV (12:46)
[2021-09-20] MEDS: DEXTROSE 5% IV (13:18)
[2021-09-20] MEDS: IRINOTECAN HCL IV (13:18)
[2021-09-20] MEDS: fluorouraciL 700 MG in Syringe, Disposable 0 ML 168 MG IVPUSH (15:02)
[2021-09-20] MEDS: fluorouraciL 4,150 MG in 0.9 % Sodium Chloride 9 ML IV (15:03)
--- NOTE | 2021-09-20 15:51 | MHC.HEMONC ---
Addendum entered by Avelino Hernandez RN 09/20/21 17:12: Prior to departure, nurse reviewed home meds w/ pt, confirmed he knows to take Dexamethasone 4 mg BID for days 2 and 3 after chemo, and to use PRN zofran and imodeum for nausea and/or diarrhea, and reviewed symptoms to report immediately, including fever >100.4. Original Note: Pleasant pt arrived for C5D1 of FOLFIRINOX, in good spirits, VSS, weight taken, consistent w/ previous documentation. Pt had labs drawn on the previous day, ANC resulted at 1,500, Dr. Otoole was made aware and ordered pt to receive IV chemo tx, dosing for Oxaliplatin, Leucovorin, Irinotecan, and Fluorouracil push as well at 46 hr take-home infusion, were all ordered at 75% reduced dose, and all required checks of dosing were performed by 2 nurses, pharmacist, and provider. Pt's R chest port was accessed w/ 20 g 3/4 [place] needle in sterile procedure and covered w/ tegaderm, flushed w/ NS and positive blood return was noted. Nurse admin sched pre-meds IV Emend, Ondansetron, Dexamethasone, and Pepcid, after performing toxicity assessment w/ pt. Pt reports his prev reported abdominal cramping has been improving, since Dr. Crespo adjusted his meds, added daily miralax powder, increased his bentyl dose to 20 mg QID, and added new med Movantik to reduce the instances of constipation r/t oxycodone use. Pt said he has hardly needed to use oxycodone at all since the change in his regimen, says his bowels are regular, he does have moments when his bowels do not move as expected, but pt suspects this is bowel spasms tricking him into thinking he needs to have a BM, and not actually constipation. Pt reported minimal fatigue, some baseline peripheral neuropathy in bilat feet/toes, but nothing that interferes w/ ADLs. Pt has small dry, scaly area to his bilat ant thighs, L>R, but denies any itching. He also denies any N/V, but admits this is prob because he took the last two months off chemo, and he expects he might have some nausea in a couple weeks. Nurse reviewed w/ pt likely side effects of Irinotecan, including diarrhea, side effects of 5-FU, including mouth sores, and cold sensitivity r/t oxaliplatin. Pt says he generally has only experienced cold sensitivity after about 48 hrs post treatment. Nurse admin IV Oxaliplatin over 2 hrs, which was well-tolerated, then Atropine 0.5 mg SC was admin as anti-cholinergic prior to Irinotecan, then IV Leucovorin was given over 2 hrs, w/ IV Irinotecan running concurrently over 90 minutes, starting 30 min after Leucovorin. These were all well-tolerated, and pt finally received IVP of Fluorouracil prior to initiation of Fluorouracil take-home pump to run over 46 hrs. All connections were checked and taped and pt was given pouch for pump. Nurse booked pt's upcoming appts, in 2 days pt will return for pump takedown and Neulasta injection, then labs on 09/26/21, including a type and screen, as pt's Hgb has been trending down (8.8 on 09/19), then pt's next chemo cycle, C6D1, was booked for 14 days away, as well as an Onc f/u appt for the same day. Pt was given d/c packet upon discharge.
[2021-09-22] MEDS: Heparin Sodium,Porcine Flush 500 UNIT/5 ML SYRINGE IVFLUSH (13:52)
--- NOTE | 2021-09-22 15:23 | MHC.HEMONC ---
Pt arrived for pump takedown and neulasta injection, in good spirits, reported some fatigue, but overall feeling well, abd cramping is minimal. Nurse checked pt's 5-FU pump had completed entire infusion. Nurse removed battery from pump, disconnected pump, found positive blood return, flushed w/ NS 5ml and 500 units heparin, and deaccessed R chest port, which pt tolerated well. Nurse then admin Neulasta 6 mg SC to pt's R upper arm, which was also tolerated well. Pt was discharged w/ his next appt as a blood draw on 09/26/21.
[2021-09-26 11:27] LABS: Hematocrit 27.9 % (42.0-52.0); Hemoglobin 8.8 g/dl (14.0-18.0); Mean Corpuscular HGB Conc 31.5 g/dl (31.0-36.0); Mean Corpuscular Hemoglobin 26.4 pg (27.0-33.0); Mean Corpuscular Volume 83.8 fL (80.0-98.0); Mean Platelet Volume 11.1 fL (9.4-12.4); Red Blood Count 3.33 X10*6/uL (4.60-5.80); Red Cell Distribution Width 14.6 % (11.0-16.0)
[2021-09-26 11:30] LABS: Platelet Count 73 X10*3/uL (160-400); WBC ABN SCTR FOR CBC 1
[2021-09-26 11:53] LABS: Band Neutrophils Percent 9 % (3-5); Eosinophils Percent Manual 1 % (0-4); Lymphocytes Percent Manual 7 % (20-40); Monocytes Percent Manual 4 % (2-11); Neutrophils Percent Manual 79 % (45-73)
[2021-09-26 11:56] LABS: Acanthocytes 1+ (0-2) /OIF; Macrocytosis 1+ (5-14) /OIF; Microcytosis 1+ (5-14) /OIF; Platelet Estimate DECREASED (NORMAL); Platelet Morphology Comment NORMAL; RBC Morphology NOTED; Schistocytes 1+ (0-2) /OIF; Target Cells 1+ (5-14) /OIF; Tear Drop Cells 1+ (0-2) /OIF
[2021-09-26 11:57] LABS: Burr Cells 1+ (0-2) /OIF; Hypochromasia 1+ (5-14) /OIF; Polychromasia 1+ (0-2) /OIF
[2021-09-26 12:11] LABS: Eosinophils Absolute Manual 0.1 X10*3/uL (0.0-0.4); Lymphocytes Absolute Manual 0.4 X10*3/uL (1.2-4.9); Monocytes Absolute Manual 0.2 X10*3/uL (0.1-1.2); Neutrophils Absolute Manual 4.5 X10*3/uL (2.0-8.3); White Blood Count 5.1 X10*3/uL (4.8-10.8)
[2021-09-26 12:24] LABS: Albumin Level 3.8 g/dL (3.5-5.0); Anion Gap 10 (12-20); Aspartate Amino Transferase 34 U/L (5-37); Bilirubin Total 0.7 mg/dL (0.0-1.0); Calcium 8.7 mg/dL (8.4-10.2); Carbon Dioxide 28 mmol/L (22-29); Chloride 101 mmol/L (96-108); Creatinine Clr Calc Pharmacy 123.8; Estimated Glomerular Filt Rate > 60; Glucose Random 157 mg/dL (60-115); Potassium 3.5 mmol/L (3.3-5.1); Sodium 135 mmol/L (135-145)
[2021-09-26 12:43] LABS: Alanine Aminotransferase 18 U/L (0-40); Alkaline Phosphatase 73 U/L (39-117); Blood Urea Nitrogen 11 mg/dL (9-16)
[2021-10-03 08:03] LABS: MANUAL DIFF FLAG NO
--- NOTE | 2021-10-03 08:10 | P.PNHO_ITS ---
Medical Summary - Medical Summary Date of Service: 10/03/21 Chief complaint: Follow-up for: 1. Ascites. 2. Pancreatic carcinoma. Medical Summary: DIAGNOSIS: 1. Pancreatc Carcinoma. 2. Pancytopenia. CURRENT THERAPY: Started on Folfirinox, 03/11. Completed 6 cycles, August. Completed XRT November 07 in [place]. He was unable to get capecitabine on account of thrombocytopenia. On Gemzar Abraxane, started January 06. Completed cycle 6 on 06/20/19. Completed cycle 7, July 16, 2019. Took a break from treatment, after that. Restarted Gemzar Abraxane for disease progression, 10/28/20. Cycle 3, day 11 on 01/07/21. He then elected to stop. He was referred to [place], for a 2nd opinion. He saw Dr. Nicole Lees. Repeat imaging in mid March revealed new liver lesion and peritoneal disease. She offered him clinical trial versus retreatment with FOLFIRINOX. He elected to proceed with the latter. Received 1 cycle of FOLFIRINOX on 05/16/21. He received cycle 2 d 15, on 06/28. He took a break for the month of July. Started cycle 3 day 1 on 09/20/2021. Received cycle 3 day 15, 10/04/2021. Interval History Interval history: This is a pleasant 51 year-old gentleman, here for an unscheduled visit. Lately he has noticed worsening of his abdominal distension. He has had it all along however recently he has felt it has been harder and more tense. It is not associated with pain, more of discomfort. When he eats he feels full right away and has some cramping. At the same time he has a pressure in h is lower back area. He still feels rather fatigued. He denies local tenderness in the abdomen. He denies any nausea or vomiting. No heartburn indigestion. He stopped taking omeprazole since he felt the symptoms were worsening. He has noticed that he has urge to move his bowels but when he actually goes to push there is nothing there. He has been taking dicyclomine and Creon. He takes oxycodone to help him sleep at night. He has seen Dr. Crespo in August. He denies any chest pain or shortness of breath on exertion. No headache nor dizziness. His appetite is okay. His weight is stable. He is in good spirits. Rest of the review of systems is unremarkable. Previous history: 1. After his 1st cycle of FOLFIRINOX he was knocked down for a loop. He could not eat. He lost weight. He was 235 and went down to 225. His nausea was manageable. He could control it with Zofran and Decadron, however he had bad belly ache. He felt he was having cramps. As if there was a burning hole in the stomach. His stomach felt unsettled. Only thing that could comfort him was laying down in a hot tub. He had 3 sleepless nights. He did have some diarrhea but that was expected. He did try to stay hydrated. He took popsicles and Jell-O. Overall he felt miserable. 2. He had upper endoscopy and colonoscopy by Dr. Crespo, in the spring,which was negative. 3. Back in June of 2020 he contracted COVID-19. However his symptoms were quite mild, only lasted a day and a half and then he recovered. He did receive the COVID vaccines and booster. 3. He had opted to take the month july off from chemotherapy. He had been doing well however he has some of the same complaints. Review of Systems - Constitutional Reports system reviewed and no additional complaints, except as documented, Reports fatigue, Reports lack of energy, Reports malaise, Reports weakness, Reports weight gain - Eyes Reports system reviewed and no additional complaints, except as documented - ENT Reports system reviewed and no additional complaints, except as documented - Cardiovascular Reports system reviewed and no additional complaints, except as documented - Respiratory Reports no additional respiratory complaints - Gastrointestinal Reports system reviewed and no additional complaints, except as documented, Reports bloating, Reports cramping, Reports feeling full early, Reports dyspe psia, Reports nausea, Denies loose stools - Genitourinary Genitourinary: Reports no additional male genitourinary complaints - Musculoskeletal Reports system reviewed and no additional complaints, except as documented - Integumentary/Breasts Skin/Breast: Reports no additional skin complaints - Neurologic Reports system reviewed and no additional complaints, except as documented, Reports hearing normal, Reports weakness - Psychiatric Reports system reviewed and no additional complaints, except as documented - Endocrine Reports no additional endocrine complaints - Hematologic/Lymphatic Reports system reviewed and no additional complaints, except as documented - Allergic/Immunologic Reports system reviewed and no additional complaints, except as documented [facility] Medical History: Medical History (Last Reviewed 09/20/21 @ 09:30 by Avelino Hernandez RN) Anemia Diabetes mellitus Functional capacity: independent ambulation Patient : No Family History: Family History (Last Reviewed 09/20/21 @ 09:30 by Avelino Hernandez RN) Mother Diabetes Surgical History: Surgical History (Last Reviewed 09/20/21 @ 09:30 by Avelino Hernandez RN) H/O hernia repair History of esophagogastroduodenoscopy (EGD) Hx of colonoscopy Social History: Social History (Last Reviewed 09/20/21 @ 09:30 by Avelino Hernandez RN) Advance Directives: Advance Directives: No Advance Directives Information Provided: No Nutrition Assessment: Patient : No Oncology Screenings - ECOG Performance Status ECOG Performance Status: 0 Home Medications and Allergies Home Medications Medication Instructions Recorded Confirmed Type insulin glargine 100 unit/mL (3 14 unit SUBCUT BEDTIME 06/10/20 10/04/21 History mL) subcutaneous pen (Lantus Solostar U-100 Insulin) metformin 500 mg tablet,extended 2,000 mg PO DAILY 06/10/20 10/04/21 History release 24 hr multivitamin 1 tab PO DAILY 10/14/20 10/04/21 History tadalafil 5 mg tablet 5 mg PO DAILY PRN 09/16/21 10/04/21 History dexamethasone 4 mg tablet 4 mg PO BID 09/20/21 10/04/21 History dicyclomine 10 mg capsule 2 cap PO QID 09/20/21 10/04/21 History Allergies Allergy/AdvReac Type Severity Reaction Status Date / Time No Known Allergies Allergy Verified 09/20/21 09:30 [No Known Allergies*] Exam Vital signs: Vital Signs Temp 98.9 F 09/20/21 08:04 Pulse 71 09/20/21 08:04 Resp 18 09/20/21 08:04 BP 136/75 09/20/21 08:04 Pulse Ox 100 09/20/21 08:04 Weight 104.7 kg BMI result Body Mass Index 29.6 - Constitutional Present: no acute distress - Routine HEENT Exam Head: Present: normal inspection Eye: Present: normal appearance ENT: Present: mucous membranes moist - Routine Neck Exam Present: full ROM - Routine Respiratory Exam Present: CTAB - Routine Cardiovascular Exam Cardiovascular: Present: RRR, S1, murmur - Routine Abdominal Exam Present: distended, firm, guarding, soft, nontender Comments: Tense Ascites. - Routine Extremities Exam Present: nontender - Routine Back/Spine/Pelvis Exam Back/Spine: Present: full ROM - Routine Skin Exam Present: intact - Routine Neurological Exam Present: alert, oriented X3 - Detailed Neurological Exam: Coma Scale Eye Opening: Spontaneous (4) - Routine Psychiatric Exam Present: normal affect Data - Labs CBC & Chem 7: 10/03/21 08:01 10/03/21 08:01 Assessment and Plan Patient Active problem list reviewed?: Yes (1) Pancreatic cancer Status: Acute Assessment and plan: This is a pleasant 49 year-old gentleman, with the diagnosis of Pancreatic Alejandra nocarcinoma involving the body and tail, in January of 2018. He had an extensive tumor burden. Mass encasing and obstructing the SMV, splenic vein and proximal portal vein. Infiltrative soft tissue between the aorta and IVC and into the kareem hepatis. Bilateral adrenal nodules and bilateral pulmonary nodules. He completed 6-1/2 cycles of FOLFIRINOX. Subsequent imaging appeared improved. However, at that point the patient was deemed unresectable. He subsequently had radiation which she completed November 07. He did well through the treatment. He did not have many side effects. He was clinically asymptomatic. However, CAT scan of the abdomen November, revealed: Increase in size of the left adrenal nodule to 32 mm from 28 mm. Also noted was slight increase in the size of the pancreatic mass 35 x 83 mm previously 34 x 18 mm. I decided to pick the regimen: Gemzar and Abraxane based chemotherapy. He started January 06, 2019. He completed cycle 4 on April 25. He completed cycle 7 on July 16 2019. He tolerated it well. Subsequently he elected to take a break from treatment. He wants to be monitored along. Restaging CT scan of the abdomen pelvis and chest from January 29 revealed: Chest: No evidence of metastatic disease. Stable left adrenal lesion. Fatty liver. Slightly enlarged prostate gland. Abdomen and pelvis: Stable low-attenuation soft tissue in the body of the pancreas continuous with abnormal low-attenuation soft tissue surrounding the celiac axis and SMA. Occluded splenic vein. Occluded distal SMV. Patent portal vein. Extensive peripancreatic varices. Previous imaging from October 01 revealed: Overall no significant change in the region of pancreatic head with significant collateral vessels/varices secondary to portal hypertension. The splenic vein is not seen. The portal vein is opacified to the level of pancreatic head. The spleen is heterogenous but normal size. There is no ascites seen at this time. However, there is mild haziness in bilateral paracolic gutter likely congestion. His GI complaints have resolved with the Creon. He has been feeling well. He has been working over the winter. CT chest and abdomen from 06/19/2020: Chest: New small pulmonary nodules. The largest measures 3 x 6 mm in the right lower lobe. Abdomen and pelvis: Stable low-attenuation in the body of the pancreas continuous with abnormal soft tissue surrounding the celiac axis, SMA and SMV, thickening of the bilateral anterior pararenal fascia and soft tissues surrounding the duodenum and left adrenal nodule. Occluded splenic vein, and distal SMV and extensive varices. Fatty liver. Stable mild dilatation of the common bile duct. Upper normal-size spleen. Stool throughout the colon questionable for constipation. His CA 19-9 from 06/10/20:357. From 09/13:1921. Recent CT scan of the chest and abdomen, from 09/22: Multiple pulmonary nodules are slightly increased in size since the previous study from 06/08. No major change in slightly enlarged and hypodense appearing diffuse pancreas and mild haziness along the posterior pancreatic margin. No focal lesion seen on the present exam, however the pancreas appears slightly heterogenous with abundant varices seen throughout the peripancreatic region, pancreas and upper abdomen. No change in the haziness in the peripancreatic region. Small left para aortic lymph nodes are essentially stable. No focal liver lesions seen. I shared the results with him. I was concerned about rising tumor marker and increasing pulmonary nodules. I suggested that he start back on the chemotherapy treatment. He has been restarted on Gemzar/ Abraxane since it had worked previously. He was started October 28. Since his baseline WBC count was low, he was started on Neulasta to prevent chemotherapy-induced neutropenic sepsis. He is here for cycle 3, day 1. He tolerated it well. CAT scan on 01/31: Stable pulmonary nodules. No new pulmonary nodules seen. Mild fatty infiltration of liver with portal vein thrombosis and cavernous transformation of portal vein, similar to previous study. There is diffuse haziness in the pancreatic head with heterogeneity, stable. The rest of the pancreas is slightly attenuated. Numerous collateral vessels are seen surrounding the pancreatic head and the upper abdomen. He was referred to [place], for a 2nd opinion. He saw Dr. Nicole Lees. Repeat imaging in mid March revealed new liver lesion and peritoneal disease. The CA 19/9 was down to 451 from 1355. However it went up to 2830 on 05/13. She offered him clinical trial versus retreatment with FOLFIRINOX. He elected to proceed with the latter. Received 1st cycle of FOLFIRINOX on 05/16. He did not tolerate it at all. I offered to dose reduce him to 75% of the chemotherapy doses. He was willing to try that. He tolerated it better. He received cycle 2 day 15 on 06/28. He was supposed to start cycle 3, however his blood count was noted to be low. Platelets were 54. He received 2 units of blood, a month ago.. His tumor marker CA 19-9 came down to 695, from 1990 which is encouraging. He received the 3rd cycle. Then wanted a break from treatment since July was his and his birthday month. He wanted to feel well for the holidays. I offered to restart him on the FOLFIRINOX however he is not too keen on doing that. He feels the treatment was rather tough on him. He took some time off, before deciding to restart it. l reimaged with CT scan of the chest and abdomen pelvis. This was done on September 02 and revealed: Dilated intrahepatic duct and common bile duct with heterogeneous pancreatic head and body and ill-defined margins similar to previous study 03/23/2021. The re are small peripancreatic lymph nodes which cannot be differentiated from the adjacent pancreatic head and uncinate process. However, there is no enlarging mass or lymph nodes seen. There is diffuse ascites and haziness throughout the peritoneum likely secondary to ascites and mesenteric edema. No liver lesions seen. Adrenal glands are normal. Right pulmonary nodules seen on March [address] are no longer seen. No new pulmonary nodules. l followed up on his tumor marker as well. CA 19-9: 632. From 08/01: 695. I explained to him that the imaging appears to reveal stable disease. Tumor markers have come down which is a good sign. I would like to restart him on the chemotherapy regimen to continue to achieve a response. He said he would like to give it some thought. He restarted on his treatment. Lately his ascites has worsened. He is rather uncomfortable from it. unable to eat. PLAN: Discussed with Dr. Noguera, he is busy but has graciously agreed to do it. Will proceed with a therapeutic paracentesis, under ultrasound-guidance, today, for his comfort. He will be going to short stay surgery. Will get baseline INR. He will return tomorrow to start cycle 4. He had 2 liters of fluid removed after which he was comfortable. Thank you, CC: Dr. Karina Ochoa, at [place]. Dr. Abel Woodard at [facility]. Gen. Dr. East. - Time Spent With Patient Time Spent with Patient (in minutes): 30
[2021-10-03 08:17] LABS: Basophils Percent Auto 0.6 % (0-2); Eosinophils Percent Auto 0.8 % (0-4); Hematocrit 29.5 % (42.0-52.0); Hemoglobin 9.2 g/dl (14.0-18.0); Imm Gran Abs Auto 0.03 X10*3/uL (0.00-0.03); Imm Gran Pct Auto 0.6 % (0.0-0.4); Lymphocytes Absolute Auto 1.2 X10*3/uL (1.2-4.9); Lymphocytes Percent Auto 22.3 % (20-40); Mean Corpuscular HGB Conc 31.2 g/dl (31.0-36.0); Mean Corpuscular Hemoglobin 26.1 pg (27.0-33.0); Mean Corpuscular Volume 83.8 fL (80.0-98.0); Mean Platelet Volume 11.2 fL (9.4-12.4); Monocytes Absolute Auto 0.5 X10*3/uL (0.1-1.2); Monocytes Percent Auto 8.7 % (2-11); Neutrophils Absolute Auto 3.5 x10*3/uL (2.0-8.3); Red Blood Count 3.52 X10*6/uL (4.60-5.80); Red Cell Distribution Width 15.2 % (11.0-16.0); White Blood Count 5.2 X10*3/uL (4.8-10.8)
[2021-10-03 08:25] LABS: Alanine Aminotransferase 16 U/L (0-40); Albumin Level 4.2 g/dL (3.5-5.0); Alkaline Phosphatase 90 U/L (39-117); Anion Gap 11 (12-20); Aspartate Amino Transferase 24 U/L (5-37); Bilirubin Total 0.5 mg/dL (0.0-1.0); Blood Urea Nitrogen 8 mg/dL (9-16); Carbon Dioxide 28 mmol/L (22-29); Chloride 106 mmol/L (96-108); Estimated Glomerular Filt Rate > 60; Glucose Random 75 mg/dL (60-115); Potassium 3.7 mmol/L (3.3-5.1); Sodium 141 mmol/L (135-145); Total Protein 7.7 g/dL (6.5-8.0)
--- NOTE | 2021-10-03 08:33 | MHC.HEMONC ---
Pt had labs drawn and has c/o increased abdominal distention. It is causing him back pain and cramps. He is eating small amts and is having bowel movements but a lot of flatus and belching. He was seen by Dr Otoole and was ordered an u/s guided paracentisis. I called Radiology and this will be done as soon as they can get him in. Labs to be reviewed.
[2021-10-03 08:34] LABS: Lactate Dehydrogenase 181 U/L (118-273)
[2021-10-03 08:39] LABS: Platelet Count 75 X10*3/uL (160-400)
--- NOTE | 2021-10-03 11:39 | MHC.HEMONC ---
Pt having paracentisis today. Arrival at 1 pm. Pt is aware.
[2021-10-04 08:17] VITALS: BP 129/71; PULSE 66; RESP 17; TEMP 36.7; O2SAT 100; BMI 28.1
[2021-10-04] MEDS: Acetaminophen 325 MG TABLET 650 MG PO (09:15)
[2021-10-04] MEDS: dexAMETHasone sod phosphate/NS 12 MG/50 ML PIGGYBACK 200 MG IV (09:37)
[2021-10-04] MEDS: Fosaprepitant Dimeglumine 150 MG in 0.9 % Sodium Chloride 145 ML 300 MG IV (09:59)
[2021-10-04] MEDS: OXALIplatin 100 MG, OXALIplatin 50 MG in Dextrose 5 % 500 ML 265 MG IV (10:46)
[2021-10-04] MEDS: Leucovorin Calcium 700 MG in Dextrose 5 % 250 ML 142.5 MG IV (12:58)
[2021-10-04] MEDS: IRINOTECAN HCL IV (13:00)
[2021-10-04] MEDS: DEXTROSE 5% IV (13:00)
[2021-10-04] MEDS: Atropine Sulfate 1 MG/ML VIAL 0.5 MG SUBCUT (13:05)
[2021-10-04] MEDS: fluorouraciL 700 MG in Syringe, Disposable 0 ML 168 MG IVPUSH (14:59)
[2021-10-04] MEDS: SODIUM CHLORIDE 0.9% IV (15:00)
[2021-10-04] MEDS: FLUOROURACIL IV (15:00)
--- NOTE | 2021-10-04 15:35 | MHC.HEMONC ---
Pt presented for C6D1 FOLFIRINOX, VS and weights taken, VSS, pt had weight loss from 104.7 kg down to 99.6 kg, weight confirmed, Dr. Otoole was notified. Pt reportedly had paracentesis done the previous day for abd ascites, had 2 L fluid removed, also labs drawn the previous day. Dr. Otoole and nurses reviewed labs, provider ordered to treat, tx plan was adjusted w/ dose reductions and dose calculations were confirmed by 2 nurses, provider, and pharmacist. Nurse accessed pt's R chest port w/ 20g 3/4 del rio needle in sterile procedure, positive blood return, flushed w/ 5 ml NS. Pre-meds given Zofran 16 mg IV, Dexamethasone 12 mg IV, Emend 150 mg IV, acetaminophen 650 mg PO were admin. Nurse performed tox assessment, pt denied n/v, reported that he has relief of pressure in his abd since yesterday's paracentesis, less bloating, less feeling of fullness after eating, still some cramping w/ eating. Pt does report some numbness/tingling in bilat feet, but no pain. Dr. Otoole was in to meet w/ pt for Onc f/u, advised he will continue FOLFIRINOX Q14 days for the time being. Nurse admin FOLFIRINOX a/o, w/ ordered dose redcutions, giving Atropine 0.5 mg SC in pt's RUE 30 min before starting Irinotecan. Pt did have a few BMs in bathroom during tx, but stated it was r/t bowel spasms and eating hospital food. Pt was given 5-FU bolus over 5 minutes before starting 5-FU take-home pump, to run over 46 hrs, w/ instructions to return on 10/06/21 for pump take-down and Neulasta injection. Pt had next 2 chemo cycles booked, along w/ weekly lab draws. Pt received d/c packet and left in good spirits.
[2021-10-06] MEDS: Heparin Sodium,Porcine Flush 500 UNIT/5 ML SYRINGE IVFLUSH (13:38)
--- NOTE | 2021-10-06 15:39 | MHC.HEMONC ---
Pt arrived for his pump takedown of Flurouracil via CADD pump x 46 hrs, in good spirits. Nurse flushed w/ NS, found positive blood return, flushed w/ Heparin 500 Units, prior to nurse removing pump battery and deaccessing pt's R chest port, which was well-tolerated. Nurse admin Neulasta 6 mg SC to pt's RUE, well-tolerated. Pt was d/c'd w/ next appt booked for labs on 10/11.
[2021-10-11 11:09] LABS: Hematocrit 27.8 % (42.0-52.0); Hemoglobin 8.8 g/dl (14.0-18.0); Mean Corpuscular HGB Conc 31.7 g/dl (31.0-36.0); Mean Corpuscular Hemoglobin 26.2 pg (27.0-33.0); Mean Corpuscular Volume 82.7 fL (80.0-98.0); Mean Platelet Volume 10.6 fL (9.4-12.4); Platelet Count 62 X10*3/uL (160-400); Red Blood Count 3.36 X10*6/uL (4.60-5.80); Red Cell Distribution Width 14.9 % (11.0-16.0); WBC ABN SCTR FOR CBC 1; White Blood Count 6.6 X10*3/uL (4.8-10.8)
[2021-10-11 11:23] LABS: Alanine Aminotransferase 20 U/L (0-40); Albumin Level 3.9 g/dL (3.5-5.0); Alkaline Phosphatase 102 U/L (39-117); Anion Gap 12 (12-20); Aspartate Amino Transferase 22 U/L (5-37); Blood Urea Nitrogen 10 mg/dL (9-16); Calcium 8.8 mg/dL (8.4-10.2); Carbon Dioxide 26 mmol/L (22-29); Chloride 102 mmol/L (96-108); Estimated Glomerular Filt Rate > 60; Glucose Random 154 mg/dL (60-115); Potassium 4.1 mmol/L (3.3-5.1); Sodium 136 mmol/L (135-145); Total Protein 7.2 g/dL (6.5-8.0)
[2021-10-11 12:08] LABS: Band Neutrophils Percent 21 % (3-5); Eosinophils Absolute Manual 0.1 X10*3/uL (0.0-0.4); Eosinophils Percent Manual 1 % (0-4); Lymphocytes Absolute Manual 0.6 X10*3/uL (1.2-4.9); Lymphocytes Percent Manual 9 % (20-40); Monocytes Absolute Manual 0.8 X10*3/uL (0.1-1.2); Monocytes Percent Manual 12 % (2-11); Neutrophils Absolute Manual 5.1 X10*3/uL (2.0-8.3); Neutrophils Percent Manual 57 % (45-73); Platelet Estimate DECREASED (NORMAL)
[2021-10-11 12:09] LABS: Hypochromasia 1+ (5-14) /OIF; Ovalocytes 1+ (5-14) /OIF; Platelet Morphology Comment NORMAL
[2021-10-11 12:10] LABS: Schistocytes 1+ (0-2) /OIF; Tear Drop Cells 1+ (0-2) /OIF
[2021-10-11 12:11] LABS: RBC Morphology NOTED; Toxic Granulation PRESENT
[2021-10-12 10:22] LABS: Carbohydrate Antigen 19-9 2315 U/mL (<34)
[2021-10-17 10:47] LABS: MANUAL DIFF FLAG NO
[2021-10-17 10:54] LABS: Basophils Percent Auto 0.3 % (0-2); Eosinophils Percent Auto 0.5 % (0-4); Hemoglobin 8.9 g/dl (14.0-18.0); Imm Gran Abs Auto 0.08 X10*3/uL (0.00-0.03); Imm Gran Pct Auto 1.3 % (0.0-0.4); Lymphocytes Absolute Auto 0.6 X10*3/uL (1.2-4.9); Lymphocytes Percent Auto 9.8 % (20-40); Mean Corpuscular HGB Conc 30.7 g/dl (31.0-36.0); Mean Corpuscular Hemoglobin 25.6 pg (27.0-33.0); Mean Corpuscular Volume 83.6 fL (80.0-98.0); Mean Platelet Volume 10.9 fL (9.4-12.4); Monocytes Absolute Auto 0.7 X10*3/uL (0.1-1.2); Monocytes Percent Auto 11.7 % (2-11); Neutrophils Absolute Auto 4.6 x10*3/uL (2.0-8.3); Neutrophils Percent Auto 76.4 % (45-73); Red Blood Count 3.47 X10*6/uL (4.60-5.80); Red Cell Distribution Width 15.2 % (11.0-16.0)
[2021-10-17 10:57] LABS: Platelet Count 81 X10*3/uL (160-400)
[2021-10-17 11:34] LABS: Alanine Aminotransferase 13 U/L (0-40); Albumin Level 3.8 g/dL (3.5-5.0); Alkaline Phosphatase 91 U/L (39-117); Anion Gap 11 (12-20); Aspartate Amino Transferase 23 U/L (5-37); Bilirubin Total 0.4 mg/dL (0.0-1.0); Blood Urea Nitrogen 9 mg/dL (9-16); Calcium 8.8 mg/dL (8.4-10.2); Carbon Dioxide 27 mmol/L (22-29); Chloride 104 mmol/L (96-108); Estimated Glomerular Filt Rate > 60; Glucose Random 153 mg/dL (60-115); Potassium 3.7 mmol/L (3.3-5.1); Sodium 138 mmol/L (135-145)
--- NOTE | 2021-10-17 12:46 | MHC.HEMONC ---
Pt presented for pre-chemo labs, had labs drawn peripherally, reviewed by Dr. Otoole. Pt d/c'd home to return the following day.
[2021-10-18 08:53] VITALS: BP 120/69; PULSE 63; RESP 17; TEMP 37; O2SAT 100; BMI 28.0
[2021-10-18] MEDS: Famotidine/PF 20 MG/2 ML VIAL IVPUSH (09:51)
[2021-10-18] MEDS: Fosaprepitant Dimeglumine 150 MG in 0.9 % Sodium Chloride 145 ML 300 MG IV (09:53)
[2021-10-18] MEDS: dexAMETHasone sod phosphate/NS 12 MG/50 ML PIGGYBACK 200 MG IV (10:34)
[2021-10-18] MEDS: OXALIplatin 100 MG, OXALIplatin 50 MG in Dextrose 5 % 500 ML 265 MG IV (11:07)
[2021-10-18] MEDS: Leucovorin Calcium 680 MG in Dextrose 5 % 250 ML 142 MG IV (13:13)
[2021-10-18] MEDS: DEXTROSE 5% IV (13:14)
[2021-10-18] MEDS: IRINOTECAN HCL IV (13:14)
[2021-10-18] MEDS: Atropine Sulfate 1 MG/ML VIAL 0.5 MG SUBCUT (13:28)
--- NOTE | 2021-10-18 14:50 | MHC.HEMONC ---
Pt was at clinic for C7D1 FOLFIRINOX, VS and weights done, weight consistent w/ previous doc. Pt had labs drawn the previous day, reviewed by nurses, pharm, and Dr. Otoole. Dose calculations were confirmed along w/ ordered dose reductions. Nurse accessed pt's R chest port w/ 20g 3/4 del rio needle in sterile procedure, positive blood return, flushed w/ 5 ml NS. Pre-meds Zofran 16 mg IV, Dexamethasone 12 mg IV, Emend 150 mg IV were admin. Pt reported no change in symptoms, mild fatigue, tingling numbness in bilat feet, but no pain, intermittent abd cramping r/t eating, continues on sched PO dicyclomine BID w/ good effect, occasional Nausea, managed w/ PRN Zofran. Nurse admin FOLFIRINOX a/o, giving Atropine 0.5 mg SC in pt's RUE 30 min before starting Irinotecan. Pt was given 5-FU bolus over 5 minutes before starting 5-FU take-home pump, to run over 46 hrs, w/ instructions to return on 10/20/21 for pump take-down and Neulasta injection. Nurse booked pt's next two Q14 day chemo cycles, weekly lab draws, and next Onc f/u in 14 days. Pt received his d/c packet w/ instructions to take dexamethasone 4 mg BID on days 2 and 3 and left clinic.
[2021-10-18] MEDS: FLUOROURACIL IVPUSH (15:17)
[2021-10-18] MEDS: DISPOSABLE IVPUSH (15:17)
[2021-10-18] MEDS: fluorouraciL 4,100 MG in 0.9 % Sodium Chloride 10 ML IV (15:18)
[2021-10-20] MEDS: Heparin Sodium,Porcine Flush 500 UNIT/5 ML SYRINGE IVFLUSH (13:17)
--- NOTE | 2021-10-20 13:38 | MHC.HEMONC ---
Pt arrived for pump takedown of 46 hr Fluorouracil infusion, in good spirits, reported some episodes of N/V, says he ate too much the night before last. Infusion completed on pump, nurse flushed R chest port w/ NS, positive blood return, flushed w/ Heparin 500 units, then deaccessed R chest port, which pt tolerated very well. Nurse admin Neulasta 6 mg SC to pt's LUQ, w/ no complaints. Pt was d/c'd w/ some emesis bags to take home.
[2021-10-24 12:19] LABS: Hematocrit 27.8 % (42.0-52.0); Hemoglobin 8.8 g/dl (14.0-18.0); Mean Corpuscular HGB Conc 31.7 g/dl (31.0-36.0); Mean Corpuscular Hemoglobin 25.7 pg (27.0-33.0); Mean Platelet Volume 9.9 fL (9.4-12.4); Red Blood Count 3.43 X10*6/uL (4.60-5.80); Red Cell Distribution Width 15.2 % (11.0-16.0); White Blood Count 5.7 X10*3/uL (4.8-10.8)
[2021-10-24 12:20] LABS: Platelet Count 58 X10*3/uL (160-400)
[2021-10-24 12:38] LABS: Alanine Aminotransferase 19 U/L (0-40); Alkaline Phosphatase 104 U/L (39-117); Anion Gap 10 (12-20); Aspartate Amino Transferase 22 U/L (5-37); Bilirubin Total 0.5 mg/dL (0.0-1.0); Blood Urea Nitrogen 12 mg/dL (9-16); Calcium 8.7 mg/dL (8.4-10.2); Carbon Dioxide 29 mmol/L (22-29); Chloride 100 mmol/L (96-108); Creatinine Clr Calc Pharmacy 115.8; Estimated Glomerular Filt Rate > 60; Glucose Random 249 mg/dL (60-115); Potassium 4.1 mmol/L (3.3-5.1); Sodium 135 mmol/L (135-145); Total Protein 7.1 g/dL (6.5-8.0)
[2021-10-24 13:05] LABS: Band Neutrophils Percent 2 % (3-5); Lymphocytes Absolute Manual 0.5 X10*3/uL (1.2-4.9); Lymphocytes Percent Manual 9 % (20-40); Monocytes Absolute Manual 0.2 X10*3/uL (0.1-1.2); Monocytes Percent Manual 4 % (2-11); Neutrophils Percent Manual 85 % (45-73)
[2021-10-24 13:07] LABS: Acanthocytes 1+ (0-2) /OIF; Burr Cells 1+ (0-2) /OIF; Hypochromasia 2+ (15-30) /OIF; Ovalocytes 1+ (5-14) /OIF; Platelet Estimate DECREASED (NORMAL); Platelet Morphology Comment NORMAL; RBC Morphology NOTED
--- NOTE | 2021-10-24 16:01 | MHC.HEMONC ---
Patient present for lab draw. Labs drawn by phlebotomy and reviewed with Dr Otoole. Next labs scheduled for 10/31/21 and next infusion scheduled for 11/01/21.
[2021-10-31 12:29] LABS: MANUAL DIFF FLAG NO
[2021-10-31 12:49] LABS: Basophils Percent Auto 0.5 % (0-2); Eosinophils Percent Auto 0.3 % (0-4); Hematocrit 28.2 % (42.0-52.0); Hemoglobin 8.8 g/dl (14.0-18.0); Imm Gran Abs Auto 0.02 X10*3/uL (0.00-0.03); Imm Gran Pct Auto 0.5 % (0.0-0.4); Lymphocytes Absolute Auto 0.5 X10*3/uL (1.2-4.9); Lymphocytes Percent Auto 14.2 % (20-40); Mean Corpuscular HGB Conc 31.2 g/dl (31.0-36.0); Mean Corpuscular Hemoglobin 26.1 pg (27.0-33.0); Mean Corpuscular Volume 83.7 fL (80.0-98.0); Monocytes Absolute Auto 0.5 X10*3/uL (0.1-1.2); Monocytes Percent Auto 14.2 % (2-11); Neutrophils Absolute Auto 2.6 x10*3/uL (2.0-8.3); Neutrophils Percent Auto 70.3 % (45-73); Red Blood Count 3.37 X10*6/uL (4.60-5.80); Red Cell Distribution Width 16.1 % (11.0-16.0); White Blood Count 3.7 X10*3/uL (4.8-10.8)
[2021-10-31 12:55] LABS: Alanine Aminotransferase 15 U/L (0-40); Albumin Level 3.8 g/dL (3.5-5.0); Alkaline Phosphatase 86 U/L (39-117); Anion Gap 10 (12-20); Aspartate Amino Transferase 22 U/L (5-37); Bilirubin Total 0.3 mg/dL (0.0-1.0); Blood Urea Nitrogen 10 mg/dL (9-16); Calcium 8.8 mg/dL (8.4-10.2); Carbon Dioxide 24 mmol/L (22-29); Chloride 106 mmol/L (96-108); Creatinine Clr Calc Pharmacy 103.7; Estimated Glomerular Filt Rate > 60; Glucose Random 206 mg/dL (60-115); Sodium 136 mmol/L (135-145); Total Protein 6.9 g/dL (6.5-8.0)
[2021-10-31 13:01] LABS: Platelet Count 70 X10*3/uL (160-400)
--- NOTE | 2021-10-31 14:04 | MHC.HEMONC ---
Pt arrived for scheduled pre-chemo labs, had blood drawn peripherally, left in good spirits, d/c'd w/ plan to return tomorrow for chemo.
[2021-11-01 08:54] VITALS: BP 114/71; PULSE 79; RESP 18; TEMP 36.9; O2SAT 100; BMI 27.2
[2021-11-01] MEDS: Famotidine/PF 20 MG/2 ML VIAL IVPUSH (09:10)
[2021-11-01] MEDS: dexAMETHasone sod phosphate/NS 12 MG/50 ML PIGGYBACK 200 MG IV (09:10)
[2021-11-01] MEDS: Fosaprepitant Dimeglumine 150 MG in 0.9 % Sodium Chloride 145 ML 300 MG IV (10:00)
[2021-11-01] MEDS: OXALIplatin 100 MG, OXALIplatin 50 MG in Dextrose 5 % 500 ML 265 MG IV (10:40)
--- NOTE | 2021-11-01 11:05 | MHC.HEMONC ---
pt attended for chemo an follow up today. pt c/o increased abd distention paracentesis ordered
[2021-11-01] MEDS: Leucovorin Calcium 680 MG in Dextrose 5 % 250 ML 142 MG IV (12:55)
[2021-11-01] MEDS: Atropine Sulfate 1 MG/ML VIAL 0.5 MG SUBCUT (13:11)
[2021-11-01] MEDS: IRINOTECAN HCL IV (13:32)
[2021-11-01] MEDS: DEXTROSE 5% IV (13:32)
[2021-11-01] MEDS: DISPOSABLE IVPUSH (15:09)
[2021-11-01] MEDS: FLUOROURACIL IVPUSH (15:09)
[2021-11-01] MEDS: fluorouraciL 4,100 MG in 0.9 % Sodium Chloride 10 ML IV (15:10)
--- NOTE | 2021-11-02 13:39 | MHC.HEMONC ---
called pt. Informed him of his ultrasound parencentisis appt on 11/07/21 at 9am
[2021-11-03] MEDS: Heparin Sodium,Porcine Flush 500 UNIT/5 ML SYRINGE IVFLUSH (13:39)
[2021-11-03 14:32] LABS: INTERNATIONAL NORM RATIO 1.1 (0.9-1.1); Prothrombin Time 12.9 SEC (9.9-13.0)
--- NOTE | 2021-11-03 16:50 | MHC.HEMONC ---
Pt was here for neulasta injection and pump take-down of 5FU infusion over 46 hrs, had no complaints, infusion had completed. Nurse flushed R chest port w/ NS, wasted 10 ml and collected blood specimen from port for PT/INR a/o, sent to lab, then flushed w/ NS before flushing w/ Heparin 500 units, before de-accessing port, which pt tolerated well. Nurse then admin Neulasta 6 mg a/o SC to pt's LUE. Dr. Otoole noted that pt had an U/S paracentesis scheduled for 11/07 at 09:00, but she wanted to help the pt find relief earlier, so she had it resched for tomorrow morning, 11/04. The pt was grateful, but said this did not work w/ his schedule, so this nurse was able to call U/S and have them reschedule the paracentesis back to its original time of 11/07 at 09:00. Pt was d/c'd w/ his next appt booked for weekly labs on morning of 11/07.
[2021-11-07 10:57] LABS: Hematocrit 28.1 % (42.0-52.0); Hemoglobin 8.8 g/dl (14.0-18.0); Mean Corpuscular HGB Conc 31.3 g/dl (31.0-36.0); Mean Corpuscular Hemoglobin 25.6 pg (27.0-33.0); Mean Corpuscular Volume 81.7 fL (80.0-98.0); Mean Platelet Volume 10.1 fL (9.4-12.4); Platelet Count 61 X10*3/uL (160-400); Red Blood Count 3.44 X10*6/uL (4.60-5.80); Red Cell Distribution Width 16.4 % (11.0-16.0); White Blood Count 5.3 X10*3/uL (4.8-10.8)
[2021-11-07 11:30] LABS: Band Neutrophils Percent 12 % (3-5); Eosinophils Absolute Manual 0.1 X10*3/uL (0.0-0.4); Eosinophils Percent Manual 1 % (0-4); Lymphocytes Absolute Manual 0.8 X10*3/uL (1.2-4.9); Lymphocytes Percent Manual 15 % (20-40); Monocytes Absolute Manual 0.3 X10*3/uL (0.1-1.2); Monocytes Percent Manual 6 % (2-11); Neutrophils Absolute Manual 4.1 X10*3/uL (2.0-8.3); Neutrophils Percent Manual 66 % (45-73)
[2021-11-07 11:31] LABS: RBC Morphology NOTED
[2021-11-07 11:32] LABS: Acanthocytes 2+ (3-5) /OIF; Hypochromasia 1+ (5-14) /OIF; Ovalocytes 1+ (5-14) /OIF; Schistocytes 1+ (0-2) /OIF
[2021-11-07 11:33] LABS: Alanine Aminotransferase 16 U/L (0-40); Albumin Level 3.9 g/dL (3.5-5.0); Alkaline Phosphatase 90 U/L (39-117); Anion Gap 11 (12-20); Aspartate Amino Transferase 17 U/L (5-37); Bilirubin Total 0.6 mg/dL (0.0-1.0); Blood Urea Nitrogen 15 mg/dL (9-16); Calcium 9.1 mg/dL (8.4-10.2); Carbon Dioxide 27 mmol/L (22-29); Chloride 103 mmol/L (96-108); Creatinine Clr Calc Pharmacy 115.4; Dohle Bodies PRESENT; Estimated Glomerular Filt Rate > 60; Glucose Random 192 mg/dL (60-115); Microcytosis 1+ (5-14) /OIF; Platelet Estimate DECREASED (NORMAL); Potassium 3.9 mmol/L (3.3-5.1); Sodium 137 mmol/L (135-145); Total Protein 6.9 g/dL (6.5-8.0)
[2021-11-07 11:34] LABS: Platelet Morphology Comment NORMAL
--- NOTE | 2021-11-10 14:20 | MHC.HEMONC ---
Nurse called [facility] pharmacy on [address] in [place], to check on the status of a scrip sent for this pt by Dr. Otoole for Ondansetron 8 mg tabs. technology and engineering teacher was unable to find record of scrip, so nurse spoke w/ pharmacist and provided new verbal request for scrip, ondansetron 8 mg tabs, take 1 tab PO Q8H PRN, quantity of 50.
[2021-11-14 12:55] LABS: MANUAL DIFF FLAG NO
[2021-11-14 13:04] LABS: Basophils Percent Auto 0.4 % (0-2); Eosinophils Percent Auto 0.6 % (0-4); Hemoglobin 8.7 g/dl (14.0-18.0); Imm Gran Abs Auto 0.07 X10*3/uL (0.00-0.03); Imm Gran Pct Auto 1.5 % (0.0-0.4); Lymphocytes Absolute Auto 0.6 X10*3/uL (1.2-4.9); Lymphocytes Percent Auto 13.6 % (20-40); Mean Corpuscular HGB Conc 31.1 g/dl (31.0-36.0); Mean Corpuscular Hemoglobin 25.8 pg (27.0-33.0); Mean Corpuscular Volume 83.1 fL (80.0-98.0); Mean Platelet Volume 10.9 fL (9.4-12.4); Monocytes Absolute Auto 0.6 X10*3/uL (0.1-1.2); Monocytes Percent Auto 12.7 % (2-11); Neutrophils Absolute Auto 3.4 x10*3/uL (2.0-8.3); Neutrophils Percent Auto 71.2 % (45-73); Red Blood Count 3.37 X10*6/uL (4.60-5.80); Red Cell Distribution Width 17.9 % (11.0-16.0); White Blood Count 4.7 X10*3/uL (4.8-10.8)
[2021-11-14 13:09] LABS: Platelet Count 63 X10*3/uL (160-400)
[2021-11-14 13:23] LABS: Alanine Aminotransferase 16 U/L (0-40); Albumin Level 3.9 g/dL (3.5-5.0); Alkaline Phosphatase 91 U/L (39-117); Anion Gap 10 (12-20); Aspartate Amino Transferase 20 U/L (5-37); Bilirubin Total 0.5 mg/dL (0.0-1.0); Blood Urea Nitrogen 11 mg/dL (9-16); Carbon Dioxide 27 mmol/L (22-29); Chloride 106 mmol/L (96-108); Creatinine Clr Calc Pharmacy 90.7; Estimated Glomerular Filt Rate > 60; Glucose Random 220 mg/dL (60-115); Sodium 139 mmol/L (135-145)
--- NOTE | 2021-11-14 14:02 | MHC.HEMONC ---
Patient present for pre-chemo labs today drawn by phlebotomy. Labs reviewed, Plt=63, Hgb=8.7, WBC=4.7. Quinn in Pharmacy aware and will discuss treatment with Dr Tan.
--- NOTE | 2021-11-14 15:09 | MHC.HEMONC ---
Treatment delayed per Dr Tan. Next lab draw scheduled for 11/18/21 with next infusion scheduled for 11/21/21. Patient aware.
--- NOTE | 2021-11-16 13:42 | MHC.HEMONCSW ---
ADVISED HE CALL [facility] AND PUT IN CLAIM FOR 3 MONTHS ILLNESS, ALTHOUGH NOT CONSECUTIVE. ALSO, ASKED HIM TO INQUIRE IF HE PAYS FOR A CANCER BENEFIT IN ADDITION.
--- NOTE | 2021-11-16 13:45 | MHC.HEMONCSW ---
LATE ENTRY....MET WITH PT YESTERDAY WELL WITH NURSE NAVIGATOR.....PT APPLIED FOR [facility]. APPLICATION DONE ON [employer] AND FAXED TO DEPT. WAIT DECISION.
[2021-11-18 11:05] LABS: MANUAL DIFF FLAG NO
[2021-11-18 11:19] LABS: Basophils Percent Auto 0.2 % (0-2); Eosinophils Percent Auto 0.6 % (0-4); Hematocrit 28.4 % (42.0-52.0); Hemoglobin 8.7 g/dl (14.0-18.0); Imm Gran Abs Auto 0.06 X10*3/uL (0.00-0.03); Imm Gran Pct Auto 1.3 % (0.0-0.4); Lymphocytes Absolute Auto 0.7 X10*3/uL (1.2-4.9); Lymphocytes Percent Auto 13.9 % (20-40); Mean Corpuscular HGB Conc 30.6 g/dl (31.0-36.0); Mean Platelet Volume 11.9 fL (9.4-12.4); Monocytes Absolute Auto 0.6 X10*3/uL (0.1-1.2); Monocytes Percent Auto 13.3 % (2-11); Neutrophils Absolute Auto 3.3 x10*3/uL (2.0-8.3); Neutrophils Percent Auto 70.7 % (45-73); Red Blood Count 3.34 X10*6/uL (4.60-5.80); Red Cell Distribution Width 18.9 % (11.0-16.0); White Blood Count 4.7 X10*3/uL (4.8-10.8)
[2021-11-18 11:20] LABS: Platelet Count 81 X10*3/uL (160-400)
[2021-11-18 11:35] LABS: Alanine Aminotransferase 22 U/L (0-40); Albumin Level 3.8 g/dL (3.5-5.0); Alkaline Phosphatase 81 U/L (39-117); Anion Gap 12 (12-20); Aspartate Amino Transferase 25 U/L (5-37); Bilirubin Total 0.5 mg/dL (0.0-1.0); Blood Urea Nitrogen 11 mg/dL (9-16); Calcium 8.9 mg/dL (8.4-10.2); Carbon Dioxide 27 mmol/L (22-29); Chloride 105 mmol/L (96-108); Creatinine Clr Calc Pharmacy 103.6; Estimated Glomerular Filt Rate > 60; Glucose Random 131 mg/dL (60-115); Sodium 140 mmol/L (135-145); Total Protein 6.6 g/dL (6.5-8.0)
[2021-11-21 08:06] VITALS: BMI 27.3
[2021-11-21 08:32] VITALS: BP 119/58; PULSE 75; RESP 17; TEMP 36.8; O2SAT 99
[2021-11-21] MEDS: Fosaprepitant Dimeglumine 150 MG in 0.9 % Sodium Chloride 145 ML 300 MG IV (09:15)
[2021-11-21] MEDS: Famotidine/PF 20 MG/2 ML VIAL IVPUSH (10:05)
[2021-11-21] MEDS: dexAMETHasone sod phosphate/NS 12 MG/50 ML PIGGYBACK 200 MG IV (10:32)
[2021-11-21] MEDS: OXALIplatin 100 MG, OXALIplatin 40 MG in Dextrose 5 % 500 ML 264 MG IV (11:24)
[2021-11-21] MEDS: Atropine Sulfate 1 MG/ML VIAL 0.5 MG SUBCUT (13:31)
[2021-11-21] MEDS: Leucovorin Calcium 660 MG in Dextrose 5 % 250 ML 141.5 MG IV (13:40)
[2021-11-21] MEDS: DEXTROSE 5% IV (13:41)
[2021-11-21] MEDS: IRINOTECAN HCL IV (13:41)
--- NOTE | 2021-11-21 14:21 | MHC.HEMONC ---
Pt arrived for for C9D1 FOLFIRINOX, after his tx was held the previous week, VS and weights done, stable. Pt had labs drawn the Sunday before, 11/18/21, reviewed by nurses, pharm, and Dr. Otoole. Dose calculations were confirmed along w/ ordered dose reductions. Pt's R chest port was accessed w/ 20g 3/4 [place] needle in sterile procedure, positive blood return, flushed w/ 5 ml NS. Pre-meds Zofran 16 mg IV, Dexamethasone 12 mg IV, Pepcid 20 mg IVP, and Emend 150 mg IV were admin. Pt reported tingling numbness in bilat feet, but no pain, intermittent abd cramping continues, continues on sched PO dicyclomine BID w/ good effect, nausea is rare. Nurse admin FOLFIRINOX a/o, giving Atropine 0.5 mg SC in pt's RUE 30 min before starting Irinotecan. Pt was given 5-FU bolus over 5 minutes before starting 5-FU take-home pump, to run over 46 hrs, w/ instructions to return on 11/23/21 for pump take-down and Neulasta injection. Dr. Otoole ordered pt to have CT scan of abd/pelvis and [employer]PER[employer] scan of chest. Nurse booked pt's next chemo cycle, C10D1 lab draws, and next Onc f/u in 14 days. Pt received his d/c packet w/ instructions to take dexamethasone 4 mg BID on days 2 and 3 and left clinic in good spirits.
[2021-11-21] MEDS: FLUOROURACIL IVPUSH (15:48)
[2021-11-21] MEDS: DISPOSABLE IVPUSH (15:48)
[2021-11-21] MEDS: SODIUM CHLORIDE 0.9% IV (15:49)
[2021-11-21] MEDS: FLUOROURACIL IV (15:49)
--- NOTE | 2021-11-21 16:25 | MHC.HEMONCSW ---
PT IS WELL KNOWN TO ME FROM PREVIOUS ENCOUNTERS. DIAGNOSIS IS PANCREATIC CANCER, RECEIVING CHEMOTHERAPY. REPORTS COPING FAIRLY WELL BUT HAS STRESS ABOUT ILLNESS AND FINANCES. DECLINES COUNSELING REFERRAL. APPLIED AND APPROVED FOR $1,000.00 FINANCIAL ASSISTANCE FUND FROM THIS HOSPITAL. IN FUTURE HE WILL BRING VERIFICATIONS FOR [employer] FINANCIAL FUND. I AM COMPLETING [facility] STD APPLICATION. PO INTAKE POOR AT TIMES SO ENSURE IS PROVIDED. SUPPORTIVE COUNSELING CONTINUES.
[2021-11-22 09:02] LABS: Carbohydrate Antigen 19-9 1450 U/mL (<34)
--- NOTE | 2021-11-22 15:49 | MHC.HEMONCSW ---
COLONIAL STD FORM IS COMPLETED AND GIVEN TO HR MAXIMO WHO WILL SCAN TO [facility]. PT DOES NOT HAVE A CANCER RIDER.
[2021-11-23] MEDS: Heparin Sodium,Porcine Flush 500 UNIT/5 ML SYRINGE IVFLUSH (13:21)
--- NOTE | 2021-11-23 13:59 | MHC.HEMONC ---
Pt came in for pump takedown and neulasta injection, talked w/ SW Kylie, was in good spirits, 46 hr 5FU infusion completed on pump, which began beeping. Nurse removed battery, flushed R chest port w/ NS, found pos blood return, flushed w/ heparin 500 units, then de-accessed port, which was well-tolerated. Nurse admin Neulasta 6mg SC to pt's LUE, which he managed fine. Pt sat and socialized w/ other patients and was d/c'd, declined d/c packet, confirmed his next appt is on 11/28/21 for weekly labs.
[2021-11-28 09:18] LABS: Hematocrit 25.4 % (42.0-52.0); Mean Corpuscular HGB Conc 31.5 g/dl (31.0-36.0); Mean Corpuscular Hemoglobin 25.9 pg (27.0-33.0); Mean Corpuscular Volume 82.2 fL (80.0-98.0); Mean Platelet Volume 9.9 fL (9.4-12.4); Red Blood Count 3.09 X10*6/uL (4.60-5.80); Red Cell Distribution Width 19.7 % (11.0-16.0)
[2021-11-28 09:20] LABS: Platelet Count 63 X10*3/uL (160-400); WBC ABN SCTR FOR CBC 1
[2021-11-28 09:31] LABS: Alanine Aminotransferase 17 U/L (0-40); Albumin Level 3.9 g/dL (3.5-5.0); Alkaline Phosphatase 103 U/L (39-117); Anion Gap 12 (12-20); Aspartate Amino Transferase 25 U/L (5-37); Bilirubin Total 0.6 mg/dL (0.0-1.0); Blood Urea Nitrogen 12 mg/dL (9-16); Calcium 9.2 mg/dL (8.4-10.2); Carbon Dioxide 27 mmol/L (22-29); Chloride 100 mmol/L (96-108); Creatinine Clr Calc Pharmacy 116.7; Estimated Glomerular Filt Rate > 60; Glucose Random 198 mg/dL (60-115); Sodium 135 mmol/L (135-145); Total Protein 6.9 g/dL (6.5-8.0)
[2021-11-28 09:47] LABS: Band Neutrophils Percent 12 % (3-5); Lymphocytes Percent Manual 4 % (20-40); Monocytes Percent Manual 3 % (2-11); Neutrophils Percent Manual 81 % (45-73)
[2021-11-28 09:48] LABS: RBC Morphology NOTED; Schistocytes 1+ (0-2) /OIF; Target Cells 1+ (5-14) /OIF
[2021-11-28 09:49] LABS: Ovalocytes 1+ (5-14) /OIF; Platelet Estimate DECREASED (NORMAL); Platelet Morphology Comment NORMAL
[2021-11-28 09:50] LABS: Lymphocytes Absolute Manual 0.4 X10*3/uL (1.2-4.9); Monocytes Absolute Manual 0.3 X10*3/uL (0.1-1.2); Neutrophils Absolute Manual 9.4 X10*3/uL (2.0-8.3); White Blood Count 10.1 X10*3/uL (4.8-10.8)
[2021-11-28 12:45] VITALS: BP 139/83; PULSE 80; RESP 18; TEMP 36.1
[2021-11-28 13:00] VITALS: BP 134/73; PULSE 83; RESP 20; TEMP 36.2
--- NOTE | 2021-11-28 13:03 | MHC.HEMONC ---
Pt in for labs and had c/o very bad fatigue on Sunday. He feels better now. HGB 8. Pt offered transfusion and he would like one. Return this afternoon for one unit RBC.
[2021-11-28 13:46] LABS: OBS Int Ctl Valid YES; OBS1 POSITIVE (NEGATIVE)
[2021-11-28 14:24] VITALS: BP 129/74; PULSE 82; RESP 18; TEMP 36.6
--- NOTE | 2021-11-28 14:37 | MHC.HEMONC ---
Labs drawn this AM. Hgb 8.0. Pt called, and came back in for transfusion. Port accessed with good blood return noted. States Sunday did not feel well, being very tired. Did feel better Sunday after getting some sleep. Had 1 unit prbc's, infused well. No s/s transfusion reaction. VSS, lungs clear throughout. Port flushed with heparin and de-accessed. Scheduled to return in 1 week for labs.
[2021-12-06 08:38] VITALS: BP 113/66; PULSE 74; RESP 20; TEMP 36.8; O2SAT 99; BMI 26.4
[2021-12-06 09:23] LABS: MANUAL DIFF FLAG NO
[2021-12-06] MEDS: Famotidine/PF 20 MG/2 ML VIAL IVPUSH (09:35)
[2021-12-06 09:38] LABS: Basophils Percent Auto 0.5 % (0-2); Eosinophils Percent Auto 0.5 % (0-4); Hematocrit 25.8 % (42.0-52.0); Hemoglobin 7.9 g/dl (14.0-18.0); Imm Gran Abs Auto 0.15 X10*3/uL (0.00-0.03); Imm Gran Pct Auto 2.3 % (0.0-0.4); Lymphocytes Absolute Auto 0.6 X10*3/uL (1.2-4.9); Lymphocytes Percent Auto 9.2 % (20-40); Mean Corpuscular HGB Conc 30.6 g/dl (31.0-36.0); Mean Corpuscular Hemoglobin 26.9 pg (27.0-33.0); Mean Corpuscular Volume 87.8 fL (80.0-98.0); Mean Platelet Volume 11.4 fL (9.4-12.4); Monocytes Absolute Auto 0.7 X10*3/uL (0.1-1.2); Monocytes Percent Auto 11.4 % (2-11); Neutrophils Absolute Auto 4.9 x10*3/uL (2.0-8.3); Neutrophils Percent Auto 76.1 % (45-73); Red Blood Count 2.94 X10*6/uL (4.60-5.80); Red Cell Distribution Width 22.4 % (11.0-16.0); White Blood Count 6.4 X10*3/uL (4.8-10.8)
--- NOTE | 2021-12-06 09:40 | PM.HEMONCPN ---
Medical Summary - Medical Summary Date of Service: 12/06/21 Chief complaint: Follow-up for: Pancreatic carcinoma. Medical Summary: DIAGNOSIS: 1. Pancreatc Carcinoma. 2. Pancytopenia. CURRENT THERAPY: Started on Folfirinox, 03/11. Completed 6 cycles, August. Completed XRT November 07 in [place]. He was unable to get capecitabine on account of thrombocytopenia. On Gemzar Abraxane, started January 06. Completed cycle 6 on 06/20/19. Completed cycle 7, July 16, 2019. Took a break from treatment, after that. Restarted Gemzar Abraxane for disease progression, 10/28/20. Cycle 3, day 11 on 01/07/21. He then elected to stop. He was referred to [facility], for a 2nd opinion. He saw Dr. Nicole Lees. Repeat imaging in mid March revealed new liver lesion and peritoneal disease. She offered him clinical trial versus retreatment with FOLFIRINOX. He elected to proceed with the latter. Received 1 cycle of FOLFIRINOX on 05/16/21. He received cycle 2 d 15, on 06/28. He took a break for the month of July. Started cycle 3 day 1 on 09/20/2021. Received cycle 3 day 15, 10/04/2021. He completed 6 cycles. He is here to start cycle 7. Interval History Interval history: This is a pleasant 51 year-old gentleman, here for a follow-up visit. He tells me that he had a good week last week however over the weekend he became tired, on Sunday. On Sunday he rested and felt better. He ran some errands on Sunday morning. Then Sunday afternoon he was fatigued again. He had labs drawn yesterday. His hemoglobin was 7.9. He actually feels pretty good today. He denies any chest pain or shortness of breath on exertion. No headache nor dizziness. He denies abdominal pain, more of discomfort. When he eats he feels full right away and has some cramping. At the same time he has a pressure in his lower back area. He denies local tenderness in the abdomen. He denies any nausea or vomiting. No heartburn indigestion. He stopped taking omeprazole since he felt the symptoms were worsening. He has noticed that he has urge to move his bowels but when he actually goes to push there is nothing there. He has been taking dicyclomine and Creon. He takes oxycodone to help him sleep at night. His appetite is okay. His weight is stable. He is in good spirits. Rest of the review of systems is unremarkable. He has an appointment with Dr. Crespo on 12/09. Previous history: 1. After his 1st cycle of FOLFIRINOX he was knocked down for a loop. He could not eat. He lost weight. He was 235 and went down to 225. His nausea was manageable. He could control it with Zofran and Decadron, however he had bad belly ache. He felt he was having cramps. As if there was a burning hole in the stomach. His stomach felt unsettled. Only thing that could comfort him was laying down in a hot tub. He had 3 sleepless nights. He did have some diarrhea but that was expected. He did try to stay hydrated. He took popsicles and Jell-O. Overall he felt miserable. 2. He had upper endoscopy and colonoscopy by Dr. Crespo, in the spring,which was negative. 3. Back in June of 2020 he contracted COVID-19. However his symptoms were quite mild, only lasted a day and a half and then he recovered. He did receive the COVID vaccines and booster. 3. He had opted to take the month july off from chemotherapy. He had been doing well however he has some of the same complaints. Review of Systems - Constitutional Reports system reviewed and no additional complaints, except as documented, Reports fatigue, Reports weakness, Denies chills, Denies weight loss - Eyes Reports system reviewed and no additional complaints, except as documented - ENT Reports system reviewed and no additional complaints, except as documented - Cardiovascular Reports system reviewed and no additional complaints, except as documented - Respiratory Reports no additional respiratory complaints - Gastrointestinal Reports system reviewed and no additional complaints, except as documented Comments: Abdominal discomfort. - Genitourinary Genitourinary: Reports no additional male genitourinary complaints - Musculoskeletal Reports system reviewed and no additional complaints, except as documented - Integumentary/Breasts Skin/Breast: Reports no additional skin complaints - Neurologic Reports system reviewed and no additional complaints, except as documented, Reports hearing normal, Reports weakness - Psychiatric Reports system reviewed and no additional complaints, except as documented - Endocrine Reports no additional endocrine complaints - Hematologic/Lymphatic Reports system reviewed and no additional complaints, except as documented - Allergic/Immunologic Reports system reviewed and no additional complaints, except as documented [facility] Medical History: Medical History (Last Reviewed 10/18/21 @ 09:33 by Avelino Hernandez RN) Anemia Diabetes mellitus Functional capacity: independent ambulation Patient : No Family History: Family History (Last Reviewed 10/18/21 @ 09:33 by Avelino Hernandez RN) Mother Diabetes Surgical History: Surgical History (Last Reviewed 10/18/21 @ 09:33 by Avelino Hernandez RN) H/O hernia repair History of esophagogastroduodenoscopy (EGD) Hx of colonoscopy Oncology Screenings - ECOG Performance Status ECOG Performance Status: 0 Home Medications and Allergies Current Medications: Current Medications Dexamethasone Sodium Phosphate (Decadron) 12 mg in 50 mls @ 200 mls/hr IV ONCE YESICA Stop: 12/06/21 23:59 Ondansetron HCl (Zofran) 16 mg in 50 mls @ 200 mls/hr IV ONCE YESICA Stop: 12/06/21 23:59 Fosaprepitant 150 mg/ Sodium (Chloride) 150 mls @ 300 mls/hr IV ONCE YESICA Stop: 12/06/21 23:59 Fluorouracil 4,050 mg/ Sodium (Chloride) 92 mls @ 2 mls/hr IV ONCE YESICA Stop: 12/06/21 23:59 Fluorouracil 675 mg/ IV (Miscellaneous Supplies) 13.5 mls @ 162 mls/hr IVPUSH ONCE YESICA Stop: 12/06/21 23:59 Irinotecan HCl 300 mg/ (Dextrose) 515 mls @ 343.333 mls/hr IV ONCE YESICA Stop: 12/06/21 23:59 Leucovorin Calcium 680 mg/ (Dextrose) 284 mls @ 142 mls/hr IV ONCE YESICA Stop: 12/06/21 23:59 Oxaliplatin 100 mg/ (Oxaliplatin 40 mg/ Dextrose) 528 mls @ 264 mls/hr IV ONCE YESICA Stop: 12/06/21 23:59 Home Medications Medication Instructions Recorded Confirmed Type insulin glargine 100 unit/mL (3 14 unit SUBCUT BEDTIME 06/10/20 12/06/21 History mL) subcutaneous pen (Lantus Solostar U-100 Insulin) metformin 500 mg tablet,extended 2,000 mg PO DAILY 06/10/20 12/06/21 History release 24 hr multivitamin 1 tab PO DAILY 10/14/20 12/06/21 History tadalafil 5 mg tablet 5 mg PO DAILY PRN 09/16/21 12/06/21 History dexamethasone 4 mg tablet 4 mg PO BID 09/20/21 12/06/21 History dicyclomine 10 mg capsule 2 cap PO QID 09/20/21 12/06/21 History Allergies Allergy/AdvReac Type Severity Reaction Status Date / Time No Known Allergies Allergy Verified 12/06/21 10:51 [No Known Allergies*] Exam Vital signs: Vital Signs Temp 98.2 F 12/06/21 08:38 Pulse 74 12/06/21 08:38 Resp 20 12/06/21 08:38 BP 113/66 12/06/21 08:38 Pulse Ox 99 12/06/21 08:38 Intake & Output 12/05/21 12/06/21 12/06/21 18:59 06:59 18:59 Other: Weight 93.6 kg Weight in Grams 06539 Weight 93.6 kg BMI result Body Mass Index 26.4 - Constitutional Present: no acute distress - Routine HEENT Exam Head: Present: normal inspection Eye: Present: normal appearance ENT: Present: mucous membranes moist - Routine Neck Exam Present: full ROM - Routine Respiratory Exam Present: CTAB - Routine Cardiovascular Exam Cardiovascular: Present: RRR, S1, murmur - Routine Abdominal Exam Present: distended, firm, guarding, soft, nontender - Routine Extremities Exam Present: nontender - Routine Back/Spine/Pelvis Exam Back/Spine: Present: full ROM - Routine Skin Exam Present: intact - Routine Neurological Exam Present: alert, oriented X3 - Detailed Neurological Exam: Coma Scale Eye Opening: Spontaneous (4) - Routine Psychiatric Exam Present: normal affect Data - Labs CBC & Chem 7: 12/06/21 09:17 12/06/21 09:17 Assessment and Plan Patient Active problem list reviewed?: Yes (1) Pancreatic cancer Status: Acute Assessment and plan: This is a pleasant 49 year-old gentleman, with the diagnosis of Pancreatic Adenocarcinoma involving the body and tail, in January of 2018. He had an extensive tumor burden. Mass encasing and obstructing the SMV, splenic vein and proximal portal vein. Infiltrative soft tissue between the aorta and IVC and into the kareem hepatis. Bilateral adrenal nodules and bilateral pulmonary nodules. He completed 6-1/2 cycles of FOLFIRINOX. Subsequent imaging appeared improved. However, at that point the patient was deemed unresectable. He subsequently had radiation which she completed November 07. He did well through the treatment. He did not have many side effects. He was clinically asymptomatic. However, CAT scan of the abdomen November, revealed: Increase in size of the left adrenal nodule to 32 mm from 28 mm. Also noted was slight increase in the size of the pancreatic mass 35 x 83 mm previously 34 x 18 mm. I decided to pick the regimen: Gemzar and Abraxane based chemotherapy. He started January 06, 2019. He completed cycle 4 on April 25. He completed cycle 7 on July 16 2019. He tolerated it well. Subsequently he elected to take a break from treatment. He wants to be monitored along. Restaging CT scan of the abdomen pelvis and chest from January 29 revealed: Chest: No evidence of metastatic disease. Stable left adrenal lesion. Fatty liver. Slightly enlarged prostate gland. Abdomen and pelvis: Stable low-attenuation soft tissue in the body of the pancreas continuous with abnormal low-attenuation soft tissue surrounding the celiac axis and SMA. Occluded splenic vein. Occluded distal SMV. Patent portal vein. Extensive peripancreatic varices. Previous imaging from October 01 revealed: Overall no significant change in the region of pancreatic head with significant collateral vessels/varices secondary to portal hypertension. The splenic vein is not seen. The portal vein is opacified to the level of pancreatic head. The spleen is heterogenous but normal size. There is no ascites seen at this time. However, there is mild haziness in bilateral paracolic gutter likely congestion. His GI complaints have resolved with the Creon. He has been feeling well. He has been working over the winter. CT chest and abdomen from 06/19/2020: Chest: New small pulmonary nodules. The largest measures 3 x 6 mm in the right lower lobe. Abdomen and pelvis: Stable low-attenuation in the body of the pancreas continuous with abnormal soft tissue surrounding the celiac axis, SMA and SMV, thickening of the bilateral anterior pararenal fascia and soft tissues surrounding the duodenum and left adrenal nodule. Occluded splenic vein, and distal SMV and extensive varices. Fatty liver. Stable mild dilatation of the common bile duct. Upper normal-size spleen. Stool throughout the colon questionable for constipation. His CA 19-9 from 06/10/20:357. From 09/13:1921. Recent CT scan of the chest and abdomen, from 09/22: Multiple pulmonary nodules are slightly increased in size since the previous study from 06/08. No major change in slightly enlarged and hypodense appearing diffuse pancreas and mild haziness along the posterior pancreatic margin. No focal lesion seen on the present exam, however the pancreas appears slightly heterogenous with abundant varices seen throughout the peripancreatic region, pancreas and upper abdomen. No change in the haziness in the peripancreatic region. Small left para aortic lymph nodes are essentially stable. No focal liver lesions seen. I shared the results with him. I was concerned about rising tumor marker and increasing pulmonary nodules. I suggested that he start back on the chemotherapy treatment. He has been restarted on Gemzar/ Abraxane since it had worked previously. He was started October 28. Since his baseline WBC count was low, he was started on Neulasta to prevent chemotherapy-induced neutropenic sepsis. He is here for cycle 3, day 1. He tolerated it well. CAT scan on 01/31: Stable pulmonary nodules. No new pulmonary nodules seen. Mild fatty infiltration of liver with portal vein thrombosis and cavernous transformation of portal vein, similar to previous study. There is diffuse haziness in the pancreatic head with heterogeneity, stable. The rest of the pancreas is slightly attenuated. Numerous collateral vessels are seen surrounding the pancreatic head and the upper abdomen. He was referred to [place], for a 2nd opinion. He saw Dr. Nicole Lees. Repeat imaging in mid March revealed new liver lesion and peritoneal disease. The CA 19/9 was down to 451 from 1355. However it went up to 2830 on 05/13. She offered him clinical trial versus retreatment with FOLFIRINOX. He elected to proceed with the latter. Received 1st cycle of FOLFIRINOX on 05/16. He did not tolerate it at all. I offered to dose reduce him to 75% of the chemotherapy doses. He was willing to try that. He tolerated it better. He received cycle 2 day 15 on 06/28. He was supposed to start cycle 3, however his blood count was noted to be low. Platelets were 54. He received 2 units of blood, a month ago.. His tumor marker CA 19-9 came down to 695, from 1990 which is encouraging. He received the 3rd cycle. Then wanted a break from treatment since July was his and his birthday month. He wanted to feel well for the holidays. I offered to restart him on the FOLFIRINOX however he is not too keen on doing that. He feels the treatment was rather tough on him. He took some time off, before deciding to restart it. l reimaged with CT scan of the chest and abdomen pelvis. This was done on September 02 and revealed: Dilated intrahepatic duct and common bile duct with heterogeneous pancreatic head and body and ill-defined margins similar to previous study 03/23/2021. There are small peripancreatic lymph nodes which cannot be differentiated from the adjacent pancreatic head and uncinate process. However, there is no enlarging mass or lymph nodes seen. There is diffuse ascites and haziness throughout the peritoneum likely secondary to ascites and mesenteric edema. No liver lesions seen. Adrenal glands are normal. Right pulmonary nodules seen on March [address] are no longer seen. No new pulmonary nodules. l followed up on his tumor marker as well. CA 19-9: 632. From 08/01: 695. I explained to him that the imaging appears to reveal stable disease. Tumor markers have come down which is a good sign. I would like to restart him on the chemotherapy regimen to continue to achieve a response. He said he would like to give it some thought. He restarted on his treatment. He had imaging done after completing 6 cycles. These were done on 12/02: Stable central intrahepatic biliary duct and extrahepatic biliary duct dilatation. Stable diffuse low-attenuation appearance of the pancreas continuous with abnormal low-attenuation soft tissue surrounding the celiac axis, SMV and SMA and upper retroperitoneum adjacent to the abdominal aorta, left adrenal gland and left renal veins and third portion of duodenum. Occluded splenic vein, distal SMV and portosplenic confluence/extrahepatic main portal vein. The more distal hepatic main portal vein and right and left hepatic veins are patent. Small amount of ascites. Interval decrease in peritoneal nodule inferior to the right lobe of the liver. Constipation. Stable scarring or subsegmental atelectasis in the left lower lobe. No pulmonary nodules seen. CA 19-9:1450. Previously 2315. It is reassuring that things are stable, little bit better. He is rather tired. Otherwise doing okay. He is here to start cycle 7. PLAN: He will return on sunday to receive the blood transfusion. He is being scheduled for a colonoscopy to evaluate for the source of bleeding. He is seeing Dr. Crespo, on 12/09. Colonoscopy will be scheduled for next sunday. Thank you, CC: Dr. Karina Ochoa, at [place]. Dr. Abel Woodard at [facility]. Gen. Dr. East. - Time Spent With Patient Time Spent with Patient (in minutes): 30
[2021-12-06 09:41] LABS: Platelet Count 81 X10*3/uL (160-400)
[2021-12-06 09:59] LABS: Alanine Aminotransferase 20 U/L (0-40); Albumin Level 3.6 g/dL (3.5-5.0); Alkaline Phosphatase 88 U/L (39-117); Anion Gap 10 (12-20); Aspartate Amino Transferase 31 U/L (5-37); Bilirubin Total 0.5 mg/dL (0.0-1.0); Blood Urea Nitrogen 10 mg/dL (9-16); Calcium 8.7 mg/dL (8.4-10.2); Carbon Dioxide 27 mmol/L (22-29); Chloride 105 mmol/L (96-108); Creatinine Clr Calc Pharmacy 103.6; Estimated Glomerular Filt Rate > 60; Glucose Random 215 mg/dL (60-115); Potassium 4.1 mmol/L (3.3-5.1); Sodium 138 mmol/L (135-145); Total Protein 6.4 g/dL (6.5-8.0)
[2021-12-06] MEDS: Fosaprepitant Dimeglumine 150 MG in 0.9 % Sodium Chloride 145 ML 300 MG IV (10:07)
[2021-12-06] MEDS: dexAMETHasone sod phosphate/NS 12 MG/50 ML PIGGYBACK 200 MG IV (10:45)
[2021-12-06] MEDS: OXALIplatin 100 MG, OXALIplatin 40 MG in Dextrose 5 % 500 ML 264 MG IV (11:11)
[2021-12-06] MEDS: Atropine Sulfate 1 MG/ML VIAL 0.5 MG SUBCUT (13:07)
[2021-12-06] MEDS: Leucovorin Calcium 680 MG in Dextrose 5 % 250 ML 189.3 MG IV (13:18)
[2021-12-06] MEDS: IRINOTECAN HCL IV (13:19)
[2021-12-06] MEDS: DEXTROSE 5% IV (13:19)
[2021-12-06] MEDS: FLUOROURACIL IVPUSH (15:09)
[2021-12-06] MEDS: DISPOSABLE IVPUSH (15:09)
[2021-12-06] MEDS: fluorouraciL 4,050 MG in 0.9 % Sodium Chloride 11 ML IV (15:10)
--- NOTE | 2021-12-06 17:57 | MHC.HEMONC ---
Pt was here for C10D1 FOLFIRINOX, VSS and weights stable. Pt had labs drawn the previous day, 12/05/21, reviewed by nurses, pharm, and Dr. Otoole. Dose calculations were confirmed along w/ ordered dose reductions 75% for 5FU pump and bolus, and 75% for Oxali, Leucovorin, and Irinotecan. Pt's R chest port was accessed w/ 20g 3/4 del rio needle in sterile procedure, positive blood return, flushed w/ 5 ml NS. Pre-meds Zofran 16 mg IV, Dexamethasone 12 mg IV, Pepcid 20 mg IVP, and Emend 150 mg IV were admin. Pt reported baseline tingling numbness in bilat feet, but no pain. Dr. Otoole was in to meet w/ pt, addressed his recent anemia, as today his Hgb was 7.9, and pt says his fatigue is intermittent. Pt has a GI televisit sched w/ Dr. Crespo later this week on 12/09, and there are plans to schedule a colonoscopy to address chance of a bleed, but they do not want pt to have chemo happening too close to date of colonoscopy. Pt was able to book colonoscopy for the following week on Sun, 12/14. Dr. Tan also ordered pt to receive 1 unit PRBC this week, had type and screen drawn today, pt agreed to schedule transfusion for morning before his pump takedown. Nurse admin FOLFIRINOX a/o, giving Atropine 0.5 mg SC in pt's RUE 30 min before starting Irinotecan. Pt was given 5-FU bolus over 5 minutes before starting 5-FU take-home pump, to run over 46 hrs, w/ instructions to return on 12/08/21 for pump take-down and Neulasta injection, but first to receive blood transfusion. Nurse booked pt's next chemo cycle, C11D1 in 2 weeks. Pt declined d/c packet, but received instructions to take dexamethasone 4 mg BID on days 2 and 3 and left the clinic in good spirits.
--- NOTE | 2021-12-07 15:44 | HO.HEMONCSCH ---
Nurse called pt about timing of his blood transfusion, sched for Shelli, 12/08. Nurse asked pt if he would rather have his transfusion of 1 unit PRBC after his pump takedown at 13:00, so it may be transfused via his R chest port, as opposed to having a separate IV placed. Pt was agreeable to having transfusion after pump takedown. Nurse confirmed w/ Nimisha at [facility] that Type and Screen from 12/06/21 will still be valid. Nurse rescheduled transfusion for 13:00 on 12/08.
[2021-12-08 13:47] VITALS: BP 124/55; PULSE 53; RESP 18; TEMP 36.2
[2021-12-08 14:02] VITALS: BP 118/58; PULSE 52; RESP 17; TEMP 36.2
[2021-12-08 14:54] VITALS: BP 117/45; PULSE 50; RESP 17; TEMP 36.3
[2021-12-08] MEDS: Heparin Sodium,Porcine Flush 500 UNIT/5 ML SYRINGE IVFLUSH (14:55)
--- NOTE | 2021-12-08 16:53 | MHC.HEMONC ---
Pt came in for sched pump takedown of 46 hr 5FU infusion via take-home pump, Neulasta injection, as well as sched blood transfusion, 1 unit of PRBC. Pt was in good spirits. Nurse checked infusion had completed, flushed pt's R chest port, then disconnected and attached pt to NS drip. Pt's VSS. Nurse admin sched Neulasta injection 6mg SC to pt's LUE, which he tolerated well. Nurse reviewed s/sx of blood transfusion reactions, pt signed consent for transfusion, as did Dr. Otoole. Pt already had type and screen done 2 days before and blood bank arrived to band patient. Nurse initiated transfusion at 13:47, VSS and LS CTA, re-checking VS and LS 15 minutes in, both of which were still stable. Pt's 1 unit PRBC completed transfusing at 14:50. Pt denied any reactions, LS still CTA, VS remained stable. Nurse flushed pt's R chest port w/ NS, flushed w/ heparin 500 units, found continued positive blood return, then de-accessed pt's port, which he tolerated well. Pt declined d/c packet, confirmed his next appt for weekly lab draw on 12/12/21.
[2021-12-12 09:24] LABS: Hematocrit 25.8 % (42.0-52.0); PLT CLUMP 1
[2021-12-12 09:26] LABS: Hemoglobin 8.2 g/dl (14.0-18.0); Mean Corpuscular HGB Conc 31.8 g/dl (31.0-36.0); Mean Corpuscular Hemoglobin 27.3 pg (27.0-33.0); Mean Platelet Volume 10.1 fL (9.4-12.4); Red Cell Distribution Width 21.3 % (11.0-16.0)
[2021-12-12 09:32] LABS: WBC ABN SCTR FOR CBC 1
[2021-12-12 09:33] LABS: Platelet Count 59 X10*3/uL (160-400); White Blood Count 9.5 X10*3/uL (4.8-10.8)
[2021-12-12 09:42] LABS: Alanine Aminotransferase 20 U/L (0-40); Albumin Level 3.8 g/dL (3.5-5.0); Alkaline Phosphatase 90 U/L (39-117); Anion Gap 8 (12-20); Aspartate Amino Transferase 22 U/L (5-37); Bilirubin Total 0.9 mg/dL (0.0-1.0); Blood Urea Nitrogen 14 mg/dL (9-16); Calcium 9.1 mg/dL (8.4-10.2); Carbon Dioxide 30 mmol/L (22-29); Chloride 100 mmol/L (96-108); Creatinine Clr Calc Pharmacy 120.9; Estimated Glomerular Filt Rate > 60; Glucose Random 181 mg/dL (60-115); Sodium 134 mmol/L (135-145); Total Protein 6.6 g/dL (6.5-8.0)
[2021-12-12 10:01] LABS: Band Neutrophils Percent 12 % (3-5); Lymphocytes Absolute Manual 1.2 X10*3/uL (1.2-4.9); Lymphocytes Percent Manual 13 % (20-40); Monocytes Absolute Manual 0.5 X10*3/uL (0.1-1.2); Monocytes Percent Manual 5 % (2-11); Neutrophils Absolute Manual 7.8 X10*3/uL (2.0-8.3); Neutrophils Percent Manual 70 % (45-73)
[2021-12-12 10:02] LABS: Hypochromasia 1+ (5-14) /OIF; Ovalocytes 1+ (5-14) /OIF; RBC Morphology NOTED; Spherocytes 2+ (3-5) /OIF
[2021-12-12 10:03] LABS: Platelet Estimate DECREASED (NORMAL); Platelet Morphology Comment NORMAL; Schistocytes 1+ (0-2) /OIF
--- NOTE | 2021-12-12 14:30 | MHC.HEMONC ---
Pt was here for his weekly labs, had them drawn peripherally, also had type and screen drawn, in case of need for blood transfusion. Pt's Hgb had improved from 7.9 to 8.2, since last week's blood transfusion. Dr. Otoole reviewed results, no action needed at this time. Pt has a colonoscopy scheduled for this Wed, then will come in for pre-chemo labson Sun, 12/19.
[2021-12-19 11:00] LABS: MANUAL DIFF FLAG NO
[2021-12-19 11:06] LABS: Basophils Percent Auto 0.3 % (0-2); Eosinophils Percent Auto 0.5 % (0-4); Hematocrit 26.5 % (42.0-52.0); Hemoglobin 8.3 g/dl (14.0-18.0); Imm Gran Abs Auto 0.12 X10*3/uL (0.00-0.03); Lymphocytes Absolute Auto 0.7 X10*3/uL (1.2-4.9); Lymphocytes Percent Auto 11.7 % (20-40); Mean Corpuscular HGB Conc 31.3 g/dl (31.0-36.0); Mean Corpuscular Hemoglobin 27.6 pg (27.0-33.0); Monocytes Absolute Auto 0.8 X10*3/uL (0.1-1.2); Neutrophils Absolute Auto 4.3 x10*3/uL (2.0-8.3); Neutrophils Percent Auto 71.5 % (45-73); Red Blood Count 3.01 X10*6/uL (4.60-5.80); Red Cell Distribution Width 21.6 % (11.0-16.0)
[2021-12-19 11:08] LABS: Platelet Count 71 X10*3/uL (160-400)
[2021-12-19 11:21] LABS: Alanine Aminotransferase 18 U/L (0-40); Albumin Level 3.7 g/dL (3.5-5.0); Alkaline Phosphatase 92 U/L (39-117); Anion Gap 10 (12-20); Aspartate Amino Transferase 26 U/L (5-37); Bilirubin Total 0.6 mg/dL (0.0-1.0); Blood Urea Nitrogen 9 mg/dL (9-16); Calcium 8.9 mg/dL (8.4-10.2); Carbon Dioxide 27 mmol/L (22-29); Chloride 104 mmol/L (96-108); Creatinine Clr Calc Pharmacy 104.7; Estimated Glomerular Filt Rate > 60; Glucose Random 199 mg/dL (60-115); Potassium 4.1 mmol/L (3.3-5.1); Sodium 137 mmol/L (135-145); Total Protein 6.6 g/dL (6.5-8.0)
--- NOTE | 2021-12-19 12:26 | MHC.HEMONC ---
Addendum entered by Avelino Hernandez RN 12/19/21 13:25: Pt states he already spoke w/ Dr. Otoole about this over the weekend. Original Note: Pt was in for pre-chemo labs, preceding his C11D1 FOLFIRINOX, previously scheduled for 12/20/21. Pt reported he had a very difficult weekend w/ fatigue, abd cramping/pain, and would like to cancel tomorrow's chemo tx for now. Pt agreed to come in for labs the following Sun and wishes to hold off rescheduling next chemo until after he meets w/ Dr. Otoole on 01/03/22.
[2021-12-22 08:11] LABS: Carbohydrate Antigen 19-9 634 U/mL (<34)
[2021-12-26 10:59] LABS: MANUAL DIFF FLAG NO
[2021-12-26 11:20] LABS: Basophils Percent Auto 0.3 % (0-2); Eosinophils Percent Auto 0.5 % (0-4); Hematocrit 26.7 % (42.0-52.0); Hemoglobin 8.2 g/dl (14.0-18.0); Imm Gran Abs Auto 0.11 X10*3/uL (0.00-0.03); Imm Gran Pct Auto 1.7 % (0.0-0.4); Lymphocytes Absolute Auto 0.6 X10*3/uL (1.2-4.9); Mean Corpuscular HGB Conc 30.7 g/dl (31.0-36.0); Mean Corpuscular Volume 87.8 fL (80.0-98.0); Mean Platelet Volume 10.6 fL (9.4-12.4); Monocytes Absolute Auto 0.9 X10*3/uL (0.1-1.2); Monocytes Percent Auto 13.5 % (2-11); Neutrophils Absolute Auto 4.9 x10*3/uL (2.0-8.3); Red Blood Count 3.04 X10*6/uL (4.60-5.80); Red Cell Distribution Width 22.3 % (11.0-16.0); White Blood Count 6.5 X10*3/uL (4.8-10.8)
[2021-12-26 11:21] LABS: Platelet Count 88 X10*3/uL (160-400)
[2021-12-26 11:26] LABS: Alanine Aminotransferase 17 U/L (0-40); Albumin Level 3.7 g/dL (3.5-5.0); Alkaline Phosphatase 86 U/L (39-117); Anion Gap 14 (12-20); Aspartate Amino Transferase 33 U/L (5-37); Bilirubin Total 0.5 mg/dL (0.0-1.0); Blood Urea Nitrogen 9 mg/dL (9-16); Calcium 9.3 mg/dL (8.4-10.2); Carbon Dioxide 27 mmol/L (22-29); Chloride 103 mmol/L (96-108); Creatinine Clr Calc Pharmacy 104.7; Estimated Glomerular Filt Rate > 60; Glucose Random 175 mg/dL (60-115); Potassium 4.5 mmol/L (3.3-5.1); Sodium 139 mmol/L (135-145); Total Protein 6.7 g/dL (6.5-8.0)
[2022-01-03 10:43] VITALS: BP 129/69; PULSE 66; RESP 14; TEMP 36.3; O2SAT 100; BMI 28.3
[2022-01-03 11:05] LABS: MANUAL DIFF FLAG NO
[2022-01-03 11:11] LABS: Basophils Percent Auto 0.5 % (0-2); Eosinophils Percent Auto 0.7 % (0-4); Hematocrit 27.1 % (42.0-52.0); Hemoglobin 8.4 g/dl (14.0-18.0); Imm Gran Abs Auto 0.02 X10*3/uL (0.00-0.03); Imm Gran Pct Auto 0.5 % (0.0-0.4); Lymphocytes Absolute Auto 0.6 X10*3/uL (1.2-4.9); Lymphocytes Percent Auto 13.2 % (20-40); Mean Corpuscular Hemoglobin 27.5 pg (27.0-33.0); Mean Corpuscular Volume 88.6 fL (80.0-98.0); Monocytes Absolute Auto 0.6 X10*3/uL (0.1-1.2); Monocytes Percent Auto 14.7 % (2-11); Neutrophils Percent Auto 70.4 % (45-73); Red Blood Count 3.06 X10*6/uL (4.60-5.80); Red Cell Distribution Width 21.8 % (11.0-16.0); White Blood Count 4.2 X10*3/uL (4.8-10.8)
[2022-01-03 11:15] LABS: Platelet Count 78 X10*3/uL (160-400)
[2022-01-03 11:23] LABS: Alanine Aminotransferase 15 U/L (0-40); Albumin Level 3.6 g/dL (3.5-5.0); Alkaline Phosphatase 76 U/L (39-117); Anion Gap 11 (12-20); Aspartate Amino Transferase 32 U/L (5-37); Bilirubin Total 0.7 mg/dL (0.0-1.0); Blood Urea Nitrogen 8 mg/dL (9-16); Calcium 9.2 mg/dL (8.4-10.2); Carbon Dioxide 27 mmol/L (22-29); Chloride 107 mmol/L (96-108); Creatinine Clr Calc Pharmacy 121.3; Estimated Glomerular Filt Rate > 60; Glucose Random 115 mg/dL (60-115); Potassium 4.5 mmol/L (3.3-5.1); Sodium 140 mmol/L (135-145); Total Protein 6.8 g/dL (6.5-8.0)
--- NOTE | 2022-01-03 13:00 | PM.HEMONCPN ---
Medical Summary - Medical Summary Date of Service: 01/04/22 Chief complaint: follow-up for: Pancreatic carcinoma. Medical Summary: DIAGNOSIS: 1. Pancreatc Carcinoma. 2. Pancytopenia. CURRENT THERAPY: Started on Folfirinox, 03/11. Completed 6 cycles, August. Completed XRT November 07 in [place]. He was unable to get capecitabine on account of thrombocytopenia. On Gemzar Abraxane, started January 06. Completed cycle 6 on 06/20/19. Completed cycle 7, July 16, 2019. Took a break from treatment, after that. Restarted Gemzar Abraxane for disease progression, 10/28/20. Cycle 3, day 11 on 01/07/21. He then elected to stop. He was referred to [place], for a 2nd opinion. He saw Dr. Nicole Lees. Repeat imaging in mid March revealed new liver lesion and peritoneal disease. She offered him clinical trial versus retreatment with FOLFIRINOX. He elected to proceed with the latter. Received 1 cycle of FOLFIRINOX on 05/16/21. He received cycle 2 d 15, on 06/28. He took a break for the month of July. Started cycle 3 day 1 on 09/20/2021. Received cycle 3 day 15, 10/04/2021. He 5th cycle on 12/06. Interval History Interval history: This is a pleasant 51 year-old gentleman, here for a follow-up visit. He did not come in for his treatment last Sunday. The week off has really helped. His fatigue is getting better. He denies any chest pain or shortness of breath on exertion. No headache nor dizziness. His belly is feeling rather tight but not too uncomfortable. It seems hard and rounded. He is trying to eat however he feels rather full. Has early satiety. He has a pressure in his lower back area. He denies local tenderness in the abdomen. He denies any nausea or vomiting. No heartburn indigestion. He stopped taking omeprazole since he felt the symptoms were worsening. He has noticed that he has urge to move his bowels but when he actually goes to push there is nothing there. He has been taking dicyclomine and Creon. He takes oxycodone to help him sleep at night. His appetite is okay. His weight is stable. He is in good spirits. Rest of the review of systems is unremarkable. He underwent an upper endoscopy and colonoscopy on 12/[address] Crespo. Esophagus: GE junction at 45 cm, diaphragm hiatus at 45 cm, 4 cords of grade III esophageal varices seen with some red squires. Veterinary Technician Instructor was applied and 4 bands were placed on the varices with collapse. Stomach: Normal mucosa. Biopsies were obtained. 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 Findings: Terminal Ileum-not intubated Cecum:normal Ascending Colon: normal Transverse Colon -normal Descending Colon:normal Sigmoid Colon: normal Previous history: 1. After his 1st cycle of FOLFIRINOX he was knocked down for a loop. He could not eat. He lost weight. He was 235 and went down to 225. His nausea was manageable. He could control it with Zofran and Decadron, however he had bad belly ache. He felt he was having cramps. As if there was a burning hole in the stomach. His stomach felt unsettled. Only thing that could comfort him was laying down in a hot tub. He had 3 sleepless nights. He did have some diarrhea but that was expected. He did try to stay hydrated. He took popsicles and Jell-O. Overall he felt miserable. 2. He had upper endoscopy and colonoscopy by Dr. Crespo, in the spring,which was negative. 3. Back in June of 2020 he contracted COVID-19. However his symptoms were quite mild, only lasted a day and a half and then he recovered. He did receive the COVID vaccines and booster. 3. He had opted to take the month of July off from chemotherapy. He had been doing well however he has some of the same complaints. Review of Systems - Constitutional Reports no additional constitutional complaints, Denies fatigue, Denies fever(s), Denies lack of energy, Denies weakness, Denies weight gain - Eyes Reports no additional eye complaints - ENT Reports no additional ear, nose, mouth, and throat complaints - Cardiovascular Reports no additional cardiovascular complaints - Respiratory Reports no additional respiratory complaints - Gastrointestinal Reports no additional gastrointestinal complaints, Reports abdominal pain, Reports feeling full early, Denies diarrhea - Genitourinary Genitourinary: Reports no additional male genitourinary complaints - Musculoskeletal Reports no additional musculoskeletal complaints - Integumentary/Breasts Skin/Breast: Reports no additional skin complaints - Neurologic Reports no additional neurologic complaints, Reports hearing normal, Reports weakness - Psychiatric Reports no additional psychiatric complaints - Endocrine Reports no additional endocrine complaints - Hematologic/Lymphatic Reports no additional hematologic/lymphatic complaints - Allergic/Immunologic Reports no additional allergic/immunologic complaints [facility] Medical History: Medical History (Last Reviewed 01/03/22 @ 10:49 by Verito Freedman CMA) Anemia Diabetes mellitus Functional capacity: independent ambulation Patient : No Family History: Family History (Last Reviewed 01/03/22 @ 10:49 by Verito Freedman CMA) Mother Diabetes Surgical History: Surgical History (Last Reviewed 01/03/22 @ 10:49 by Verito Freedman CMA) H/O hernia repair History of esophagogastroduodenoscopy (EGD) Hx of colonoscopy Social History: Social History (Last Updated 01/03/22 @ 10:50 by Verito Freedman CMA) Living Situation History: Household Members: Spouse Household Members: Children Housing: House Are you a primary plant care worker to a significant other at home: No Do you presently have visiting nurse or other home services: No Alcohol History Details: 1. How often do you have a drink containing alcohol?: b. Monthly or less 2. How many drinks containing alcohol do you have on a typical day when you are drinking?: a. 1 or 2 Tobacco History: Patient Tobacco Use Status: Never used Tobacco Substance Use History: Use of substances other than those prescribed or required for medical reasons: No Domestic Abuse History: Have you been hit, kicked, punched, or otherwise hurt by someone within the past year? If so, by whom?: No Do you feel safe in your current relationship?: Yes Advance Directives: Advance Directives: No Advance Directives Information Provided: No Homicidal Assessment: Do you have thoughts of harming others: None Do you have a plan to hurt others: No Plan Do you have the means to hurt others: No Nutrition Assessment: Recently lost weight without trying: No Patient : No Occupation Assessmet: service: No Current occupational status: employed Current occupational status: unemployed Oncology Screenings - ECOG Performance Status ECOG Performance Status: 0 Home Medications and Allergies Home Medications Medication Instructions Recorded Confirmed Type insulin glargine 100 unit/mL (3 14 unit SUBCUT BEDTIME 06/10/20 01/03/22 History mL) subcutaneous pen (Lantus Solostar U-100 Insulin) metformin 500 mg tablet,extended 2,000 mg PO DAILY 06/10/20 01/03/22 History release 24 hr multivitamin 1 tab PO DAILY 10/14/20 01/03/22 History tadalafil 5 mg tablet 5 mg PO DAILY PRN 09/16/21 01/03/22 History dexamethasone 4 mg tablet 4 mg PO BID 09/20/21 01/03/22 History dicyclomine 10 mg capsule 2 cap PO QID 09/20/21 01/03/22 History Allergies Allergy/AdvReac Type Severity Reaction Status Date / Time No Known Allergies Allergy Verified 01/03/22 10:50 [No Known Allergies*] Exam Vital signs: Vital Signs Temp 97.4 F 01/03/22 10:43 Pulse 66 01/03/22 10:43 Resp 14 01/03/22 10:43 BP 129/69 01/03/22 10:43 Pulse Ox 100 01/03/22 10:43 Intake & Output 01/02/22 01/03/22 01/03/22 18:59 06:59 18:59 Other: Weight 100 kg [place] Weight in Grams [id number] Weight 100 kg BMI result Body Mass Index 28.3 - Constitutional Present: no acute distress - Routine HEENT Exam Head: Present: normal inspection Eye: Present: normal appearance ENT: Present: mucous membranes moist - Routine Neck Exam Present: full ROM - Routine Respiratory Exam Present: CTAB - Routine Cardiovascular Exam Cardiovascular: Present: RRR, S1, murmur - Routine Abdominal Exam Present: distended, firm, guarding, soft, tenderness, nontender - Routine Extremities Exam Present: nontender - Routine Back/Spine/Pelvis Exam Back/Spine: Present: full ROM - Routine Skin Exam Present: intact - Routine Neurological Exam Present: alert, oriented X3 - Detailed Neurological Exam: Coma Scale Eye Opening: Spontaneous (4) - Routine Psychiatric Exam Present: normal affect Data - Labs CBC & Chem 7: 01/03/22 10:48 01/03/22 10:48 Assessment and Plan Patient Active problem list reviewed?: Yes (1) Pancreatic cancer Status: Acute Assessment and plan: This is a pleasant 49 year-old gentleman, with the diagnosis of Pancreatic Adenocarcinoma involving the body and tail, in January of 2018. He had an extensive tumor burden. Mass encasing and obstructing the SMV, splenic vein and proximal portal vein. Infiltrative soft tissue between the aorta and IVC and into the kareem hepatis. Bilateral adrenal nodules and bilateral pulmonary nodules. He completed 6-1/2 cycles of FOLFIRINOX. Subsequent imaging appeared improved. However, at that point the patient was deemed unresectable. He subsequently had radiation which she completed November 07. He did well through the treatment. He did not have many side effects. He was clinically asymptomatic. However, CAT scan of the abdomen November, revealed: Increase in size of the left adrenal nodule to 32 mm from 28 mm. Also noted was slight increase in the size of the pancreatic mass 35 x 83 mm previously 34 x 18 mm. I decided to pick the regimen: Gemzar and Abraxane based chemotherapy. He started January 06, 2019. He completed cycle 4 on April 25. He completed cycle 7 on July 16 2019. He tolerated it well. Subsequently he elected to take a break from treatment. He wants to be monitored along. Restaging CT scan of the abdomen pelvis and chest from January 29 revealed: Chest: No evidence of metastatic disease. Stable left adrenal lesion. Fatty liver. Slightly enlarged prostate gland. Abdomen and pelvis: Stable low-attenuation soft tissue in the body of the pancreas continuous with abnormal low-attenuation soft tissue surrounding the celiac axis and SMA. Occluded splenic vein. Occluded distal SMV. Patent portal vein. Extensive peripancreatic varices. Previous imaging from October 01 revealed: Overall no significant change in the region of pancreatic head with significant collateral vessels/varices secondary to portal hypertension. The splenic vein is not seen. The portal vein is opacified to the level of pancreatic head. The spleen is heterogenous but normal size. There is no ascites seen at this time. However, there is mild haziness in bilateral paracolic gutter likely congestion. His GI complaints have resolved with the Creon. He has been feeling well. He has been working over the winter. CT chest and abdomen from 06/19/2020: Chest: New small pulmonary nodules. The largest measures 3 x 6 mm in the right lower lobe. Abdomen and pelvis: Stable low-attenuation in the body of the pancreas continuous with abnormal soft tissue surrounding the celiac axis, SMA and SMV, thickening of the bilateral anterior pararenal fascia and soft tissues surrounding the duodenum and left adrenal nodule. Occluded splenic vein, and distal SMV and extensive varices. Fatty liver. Stable mild dilatation of the common bile duct. Upper normal-size spleen. Stool throughout the colon questionable for constipation. His CA 19-9 from 06/10/20:357. From 09/13:1921. Recent CT scan of the chest and abdomen, from 09/22: Multiple pulmonary nodules are slightly increased in size since the previous study from 06/08. No major change in slightly enlarged and hypodense appearing diffuse pancreas and mild haziness along the posterior pancreatic margin. No focal lesion seen on the present exam, however the pancreas appears slightly heterogenous with abundant varices seen throughout the peripancreatic region, pancreas and upper abdomen. No change in the haziness in the peripancreatic region. Small left para aortic lymph nodes are essentially stable. No focal liver lesions seen. I shared the results with him. I was concerned about rising tumor marker and increasing pulmonary nodules. I suggested that he start back on the chemotherapy treatment. He has been restarted on Gemzar/ Abraxane since it had worked previously. He was started October 28. Since his baseline WBC count was low, he was started on Neulasta to prevent chemotherapy-induced neutropenic sepsis. He is here for cycle 3, day 1. He tolerated it well. CAT scan on 01/31: Stable pulmonary nodules. No new pulmonary nodules seen. Mild fatty infiltration of liver with portal vein thrombosis and cavernous transformation of portal vein, similar to previous study. There is diffuse haziness in the pancreatic head with heterogeneity, stable. The rest of the pancreas is slightly attenuated. Numerous collateral vessels are seen surrounding the pancreatic head and the upper abdomen. He was referred to [place], for a 2nd opinion. He saw Dr. Nicole Lees. Repeat imaging in mid March revealed new liver lesion and peritoneal disease. The CA 19/9 was down to 451 from 1355. However it went up to 2830 on 05/13. She offered him clinical trial versus retreatment with FOLFIRINOX. He elected to proceed with the latter. Received 1st cycle of FOLFIRINOX on 05/16. He did not tolerate it at all. I offered to dose reduce him to 75% of the chemotherapy doses. He was willing to try that. He tolerated it better. He received cycle 2 day 15 on 06/28. He was supposed to start cycle 3, however his blood count was noted to be low. Platelets were 54. He received 2 units of blood, a month ago.. His tumor marker CA 19-9 came down to 695, from 1990 which is encouraging. He received the 3rd cycle. Then wanted a break from treatment since July was his and his birthday month. He wanted to feel well for the holidays. I offered to restart him on the FOLFIRINOX however he is not too keen on doing that. He feels the treatment was rather tough on him. He took some time off, before deciding to restart it. pop reimaged with CT scan of the chest and abdomen pelvis. This was done on September 02 and revealed: Dilated intrahepatic duct and common bile duct with heterogeneous pancreatic head and body and ill-defined margins similar to previous study 03/23/2021. There are small peripancreatic lymph nodes which cannot be differentiated from the adjacent pancreatic head and uncinate process. However, there is no enlarging mass or lymph nodes seen. There is diffuse ascites and haziness throughout the peritoneum likely secondary to ascites and mesenteric edema. No liver lesions seen. Adrenal glands are normal. Right pulmonary nodules seen on March [address] are no longer seen. No new pulmonary nodules. l followed up on his tumor marker as well. CA 19-9: 632. From 08/01: 695. I explained to him that the imaging appears to reveal stable disease. Tumor markers have come down which is a good sign. I would like to restart him on the chemotherapy regimen to continue to achieve a response. He said he would like to give it some thought. He restarted on his treatment. He had imaging done after completing 6 cycles. These were done on 12/02: Stable central intrahepatic biliary duct and extrahepatic biliary duct dilatation. Stable diffuse low-attenuation appearance of the pancreas continuous with abnormal low-attenuation soft tissue surrounding the celiac axis, SMV and SMA and upper retroperitoneum adjacent to the abdominal aorta, left adrenal gland and left renal veins and third portion of duodenum. Occluded splenic vein, distal SMV and portosplenic confluence/extrahepatic main portal vein. The more distal hepatic main portal vein and right and left hepatic veins are patent. Small amount of ascites. Interval decrease in peritoneal nodule inferior to the right lobe of the liver. Constipation. Stable scarring or subsegmental atelectasis in the left lower lobe. No pulmonary nodules seen. CA 19-9:1450. Previously 2315. It is reassuring that things are stable, little bit better. He had the upper endoscopy. This revealed some varices which were banded. His hemoglobin appears to have stabilized since then. That is a good sign, the banding has helped to prevent further oozing. He feels that the break from chemotherapy last week has helped him recuperate somewhat from the side effects. He would actually like to hold off on further treatment and have a longer break from it. He said he will wait for the next set of images and then decide when to resume. Meanwhile his abdomen is more uncomfortable now. Last time been an ultrasound was done there was not much fluid to drain. PLAN: Will give him a few weeks break from the treatment since he is getting very tired. I will proceed with an ultrasound of the abdomen to look for any evidence of ascites that can be tapped to make him more comfortable. Will order CT scan of the chest and abdomen, for next month. He will return for weekly labs this to ensure that he does not need a blood transfusion. He does not eat any refills at the present time but he will let me know in case he does. Thank you, CC: Dr. Karina Ochoa, at [place]. Dr. Abel Woodard at [facility]. Gen. Dr. East. - Time Spent With Patient Time Spent with Patient (in minutes): 30
--- NOTE | 2022-01-03 13:44 | MHC.HEMONCMA ---
Pt was in for follow up. Clinical summary reviewed and updated, VSS. Labs were drawn. US sent to [facility].
--- NOTE | 2022-01-17 10:09 | MHC.HEMONC ---
Per Radiologist - pt does not need therapeutic paracentisis at this time per u/s last week. Pt has been advised.
[2022-01-18 11:29] LABS: MANUAL DIFF FLAG NO
[2022-01-18 11:51] LABS: Basophils Percent Auto 0.9 % (0-2); Eosinophils Absolute Auto 0.1 X10*3/uL (0.0-0.4); Eosinophils Percent Auto 1.9 % (0-4); Hemoglobin 8.7 g/dl (14.0-18.0); Imm Gran Abs Auto 0.01 X10*3/uL (0.00-0.03); Imm Gran Pct Auto 0.3 % (0.0-0.4); Lymphocytes Absolute Auto 0.5 X10*3/uL (1.2-4.9); Lymphocytes Percent Auto 15.9 % (20-40); Mean Corpuscular HGB Conc 31.1 g/dl (31.0-36.0); Mean Corpuscular Hemoglobin 28.2 pg (27.0-33.0); Mean Corpuscular Volume 90.6 fL (80.0-98.0); Mean Platelet Volume 11.2 fL (9.4-12.4); Monocytes Absolute Auto 0.4 X10*3/uL (0.1-1.2); Monocytes Percent Auto 13.7 % (2-11); Neutrophils Absolute Auto 2.2 x10*3/uL (2.0-8.3); Neutrophils Percent Auto 67.3 % (45-73); Red Blood Count 3.09 X10*6/uL (4.60-5.80); Red Cell Distribution Width 18.5 % (11.0-16.0); White Blood Count 3.2 X10*3/uL (4.8-10.8)
[2022-01-18 11:55] LABS: Platelet Count 79 X10*3/uL (160-400)
[2022-01-18 12:01] LABS: Alanine Aminotransferase 16 U/L (0-40); Albumin Level 3.8 g/dL (3.5-5.0); Alkaline Phosphatase 64 U/L (39-117); Anion Gap 9 (12-20); Aspartate Amino Transferase 34 U/L (5-37); Bilirubin Total 0.8 mg/dL (0.0-1.0); Blood Urea Nitrogen 9 mg/dL (9-16); Calcium 9.2 mg/dL (8.4-10.2); Carbon Dioxide 27 mmol/L (22-29); Chloride 106 mmol/L (96-108); Creatinine Clr Calc Pharmacy 113.8; Estimated Glomerular Filt Rate > 60; Glucose Random 136 mg/dL (60-115); Potassium 4.3 mmol/L (3.3-5.1); Sodium 138 mmol/L (135-145); Total Protein 7.2 g/dL (6.5-8.0)
--- NOTE | 2022-01-18 14:38 | MHC.HEMONC ---
Here for port flush and labs. tolerated well. pt aware of next port flush appointment in 2 months.
[2022-01-20 12:15] LABS: Carbohydrate Antigen 19-9 351 U/mL (<34)
--- NOTE | 2022-02-27 10:58 | MHC.HEMONC ---
Pt notified me that he is feeling abdominal distention and increase in back pain. Dr Otoole booked u/s and order given to Verito. She will also order CTs which are due. Pt to come in for labs and port flush tomorrow.
--- NOTE | 2022-02-27 11:51 | HO.HEMONCSCH ---
CT scan and US sent to [facility].
--- NOTE | 2022-02-27 16:18 | HO.HEMONCSCH ---
Spoke with pt informed him of appt for US tomorrow at 930 for fluid check and then on sunday03/01/22 at 1pm, and he is to go to [facility] for 12pm. Pt is aware.
--- NOTE | 2022-02-28 10:41 | PM.HEMONCPN ---
Medical Summary - Medical Summary Date of Service: 02/28/22 Chief complaint: Follow-up for: Pancreatic carcinoma. Medical Summary: DIAGNOSIS: 1. Pancreatc Carcinoma. 2. Pancytopenia. CURRENT THERAPY: Started on Folfirinox, 03/11. Completed 6 cycles, August. Completed XRT November 07 in [place]. He was unable to get capecitabine on account of thrombocytopenia. On Gemzar Abraxane, started January 06. Completed cycle 6 on 06/20/19. Completed cycle 7, July 16, 2019. Took a break from treatment, after that. Restarted Gemzar Abraxane for disease progression, 10/28/20. Cycle 3, day 11 on 01/07/21. He then elected to stop. He was referred to [place], for a 2nd opinion. He saw Dr. Nicole Lees. Repeat imaging in mid March revealed new liver lesion and peritoneal disease. She offered him clinical trial versus retreatment with FOLFIRINOX. He elected to proceed with the latter. Received 1 cycle of FOLFIRINOX on 05/16/21. He received cycle 2 d 15, on 06/28. He took a break for the month of July. Started cycle 3 day 1 on 09/20/2021. Received cycle 3 day 15, 10/04/2021. He recieved 5th cycle on 12/06. Interval History Interval history: This is a pleasant 51 year-old gentleman, here for a follow-up visit. He has elected to take a break from treatment. That has really helped. His energy level has been better. However with a past couple of weeks, he has noted abdominal distension and pressure to its the back. His belly feels uncomfortable. He has been taking oxycodone mostly at night, which helps him. He has early satiety. He can eat only a minimum amount of food. He then feels full. He denies local tenderness in the abdomen. He denies any nausea or vomiting. No heartburn indigestion. He stopped taking omeprazole since he felt the symptoms were worsening. He has noticed that he has urge to move his bowels but when he actually goes to push there is nothing there. He has been taking dicyclomine and Creon. He takes oxycodone to help him sleep at night. His weight is stable. He denies any chest pain or shortness of breath on exertion. No headache nor dizziness. He has started exercising again. His stamina has improved. He is working only on the weekends. He is in good spirits. Rest of the review of systems is unremarkable. He underwent an upper endoscopy and colonoscopy on 12/[address] Crespo. Esophagus: GE junction at 45 cm, diaphragm hiatus at 45 cm, 4 cords of grade III esophageal varices seen with some red squires. Beekeeper Farmer was applied and 4 bands were placed on the varices with collapse. Stomach: Normal mucosa. Biopsies were obtained. 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 Findings: Terminal Ileum-not intubated Cecum:normal Ascending Colon: normal Transverse Colon -normal Descending Colon:normal Sigmoid Colon: normal Previous history: 1. After his 1st cycle of FOLFIRINOX he was knocked down for a loop. He could not eat. He lost weight. He was 235 and went down to 225. His nausea was manageable. He could control it with Zofran and Decadron, however he had bad belly ache. He felt he was having cramps. As if there was a burning hole in the stomach. His stomach felt unsettled. Only thing that could comfort him was laying down in a hot tub. He had 3 sleepless nights. He did have some diarrhea but that was expected. He did try to stay hydrated. He took popsicles and Jell-O. Overall he felt miserable. 2. He had upper endoscopy and colonoscopy by Dr. Crespo, in the spring,which was negative. 3. Back in June of 2020 he contracted COVID-19. However his symptoms were quite mild, only lasted a day and a half and then he recovered. He did receive the COVID vaccines and booster. 3. He had opted to take the month of July off from chemotherapy. He had been doing well however he has some of the same complaints. Review of Systems - Constitutional Reports system reviewed and no additional complaints, except as documented - Eyes Reports system reviewed and no additional complaints, except as documented - ENT Reports system reviewed and no additional complaints, except as documented - Cardiovascular Reports system reviewed and no additional complaints, except as documented - Respiratory Reports no additional respiratory complaints - Gastrointestinal Reports system reviewed and no additional complaints, except as documented - Genitourinary Genitourinary: Reports no additional male genitourinary complaints - Musculoskeletal Reports system reviewed and no additional complaints, except as documented - Integumentary/Breasts Skin/Breast: Reports no additional skin complaints - Neurologic Reports system reviewed and no additional complaints, except as documented, Reports hearing normal, Denies weakness - Psychiatric Reports system reviewed and no additional complaints, except as documented - Endocrine Reports no additional endocrine complaints - Hematologic/Lymphatic Reports system reviewed and no additional complaints, except as documented - Allergic/Immunologic Reports system reviewed and no additional complaints, except as documented PMFSH Medical History: Medical History (Last Reviewed 02/28/22 @ 10:28 by Avelino Hernandez RN) Anemia Diabetes mellitus Functional capacity: independent ambulation Patient : No Family History: Family History (Last Reviewed 02/28/22 @ 10:28 by Avelino Hernandez RN) Mother Diabetes Surgical History: Surgical History (Last Reviewed 02/28/22 @ 10:28 by Avelino Hernandez RN) H/O hernia repair History of esophagogastroduodenoscopy (EGD) Hx of colonoscopy Social History: Social History (Last Reviewed 02/28/22 @ 10:28 by Avelino Hernandez RN) Living Situation History: Household Members: Spouse Household Members: Children Housing: House Are you a primary palliative care physician to a significant other at home: No Do you presently have visiting nurse or other home services: No Tobacco History: Patient Tobacco Use Status: Never used Tobacco Occupation Assessmet: service: No Current occupational status: employed Current occupational status: unemployed Oncology Screenings - ECOG Performance Status ECOG Performance Status: 0 Home Medications and Allergies Home Medications Medication Instructions Recorded Confirmed Type insulin glargine 100 unit/mL (3 14 unit subcut BEDTIME 06/10/20 02/28/22 History mL) subcutaneous pen (Lantus Solostar U-100 Insulin) metformin 500 mg tablet,extended 2,000 mg PO DAILY 06/10/20 02/28/22 History release 24 hr multivitamin 1 tab PO DAILY 10/14/20 02/28/22 History tadalafil 5 mg tablet 5 mg PO DAILY PRN Sexual Activity 09/16/21 02/28/22 History dexamethasone 4 mg tablet 4 mg PO BID 09/20/21 02/28/22 History dicyclomine 10 mg capsule 2 cap PO QID 09/20/21 02/28/22 History Allergies Allergy/AdvReac Type Severity Reaction Status Date / Time No Known Allergies Allergy Verified 01/03/22 10:50 [No Known Allergies*] Exam Vital signs: Vital Signs Temp 97.4 F 01/03/22 10:43 Pulse 66 01/03/22 10:43 Resp 14 01/03/22 10:43 BP 129/69 01/03/22 10:43 Pulse Ox 100 01/03/22 10:43 O2 Del Method 01/03/22 10:43 Weight 100 kg BMI result Body Mass Index 28.3 - Constitutional Present: no acute distress - Routine HEENT Exam Head: Present: normal inspection Eye: Present: normal appearance ENT: Present: mucous membranes moist - Routine Neck Exam Present: full ROM - Routine Respiratory Exam Present: CTAB - Routine Cardiovascular Exam Cardiovascular: Present: RRR, S1, murmur - Routine Abdominal Exam Present: distended, firm, guarding, soft, tenderness, nontender - Routine Extremities Exam Present: nontender - Routine Back/Spine/Pelvis Exam Back/Spine: Present: full ROM - Routine Skin Exam Present: intact - Routine Neurological Exam Present: alert, oriented X3 - Detailed Neurological Exam: Coma Scale Eye Opening: Spontaneous (4) - Routine Psychiatric Exam Present: normal affect Data - Labs CBC & Chem 7: 01/18/22 11:25 01/18/22 11:25 Assessment and Plan Patient Active problem list reviewed?: Yes (1) Pancreatic cancer Status: Acute Assessment and plan: This is a pleasant 49 year-old gentleman, with the diagnosis of Pancreatic Adenocarcinoma involving the body and tail, in January of 2018. He had an extensive tumor burden. Mass encasing and obstructing the SMV, splenic vein and proximal portal vein. Infiltrative soft tissue between the aorta and IVC and into the kareem hepatis. Bilateral adrenal nodules and bilateral pulmonary nodules. He completed 6-1/2 cycles of FOLFIRINOX. Subsequent imaging appeared improved. However, at that point the patient was deemed unresectable. He subsequently had radiation which she completed November 07. He did well through the treatment. He did not have many side effects. He was clinically asymptomatic. However, CAT scan of the abdomen November, revealed: Increase in size of the left adrenal nodule to 32 mm from 28 mm. Also noted was slight increase in the size of the pancreatic mass 35 x 83 mm previously 34 x 18 mm. I decided to pick the regimen: Gemzar and Abraxane based chemotherapy. He started January 06, 2019. He completed cycle 4 on April 25. He completed cycle 7 on July 16 2019. He tolerated it well. Subsequently he elected to take a break from treatment. He wants to be monitored along. Restaging CT scan of the abdomen pelvis and chest from January 29 revealed: Chest: No evidence of metastatic disease. Stable left adrenal lesion. Fatty liver. Slightly enlarged prostate gland. Abdomen and pelvis: Stable low-attenuation soft tissue in the body of the pancreas continuous with abnormal low-attenuation soft tissue surrounding the celiac axis and SMA. Occluded splenic vein. Occluded distal SMV. Patent portal vein. Extensive peripancreatic varices. Previous imaging from October 01 revealed: Overall no significant change in the region of pancreatic head with significant collateral vessels/varices secondary to portal hypertension. The splenic vein is not seen. The portal vein is opacified to the level of pancreatic head. The spleen is heterogenous but normal size. There is no ascites seen at this time. However, there is mild haziness in bilateral paracolic gutter likely congestion. His GI complaints have resolved with the Creon. He has been feeling well. He has been working over the winter. CT chest and abdomen from 06/19/2020: Chest: New small pulmonary nodules. The largest measures 3 x 6 mm in the right lower lobe. Abdomen and pelvis: Stable low-attenuation in the body of the pancreas continuous with abnormal soft tissue surrounding the celiac axis, SMA and SMV, thickening of the bilateral anterior pararenal fascia and soft tissues surrounding the duodenum and left adrenal nodule. Occluded splenic vein, and distal SMV and extensive varices. Fatty liver. Stable mild dilatation of the common bile duct. Upper normal-size spleen. Stool throughout the colon questionable for constipation. His CA 19-9 from 06/10/20:357. From 09/13:1921. Recent CT scan of the chest and abdomen, from 09/22: Multiple pulmonary nodules are slightly increased in size since the previous study from 06/08. No major change in slightly enlarged and hypodense appearing diffuse pancreas and mild haziness along the posterior pancreatic margin. No focal lesion seen on the present exam, however the pancreas appears slightly heterogenous with abundant varices seen throughout the peripancreatic region, pancreas and upper abdomen. No change in the haziness in the peripancreatic region. Small left para aortic lymph nodes are essentially stable. No focal liver lesions seen. I shared the results with him. I was concerned about rising tumor marker and increasing pulmonary nodules. I suggested that he start back on the chemotherapy treatment. He has been restarted on Gemzar/ Abraxane since it had worked previously. He was started October 28. Since his baseline WBC count was low, he was started on Neulasta to prevent chemotherapy-induced neutropenic sepsis. He is here for cycle 3, day 1. He tolerated it well. CAT scan on 01/31: Stable pulmonary nodules. No new pulmonary nodules seen. Mild fatty infiltration of liver with portal vein thrombosis and cavernous transformation of portal vein, similar to previous study. There is diffuse haziness in the pancreatic head with heterogeneity, stable. The rest of the pancreas is slightly attenuated. Numerous collateral vessels are seen surrounding the pancreatic head and the upper abdomen. He was referred to [place], for a 2nd opinion. He saw Dr. Nicole Lees. Repeat imaging in mid March revealed new liver lesion and peritoneal disease. The CA 19/9 was down to 451 from 1355. However it went up to 2830 on 05/13. She offered him clinical trial versus retreatment with FOLFIRINOX. He elected to proceed with the latter. Received 1st cycle of FOLFIRINOX on 05/16. He did not tolerate it at all. I offered to dose reduce him to 75% of the chemotherapy doses. He was willing to try that. He tolerated it better. He received cycle 2 day 15 on 06/28. He was supposed to start cycle 3, however his blood count was noted to be low. Platelets were 54. He received 2 units of blood, a month ago.. His tumor marker CA 19-9 came down to 695, from 1990 which is encouraging. He received the 3rd cycle. Then wanted a break from treatment since July was his and his birthday month. He wanted to feel well for the holidays. I offered to restart him on the FOLFIRINOX however he is not too keen on doing that. He feels the treatment was rather tough on him. He took some time off, before deciding to restart it. l reimaged with CT scan of the chest and abdomen pelvis. This was done on September 02 and revealed: Dilated intrahepatic duct and common bile duct with heterogeneous pancreatic head and body and ill-defined margins similar to previous study 03/23/2021. There are small peripancreatic lymph nodes which cannot be differentiated from the adjacent pancreatic head and uncinate process. However, there is no enlarging mass or lymph nodes seen. There is diffuse ascites and haziness throughout the peritoneum likely secondary to ascites and mesenteric edema. No liver lesions seen. Adrenal glands are normal. Right pulmonary nodules seen on March [address] are no longer seen. No new pulmonary nodules. l followed up on his tumor marker as well. CA 19-9: 632. From 08/01: 695. I explained to him that the imaging appears to reveal stable disease. Tumor markers have come down which is a good sign. I would like to restart him on the chemotherapy regimen to continue to achieve a response. He said he would like to give it some thought. He restarted on his treatment. He had imaging done after completing 6 cycles. These were done on 12/02: Stable central intrahepatic biliary duct and extrahepatic biliary duct dilatation. Stable diffuse low-attenuation appearance of the pancreas continuous with abnormal low-attenuation soft tissue surrounding the celiac axis, SMV and SMA and upper retroperitoneum adjacent to the abdominal aorta, left adrenal gland and left renal veins and third portion of duodenum. Occluded splenic vein, distal SMV and portosplenic confluence/extrahepatic main portal vein. The more distal hepatic main portal vein and right and left hepatic veins are patent. Small amount of ascites. Interval decrease in peritoneal nodule inferior to the right lobe of the liver. Constipation. Stable scarring or subsegmental atelectasis in the left lower lobe. No pulmonary nodules seen. CA 19-9:1450. Previously 2315. It is reassuring that things are stable, little bit better. He had the upper endoscopy. This revealed some varices which were banded. His hemoglobin appears to have stabilized since then. That is a good sign, the banding has helped to prevent further oozing. He feels that the break from chemotherapy last week has helped him recuperate somewhat from the side effects. He would actually like to hold off on further treatment and have a longer break from it. He said he will wait for the next set of images and then decide when to resume. Meanwhile his abdomen is more uncomfortable now. Last time been an ultrasound was done there was not much fluid to drain. Patient wanted to take a break from the treatment since he was getting very tired. Database: 02/28: CBC: WBC 2.3, HGB 8.6, HCT 27.7, PLT 91. CMP: Lytes WNL, glucose 189, BUN 13, LEAD PERFORMANCE SUPPORT ANALYST 1.25. LFTs: 0.7/ 36/31/11. Ca 19/9: From December was 634. From January 18 was 351. He has been doing well. Over the last couple of weeks he noted some abdominal and flank pain. He feels he is getting fluid buildup the abdomen. PLAN: I proceeded with an ultrasound of the abdomen to look for any evidence of ascites that can be tapped to make him more comfortable. He just had that done. FINDINGS/IMPRESSION: Imaging through the 4 quadrants of the abdomen reveals small amount of fluid probably 500 mL or less. Recommend waiting for one or 2 more weeks for the fluid to be drained. If patient is very uncomfortable this could be secondary to other GI tissues. The fluid is not significant at this time. Unfortunately not enough ascites to drain at this point. Will order CT scan of the chest and abdomen, for later in the week. I offered to refer him to [place] for clinic trial based therapy. However he wants to wait till after the CT scans are done. He will return for monthly labs. Thank you, CC: Dr. Anant Pereira. at [place]. Dr. Abel Woodard at [facility]. Gen. Dr. East. - Time Spent With Patient Time Spent with Patient (in minutes): 30
--- NOTE | 2022-02-28 13:49 | MHC.HEMONC ---
Pt was in for f/u labs and port flush, reports being in good spirits, having more discomfort from growing abd ascites, but has an U/S paracentesis scheduled for tomorrow. Nurse accessed pt's R chest port w/ 20g, 3/4 del rio needle, found positive blood return, collected labs via port, then flushed w/ NS and heparin 500 units, then de-accessed port. Dr. Otoole came in to meet w/ pt for f/u appt. 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 Pt was booked for f/u appt and f/u labs/port flush on 04/07/22.
[2022-04-07 10:16] VITALS: BP 133/65; PULSE 62; RESP 14; TEMP 36.5; O2SAT 99; BMI 27.4
--- NOTE | 2022-04-07 10:27 | PM.HEMONCPN ---
Medical Summary - Medical Summary Date of Service: 04/07/22 Chief complaint: FOLLOW-UP FOR: PANCREATIC CARCINOMA. Medical Summary: DIAGNOSIS: 1. Pancreatc Carcinoma. 2. Pancytopenia. CURRENT THERAPY: Started on Folfirinox, 03/11. Completed 6 cycles, August. Completed XRT November 07 in [place]. He was unable to get capecitabine on account of thrombocytopenia. On Gemzar Abraxane, started January 06. Completed cycle 6 on 06/20/19. Completed cycle 7, July 16, 2019. Took a break from treatment, after that. Restarted Gemzar Abraxane for disease progression, 10/28/20. Cycle 3, day 11 on 01/07/21. He then elected to stop. He was referred to [place], for a 2nd opinion. He saw Dr. Nicole Lees. Repeat imaging in mid March revealed new liver lesion and peritoneal disease. She offered him clinical trial versus retreatment with FOLFIRINOX. He elected to proceed with the latter. Received 1 cycle of FOLFIRINOX on 05/16/21. He received cycle 2 d 15, on 06/28. He took a break for the month of July. Started cycle 3 day 1 on 09/20/2021. Received cycle 3 day 15, 10/04/2021. He recieved 5th cycle on 12/06. Interval History Interval history: This is a pleasant 51 year-old gentleman, here for a follow-up visit. He elected to take a break from treatment. That has helped. His energy level has improved. He still gets abdominal cramping from time to time. He gets bloated after eating. His belly is distended and firm. It is hard for him to have a full meal in the evening. He has early satiety. He can eat only a minimum amount of food. He then feels full. He has been taking oxycodone mostly at night, which helps him. He denies any nausea or vomiting. No heartburn indigestion. He stopped taking omeprazole since he felt the symptoms were worsening. He has good bowel movements. Sometimes he takes MiraLax. He gets occasional PAC pressure as well. He has been taking dicyclomine and Creon. He takes oxycodone to help him sleep at night. His weight is stable. He denies any chest pain or shortness of breath on exertion. No headache nor dizziness. He has started exercising again. His stamina has improved. He is working at [employer] 2 days a week. He does nights. He is in good spirits. Rest of the review of systems is unremarkable. He underwent an upper endoscopy and colonoscopy on 12/[address] Crespo. Esophagus: GE junction at 45 cm, diaphragm hiatus at 45 cm, 4 cords of grade III esophageal varices seen with some red squires. Automotive Sales Specialist was applied and 4 bands were placed on the varices with collapse. Stomach: Normal mucosa. Biopsies were obtained. 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 Findings: Terminal Ileum-not intubated Cecum:normal Ascending Colon: normal Transverse Colon -normal Descending Colon:normal Sigmoid Colon: normal Previous history: 1. After his 1st cycle of FOLFIRINOX he was knocked down for a loop. He could not eat. He lost weight. He was 235 and went down to 225. His nausea was manageable. He could control it with Zofran and Decadron, however he had bad belly ache. He felt he was having cramps. As if there was a burning hole in the stomach. His stomach felt unsettled. Only thing that could comfort him was laying down in a hot tub. He had 3 sleepless nights. He did have some diarrhea but that was expected. He did try to stay hydrated. He took popsicles and Jell-O. Overall he felt miserable. 2. He had upper endoscopy and colonoscopy by Dr. Crespo, in the spring,which was negative. 3. Back in June of 2020 he contracted COVID-19. However his symptoms were quite mild, only lasted a day and a half and then he recovered. He did receive the COVID vaccines and booster. 3. He had opted to take the month of July off from chemotherapy. He had been doing well however he has some of the same complaints. Review of Systems - Constitutional Reports no additional constitutional complaints, Denies lack of energy, Denies malaise, Denies night sweats, Denies poor appetite, Denies weight loss - Eyes Reports no additional eye complaints - ENT Reports no additional ear, nose, mouth, and throat complaints - Cardiovascular Reports no additional cardiovascular complaints - Respiratory Reports no additional respiratory complaints - Gastrointestinal Reports no additional gastrointestinal complaints - Genitourinary Genitourinary: Reports no additional male genitourinary complaints - Musculoskeletal Reports no additional musculoskeletal complaints - Integumentary/Breasts Skin/Breast: Reports no additional skin complaints - Neurologic Reports no additional neurologic complaints, Reports hearing normal, Denies weakness - Psychiatric Reports no additional psychiatric complaints - Endocrine Reports no additional endocrine complaints - Hematologic/Lymphatic Reports no additional hematologic/lymphatic complaints - Allergic/Immunologic Reports no additional allergic/immunologic complaints PMFSH Medical History: Medical History (Last Reviewed 04/07/22 @ 10:21 by Verito Freedman CMA) Anemia Diabetes mellitus Functional capacity: independent ambulation Patient : No Family History: Family History (Last Reviewed 04/07/22 @ 10:21 by Verito Freedman CMA) Mother Diabetes Surgical History: Surgical History (Last Reviewed 04/07/22 @ 10:21 by Verito Freedman CMA) H/O hernia repair History of esophagogastroduodenoscopy (EGD) Hx of colonoscopy Social History: Social History (Last Reviewed 04/07/22 @ 10:21 by Verito Freedman CMA) Living Situation History: Household Members: Spouse Household Members: Children Housing: House Are you a primary care team coordinator scheduler to a significant other at home: No Do you presently have visiting nurse or other home services: No Alcohol History Details: 1. How often do you have a drink containing alcohol?: b. Monthly or less 2. How many drinks containing alcohol do you have on a typical day when you are drinking?: a. 1 or 2 Tobacco History: Patient Tobacco Use Status: Never used Tobacco Substance Use History: Use of substances other than those prescribed or required for medical reasons: No Domestic Abuse History: Have you been hit, kicked, punched, or otherwise hurt by someone within the past year? If so, by whom?: No Do you feel safe in your current relationship?: Yes Advance Directives: Advance Directives: No Advance Directives Information Provided: No Homicidal Assessment: Do you have thoughts of harming others: None Do you have a plan to hurt others: No Plan Do you have the means to hurt others: No Nutrition Assessment: Recently lost weight without trying: No Patient : No Occupation Assessmet: service: No Current occupational status: employed Current occupational status: unemployed Home Medications and Allergies Home Medications Medication Instructions Recorded Confirmed Type insulin glargine 100 unit/mL (3 14 unit subcut BEDTIME 06/10/20 04/07/22 History mL) subcutaneous pen (Lantus Solostar U-100 Insulin) metformin 500 mg tablet,extended 2,000 mg PO DAILY 06/10/20 04/07/22 History release 24 hr multivitamin 1 tab PO DAILY 10/14/20 04/07/22 History tadalafil 5 mg tablet 5 mg PO DAILY PRN Sexual Activity 09/16/21 04/07/22 History dexamethasone 4 mg tablet 4 mg PO BID 09/20/21 04/07/22 History dicyclomine 10 mg capsule 2 cap PO QID 09/20/21 04/07/22 History Allergies Allergy/AdvReac Type Severity Reaction Status Date / Time No Known Allergies Allergy Verified 04/07/22 10:21 [No Known Allergies*] Exam Vital signs: Vital Signs Temp 97.7 F 04/07/22 10:16 Pulse 62 04/07/22 10:16 Resp 14 04/07/22 10:16 BP 133/65 04/07/22 10:16 Pulse Ox 99 04/07/22 10:16 O2 Del Method 04/07/22 10:16 Intake & Output 04/06/22 04/07/22 04/07/22 18:59 06:59 18:59 Other: Weight 97.1 kg Weight in Grams 54337 Weight 97.1 kg BMI result Body Mass Index 27.4 - Constitutional Present: no acute distress - Routine HEENT Exam Head: Present: normal inspection Eye: Present: normal appearance ENT: Present: mucous membranes moist - Routine Neck Exam Present: full ROM - Routine Respiratory Exam Present: CTAB - Routine Cardiovascular Exam Cardiovascular: Present: RRR, S1, murmur - Routine Abdominal Exam Present: distended, firm, guarding, soft, tenderness, nontender - Routine Extremities Exam Present: nontender - Routine Back/Spine/Pelvis Exam Back/Spine: Present: full ROM - Routine Skin Exam Present: intact - Routine Neurological Exam Present: alert, oriented X3 - Detailed Neurological Exam: Coma Scale Eye Opening: Spontaneous (4) - Routine Psychiatric Exam Present: normal affect Data - Labs CBC & Chem 7: 04/07/22 10:30 04/07/22 10:30 Assessment and Plan Patient Active problem list reviewed?: Yes (1) Pancreatic cancer Status: Acute Assessment and plan: This is a pleasant 49 year-old gentleman, with the diagnosis of Pancreatic Adenocarcinoma involving the body and tail, in January of 2018. He had an extensive tumor burden. Mass encasing and obstructing the SMV, splenic vein and proximal portal vein. Infiltrative soft tissue between the aorta and IVC and into the kareem hepatis. Bilateral adrenal nodules and bilateral pulmonary nodules. He completed 6-1/2 cycles of FOLFIRINOX. Subsequent imaging appeared improved. However, at that point the patient was deemed unresectable. He subsequently had radiation which she completed November 07. He did well through the treatment. He did not have many side effects. He was clinically asymptomatic. However, CAT scan of the abdomen November, revealed: Increase in size of the left adrenal nodule to 32 mm from 28 mm. Also noted was slight increase in the size of the pancreatic mass 35 x 83 mm previously 34 x 18 mm. I decided to pick the regimen: Gemzar and Abraxane based chemotherapy. He started January 06, 2019. He completed cycle 4 on April 25. He completed cycle 7 on July 16 2019. He tolerated it well. Subsequently he elected to take a break from treatment. He wants to be monitored along. Restaging CT scan of the abdomen pelvis and chest from January 29 revealed: Chest: No evidence of metastatic disease. Stable left adrenal lesion. Fatty liver. Slightly enlarged prostate gland. Abdomen and pelvis: Stable low-attenuation soft tissue in the body of the pancreas continuous with abnormal low-attenuation soft tissue surrounding the celiac axis and SMA. Occluded splenic vein. Occluded distal SMV. Patent portal vein. Extensive peripancreatic varices. Previous imaging from October 01 revealed: Overall no significant change in the region of pancreatic head with significant collateral vessels/varices secondary to portal hypertension. The splenic vein is not seen. The portal vein is opacified to the level of pancreatic head. The spleen is heterogenous but normal size. There is no ascites seen at this time. However, there is mild haziness in bilateral paracolic gutter likely congestion. His GI complaints have resolved with the Creon. He has been feeling well. He has been working over the winter. CT chest and abdomen from 06/19/2020: Chest: New small pulmonary nodules. The largest measures 3 x 6 mm in the right lower lobe. Abdomen and pelvis: Stable low-attenuation in the body of the pancreas continuous with abnormal soft tissue surrounding the celiac axis, SMA and SMV, thickening of the bilateral anterior pararenal fascia and soft tissues surrounding the duodenum and left adrenal nodule. Occluded splenic vein, and distal SMV and extensive varices. Fatty liver. Stable mild dilatation of the common bile duct. Upper normal-size spleen. Stool throughout the colon questionable for constipation. His CA 19-9 from 06/10/20:357. From 09/13:1921. Recent CT scan of the chest and abdomen, from 09/22: Multiple pulmonary nodules are slightly increased in size since the previous study from 06/08. No major change in slightly enlarged and hypodense appearing diffuse pancreas and mild haziness along the posterior pancreatic margin. No focal lesion seen on the present exam, however the pancreas appears slightly heterogenous with abundant varices seen throughout the peripancreatic region, pancreas and upper abdomen. No change in the haziness in the peripancreatic region. Small left para aortic lymph nodes are essentially stable. No focal liver lesions seen. I shared the results with him. I was concerned about rising tumor marker and increasing pulmonary nodules. I suggested that he start back on the chemotherapy treatment. He has been restarted on Gemzar/ Abraxane since it had worked previously. He was started October 28. Since his baseline WBC count was low, he was started on Neulasta to prevent chemotherapy-induced neutropenic sepsis. He is here for cycle 3, day 1. He tolerated it well. CAT scan on 01/31: Stable pulmonary nodules. No new pulmonary nodules seen. Mild fatty infiltration of liver with portal vein thrombosis and cavernous transformation of portal vein, similar to previous study. There is diffuse haziness in the pancreatic head with heterogeneity, stable. The rest of the pancreas is slightly attenuated. Numerous collateral vessels are seen surrounding the pancreatic head and the upper abdomen. He was referred to [place], for a 2nd opinion. He saw Dr. Nicole Lees. Repeat imaging in mid March revealed new liver lesion and peritoneal disease. The CA 19/9 was down to 451 from 1355. However it went up to 2830 on 05/13. She offered him clinical trial versus retreatment with FOLFIRINOX. He elected to proceed with the latter. Received 1st cycle of FOLFIRINOX on 05/16. He did not tolerate it at all. I offered to dose reduce him to 75% of the chemotherapy doses. He was willing to try that. He tolerated it better. He received cycle 2 day 15 on 06/28. He was supposed to start cycle 3, however his blood count was noted to be low. Platelets were 54. He received 2 units of blood, a month ago.. His tumor marker CA 19-9 came down to 695, from 1990 which is encouraging. He received the 3rd cycle. Then wanted a break from treatment since July was his and his birthday month. He wanted to feel well for the holidays. I offered to restart him on the FOLFIRINOX however he is not too keen on doing that. He feels the treatment was rather tough on him. He took some time off, before deciding to restart it. l reimaged with CT scan of the chest and abdomen pelvis. This was done on September 02 and revealed: Dilated intrahepatic duct and common bile duct with heterogeneous pancreatic head and body and ill-defined margins similar to previous study 03/23/2021. There are small peripancreatic lymph nodes which cannot be differentiated from the adjacent pancreatic head and uncinate process. However, there is no enlarging mass or lymph nodes seen. There is diffuse ascites and haziness throughout the peritoneum likely secondary to ascites and mesenteric edema. No liver lesions seen. Adrenal glands are normal. Right pulmonary nodules seen on March [address] are no longer seen. No new pulmonary nodules. l followed up on his tumor marker as well. CA 19-9: 632. From 08/01: 695. I explained to him that the imaging appears to reveal stable disease. Tumor markers have come down which is a good sign. I would like to restart him on the chemotherapy regimen to continue to achieve a response. He said he would like to give it some thought. He restarted on his treatment. He had imaging done after completing 6 cycles. These were done on 12/02: Stable central intrahepatic biliary duct and extrahepatic biliary duct dilatation. Stable diffuse low-attenuation appearance of the pancreas continuous with abnormal low-attenuation soft tissue surrounding the celiac axis, SMV and SMA and upper retroperitoneum adjacent to the abdominal aorta, left adrenal gland and left renal veins and third portion of duodenum. Occluded splenic vein, distal SMV and portosplenic confluence/extrahepatic main portal vein. The more distal hepatic main portal vein and right and left hepatic veins are patent. Small amount of ascites. Interval decrease in peritoneal nodule inferior to the right lobe of the liver. Constipation. Stable scarring or subsegmental atelectasis in the left lower lobe. No pulmonary nodules seen. CA 19-9:1450. Previously 2315. It is reassuring that things are stable, little bit better. He had the upper endoscopy. This revealed some varices which were banded. His hemoglobin appears to have stabilized since then. That is a good sign, the banding has helped to prevent further oozing. He feels that the break from chemotherapy last week has helped him recuperate somewhat from the side effects. He would actually like to hold off on further treatment and have a longer break from it. He said he will wait for the next set of images and then decide when to resume. Meanwhile his abdomen is more uncomfortable now. Last time been an ultrasound was done there was not much fluid to drain. Patient wanted to take a break from the treatment since he was getting very tired. Database: 02/28: CBC: WBC 2.3, HGB 8.6, HCT 27.7, PLT 91. CMP: Lytes WNL, glucose 189, BUN 13, PERSONNEL CLERKS SUPERVISOR 1.25. LFTs: 0.7/ //. Ca 19/9: From December was 634. From January 18 was 351. He has been doing well. His belly is firm and distended. Sometimes he feels bloated.. I proceeded with an ultrasound of the abdomen to look for any evidence of ascites that can be tapped to make him more comfortable. FINDINGS/IMPRESSION: Imaging through the 4 quadrants of the abdomen reveals small amount of fluid probably 500 mL or less. Recommend waiting for one or 2 more weeks for the fluid to be drained. If patient is very uncomfortable this could be secondary to other GI tissues. The fluid is not significant at this time. Unfortunately not enough ascites to drain at this point. CT scan of the chest and abdomen from 03/09, revealed: Uremarkable CT chest exam with known pulmonary nodule seen. Diffuse ascites, dilated CBD and central right and left hepatic ducts are stable. Mild splenomegaly, stable. Low attenuation soft tissue densities surrounding the celiac axis, SMA, SMV appears unchanged. The splenic vein is not visualized. Distal portal vein is patent. There are moderate varicose veins present along the greater curvature of the stomach and the splenic hilum, likely portal hypertension. Small periportal lymph nodes are seen. Moderate mural thickening involving the distal stomach, duodenal bulb and the first segment of the duodenum is unchanged. There is some omental thickening but previously seen nodule inferior to right hepatic lobe is not distinctly visualized at this time. I shared the results of the above imaging with him. Things appeared more or less stable. He does not wish to resume chemotherapy at this point. He feels the chemo slow his body down. In addition he does not like the mental aspect of it. It gets on his nerves. He would rather continue the break. PLAN: I offered to refer him to [place] for clinic trial based therapy. However he wants to wait. He the appointment with Dr. Nicole Lees, in the near future. He will return in 1 month for a follow-up and port flush. Thank you, CC: Dr. Anant Pereira. at [facility]. Dr. Abel Woodard at [facility]. Gen. Dr. East. - Time Spent With Patient Time Spent with Patient (in minutes): 30
[2022-04-07 11:27] LABS: Basophils Percent Auto 0.8 % (0-2); Eosinophils Percent Auto 1.6 % (0-4); Hematocrit 28.7 % (42.0-52.0); Lymphocytes Absolute Auto 0.5 X10*3/uL (1.2-4.9); Lymphocytes Percent Auto 21.8 % (20-40); MANUAL DIFF FLAG SCAN; Mean Corpuscular HGB Conc 31.4 g/dl (31.0-36.0); Mean Corpuscular Hemoglobin 24.3 pg (27.0-33.0); Mean Corpuscular Volume 77.6 fL (80.0-98.0); Mean Platelet Volume 11.3 fL (9.4-12.4); Monocytes Absolute Auto 0.3 X10*3/uL (0.1-1.2); Monocytes Percent Auto 12.8 % (2-11); Neutrophils Absolute Auto 1.5 x10*3/uL (2.0-8.3); Red Cell Distribution Width 16.1 % (11.0-16.0); SCAN SMEAR FLAG 1
[2022-04-07 11:30] LABS: Platelet Count 74 X10*3/uL (160-400); White Blood Count 2.4 X10*3/uL (4.8-10.8)
--- NOTE | 2022-04-07 11:39 | MHC.HEMONCMA ---
Pt was in for follow up. Clinical summary reviewed and updated, VSS. Labs were drawn. Pt to return in 1 month.
[2022-04-07 11:56] LABS: Alanine Aminotransferase 17 U/L (0-40); Albumin Level 4.1 g/dL (3.5-5.0); Alkaline Phosphatase 62 U/L (39-117); Anion Gap 12 (12-20); Aspartate Amino Transferase 28 U/L (5-37); Blood Urea Nitrogen 16 mg/dL (9-16); Calcium 9.2 mg/dL (8.4-10.2); Carbon Dioxide 27 mmol/L (22-29); Chloride 102 mmol/L (96-108); Creatinine Clr Calc Pharmacy 83.9; Estimated Glomerular Filt Rate > 60; Glucose Random 144 mg/dL (60-115); Potassium 3.9 mmol/L (3.3-5.1); Sodium 137 mmol/L (135-145); Total Protein 8.1 g/dL (6.5-8.0)
[2022-04-07 11:58] LABS: SLIDE REVIEW VERIFIED
--- NOTE | 2022-04-07 15:41 | MHC.HEMONC ---
Pt was in for his Q6week port flush, f/u labs, and Onc f/u w/ Dr. Otoole. This nurse accessed pt's R implanted chest port w/ 20g, 3/4 del rio needle, flushed w/ NS, found positive blood return, then collected blood specimens, flushed w/ NS and heparin 500 units, then de-accessed port, all of which was well-tolerated by pt. Pt met w/ Dr. Otoole, booked next appt for f/u labs, port flush, and Onc f/u in 6 weeks, on 05/16/22, though he declined d/c packet.
[2022-04-10 14:17] LABS: Carbohydrate Antigen 19-9 2417 U/mL (<34)
--- NOTE | 2022-04-26 13:18 | MHC.HEMONC ---
Pt called to report increase in abdominal distention with pain in back. I will request order for u/s and paracentesis from Dr Otoole.
--- NOTE | 2022-04-27 11:12 | MHC.HEMONCMA ---
ENTER U/S ADB IN [place] TO DO AUTHORIZATION.
--- NOTE | 2022-04-27 13:19 | HO.HEMONCSCH ---
Spoke with pt informed him of US for sunday05/01/22 at 130, pt aware.
[2022-05-16 10:41] VITALS: BP 130/66; PULSE 70; RESP 12; TEMP 36.4; O2SAT 100; BMI 27.1
--- NOTE | 2022-05-16 10:46 | PM.HEMONCPN ---
Medical Summary - Medical Summary Date of Service: 05/16/22 Chief complaint: Follow-up for: Pancreatic carcinoma. Medical Summary: DIAGNOSIS: 1. Pancreatic Carcinoma. 2. Pancytopenia. CURRENT THERAPY: Started on Folfirinox, 03/11. Completed 6 cycles, August. Completed XRT November 07 in [place]. He was unable to get capecitabine on account of thrombocytopenia. On Gemzar Abraxane, started January 06. Completed cycle 6 on 06/20/19. Completed cycle 7, July 16, 2019. Took a break from treatment, after that. Restarted Gemzar Abraxane for disease progression, 10/28/20. Cycle 3, day 11 on 01/07/21. He then elected to stop. He was referred to [place], for a 2nd opinion. He saw Dr. Nicole Lees. Repeat imaging in mid March revealed new liver lesion and peritoneal disease. She offered him clinical trial versus retreatment with FOLFIRINOX. He elected to proceed with the latter. Received 1 cycle of FOLFIRINOX on 05/16/21. He received cycle 2 d 15, on 06/28. He took a break for the month of July. Started cycle 3 day 1 on 09/20/2021. Received cycle 3 day 15, 10/04/2021. He recieved 5th cycle on 12/06. Interval History Interval history: This is a pleasant 51 year-old gentleman, here for a follow-up visit. He elected to take a break from treatment. That has helped. His energy level has improved. He still gets abdominal cramping from time to time. He gets bloated after eating. His belly is distended and firm. He had an ultrasound guided paracentesis, a couple of weeks ago, with removal of 6 + liters of fluid. It is hard for him to have a full meal in the evening. He has early satiety. He can eat only a minimum amount of food. He then feels full. He has been taking oxycodone mostly at night, which helps him. He denies any nausea or vomiting. No heartburn indigestion. He stopped taking omeprazole since he felt the symptoms were worsening. He has good bowel movements. Sometimes he takes MiraLax. He gets occasional PAC pressure as well. He has been taking dicyclomine and Creon. He takes oxycodone to help him sleep at night. His weight is stable. He denies any chest pain or shortness of breath on exertion. No headache nor dizziness. He has started exercising again. His stamina has improved. He is working at [employer] 2 days a week. He does nights. He is in good spirits. Rest of the review of systems is unremarkable. He underwent an upper endoscopy and colonoscopy on 12/[address] Crespo. Esophagus: GE junction at 45 cm, diaphragm hiatus at 45 cm, 4 cords of grade III esophageal varices seen with some red squires. Family Practice Nurse Practitioner was applied and 4 bands were placed on the varices with collapse. Stomach: Normal mucosa. Biopsies were obtained. 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 Findings: Terminal Ileum-not intubated Cecum:normal Ascending Colon: normal Transverse Colon -normal Descending Colon:normal Sigmoid Colon: normal Previous history: 1. After his 1st cycle of FOLFIRINOX he was knocked down for a loop. He could not eat. He lost weight. He was 235 and went down to 225. His nausea was manageable. He could control it with Zofran and Decadron, however he had bad belly ache. He felt he was having cramps. As if there was a burning hole in the stomach. His stomach felt unsettled. Only thing that could comfort him was laying down in a hot tub. He had 3 sleepless nights. He did have some diarrhea but that was expected. He did try to stay hydrated. He took popsicles and Jell-O. Overall he felt miserable. 2. He had upper endoscopy and colonoscopy by Dr. Crepso, in the spring,which was negative. 3. Back in June of 2020 he contracted COVID-19. However his symptoms were quite mild, only lasted a day and a half and then he recovered. He did receive the COVID vaccines and booster. 3. He had opted to take the month of July off from chemotherapy. He had been doing well however he has some of the same complaints. Review of Systems - Constitutional Reports system reviewed and no additional complaints, except as documented - Eyes Reports system reviewed and no additional complaints, except as documented - ENT Reports system reviewed and no additional complaints, except as documented - Cardiovascular Reports system reviewed and no additional complaints, except as documented - Respiratory Reports no additional respiratory complaints - Gastrointestinal Reports system reviewed and no additional complaints, except as documented - Genitourinary Genitourinary: Reports no additional male genitourinary complaints - Musculoskeletal Reports system reviewed and no additional complaints, except as documented - Integumentary/Breasts Skin/Breast: Reports no additional skin complaints - Neurologic Reports system reviewed and no additional complaints, except as documented, Reports hearing normal, Denies weakness - Psychiatric Reports system reviewed and no additional complaints, except as documented - Endocrine Reports no additional endocrine complaints - Hematologic/Lymphatic Reports system reviewed and no additional complaints, except as documented - Allergic/Immunologic Reports system reviewed and no additional complaints, except as documented PMFSH Medical History: Medical History (Last Reviewed 05/16/22 @ 10:43 by Verito Freedman CMA) Anemia Diabetes mellitus Functional capacity: independent ambulation Patient : No Family History: Family History (Last Reviewed 05/16/22 @ 10:43 by Verito Freedman CMA) Mother Diabetes Surgical History: Surgical History (Last Reviewed 05/16/22 @ 10:43 by Verito Freedman CMA) H/O hernia repair History of esophagogastroduodenoscopy (EGD) Hx of colonoscopy Social History: Social History (Last Reviewed 05/16/22 @ 10:43 by Verito Freedman CMA) Living Situation History: Household Members: Spouse Household Members: Children Housing: House Are you a primary ocular care technologist to a significant other at home: No Do you presently have visiting nurse or other home services: No Alcohol History Details: 1. How often do you have a drink containing alcohol?: b. Monthly or less 2. How many drinks containing alcohol do you have on a typical day when you are drinking?: a. 1 or 2 Tobacco History: Patient Tobacco Use Status: Never used Tobacco Substance Use History: Use of substances other than those prescribed or required for medical reasons: No Domestic Abuse History: Have you been hit, kicked, punched, or otherwise hurt by someone within the past year? If so, by whom?: No Do you feel safe in your current relationship?: Yes Advance Directives: Advance Directives: No Advance Directives Information Provided: No Homicidal Assessment: Do you have thoughts of harming others: None Do you have a plan to hurt others: No Plan Do you have the means to hurt others: No Nutrition Assessment: Recently lost weight without trying: No Patient : No Occupation Assessmet: service: No Current occupational status: employed Current occupational status: unemployed Oncology Screenings - ECOG Performance Status ECOG Performance Status: 0 Home Medications and Allergies Home Medications Medication Instructions Recorded Confirmed Type insulin glargine 100 unit/mL (3 14 unit subcut BEDTIME 06/10/20 05/16/22 History mL) subcutaneous pen (Lantus Solostar U-100 Insulin) metformin 500 mg tablet,extended 2,000 mg PO DAILY 06/10/20 05/16/22 History release 24 hr multivitamin 1 tab PO DAILY 10/14/20 05/16/22 History tadalafil 5 mg tablet 5 mg PO DAILY PRN Sexual Activity 09/16/21 05/16/22 History dexamethasone 4 mg tablet 4 mg PO BID 09/20/21 05/16/22 History dicyclomine 10 mg capsule 2 cap PO QID 09/20/21 05/16/22 History Allergies Allergy/AdvReac Type Severity Reaction Status Date / Time No Known Allergies Allergy Verified 05/16/22 10:43 [No Known Allergies*] Exam Vital signs: Vital Signs Temp 97.5 F 05/16/22 10:41 Pulse 70 05/16/22 10:41 Resp 12 05/16/22 10:41 BP 130/66 05/16/22 10:41 Pulse Ox 100 05/16/22 10:41 O2 Del Method 05/16/22 10:41 Intake & Output 05/15/22 05/16/22 05/16/22 18:59 06:59 18:59 Other: Weight 95.8 kg Spruce Weight in Grams 09991 Weight 95.8 kg BMI result Body Mass Index 27.1 - Constitutional Present: no acute distress - Routine HEENT Exam Head: Present: normal inspection Eye: Present: normal appearance ENT: Present: mucous membranes moist - Routine Neck Exam Present: full ROM - Routine Respiratory Exam Present: CTAB - Routine Cardiovascular Exam Cardiovascular: Present: RRR, S1, murmur - Routine Abdominal Exam Present: distended, firm, guarding, soft, tenderness, nontender - Routine Extremities Exam Present: nontender - Routine Back/Spine/Pelvis Exam Back/Spine: Present: full ROM - Routine Skin Exam Present: intact - Routine Neurological Exam Present: alert, oriented X3 - Detailed Neurological Exam: Coma Scale Eye Opening: Spontaneous (4) - Routine Psychiatric Exam Present: normal affect Data - Labs CBC & Chem 7: 05/16/22 11:02 05/16/22 11:02 Assessment and Plan Patient Active problem list reviewed?: Yes (1) Pancreatic cancer Status: Acute Assessment and plan: This is a pleasant 49 year-old gentleman, with the diagnosis of Pancreatic Adenocarcinoma involving the body and tail, in January of 2018. He had an extensive tumor burden. Mass encasing and obstructing the SMV, splenic vein and proximal portal vein. Infiltrative soft tissue between the aorta and IVC and into the kareem hepatis. Bilateral adrenal nodules and bilateral pulmonary nodules. He completed 6-1/2 cycles of FOLFIRINOX. Subsequent imaging appeared improved. However, at that point the patient was deemed unresectable. He subsequently had radiation which she completed November 07. He did well through the treatment. He did not have many side effects. He was clinically asymptomatic. However, CAT scan of the abdomen November, revealed: Increase in size of the left adrenal nodule to 32 mm from 28 mm. Also noted was slight increase in the size of the pancreatic mass 35 x 83 mm previously 34 x 18 mm. I decided to pick the regimen: Gemzar and Abraxane based chemotherapy. He started January 06, 2019. He completed cycle 4 on April 25. He completed cycle 7 on July 16 2019. He tolerated it well. Subsequently he elected to take a break from treatment. He wants to be monitored along. Restaging CT scan of the abdomen pelvis and chest from January 29 revealed: Chest: No evidence of metastatic disease. Stable left adrenal lesion. Fatty liver. Slightly enlarged prostate gland. Abdomen and pelvis: Stable low-attenuation soft tissue in the body of the pancreas continuous with abnormal low-attenuation soft tissue surrounding the celiac axis and SMA. Occluded splenic vein. Occluded distal SMV. Patent portal vein. Extensive peripancreatic varices. Previous imaging from October 01 revealed: Overall no significant change in the region of pancreatic head with significant collateral vessels/varices secondary to portal hypertension. The splenic vein is not seen. The portal vein is opacified to the level of pancreatic head. The spleen is heterogenous but normal size. There is no ascites seen at this time. However, there is mild haziness in bilateral paracolic gutter likely congestion. His GI complaints have resolved with the Creon. He has been feeling well. He has been working over the winter. CT chest and abdomen from 06/19/2020: Chest: New small pulmonary nodules. The largest measures 3 x 6 mm in the right lower lobe. Abdomen and pelvis: Stable low-attenuation in the body of the pancreas continuous with abnormal soft tissue surrounding the celiac axis, SMA and SMV, thickening of the bilateral anterior pararenal fascia and soft tissues surrounding the duodenum and left adrenal nodule. Occluded splenic vein, and distal SMV and extensive varices. Fatty liver. Stable mild dilatation of the common bile duct. Upper normal-size spleen. Stool throughout the colon questionable for constipation. His CA 19-9 from 06/10/20:357. From 09/13:1921. Recent CT scan of the chest and abdomen, from 09/22: Multiple pulmonary nodules are slightly increased in size since the previous study from 06/08. No major change in slightly enlarged and hypodense appearing diffuse pancreas and mild haziness along the posterior pancreatic margin. No focal lesion seen on the present exam, however the pancreas appears slightly heterogenous with abundant varices seen throughout the peripancreatic region, pancreas and upper abdomen. No change in the haziness in the peripancreatic region. Small left para aortic lymph nodes are essentially stable. No focal liver lesions seen. I shared the results with him. I was concerned about rising tumor marker and increasing pulmonary nodules. I suggested that he start back on the chemotherapy treatment. He has been restarted on Gemzar/ Abraxane since it had worked previously. He was started October 28. Since his baseline WBC count was low, he was started on Neulasta to prevent chemotherapy-induced neutropenic sepsis. He is here for cycle 3, day 1. He tolerated it well. CAT scan on 01/31: Stable pulmonary nodules. No new pulmonary nodules seen. Mild fatty infiltration of liver with portal vein thrombosis and cavernous transformation of portal vein, similar to previous study. There is diffuse haziness in the pancreatic head with heterogeneity, stable. The rest of the pancreas is slightly attenuated. Numerous collateral vessels are seen surrounding the pancreatic head and the upper abdomen. He was referred to [place], for a 2nd opinion. He saw Dr. Nicole Lees. Repeat imaging in mid March revealed new liver lesion and peritoneal disease. The CA 19/9 was down to 451 from 1355. However it went up to 2830 on 05/13. She offered him clinical trial versus retreatment with FOLFIRINOX. He elected to proceed with the latter. Received 1st cycle of FOLFIRINOX on 05/16. He did not tolerate it at all. I offered to dose reduce him to 75% of the chemotherapy doses. He was willing to try that. He tolerated it better. He received cycle 2 day 15 on 06/28. He was supposed to start cycle 3, however his blood count was noted to be low. Platelets were 54. He received 2 units of blood, a month ago.. His tumor marker CA 19-9 came down to 695, from 1990 which is encouraging. He received the 3rd cycle. Then wanted a break from treatment since July was his and his birthday month. He wanted to feel well for the holidays. I offered to restart him on the FOLFIRINOX however he is not too keen on doing that. He feels the treatment was rather tough on him. He took some time off, before deciding to restart it. l reimaged with CT scan of the chest and abdomen pelvis. This was done on September 02 and revealed: Dilated intrahepatic duct and common bile duct with heterogeneous pancreatic head and body and ill-defined margins similar to previous study 03/23/2021. There are small peripancreatic lymph nodes which cannot be differentiated from the adjacent pancreatic head and uncinate process. However, there is no enlarging mass or lymph nodes seen. There is diffuse ascites and haziness throughout the peritoneum likely secondary to ascites and mesenteric edema. No liver lesions seen. Adrenal glands are normal. Right pulmonary nodules seen on March [address] are no longer seen. No new pulmonary nodules. l followed up on his tumor marker as well. CA 19-9: 632. From 08/01: 695. I explained to him that the imaging appears to reveal stable disease. Tumor markers have come down which is a good sign. I would like to restart him on the chemotherapy regimen to continue to achieve a response. He said he would like to give it some thought. He restarted on his treatment. He had imaging done after completing 6 cycles. These were done on 12/02: Stable central intrahepatic biliary duct and extrahepatic biliary duct dilatation. Stable diffuse low-attenuation appearance of the pancreas continuous with abnormal low-attenuation soft tissue surrounding the celiac axis, SMV and SMA and upper retroperitoneum adjacent to the abdominal aorta, left adrenal gland and left renal veins and third portion of duodenum. Occluded splenic vein, distal SMV and portosplenic confluence/extrahepatic main portal vein. The more distal hepatic main portal vein and right and left hepatic veins are patent. Small amount of ascites. Interval decrease in peritoneal nodule inferior to the right lobe of the liver. Constipation. Stable scarring or subsegmental atelectasis in the left lower lobe. No pulmonary nodules seen. CA 19-9:1450. Previously 2315. It is reassuring that things are stable, little bit better. He had the upper endoscopy. This revealed some varices which were banded. His hemoglobin appears to have stabilized since then. That is a good sign, the banding has helped to prevent further oozing. He feels that the break from chemotherapy last week has helped him recuperate somewhat from the side effects. He would actually like to hold off on further treatment and have a longer break from it. He said he will wait for the next set of images and then decide when to resume. Meanwhile his abdomen is more uncomfortable now. Last time been an ultrasound was done there was not much fluid to drain. Patient wanted to take a break from the treatment since he was getting very tired. Database: 02/28: CBC: WBC 2.3, HGB 8.6, HCT 27.7, PLT 91. CMP: Lytes WNL, glucose 189, BUN 13, CONSUMER ANALYST 1.25. LFTs: 0.7/ 36/31/11. Ca 19/9: From December was 634. From January 18 was 351. He has been doing well. His belly is firm and distended. Sometimes he feels bloated.. I proceeded with an ultrasound of the abdomen to look for any evidence of ascites that can be tapped to make him more comfortable. FINDINGS/IMPRESSION: Imaging through the 4 quadrants of the abdomen reveals small amount of fluid probably 500 mL or less. Recommend waiting for one or 2 more weeks for the fluid to be drained. If patient is very uncomfortable this could be secondary to other GI tissues. The fluid is not significant at this time. Unfortunately not enough ascites to drain at this point. CT scan of the chest and abdomen from 03/09, revealed: Uremarkable CT chest exam with known pulmonary nodule seen. Diffuse ascites, dilated CBD and central right and left hepatic ducts are stable. Mild splenomegaly, stable. Low attenuation soft tissue densities surrounding the celiac axis, SMA, SMV appears unchanged. The splenic vein is not visualized. Distal portal vein is patent. There are moderate varicose veins present along the greater curvature of the stomach and the splenic hilum, likely portal hypertension. Small periportal lymph nodes are seen. Moderate mural thickening involving the distal stomach, duodenal bulb and the first segment of the duodenum is unchanged. There is some omental thickening but previously seen nodule inferior to right hepatic lobe is not distinctly visualized at this time. I shared the results of the above imaging with him. Things appeared more or less stable. He does not wish to resume chemotherapy at this point. He feels the chemo slow his body down. In addition he does not like the mental aspect of it. It gets on his nerves. He would rather continue the break. Ca 08/05: 6821. This is concerning. PLAN: I offered to refer him to [place] for clinic trial based therapy. However he wants to wait. He the appointment with Dr. Nicole Lees, in the near future. He will return in 1 month for a follow-up and port flush. Thank you, CC: Dr. Anant Pereira. at [place]. Dr. Abel Woodard at [facility]. Gen. Dr. East. - Time Spent With Patient Time Spent with Patient (in minutes): 25
[2022-05-16 11:14] LABS: Basophils Percent Auto 0.9 % (0-2); Eosinophils Absolute Auto 0.1 X10*3/uL (0.0-0.4); Hematocrit 26.4 % (42.0-52.0); Hemoglobin 8.5 g/dl (14.0-18.0); Lymphocytes Absolute Auto 0.5 X10*3/uL (1.2-4.9); Lymphocytes Percent Auto 21.6 % (20-40); MANUAL DIFF FLAG SCAN; Mean Corpuscular HGB Conc 32.2 g/dl (31.0-36.0); Mean Corpuscular Hemoglobin 24.2 pg (27.0-33.0); Mean Corpuscular Volume 75.2 fL (80.0-98.0); Monocytes Absolute Auto 0.3 X10*3/uL (0.1-1.2); Monocytes Percent Auto 12.5 % (2-11); Neutrophils Absolute Auto 1.4 x10*3/uL (2.0-8.3); Platelet Count 78 X10*3/uL (160-400); Red Blood Count 3.51 X10*6/uL (4.60-5.80); SCAN SMEAR FLAG 1; White Blood Count 2.3 X10*3/uL (4.8-10.8)
--- NOTE | 2022-05-16 11:43 | MHC.HEMONC ---
Pt here for Q6 week port flush, labs and Dr Otoole follow up. Pt states is feeling pretty good, does have some GI symptoms described as fullness after eating small meal and feels like abdomen is slightly distended. Port to right chest accessed. Site benign. Good blood return. Labs drawn, port de-accessed. band aid applied. Pt scheduled for next port flush and f/u [address] Otoole request f/u with next port flush. Calendar given to patient.
[2022-05-16 11:44] LABS: Alanine Aminotransferase 71 U/L (0-40); Alkaline Phosphatase 220 U/L (39-117); Anion Gap 14 (12-20); Aspartate Amino Transferase 70 U/L (5-37); Bilirubin Total 0.8 mg/dL (0.0-1.0); Blood Urea Nitrogen 13 mg/dL (9-16); Carbon Dioxide 26 mmol/L (22-29); Chloride 102 mmol/L (96-108); Creatinine Clr Calc Pharmacy 83.2; Estimated Glomerular Filt Rate > 60; Glucose Random 233 mg/dL (60-115); Potassium 3.9 mmol/L (3.3-5.1); Sodium 138 mmol/L (135-145); Total Protein 7.9 g/dL (6.5-8.0)
[2022-05-16 11:46] LABS: SLIDE REVIEW VERIFIED
--- NOTE | 2022-05-16 12:02 | MHC.HEMONC ---
Dr Otoole reviewed labs. Plan CT in June per Dr otoole.
--- NOTE | 2022-05-16 16:16 | MHC.HEMONCMA ---
Pt was in for follow up. Clinical summary reviewed and updated, VSS. Labs were drawn. Pt to return in 2 months.
[2022-05-19 09:02] LABS: Carbohydrate Antigen 19-9 6821 U/mL (<34)
--- NOTE | 2022-05-23 16:01 | MHC.HEMONC ---
I called Dr Lees office at [facility] as pt continues to feel unwell and has not yet called to see if he could get a f/u appt with her as Dr Otoole suggested. They will be reaching out to him to give him an appointment as I did tell them it was high priority.
--- NOTE | 2022-05-26 13:47 | MHC.HEMONC ---
Pt having increase back pain and abd distention. He no longer feels well enough to work. I made appt with [place] Le[place] [facility] had virtual appt yesterday. It was suggested that he have CT and prn ultrasounds. He may require more chemo here if he agrees and hopefully there may be a clinical trial he could participate in by end of year. I faxed recent notes to [place] and am awaiting image orders from Dr Otoole.
--- NOTE | 2022-05-26 14:02 | MHC.HEMONC ---
Pt coming for ultrasound this afternoon.
--- NOTE | 2022-05-26 14:07 | MHC.HEMONC ---
Orders for u/s and Cts given to dirk metcalf Order Resident Programs Assistant.
--- NOTE | 2022-05-26 14:17 | HO.HEMONCSCH ---
US and CT scans sent to [facility].
--- NOTE | 2022-06-02 11:14 | HO.HEMONCSCH ---
US for june was sent to [facility].
--- NOTE | 2022-06-07 09:40 | MHC.HEMONC ---
Addendum entered by Malissa Curiel RN 06/20/22 14:10: Dr Lees: (p)[phone] and (f) [phone] Original Note: Dr Nicole Lees at [facility] (P) [phone] and (F) [phone]
--- NOTE | 2022-06-14 16:26 | MHC.HEMONC ---
Spoke with pt. He states he received his results from CT scan from the pt portal. He also states he had paracentecis done and had 4.5L of fluid removed. Will update Dr Otoole in AM
--- NOTE | 2022-06-19 12:28 | MHC.HEMONC ---
recent imaging report faxed to Dr Lees at [facility] for f/u. Pt last note from telehealth visit also requested. Pt will need some treatment soon - clinical trial vs chemo here. oxycodone request for refill given to Dr Otoole.
--- NOTE | 2022-06-21 09:07 | MHC.HEMONC ---
Pt called and is having increased abdominal pressure which is causing pain and inability to eat much. He wants to see about a paracentesis.I communicated with Dr Otoole. Order in for procedure with u/s guidance and placement of pleurex drain as well so that he can drain at home as needed. Plan is to do on Sunday with Dr Mendoza. Pt to have labs tomorrow. Verito placing orders into order wildlife removal specialist. Pt is aware of the plan.
--- NOTE | 2022-06-21 09:36 | MHC.HEMONC ---
Paracentisis and drain placement will be tomorrow at 2:30. Pt is aware. He will have labs done before procedure and is aware of prep.
--- NOTE | 2022-06-22 13:36 | MHC.HEMONC ---
pt had labs today and is scheduled for paracentesis today with Dr Her. He will have appt with Dr Mendoza next Wed at 2 pm for pleurex drain placement in abdomen for ascitic drains at home. IR nurses will be advised so that he can be set up with supplies for home procedures.
--- NOTE | 2022-06-27 10:36 | P.PNHO-ONC_ITS ---
Medical Summary - Medical Summary Date of Service: 06/27/22 Chief complaint: FOLLOW-UP FOR: PANCREATIC CARCINOMA. Medical Summary: DIAGNOSIS: 1. Pancreatic Carcinoma. 2. Pancytopenia. CURRENT THERAPY: Started on Folfirinox, 03/11. Completed 6 cycles, August. Completed XRT November 07 in [place]. He was unable to get capecitabine on account of thrombocytopenia. On Gemzar Abraxane, started January 06. Completed cycle 6 on 06/20/19. Completed cycle 7, July 16, 2019. Took a break from treatment, after that. Restarted Gemzar Abraxane for disease progression, 10/28/20. Cycle 3, day 11 on 01/07/21. He then elected to stop. He was referred to [place], for a 2nd opinion. He saw Dr. Nicole Lees. Repeat imaging in mid March revealed new liver lesion and peritoneal disease. She offered him clinical trial versus retreatment with FOLFIRINOX. He elected to proceed with the latter. Received 1 cycle of FOLFIRINOX on 05/16/21. He received cycle 2 d 15, on 06/28. He took a break for the month of July. Started cycle 3 day 1 on 09/20/2021. Received cycle 3 day 15, 10/04/2021. He recieved 5th cycle on 12/06. Interval History Interval history: This is a pleasant 51 year-old gentleman, here for a follow-up visit. He elected to take a break from treatment. That has helped. His energy level has improved. He still gets abdominal cramping from time to time. He gets bloated after eating. His belly is distended and firm. He had an ultrasound guided paracentesis, a couple of weeks ago, with removal of 6 + liters of fluid. It is hard for him to have a full meal in the evening. He has early satiety. He can eat only a minimum amount of food. He then feels full. He has been taking oxycodone mostly at night, which helps him. He denies any nausea or vomiting. No heartburn indigestion. He stopped taking omeprazole since he felt the symptoms were worsening. He has good bowel movements. Sometimes he takes MiraLax. He gets occasional PAC pressure as well. He has been taking dicyclomine and Creon. He takes oxycodone to help him sleep at night. His weight is stable. He denies any chest pain or shortness of breath on exertion. No headache nor dizziness. He has started exercising again. His stamina has improved. He is working at [employer] 2 days a week. He does nights. He is in good spirits. Rest of the review of systems is unremarkable. He underwent an upper endoscopy and colonoscopy on 12/[address] Crespo. Esophagus: GE junction at 45 cm, diaphragm hiatus at 45 cm, 4 cords of grade III esophageal varices seen with some red squires. Torch Heater was applied and 4 bands were placed on the varices with collapse. Stomach: Normal mucosa. Biopsies were obtained. 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 Findings: Terminal Ileum-not intubated Cecum:normal Ascending Colon: normal Transverse Colon -normal Descending Colon:normal Sigmoid Colon: normal Previous history: 1. After his 1st cycle of FOLFIRINOX he was knocked down for a loop. He could not eat. He lost weight. He was 235 and went down to 225. His nausea was manageable. He could control it with Zofran and Decadron, however he had bad belly ache. He felt he was having cramps. As if there was a burning hole in the stomach. His stomach felt unsettled. Only thing that could comfort him was laying down in a hot tub. He had 3 sleepless nights. He did have some diarrhea but that was expected. He did try to stay hydrated. He took popsicles and Jell-O. Overall he felt miserable. 2. He had upper endoscopy and colonoscopy by Dr. Crespo, in the spring,which was negative. 3. Back in June of 2020 he contracted COVID-19. However his symptoms were quite mild, only lasted a day and a half and then he recovered. He did receive the COVID vaccines and booster. 3. He had opted to take the month of July off from chemotherapy. He had been doing well however he has some of the same complaints. Review of Systems - Constitutional Reports system reviewed and no additional complaints, except as documented - Eyes Reports system reviewed and no additional complaints, except as documented - ENT Reports system reviewed and no additional complaints, except as documented - Cardiovascular Reports system reviewed and no additional complaints, except as documented - Respiratory Reports no additional respiratory complaints - Gastrointestinal Reports system reviewed and no additional complaints, except as documented - Genitourinary Genitourinary: Reports no additional male genitourinary complaints - Musculoskeletal Reports system reviewed and no additional complaints, except as documented - Integumentary/Breasts Skin/Breast: Reports no additional skin complaints - Neurologic Reports system reviewed and no additional complaints, except as documented, Reports hearing normal, Denies weakness - Psychiatric Reports system reviewed and no additional complaints, except as documented - Endocrine Reports no additional endocrine complaints - Hematologic/Lymphatic Reports system reviewed and no additional complaints, except as documented - Allergic/Immunologic Reports system reviewed and no additional complaints, except as documented PMFSH Medical History: Medical History (Last Reviewed 06/27/22 @ 10:45 by Verito Freedman CMA) Anemia Diabetes mellitus Functional capacity: independent ambulation Patient : No Family History: Family History (Last Reviewed 06/27/22 @ 10:45 by Verito Freedman CMA) Mother Diabetes Surgical History: Surgical History (Last Reviewed 06/27/22 @ 10:45 by Verito Freedman CMA) H/O hernia repair History of esophagogastroduodenoscopy (EGD) Hx of colonoscopy Social History: Social History (Last Reviewed 06/27/22 @ 10:45 by Verito Freedman CMA) Living Situation History: Household Members: Spouse Household Members: Children Housing: House Are you a primary care companion to a significant other at home: No Do you presently have visiting nurse or other home services: No Tobacco History: Patient Tobacco Use Status: Never used Tobacco Advance Directives: Advance Directives: No Advance Directives Information Provided: Yes Occupation Assessmet: service: No Current occupational status: employed Current occupational status: unemployed Oncology Screenings - ECOG Performance Status ECOG Performance Status: 0 Home Medications and Allergies Home Medications Medication Instructions Recorded Confirmed Type insulin glargine 100 unit/mL (3 14 unit subcut BEDTIME 06/10/20 06/27/22 History mL) subcutaneous pen (Lantus Solostar U-100 Insulin) metformin 500 mg tablet,extended 2,000 mg PO DAILY 06/10/20 06/27/22 History release 24 hr multivitamin 1 tab PO DAILY 10/14/20 06/27/22 History tadalafil 5 mg tablet 5 mg PO DAILY PRN Sexual Activity 09/16/21 06/27/22 History dexamethasone 4 mg tablet 4 mg PO BID 09/20/21 06/27/22 History dicyclomine 10 mg capsule 2 cap PO QID 09/20/21 06/27/22 History Allergies Allergy/AdvReac Type Severity Reaction Status Date / Time No Known Allergies Allergy Verified 06/28/22 13:03 [No Known Allergies*] Exam Vital signs: Vital Signs Temp 97.5 F 05/16/22 10:41 Pulse 70 05/16/22 10:41 Resp 12 05/16/22 10:41 BP 130/66 05/16/22 10:41 Pulse Ox 100 05/16/22 10:41 O2 Del Method 05/16/22 10:41 Weight 95.8 kg BMI result Body Mass Index 27.1 - Constitutional Present: no acute distress - Routine HEENT Exam Head: Present: normal inspection Eye: Present: normal appearance ENT: Present: mucous membranes moist - Routine Neck Exam Present: full ROM - Routine Respiratory Exam Present: CTAB - Routine Cardiovascular Exam Cardiovascular: Present: RRR, S1, murmur - Routine Abdominal Exam Present: distended, firm, guarding, soft, tenderness, nontender - Routine Extremities Exam Present: nontender - Routine Back/Spine/Pelvis Exam Back/Spine: Present: full ROM - Routine Skin Exam Present: intact - Routine Neurological Exam Present: alert, oriented X3 - Detailed Neurological Exam: Coma Scale Eye Opening: Spontaneous (4) - Routine Psychiatric Exam Present: normal affect Data - Labs CBC & Chem 7: 07/03/22 08:33 07/03/22 08:33 Assessment and Plan Patient Active problem list reviewed?: Yes (1) Pancreatic cancer Status: Acute Assessment and plan: This is a pleasant 49 year-old gentleman, with the diagnosis of Pancreatic Adenocarcinoma involving the body and tail, in January of 2018. He had an extensive tumor burden. Mass encasing and obstructing the SMV, splenic vein and proximal portal vein. Infiltrative soft tissue between the aorta and IVC and into the kareem hepatis. Bilateral adrenal nodules and bilateral pulmonary nodules. He completed 6-1/2 cycles of FOLFIRINOX. Subsequent imaging appeared improved. However, at that point the patient was deemed unresectable. He subsequently had radiation which she completed November 07. He did well through the treatment. He did not have many side effects. He was clinically asymptomatic. However, CAT scan of the abdomen November, revealed: Increase in size of the left adrenal nodule to 32 mm from 28 mm. Also noted was slight increase in the size of the pancreatic mass 35 x 83 mm previously 34 x 18 mm. I decided to pick the regimen: Gemzar and Abraxane based chemotherapy. He started January 06, 2019. He completed cycle 4 on April 25. He completed cycle 7 on July 16 2019. He tolerated it well. Subsequently he elected to take a break from treatment. He wants to be monitored along. Restaging CT scan of the abdomen pelvis and chest from January 29 revealed: Chest: No evidence of metastatic disease. Stable left adrenal lesion. Fatty liver. Slightly enlarged prostate gland. Abdomen and pelvis: Stable low-attenuation soft tissue in the body of the pancreas continuous with abnormal low-attenuation soft tissue surrounding the ce liac axis and SMA. Occluded splenic vein. Occluded distal SMV. Patent portal vein. Extensive peripancreatic varices. Previous imaging from October 01 revealed: Overall no significant change in the region of pancreatic head with significant collateral vessels/varices secondary to portal hypertension. The splenic vein is not seen. The portal vein is opacified to the level of pancreatic head. The spleen is heterogenous but normal size. There is no ascites seen at this time. However, there is mild haziness in bilateral paracolic gutter likely congestion. His GI complaints have resolved with the Creon. He has been feeling well. He has been working over the winter. CT chest and abdomen from 06/19/2020: Chest: New small pulmonary nodules. The largest measures 3 x 6 mm in the right lower lobe. Abdomen and pelvis: Stable low-attenuation in the body of the pancreas continuous with abnormal soft tissue surrounding the celiac axis, SMA and SMV, thickening of the bilateral anterior pararenal fascia and soft tissues surrounding the duodenum and left adrenal nodule. Occluded splenic vein, and distal SMV and extensive varices. Fatty liver. Stable mild dilatation of the common bile duct. Upper normal-size spleen. Stool throughout the colon questionable for constipation. His CA 19-9 from 06/10/20:357. From 09/13:1921. Recent CT scan of the chest and abdomen, from 02/03: Multiple pulmonary nodules are slightly increased in size since the previous study from 06/08. No major change in slightly enlarged and hypodense appearing diffuse pancreas and mild haziness along the posterior pancreatic margin. No focal lesion seen on the present exam, however the pancreas appears slightly heterogenous with abundant varices seen throughout the peripancreatic region, pancreas and upper abdomen. No change in the haziness in the peripancreatic region. Small left para aortic lymph nodes are essentially stable. No focal liver lesions seen. I shared the results with him. I was concerned about rising tumor marker and increasing pulmonary nodules. I suggested that he start back on the chemotherapy treatment. He has been restarted on Gemzar/ Abraxane since it had worked previously. He was started October 28. Since his baseline WBC count was low, he was started on Neulasta to prevent chemotherapy-induced neutropenic sepsis. He is here for cycle 3, day 1. He tolerated it well. CAT scan on 01/31: Stable pulmonary nodules. No new pulmonary nodules seen. Mild fatty infiltration of liver with portal vein thrombosis and cavernous transformation of portal vein, similar to previous study. There is diffuse haziness in the pancreatic head with heterogeneity, stable. The rest of the pancreas is slightly attenuated. Numerous collateral vessels are seen surrounding the pancreatic head and the upper abdomen. He was referred to [place], for a 2nd opinion. He saw Dr. Nicole Lees. Repeat imaging in mid March revealed new liver lesion and peritoneal disease. The CA 19/9 was down to 451 from 1355. However it went up to 2830 on 05/13. She offered him clinical trial versus retreatment with FOLFIRINOX. He elected to proceed with the latter. Received 1st cycle of FOLFIRINOX on 05/16. He did not tolerate it at all. I offered to dose reduce him to 75% of the chemotherapy doses. He was willing to try that. He tolerated it better. He received cycle 2 day 15 on 06/28. He was supposed to start cycle 3, however his blood count was noted to be low. Platelets were 54. He received 2 units of blood, a month ago.. His tumor marker CA 19-9 came down to 695, from 1990 which is encouraging. He received the 3rd cycle. Then wanted a break from treatment since July was his and his birthday month. He wanted to feel well for the holidays. I offered to restart him on the FOLFIRINOX however he is not too keen on doing that. He feels the treatment was rather tough on him. He took some time off, before deciding to restart it. pop reimaged with CT scan of the chest and abdomen pelvis. This was done on September 02 and revealed: Dilated intrahepatic duct and common bile duct with heterogeneous pancreatic head and body and ill-defined margins similar to previous study 03/23/2021. There are small peripancreatic lymph nodes which cannot be differentiated from the adjacent pancreatic head and uncinate process. However, there is no enlarging mass or lymph nodes seen. There is diffuse ascites and haziness throughout the peritoneum likely secondary to ascites and mesenteric edema. No liver lesions seen. Adrenal glands are normal. Right pulmonary nodules seen on March [address] are no longer seen. No new pulmonary nodules. l followed up on his tumor marker as well. CA 19-9: 632. From 08/01: 695. I explained to him that the imaging appears to reveal stable disease. Tumor markers have come down which is a good sign. I would like to restart him on the chemotherapy regimen to continue to achieve a response. He said he would like to give it some thought. He restarted on his treatment. He had imaging done after completing 6 cycles. These were done on 12/02: Stable central intrahepatic biliary duct and extrahepatic biliary duct dilatation. Stable diffuse low-attenuation appearance of the pancreas continuous with abnormal low-attenuation soft tissue surrounding the celiac axis, SMV and SMA and upper retroperitoneum adjacent to the abdominal aorta, left adrenal gland and left renal veins and third portion of duodenum. Occluded splenic vein, distal SMV and portosplenic confluence/extrahepatic main portal vein. The more distal hepatic main portal vein and right and left hepatic veins are patent. Small amount of ascites. Interval decrease in peritoneal nodule inferior to the right lobe of the liver. Constipation. Stable scarring or subsegmental atelectasis in the left lower lobe. No pulmonary nodules seen. CA 19-9:1450. Previously 2315. It is reassuring that things are stable, little bit better. He had the upper endoscopy. This revealed some varices which were banded. His hemoglobin appears to have stabilized since then. That is a good sign, the banding has helped to prevent further oozing. He feels that the break from chemotherapy last week has helped him recuperate somewhat from the side effects. He would actually like to hold off on further treatment and have a longer break from it. He said he will wait for the next set of images and then decide when to resume. Meanwhile his abdomen is more uncomfortable now. Last time been an ultrasound was done there was not much fluid to drain. Patient wanted to take a break from the treatment since he was getting very tired. Database: 02/28: CBC: WBC 2.3, HGB 8.6, HCT 27.7, PLT 91. CMP: Lytes WNL, glucose 189, BUN 13, [employer] 1.25. LFTs: 0.7/ 36//. Ca 19/9: From December was 634. From January 18 was 351. He has been doing well. His belly is firm and distended. Sometimes he feels bloated.. I proceeded with an ultrasound of the abdomen to look for any evidence of ascites that can be tapped to make him more comfortable. FINDINGS/IMPRESSION: Imaging through the 4 quadrants of the abdomen reveals small amount of fluid probably 500 mL or less. Recommend waiting for one or 2 more weeks for the fluid to be drained. If patient is very uncomfortable this could be secondary to other GI tissues. The fluid is not significant at this time. Unfortunately not enough ascites to drain at this point. CT scan of the chest and abdomen from 03/09, revealed: Uremarkable CT chest exam with known pulmonary nodule seen. Diffuse ascites, dilated CBD and central right and left hepatic ducts are stable. Mild splenomegaly, stable. Low attenuation soft tissue densities surrounding the celiac axis, SMA, SMV appears unchanged. The splenic vein is not visualized. Distal portal vein is patent. There are moderate varicose veins present along the greater curvature of the stomach and the splenic hilum, likely portal hypertension. Small periportal lymph nodes are seen. Moderate mural thickening involving the distal stomach, duodenal bulb and the first segment of the duodenum is unchanged. There is some omental thickening but previously seen nodule inferior to right hepatic lobe is not distinctly visualized at this time. I shared the results of the above imaging with him. Things have deteriorated. He has required paracenteses almost every couple of weeks. Ca 19/9: 6821. This is concerning. He has now agreed to restart the FOLFIRINOX chemotherapy. He is here to get that started. He actually underwent a PleurX catheter placement, to make it convenient for him, to have the drainage done at home. Unfortunately, it is not functioning properly. Dr. Mendoza tried to fix it at the bedside, but it did not work., PLAN: He will be returning to oncology, on 07/05 for pump takedown. He will be going to IR, in the morning to have the Pleurax interrrogated, and get a paracentesis done. He has been offered a clinic trial based therapy, in [place]. The plan is to do this first and save it for later. He had a televisit with Dr. Nicole Lees. He will return in 1 month for a follow-up and port flush. Thank you, CC: Dr. Anant Pereira. at [facility]. Dr. Abel Woodard at [facility]. Gen. Dr. East. - Time Spent With Patient Time Spent with Patient (in minutes): 30
[2022-06-27 10:42] VITALS: BP 124/69; PULSE 67; RESP 12; TEMP 37; O2SAT 99; BMI 24.4
--- NOTE | 2022-06-27 10:43 | MHC.HEMONC ---
pt report port flushed 2 weeks ago at [facility] with labs drawn, not needed today. results requested
--- NOTE | 2022-06-27 11:35 | MHC.HEMONCMA ---
Patient was in for follow up. Clinical summary reviewed and updated, VSS. Pt to return in few weeks for chemo.
--- NOTE | 2022-06-28 15:57 | HO.HEMONCPA ---
Addendum entered by Liana Martinez 07/03/22 09:52: NO PA REQUIRED FOR J9263 Oxaliplatin, J9206 Irinotecan,J0640 Leucovorin Calcium & J9190 Fluorouracil, AND J1453 Injection, fosaprepitant. PER Jay BOUDREAUX on 06/28/22 at 2:50pmEST. CALL REF #[id number] MARYANN FOR MARY APPROVED. AUTH/CASE#[id number]. DOS- 06/29/22 to 12/26/2022. DOCUMENT SCANNED IN THE CHART. Original Note: NO PA REQUIRED FOR J9263 Oxaliplatin, J9206 Irinotecan,J0640 Leucovorin Calcium & J9190 Fluorouracil, AND J1453 Injection, fosaprepitant. PER Jay VARGAS.VAshlie on 06/28/22 at 2:50pmEST. CALL REF #[id number] MARYANN FOR MARY REQUESTED AWAITING DECSION
[2022-07-03 08:09] VITALS: BP 124/61; PULSE 77; RESP 18; TEMP 36.8; O2SAT 100; BMI 23.8
[2022-07-03 08:37] LABS: MANUAL DIFF FLAG NO
[2022-07-03 08:38] LABS: Basophils Percent Auto 0.9 % (0-2); Eosinophils Absolute Auto 0.1 X10*3/uL (0.0-0.4); Eosinophils Percent Auto 2.6 % (0-4); Hematocrit 28.9 % (42.0-52.0); Hemoglobin 9.3 g/dl (14.0-18.0); Imm Gran Abs Auto 0.01 X10*3/uL (0.00-0.03); Imm Gran Pct Auto 0.3 % (0.0-0.4); Lymphocytes Absolute Auto 0.6 X10*3/uL (1.2-4.9); Lymphocytes Percent Auto 16.3 % (20-40); Mean Corpuscular HGB Conc 32.2 g/dl (31.0-36.0); Mean Corpuscular Hemoglobin 24.5 pg (27.0-33.0); Mean Corpuscular Volume 76.1 fL (80.0-98.0); Mean Platelet Volume 9.9 fL (9.4-12.4); Monocytes Absolute Auto 0.5 X10*3/uL (0.1-1.2); Monocytes Percent Auto 13.7 % (2-11); Neutrophils Absolute Auto 2.3 x10*3/uL (2.0-8.3); Neutrophils Percent Auto 66.2 % (45-73); Platelet Count 124 X10*3/uL (160-400); Red Cell Distribution Width 17.9 % (11.0-16.0); White Blood Count 3.4 X10*3/uL (4.8-10.8)
--- NOTE | 2022-07-03 09:30 | MHC.HEMONC ---
Sue at DR Marie office called #[phone]. Pt reports that drain is not working and Dr Mendoza was supposed to come here to see him and check drain. waiting call back.
[2022-07-03 10:02] LABS: Alanine Aminotransferase 44 U/L (0-40); Albumin Level 3.4 g/dL (3.5-5.0); Alkaline Phosphatase 414 U/L (39-117); Anion Gap 13 (12-20); Aspartate Amino Transferase 82 U/L (5-37); Bilirubin Total 1.8 mg/dL (0.0-1.0); Blood Urea Nitrogen 22 mg/dL (9-16); Calcium 8.9 mg/dL (8.4-10.2); Carbon Dioxide 25 mmol/L (22-29); Chloride 103 mmol/L (96-108); Creatinine Clr Calc Pharmacy 86.8; Estimated Glomerular Filt Rate > 60; Glucose Random 141 mg/dL (60-115); Potassium 4.3 mmol/L (3.3-5.1); Sodium 137 mmol/L (135-145); Total Protein 7.1 g/dL (6.5-8.0)
[2022-07-03 10:09] LABS: HBS Num1 > 1000.00 mIU/mL (0-7.99); HBc Num1 0.15 S/CO (0.00-0.79); HBsAGNum1 0.34 S/CO (0.00-0.99); Hepatitis B Core Antibody Nonreactive (Nonreactive); Hepatitis B Surface Antigen Negative (Negative); ~Hepatitis B Surface Antibody REACTIVE (Nonreactive)
[2022-07-03] MEDS: Famotidine/PF 20 MG/2 ML VIAL IVPUSH (10:28)
[2022-07-03] MEDS: Atropine Sulfate 1 MG/ML VIAL 0.5 MG SUBCUT (10:28)
[2022-07-03] MEDS: dexAMETHasone sod phosphate/NS 12 MG/50 ML PIGGYBACK 200 MG IV (10:28)
[2022-07-03] MEDS: Fosaprepitant Dimeglumine 150 MG in 0.9 % Sodium Chloride 145 ML 300 MG IV (11:17)
[2022-07-03] MEDS: DEXTROSE 5% IV ×3 (12:08→14:38)
[2022-07-03] MEDS: OXALIPLATIN IV (12:08)
[2022-07-03] MEDS: LEUCOVORIN CALCIUM IV (14:18)
[2022-07-03] MEDS: IRINOTECAN HCL IV (14:38)
[2022-07-03] MEDS: SODIUM CHLORIDE IV (14:41)
[2022-07-03] MEDS: [UNRECOGNIZED DRUG - OTHER] IV (14:41)
[2022-07-03] MEDS: FLUOROURACIL 150 MG IVPUSH (16:32)
[2022-07-03] MEDS: SODIUM CHLORIDE 0.9% IVCONT (16:33)
[2022-07-03] MEDS: FLUOROURACIL IVCONT (16:33)
--- NOTE | 2022-07-03 16:51 | MHC.HEMONC ---
Pt here for C1D1 Folfurinox 14 day cycle. Port to right chest accessed biopatch , dressing applied and Labs drawn. Results reviewed. Pt reports Pleurex drain in abd not working and Dr Mendoza is supposed to come and check it out. Dr Otoole notified. Dr Mendoza notified and she came down to check Pleurex drain. TPA was instilled and left for [address] Mendoza returned and attempted to drain abdomen. very little clear fluid returned. approx 10-20 ml. Plan is to go to IR and have drain checked with dye and possible paracentesis if drain not working. Pre meds given as ordered dexamethasone, zofran, pepcid, emend IV and treatment infused oxaliplatin, leucovorin, irinotecan, 5FU push and pump. Pt had some intermittent cramping at end of treatment. Pt states the irinotecan causes his abd to cramp. Stated has pain med and nausea meds at home. Pt given d/c summary with next treatment. Order placed in computer by Dr Otoole for sunday. Order printed and placed on [facility] desk to be put in order facillatator.
--- NOTE | 2022-07-04 13:59 | MHC.HEMONC ---
Called Mr Milton to see how he was doing today and to see if he was feeling strong enough for the paracentesis and Pleurx catheter interrogation. Pt states that he was feeling better today and he would like to get both done tomorrow. Pt instructed that DR Mendoza will like to do the proceedure at 11am tomorrow and he has to be npo after midnight. Pt agreeable. Dr Otoole aware and will put in the order.
--- NOTE | 2022-07-04 16:59 | MHC.HEMONC ---
After discussing w/ Nurse Khoa Leonardo, who had spoken w/ pt, and Dr. Otoole, pt decided to have his take-home 5FU infusion stopped tomorrow morning at 09:00 in advance of appt at IR, even though infusion will not have completed. Dr. Otoole is aware. Pt will come at 09:00, nurse will stop pump, flush pt's port w/ Heparin, and de-access port, then return remainder of chemo to pharmacy. Per Dr. Otoole, pt will still receive Neulasta injection.
--- NOTE | 2022-07-05 08:35 | MHC.HEMONC ---
I faxed last couple of nurses notes to Shivam [place]AT[place] [facility] [place] pt does not want any more FOLFIRINOX here due to intense side effects with his stomach. I have asked them if there were trials available or if we should suggest Comfort Care. His appetite is poor, he continues to require pain medication and he is becoming weaker. He is having Dr Mendoza in IR manipulate his abdominal drain today so he will be able to do home paracentesis. It has not been operational despite Dr Mendoza working on it in the Clinic on Sunday.
[2022-07-05] MEDS: Heparin Sodium,Porcine Flush 500 UNIT/5 ML SYRINGE IVFLUSH (09:19)
[2022-07-05 09:20] VITALS: BP 132/71; PULSE 56; RESP 16; TEMP 36.4; O2SAT 100
--- NOTE | 2022-07-05 11:19 | MHC.HEMONC ---
Pt arrived here at 9am for early pump takedown. 9.4ml of 5FU left in pump and disposed of in chemo bin as directed by pharmacy when I called this am to ask what to do with remainder of chemo. Pt request that port to right chest be left accessed for IR to use if needed. Port was flushed with saline and capped. Radiology to de-access port. Pt offers no complaints. Pt amb out of onc to IR.
--- NOTE | 2022-07-11 13:20 | MHC.HEMONC ---
additional supplies ordered for patient to drain his pleurex abdominal catheter at home at his request. I asked for liter bottles.
--- NOTE | 2022-07-11 13:43 | MHC.HEMONC ---
I spoke [place] [place] and advised her that we would appreciate a call to the patient to discuss if there is a Clinical Trial or not for him per their last note a couple of months ago. She said she would have the Dr reach out to pt.
--- NOTE | 2022-07-11 14:21 | MHC.HEMONC ---
Patient called- had scheduled lab appt today. Spoke to patient over phone- he states he will come in tomorrow for labs. He reports not sleeping much due to abdominal pain.
[2022-07-12 12:01] LABS: Hematocrit 29.7 % (42.0-52.0); Hemoglobin 9.5 g/dl (14.0-18.0); Mean Corpuscular Hemoglobin 24.5 pg (27.0-33.0); Mean Corpuscular Volume 76.7 fL (80.0-98.0); Mean Platelet Volume 9.6 fL (9.4-12.4); Platelet Count 56 X10*3/uL (160-400); Red Blood Count 3.87 X10*6/uL (4.60-5.80); Red Cell Distribution Width 16.5 % (11.0-16.0)
[2022-07-12 12:02] LABS: WBC ABN SCTR FOR CBC 1
[2022-07-12 12:11] LABS: Alanine Aminotransferase 67 U/L (0-40); Albumin Level 3.6 g/dL (3.5-5.0); Alkaline Phosphatase 516 U/L (39-117); Anion Gap 12 (12-20); Aspartate Amino Transferase 60 U/L (5-37); Blood Urea Nitrogen 18 mg/dL (9-16); Carbon Dioxide 26 mmol/L (22-29); Chloride 100 mmol/L (96-108); Creatinine Clr Calc Pharmacy 86.1; Estimated Glomerular Filt Rate > 60; Glucose Random 213 mg/dL (60-115); Sodium 134 mmol/L (135-145); Total Protein 7.2 g/dL (6.5-8.0)
[2022-07-12 12:33] LABS: White Blood Count 0.6 X10*3/uL (4.8-10.8)
[2022-07-12 12:42] LABS: Band Neutrophils Percent 4 % (3-5); Basophils Percent Manual 2 % (0-2); Eosinophils Percent Manual 4 % (0-4); Lymphocytes Absolute Manual 0.4 X10*3/uL (1.2-4.9); Lymphocytes Percent Manual 69 % (20-40); Monocytes Percent Manual 7 % (2-11); Neutrophils Absolute Manual 0.1 X10*3/uL (2.0-8.3); Neutrophils Percent Manual 14 % (45-73)
[2022-07-12 12:43] LABS: Acanthocytes 1+ (0-2) /OIF; RBC Morphology NOTED; Schistocytes 1+ (0-2) /OIF
[2022-07-12 12:44] LABS: Dohle Bodies PRESENT; Hypochromasia 1+ (5-14) /OIF; Platelet Estimate DECREASED (NORMAL); Platelet Morphology Comment NORMAL
--- NOTE | 2022-07-17 09:52 | MHC.HEMONC ---
Pt was in contact with me. He has had a horrendous time following chemo 2 weeks ago . He c/o bloating (continues to do home paracentesis every 2 days or so for 1.2-3 liters). He has had intermittent vomiting, diarrhea and loss of appetite. His po intake is down. He said he is drinking a sufficient amount of fluids and denies need for hydration here. He is awaiting a call from [facility] re: Clinical trial that he may be eligible for. He does not want any further FOLFIRINOX due to intolerable side effects. He did speak to Dr Lees's office last week and they said he would be contacted soon re: ? trial.He declined need for Palli or VNA nursing at this time. Will schedule pt for routine port flush before [place].
[2022-07-20 10:55] LABS: MANUAL DIFF FLAG NO
[2022-07-20 10:59] LABS: Basophils Absolute Auto 0.1 X10*3/uL (0.0-0.2); Basophils Percent Auto 0.9 % (0-2); Eosinophils Absolute Auto 0.1 X10*3/uL (0.0-0.4); Eosinophils Percent Auto 1.4 % (0-4); Hematocrit 32.3 % (42.0-52.0); Hemoglobin 10.2 g/dl (14.0-18.0); Imm Gran Abs Auto 0.24 X10*3/uL (0.00-0.03); Lymphocytes Absolute Auto 0.7 X10*3/uL (1.2-4.9); Lymphocytes Percent Auto 9.1 % (20-40); Mean Corpuscular HGB Conc 31.6 g/dl (31.0-36.0); Mean Corpuscular Hemoglobin 24.3 pg (27.0-33.0); Mean Corpuscular Volume 77.1 fL (80.0-98.0); Monocytes Absolute Auto 0.7 X10*3/uL (0.1-1.2); Monocytes Percent Auto 8.8 % (2-11); Neutrophils Absolute Auto 6.1 x10*3/uL (2.0-8.3); Neutrophils Percent Auto 76.8 % (45-73); Platelet Count 121 X10*3/uL (160-400); Red Blood Count 4.19 X10*6/uL (4.60-5.80); Red Cell Distribution Width 17.1 % (11.0-16.0)
[2022-07-20 11:38] LABS: Alanine Aminotransferase 25 U/L (0-40); Albumin Level 3.3 g/dL (3.5-5.0); Alkaline Phosphatase 392 U/L (39-117); Anion Gap 10 (12-20); Aspartate Amino Transferase 30 U/L (5-37); Bilirubin Total 0.9 mg/dL (0.0-1.0); Blood Urea Nitrogen 22 mg/dL (9-16); Calcium 8.9 mg/dL (8.4-10.2); Carbon Dioxide 25 mmol/L (22-29); Chloride 98 mmol/L (96-108); Creatinine Clr Calc Pharmacy 81.9; Estimated Glomerular Filt Rate > 60; Glucose Random 216 mg/dL (60-115); Potassium 4.3 mmol/L (3.3-5.1); Sodium 129 mmol/L (135-145); Total Protein 6.7 g/dL (6.5-8.0)
--- NOTE | 2022-08-03 15:54 | MHC.HEMONC ---
Pt contacted me to ask if he could get labs tomorrow due to some vomiting of dany colored fluid last night. No further incidents but wants to be sure HGB is satisfactory. I scheduled him for port draw tomorrow.
[2022-08-04 13:41] VITALS: BP 104/63; PULSE 101; RESP 16; TEMP 36.9; O2SAT 100
[2022-08-04 13:43] LABS: MANUAL DIFF FLAG NO
[2022-08-04 13:51] LABS: Basophils Absolute Auto 0.1 X10*3/uL (0.0-0.2); Basophils Percent Auto 0.7 % (0-2); Eosinophils Absolute Auto 0.1 X10*3/uL (0.0-0.4); Eosinophils Percent Auto 0.5 % (0-4); Hematocrit 32.4 % (42.0-52.0); Hemoglobin 10.7 g/dl (14.0-18.0); Imm Gran Abs Auto 0.09 X10*3/uL (0.00-0.03); Imm Gran Pct Auto 0.9 % (0.0-0.4); Lymphocytes Absolute Auto 0.7 X10*3/uL (1.2-4.9); Lymphocytes Percent Auto 7.1 % (20-40); Mean Corpuscular Volume 75.7 fL (80.0-98.0); Mean Platelet Volume 11.2 fL (9.4-12.4); Monocytes Absolute Auto 1.4 X10*3/uL (0.1-1.2); Monocytes Percent Auto 13.7 % (2-11); Neutrophils Absolute Auto 7.7 x10*3/uL (2.0-8.3); Neutrophils Percent Auto 77.1 % (45-73); Platelet Count 231 X10*3/uL (160-400); Red Blood Count 4.28 X10*6/uL (4.60-5.80); Red Cell Distribution Width 17.9 % (11.0-16.0)
--- NOTE | 2022-08-04 14:03 | MHC.HEMONC ---
HCP and MOLST filled out by patient today. Copies to [facility] for scanning.
[2022-08-04 14:33] LABS: Alanine Aminotransferase 30 U/L (0-40); Albumin Level 3.1 g/dL (3.5-5.0); Alkaline Phosphatase 518 U/L (39-117); Anion Gap 13 (12-20); Aspartate Amino Transferase 46 U/L (5-37); Bilirubin Total 1.1 mg/dL (0.0-1.0); Blood Urea Nitrogen 26 mg/dL (9-16); Carbon Dioxide 26 mmol/L (22-29); Chloride 94 mmol/L (96-108); Estimated Glomerular Filt Rate 54; Glucose Random 193 mg/dL (60-115); Potassium 4.3 mmol/L (3.3-5.1); Sodium 129 mmol/L (135-145); Total Protein 6.8 g/dL (6.5-8.0)
--- NOTE | 2022-08-17 13:56 | MHC.HEMONC ---
Pt called and is c/o abdominal drain not working to drain ascites and he feels uncomfortable with distention. Dr Tan to order ultrasound to see how fluid is and troubleshoot drain.
--- NOTE | 2022-08-17 14:20 | MHC.HEMONCMA ---
entered in OF us abdomen limited.
--- NOTE | 2022-08-18 08:28 | MHC.HEMONC ---
HVAC MECH[employer]IC PA needed for u/s guided paracentisis per [employer].
--- NOTE | 2022-08-18 08:43 | MHC.HEMONC ---
pt to come in now for u/s guided paracentesis
--- NOTE | 2022-08-18 12:45 | PM.EVENT ---
patient reports distension of his abdomen. He is unable to get ascitic fluid out from abdominal catheter that has been placed. He is being referred for therapeutic paracentesis with intervention Radiology by ultrasound.
--- NOTE | 2022-08-24 07:41 | MHC.HEMONC ---
Pt called with lab report from visit yesterday at [facility]. Na+ and K+ low. BUN, creatinine elevated and bili up to 1.7. He equested IVF with K+. I will advise Dr Otoole and have added him to schedule.
[2022-08-25 14:18] VITALS: BP 120/68; PULSE 95; RESP 18; TEMP 36.8; O2SAT 95; BMI 19.9
[2022-08-25] MEDS: 0.9 % Sodium Chloride 1,000 ML 999 ML IV (14:30)
[2022-08-25] MEDS: Potassium Chloride/H20 20 MEQ/100 ML PIGGYBACK 100 MEQ IV (15:02)
--- NOTE | 2022-08-25 16:14 | MHC.HEMONC ---
Pt ere for IV hydration and KCL. Labs drawn in [place]-Potassium level 3.2. Port accessed with blood return noted. 1000ml 0.9% NS infused and 20 meq KCL infused as ordered. Port flushed with heparin and de accessed. Pt declines discharge packet. Pt states he will call department if needed for next appointment.
[2022-08-28 14:12] VITALS: BP 126/68; PULSE 88; RESP 20; TEMP 36.9; O2SAT 100
[2022-08-28] MEDS: Alteplase Cath Clear 2 MG VIAL 4 MG INTRACATH (14:27)
--- NOTE | 2022-08-28 14:52 | MHC.HEMONC ---
Pt present in department for Pleurovac Ateplase injection by Dr Noguera (no room in Radiology department per Sunitha Banks RN). Vital signs as noted. Pt verbally consents to procedure in presences of Dr Noguera. 4mg Ateplase installed into pleurovac by Dr Noguera. Pt declined staying in department for 60 minutes after Ateplase. Pt states he will call ONC nurse navigator Malissa with results of Ateplase installation. Declined discharge packet
--- NOTE | 2022-08-29 12:09 | MHC.HEMONC ---
Standing order for paracentesis faxed to [facility] and [facility]. Pt is aware of dates/times and when to arrive. !st appt this Sunday at 1pm in [facility]. Arrival 12 noon.
[2022-09-04 14:09] LABS: MANUAL DIFF FLAG NO
[2022-09-04] MEDS: 0.9 % Sodium Chloride 1,000 ML 500 ML IV (14:10)
[2022-09-04 14:11] VITALS: BP 119/74; PULSE 90; RESP 15; TEMP 36.1; O2SAT 99
[2022-09-04 14:11] LABS: Basophils Percent Auto 0.5 % (0-2); Eosinophils Percent Auto 0.6 % (0-4); Hematocrit 32.2 % (42.0-52.0); Hemoglobin 10.9 g/dl (14.0-18.0); Imm Gran Abs Auto 0.04 X10*3/uL (0.00-0.03); Imm Gran Pct Auto 0.6 % (0.0-0.4); Lymphocytes Absolute Auto 0.5 X10*3/uL (1.2-4.9); Lymphocytes Percent Auto 8.5 % (20-40); Mean Corpuscular HGB Conc 33.9 g/dl (31.0-36.0); Mean Corpuscular Hemoglobin 25.8 pg (27.0-33.0); Mean Corpuscular Volume 76.3 fL (80.0-98.0); Mean Platelet Volume 10.7 fL (9.4-12.4); Monocytes Absolute Auto 0.5 X10*3/uL (0.1-1.2); Monocytes Percent Auto 8.3 % (2-11); Neutrophils Absolute Auto 5.1 x10*3/uL (2.0-8.3); Neutrophils Percent Auto 81.5 % (45-73); Platelet Count 164 X10*3/uL (160-400); Red Blood Count 4.22 X10*6/uL (4.60-5.80); White Blood Count 6.2 X10*3/uL (4.8-10.8)
[2022-09-04 14:54] LABS: Alanine Aminotransferase 39 U/L (0-40); Alkaline Phosphatase 496 U/L (39-117); Anion Gap 16 (12-20); Aspartate Amino Transferase 72 U/L (5-37); Bilirubin Total 3.1 mg/dL (0.0-1.0); Blood Urea Nitrogen 43 mg/dL (9-16); Carbon Dioxide 31 mmol/L (22-29); Chloride 88 mmol/L (96-108); Estimated Glomerular Filt Rate 29; Glucose Random 202 mg/dL (60-115); Potassium 3.5 mmol/L (3.3-5.1); Sodium 131 mmol/L (135-145); Total Protein 7.2 g/dL (6.5-8.0)
--- NOTE | 2022-09-04 16:48 | MHC.HEMONC ---
Port accessed without difficulty- labs obtained and reviewed. [facility]SS. Normal Saline 1L given over an hour and a half per patient request. Patient denies nausea or vomiting. Port de-accessed and flushed with Heparin. Patient will call as needed for supportive care measures.
[2022-09-08 10:32] VITALS: BP 123/74; PULSE 94; RESP 12; TEMP 36.2; O2SAT 98; BMI 19.5
--- NOTE | 2022-09-08 10:48 | P.PNHO-ONC_ITS ---
Medical Summary - Medical Summary Date of Service: 09/08/22 Chief complaint: FOLLOW-UP FOR: PANCREATIC CARCINOMA. Medical Summary: DIAGNOSIS: 1. Pancreatic Carcinoma. 2. Pancytopenia. CURRENT THERAPY: Started on Folfirinox, 03/11. Completed 6 cycles, August. Completed XRT November 07 in [place]. He was unable to get capecitabine on account of thrombocytopenia. On Gemzar Abraxane, started January 06. Completed cycle 6 on 06/20/19. Completed cycle 7, July 16, 2019. Took a break from treatment, after that. Restarted Gemzar Abraxane for disease progression, 10/28/20. Cycle 3, day 11 on 01/07/21. He then elected to stop. He was referred to [place], for a 2nd opinion. He saw Dr. Nicole Lees. Repeat imaging in mid March revealed new liver lesion and peritoneal disease. She offered him clinical trial versus retreatment with FOLFIRINOX. He elected to proceed with the latter. Received 1 cycle of FOLFIRINOX on 05/16/21. He received cycle 2 d 15, on 06/28. He took a break for the month of July. Started cycle 3 day 1 on 09/20/2021. Received cycle 3 day 15, 10/04/2021. He recieved 5th cycle on 12/06/21. Interval History Interval history: This is a pleasant 52 year-old gentleman, here for a follow-up visit. He elected to take a break from treatment. That had helped. He elected not to resume it. He was considering enrolling on a clinical trial through [facility]. However when he discussed it with them further in July, he was not considered to be a candidate. He is holding his own. He says not too bad. He was a bit groggy the last couple of days. He feels a bit better today. His energy level has improved. He still gets abdominal cramping from time to time. He gets bloated after eating. It is hard for him to have a full meal in the evening. He has early satiety. He can eat only a minimum amount of food. He then feels full. However he ate better last couple of days. He denies any nausea or vomiting. No heartburn indigestion. He stopped taking omeprazole since he felt the symptoms were worsening. He has good bowel movements. Sometimes he takes MiraLax. He gets occasional PAC pressure as well. His belly is distended and firm. He is scheduled for an ultrasound guided paracentesis, later today. Unfortunately the PleurX catheter has stopped functioning. He will have that removed as well. He has been taking oxycodone for the pain, mostly at night, which helps him. He has been taking dicyclomine and Creon. His weight has declined. He denies any chest pain or shortness of breath on exertion. No headache nor dizziness. He is no longer working. He is in good spirits. Rest of the review of systems is unremarkable. INTERIM HISTORY: He underwent an upper endoscopy and colonoscopy on 12/[address] Crespo. Esophagus: GE junction at 45 cm, diaphragm hiatus at 45 cm, 4 cords of grade III esophageal varices seen with some red squires. Rn Occupational Health was applied and 4 bands were placed on the varices with collapse. Stomach: Normal mucosa. Biopsies were obtained. 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 Findings: Terminal Ileum-not intubated Cecum:normal Ascending Colon: normal Transverse Colon -normal Descending Colon:normal Sigmoid Colon: normal Previous history: 1. After his 1st cycle of FOLFIRINOX he was knocked down for a loop. He could not eat. He lost weight. He was 235 and went down to 225. His nausea was manageable. He could control it with Zofran and Decadron, however he had bad belly ache. He felt he was having cramps. As if there was a burning hole in the stomach. His stomach felt unsettled. Only thing that could comfort him was laying down in a hot tub. He had 3 sleepless nights. He did have some diarrhea but that was expected. He did try to stay hydrated. He took popsicles and Jell-O. Overall he felt miserable. 2. He had upper endoscopy and colonoscopy by Dr. Crespo, in the spring,which was negative. 3. Back in June of 2020 he contracted COVID-19. However his symptoms were quite mild, only lasted a day and a half and then he recovered. He did receive the COVID vaccines and booster. 4. He had opted to take the month of July off from chemotherapy. He had been doing well however he has some of the same complaints. Review of Systems - Constitutional Reports system reviewed and no additional complaints, except as documented, Reports fatigue, Reports weakness, Reports weight loss, Denies fever(s) - Eyes Reports system reviewed and no additional complaints, except as documented - ENT Reports system reviewed and no additional complaints, except as documented - Cardiovascular Reports system reviewed and no additional complaints, except as documented - Respiratory Reports no additional respiratory complaints - Gastrointestinal Reports system reviewed and no additional complaints, except as documented, Reports abdominal pain, Reports bloating, Reports constipation, Reports feeling full early - Genitourinary Genitourinary: Reports no additional male genitourinary complaints - Musculoskeletal Reports system reviewed and no additional complaints, except as documented - Integumentary/Breasts Skin/Breast: Reports no additional skin complaints - Neurologic Reports system reviewed and no additional complaints, except as documented, Rep orts hearing normal, Denies weakness - Psychiatric Reports system reviewed and no additional complaints, except as documented - Endocrine Reports no additional endocrine complaints - Hematologic/Lymphatic Reports system reviewed and no additional complaints, except as documented - Allergic/Immunologic Reports system reviewed and no additional complaints, except as documented PMFSH Medical History: Medical History (Last Reviewed 09/08/22 @ 10:36 by Verito Freedman CMA) Anemia Diabetes mellitus Functional capacity: independent ambulation Patient : No Family History: Family History (Last Reviewed 09/08/22 @ 10:36 by Verito Freedman CMA) Mother Diabetes Surgical History: Surgical History (Last Reviewed 09/08/22 @ 10:36 by Verito Freedman CMA) H/O hernia repair History of esophagogastroduodenoscopy (EGD) Hx of colonoscopy Social History: Social History (Last Reviewed 09/08/22 @ 10:36 by Verito Freedman CMA) Living Situation History: Household Members: Spouse Household Members: Children Housing: House Are you a primary primary care sales representative to a significant other at home: No Do you presently have visiting nurse or other home services: No Tobacco History: Patient Tobacco Use Status: Never used Tobacco Advance Directives: Advance Directives Date on File: 08/18/22 Occupation Assessmet: service: No Current occupational status: employed Current occupational status: unemployed Oncology Screenings - ECOG Performance Status ECOG Performance Status: 1 Home Medications and Allergies Current Medications: Current Medications Alteplase, Recombinant 4 mg/Sodium Chloride 20 ml/ IV Miscellaneous Supplies 24 mls @ 0 mls/hr INTRAPLEUR .Q0M [facility] Home Medications Medication Instructions Recorded Confirmed Type insulin glargine 100 unit/mL (3 14 unit subcut BEDTIME 06/10/20 09/08/22 History mL) subcutaneous pen (Lantus Solostar U-100 Insulin) metformin 500 mg tablet,extended 2,000 mg PO DAILY 06/10/20 09/08/22 History release 24 hr multivitamin 1 tab PO DAILY 10/14/20 09/08/22 History tadalafil 5 mg tablet 5 mg PO DAILY PRN Sexual Activity 09/16/21 09/08/22 History dexamethasone 4 mg tablet 4 mg PO BID 09/20/21 09/08/22 History dicyclomine 10 mg capsule 2 cap PO QID 09/20/21 09/08/22 History Allergies Allergy/AdvReac Type Severity Reaction Status Date / Time No Known Allergies Allergy Verified 09/15/22 12:09 [No Known Allergies*] Exam Vital signs: Vital Signs Temp 97.2 F 09/08/22 10:32 Pulse 94 09/08/22 10:32 Resp 12 09/08/22 10:32 BP 123/74 09/08/22 10:32 Pulse Ox 98 09/08/22 10:32 O2 Del Method 09/08/22 10:32 Intake & Output 09/07/22 09/08/22 09/08/22 18:59 06:59 18:59 Other: Weight 69 kg [place] Weight in Grams 53566 Weight 69 kg BMI result Body Mass Index 19.5 - Constitutional Present: no acute distress - Routine HEENT Exam Head: Present: normal inspection Eye: Present: normal appearance ENT: Present: mucous membranes moist - Routine Neck Exam Present: full ROM - Routine Respiratory Exam Present: CTAB - Routine Cardiovascular Exam Cardiovascular: Present: RRR, S1, murmur - Routine Abdominal Exam Present: distended, firm, guarding, soft, tenderness, nontender - Routine Extremities Exam Present: nontender - Routine Back/Spine/Pelvis Exam Back/Spine: Present: full ROM - Routine Skin Exam Present: intact - Routine Neurological Exam Present: alert, oriented X3 - Detailed Neurological Exam: Coma Scale Eye Opening: Spontaneous (4) - Routine Psychiatric Exam Present: normal affect Data - Labs CBC & Chem 7: 09/08/22 11:00 09/08/22 11:00 Assessment and Plan Patient Active problem list reviewed?: Yes (1) Pancreatic cancer Status: Acute Assessment and plan: This is a pleasant 49 year-old gentleman, with the diagnosis of Pancreatic Adenocarcinoma involving the body and tail, in January of 2018. He had an extensive tumor burden. Mass encasing and obstructing the SMV, splenic vein and proximal portal vein. Infiltrative soft tissue between the aorta and IVC and into the kareem hepatis. Bilateral adrenal nodules and bilateral pulmonary nodules. He completed 6-1/2 cycles of FOLFIRINOX. Subsequent imaging appeared improved. However, at that point the patient was deemed unresectable. He subsequently had radiation which she completed November 07. He did well through the treatment. He did not have many side effects. He was clinically asymptomatic. However, CAT scan of the abdomen November, revealed: Increase in size of the left adrenal nodule to 32 mm from 28 mm. Also noted was slight increase in the size of the pancreatic mass 35 x 83 mm pr eviously 34 x 18 mm. I decided to pick the regimen: Gemzar and Abraxane based chemotherapy. He started January 06, 2019. He completed cycle 4 on April 25. He completed cycle 7 on July 16 2019. He tolerated it well. Subsequently he elected to take a break from treatment. He wants to be monitored along. Restaging CT scan of the abdomen pelvis and chest from January 29 revealed: Chest: No evidence of metastatic disease. Stable left adrenal lesion. Fatty liver. Slightly enlarged prostate gland. Abdomen and pelvis: Stable low-attenuation soft tissue in the body of the pancreas continuous with abnormal low-attenuation soft tissue surrounding the celiac axis and SMA. Occluded splenic vein. Occluded distal SMV. Patent portal vein. Extensive peripancreatic varices. Previous imaging from October 01 revealed: Overall no significant change in the region of pancreatic head with significant collateral vessels/varices secondary to portal hypertension. The splenic vein is not seen. The portal vein is opacified to the level of pancreatic head. The spleen is heterogenous but normal size. There is no ascites seen at this time. However, there is mild haziness in bilateral paracolic gutter likely congestion. His GI complaints have resolved with the Creon. He has been feeling well. He has been working over the winter. CT chest and abdomen from 06/19/2020: Chest: New small pulmonary nodules. The largest measures 3 x 6 mm in the right lower lobe. Abdomen and pelvis: Stable low-attenuation in the body of the pancreas continuous with abnormal soft tissue surrounding the celiac axis, SMA and SMV, thickening of the bilateral anterior pararenal fascia and soft tissues surrounding the duodenum and left adrenal nodule. Occluded splenic vein, and distal SMV and extensive varices. Fatty liver. Stable mild dilatation of the common bile duct. Upper normal-size spleen. Stool throughout the colon questionable for constipation. His CA 19-9 from 06/10/20:357. From 09/13:1921. Recent CT scan of the chest and abdomen, from 09/22: Multiple pulmonary nodules are slightly increased in size since the previous study from 06/08. No major change in slightly enlarged and hypodense appearing diffuse pancreas and mild haziness along the posterior pancreatic margin. No focal lesion seen on the present exam, however the pancreas appears slightly heterogenous with abundant varices seen throughout the peripancreatic region, pancreas and upper abdomen. No change in the haziness in the peripancreatic region. Small left para aortic lymph nodes are essentially stable. No focal liver lesions seen. I shared the results with him. I was concerned about rising tumor marker and increasing pulmonary nodules. I suggested that he start back on the chemotherapy treatment. He has been restarted on Gemzar/ Abraxane since it had worked previously. He was started October 28. Since his baseline WBC count was low, he was started on Neulasta to prevent chemotherapy-induced neutropenic sepsis. He is here for cycle 3, day 1. He tolerated it well. CAT scan on 01/31: Stable pulmonary nodules. No new pulmonary nodules seen. Mild fatty infiltration of liver with portal vein thrombosis and cavernous transformation of portal vein, similar to previous study. There is diffuse haziness in the pancreatic head with heterogeneity, stable. The rest of the pancreas is slightly attenuated. Numerous collateral vessels are seen surrounding the pancreatic head and the upper abdomen. He was referred to [place], for a 2nd opinion. He saw Dr. Nicole Lees. Repeat imaging in mid March revealed new liver lesion and peritoneal disease. The CA 19/9 was down to 451 from 1355. However it went up to 2830 on 05/13. She offered him clinical trial versus retreatment with FOLFIRINOX. He elected to proceed with the latter. Received 1st cycle of FOLFIRINOX on 05/16. He did not tolerate it at all. I offered to dose reduce him to 75% of the chemotherapy doses. He was willing to try that. He tolerated it better. He received cycle 2 day 15 on 06/28. He was supposed to start cycle 3, however his blood count was noted to be low. Platelets were 54. He received 2 units of blood, a month ago.. His tumor marker CA 19-9 came down to 695, from 1990 which is encouraging. He received the 3rd cycle. Then wanted a break from treatment since July was his and his birthday month. He wanted to feel well for the holidays. I offered to restart him on the FOLFIRINOX however he is not too keen on doing that. He feels the treatment was rather tough on him. He took some time off, before deciding to restart it. l reimaged with CT scan of the chest and abdomen pelvis. This was done on September 02 and revealed: Dilated intrahepatic duct and common bile duct with heterogeneous pancreatic head and body and ill-defined margins similar to previous study 03/23/2021. There are small peripancreatic lymph nodes which cannot be differentiated from the adjacent pancreatic head and uncinate process. However, there is no enlarging mass or lymph nodes seen. There is diffuse ascites and haziness throughout the peritoneum likely secondary to ascites and mesenteric edema. No liver lesions seen. Adrenal glands are normal. Right pulmonary nodules seen on March [address] are no longer seen. No new pulmonary nodules. l followed up on his tumor marker as well. CA 19-9: 632. From 08/01: 695. I explained to him that the imaging appears to reveal stable disease. Tumor markers have come down which is a good sign. I would like to restart him on the chemotherapy regimen to continue to achieve a response. He said he would like to give it some thought. He restarted on his treatment. He had imaging done after completing 6 cycles. These were done on 12/02: Stable central intrahepatic biliary duct and extrahepatic biliary duct dilatation. Stable diffuse low-attenuation appearance of the pancreas continuous with abnormal low-attenuation soft tissue surrounding the celiac axis, SMV and SMA and upper retroperitoneum adjacent to the abdominal aorta, left adrenal gland and left renal veins and third portion of duodenum. Occluded splenic vein, distal SMV and portosplenic confluence/extrahepatic main portal vein. The more distal hepatic main portal vein and right and left hepatic veins are patent. Small amount of ascites. Interval decrease in peritoneal nodule inferior to the right lobe of the liver. Constipation. Stable scarring or subsegmental atelectasis in the left lower lobe. No pulmonary nodules seen. CA 19-9:1450. Previously 2315. It is reassuring that things are stable, little bit better. He had the upper endoscopy. This revealed some varices which were banded. His hemoglobin appears to have stabilized since then. That is a good sign, the banding has helped to prevent further oozing. He feels that the break from chemotherapy last week has helped him recuperate somewhat from the side effects. He would actually like to hold off on further treatment and have a longer break from it. He said he will wait for the next set of images and then decide when to resume. Meanwhile his abdomen is more uncomfortable now. Last time been an ultrasound was done there was not much fluid to drain. Patient wanted to take a break from the treatment since he was getting very tired. Database: 02/28: CBC: WBC 2.3, HGB 8.6, HCT 27.7, PLT 91. CMP: Lytes WNL, glucose 189, BUN 13, [employer] 1.25. LFTs: 0.7/ 36/31/11. Ca 19/9: From December was 634. From January 18 was 351. He has been doing well. His belly is firm and distended. Sometimes he feels bloated.. I proceeded with an ultrasound of the abdomen to look for any evidence of ascites that can be tapped to make him more comfortable. FINDINGS/IMPRESSION: Imaging through the 4 quadrants of the abdomen reveals small amount of fluid probably 500 mL or less. Recommend waiting for one or 2 more weeks for the fluid to be drained. If patient is very uncomfortable this could be secondary to other GI tissues. The fluid is not significant at this time. Unfortunately not enough ascites to drain at this point. CT scan of the chest and abdomen from 03/09, revealed: Uremarkable CT chest exam with known pulmonary nodule seen. Diffuse ascites, dilated CBD and central right and left hepatic ducts are stable. Mild splenomegaly, stable. Low attenuation soft tissue densities surrounding the celiac axis, SMA, SMV appears unchanged. The splenic vein is not visualized. Distal portal vein is patent. There are moderate varicose veins present along the greater curvature of the stomach and the splenic hilum, likely portal hypertension. Small periportal lymph nodes are seen. Moderate mural thickening involving the distal stomach, duodenal bulb and the first segment of the duodenum is unchanged. There is some omental thickening but previously seen nodule inferior to right hepatic lobe is not distinctly visualized at this time. I shared the results of the above imaging with him. Things have deteriorated. He has required paracenteses almost every couple of weeks. Ca 19/9: 6821. This is concerning. He had initially agreed to restart the FOLFIRINOX chemotherapy. However later, he declined. He had been offered a clinic trial based therapy, in [place]. However he is not really a candidate for it now. His LFTs have been progressively increasing. 3.8/478/67/39. He actually underwent a PleurX catheter placement, to make it convenient for him, to have the drainage done at home. Unfortunately, it is not functioning properly. Dr. Mendoza even tried to fix it at the bedside, but it did not work., PLAN: He will be going to IR, today to have the Pleurax removed and get a paracentesis done. He will return every Sunday to have a paracentesis for palliation. I offered to set up VNA versus hospice care for him however he declined. He said he does not need help at this point. He will keep me posted. Will set up hospice care, once he is mentally prepared. He will return in 1 month for a follow-up and port flush. Thank you, CC: Dr. Anant Pereira. at [place]. Dr. Abel Woodard at [facility]. Gen. Dr. East. - Time Spent With Patient Time Spent with Patient (in minutes): 26
[2022-09-08 11:03] LABS: MANUAL DIFF FLAG NO
[2022-09-08 11:11] LABS: Basophils Percent Auto 0.3 % (0-2); Eosinophils Percent Auto 0.1 % (0-4); Hematocrit 30.7 % (42.0-52.0); Hemoglobin 10.3 g/dl (14.0-18.0); Imm Gran Abs Auto 0.08 X10*3/uL (0.00-0.03); Imm Gran Pct Auto 1.1 % (0.0-0.4); Lymphocytes Absolute Auto 0.4 X10*3/uL (1.2-4.9); Lymphocytes Percent Auto 5.6 % (20-40); Mean Corpuscular HGB Conc 33.6 g/dl (31.0-36.0); Mean Corpuscular Hemoglobin 25.2 pg (27.0-33.0); Mean Corpuscular Volume 75.1 fL (80.0-98.0); Monocytes Absolute Auto 0.6 X10*3/uL (0.1-1.2); Neutrophils Absolute Auto 5.9 x10*3/uL (2.0-8.3); Neutrophils Percent Auto 84.9 % (45-73); Platelet Count 152 X10*3/uL (160-400); Red Blood Count 4.09 X10*6/uL (4.60-5.80); Red Cell Distribution Width 18.2 % (11.0-16.0)
[2022-09-08 12:01] LABS: Alanine Aminotransferase 39 U/L (0-40); Alkaline Phosphatase 478 U/L (39-117); Anion Gap 22 (12-20); Aspartate Amino Transferase 67 U/L (5-37); Bilirubin Total 3.8 mg/dL (0.0-1.0); Blood Urea Nitrogen 60 mg/dL (9-16); Calcium 9.3 mg/dL (8.4-10.2); Carbon Dioxide 26 mmol/L (22-29); Chloride 87 mmol/L (96-108); Creatinine Clr Calc Pharmacy 26.1; Estimated Glomerular Filt Rate 20; Glucose Random 174 mg/dL (60-115); Potassium 3.8 mmol/L (3.3-5.1); Sodium 131 mmol/L (135-145); Total Protein 7.4 g/dL (6.5-8.0)
--- NOTE | 2022-09-08 15:35 | MHC.HEMONCMA ---
Pt was in for follow up. Clinical summary reviewed and updated, VSS. Labs were drawn. Pt to return in 1 month.
--- NOTE | 2022-09-15 15:22 | MHC.HEMONC ---
I talked with patient in PACU s/p paracentesis. He had 4.5 liters removed. His kidneys are failing and he does not want admission. We had long talk about prognosis. He agreed to have Hospice see him as his time is short. I made referral. He has family in the home to care for him.
--- NOTE | 2022-09-21 10:26 | MHC.HEMONCMA ---
Leticia [id number] U/S called for time change on 09/29/22 for patient, is now at 1Pm, gave to dirk to notify patient.
== END | disposition home or self-care (01) ==
LOC: HO.ONC 06-10 08:54
PROVIDERS: PCP Internal Medicine; Visit Provider Internal Medicine Medical Oncology
DX: C25.8 Malignant neoplasm of overlapping sites of pancreas (principal); R18.8 Other ascites; R68.81 Early satiety; R91.8 Other nonspecific abnormal finding of lung field; D64.9 Anemia, unspecified; Z92.3 Personal history of irradiation
CPT/HCPCS: 36415; 36430; 36591; 80053; 82272; 82378; 83615; 85007; 85025; 85027; 85610; 86301; 86704; 86706; 86850; 86900; 86901; 86923; 87340; 90471; 90686; 96360; 96361; 96366; 96367; 96368; 96372; 96375; 96377; 96411; 96413; 96415; 96416; 96417; 96523; 99214; J0461; J0640; J1100; J1200; J1453; J1642; J2405; J2505; J2506; J2997; J9190; J9201; J9206; J9263; J9264; P9016